=== PATIENT | female | born 1965 | race Caucasian/White ===

== ENCOUNTER → 2024-07-04 12:38 | Outpatient (REF) | payer OTHER, SELFPAY | LOC: RAD 12:38 | PROVIDERS: ATTENDING PHYSICIAN Nurse Practitioner Family; FAMILY PHYSICIAN Family Medicine | DX: R05.3 Chronic cough (principal) | CPT/HCPCS: 71046 ==

== ENCOUNTER 2024-08-07 19:02 | Inpatient (IN) | payer OTHER, SELFPAY ==
[2024-08-07] VITALS (8 sets, daily range): BP systolic 120–178; BP diastolic 64–95; BMI 24.3
[2024-08-07 16:08] LABS: % Basophils 0.1 % (0-2); % Immature Granulocytes 0.5 % (0-0.5); % Lymphocytes 8.8 % (20.5-51.1); % Monocytes 0.7 % (1.7-9.3); % Neutrophils 89.9 % (42.2-75.2); Absolute Lymphocytes 0.7 10^3/uL (1.2-3.4); Absolute Monocytes 0.1 10^3/uL (0.1-0.6); Absolute Neutrophils 7.5 10^3/uL (1.4-6.5); Hematocrit 44.3 % (37.0-47.0); Hemoglobin 15.1 g/dL (12.0-16.0); Mean Corp Hgb Conc. 34.1 g/dL (33.0-37.0); Mean Corpuscular Hgb 32.5 pg (27.0-31.0); Mean Corpuscular Volume 95.5 fL (81.0-99.0); Mean Platelet Volume 9.8 fL (7.4-10.4); Nucleated Red Blood Cells % 0 %; Platelet Count 302 10^3/uL (130-400); Red Blood Cell Count 4.64 10^6/uL (4.20-5.40); White Blood Cell Count 8.3 10^3/uL (4.8-10.8)
--- NOTE | 2024-08-07 16:10 | ED.GENMED ---
History of Present Illness
General
Chief Complaint: Weakness
Source: patient
Exam Limitations: none
Time Seen by Provider: 08/07/24 15:30
Nursing documentation reviewed up to this point in time: agreed with
History of Present Illness
History of Present Illness:
Patient to ED wt complaint of BLE weakness. States 1 week ago she noticed numbness in both of her hands. Has had cervical radiculopathy but states typically her symptoms involve entire arm. Thurs PM she noticed that her legs felt weak. No
numbness or tingling. SInce then she has had worsening weakness and now is unable to stair climb. States she is crawling up steps and then crawls over to furniture to get self to standing position. Describes her gait as 'unorganized'. Now
requires walker to ambulate. Denies fever/chills, headache, dizziness, vision changes. No history of trauma. Reports bronchitis at [facility], symptoms x 5 weeks. COvid and influenza neg at that time. No recent immunizations. She reports
known herniated discs at cervical and lumbar areas. No increase in pain. Has full ROM to head and neck. Her PCP is away. States she spoke with oncall provider and was prescribed Prednisone 40mg. He has had 2 doses. Brought to ED by family for
eval
Past History
Past History
ED Past Medical History: Cancer (thyroid 2018), Hypothyroidism, Psychiatric and Other (Asthma, allergy to strawberries)
ED Past Surgical History: , Gynecological (uterine ablation, tubal ligation) and Tonsilectomy
Social History
Tobacco: Non-smoker
Alcohol: Occasional
Drug: Marijuana (medical marijuana)
Personal:
Living: with family
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
Family History
Family History: Negative CAD
Review of Systems
Review of Systems
Allergies reviewed?: Yes
All Other Systems: ROS reviewed and negative except as documented in HPI and ROS
Constitutional: Reports no symptoms
EENT: Reports no symptoms
Respiratory: Reports no symptoms
Cardiac: Reports no symptoms
ABD/GI: Reports no symptoms
: Reports no symptoms
Musculoskeletal: Reports no symptoms
Skin: Reports no symptoms
Neurological: Reports weakness (BLE weakness) and numbness (Bilateral hand numbness)
Psychiatric: Reports no symptoms
Phy Exam
General Physical Exam
General Presentation: moderate distress
General age: appears stated age
General Skin: warm and dry
General Habitus: normal
General Mental: alert
Cardiovascular Exam
Cardiovascular Exam: regular rate/rhythm and no edema
Pulmonary Exam
Pulmonary Exam: lungs clear and no respiratory distress
Neurological Exam
Neurological Exam: alert, oriented x3 and CN II-XII intact
Mental
Mental Status: oriented to person, oriented to place, oriented to time and usual mental status
Cranial
Cranial Nerves: normal, intact gag reflex and no facial asymetry
EOM (CN3/4/6): intact
Motor
Seizure Activity: none
Tremors: none
Right upper extremity: 3
Right lower extremity: 3
Left upper extremity: 3
Left lower extremity: 1
Bilateral upper extremities: 1
Bilateral lower extremities: 1
Sensory
Sensory Exam: intact
Musculoskeletal Exam
Musculoskeletal Exam: neck pain (chronic,unchanged), back pain (low back, chronic, unchanged), no edema and other (Sensation intact. Unable to lift legs off bed.)
Skin Exam
Skin Exam: normal color, warm/dry and no rash
Psychiatric Exam
Psychiatric Exam: normal mood/affect
Course
Orders/Labs/Results
Orders:
Orders
08/07/24 Dinner
Regular
At Your Request: Limited Participation
08/07/24 15:57
Comprehensive Metabolic Panel Urgent
Creatine Phosphokinase Urgent
Comment: ADD ON
Lyme Progressive Urgent
08/07/24 15:58
CRP [C-Reactive Protein] Urgent
Complete Blood Count/With Diff Urgent
Free T4 Urgent
Sed Rate [Erythrocyte Sed Rate] Urgent
TSH Reflex To Free T4 Urgent
08/07/24 17:46
Urinalysis Reflex To Culture Urgent
Date Specimen was Collected: 08/07/24
Time Specimen was Collected: 17:45
08/07/24 17:56
NEUROLOGY CONSULT Urgent
Consulting Provider: Radha Busch
Was physician already notified: Yes
08/07/24 18:03
MR Cervical Spine Without Stat
Comment:
Reason For Exam: cervical myelopathy
OK for patient to be off Cardiac Monitoring for MRI: No
Recent pill cam endoscopy?: No
08/07/24 18:04
MR Thoracic Spine Without Stat
Comment:
Reason For Exam: myelop
OK for patient to be off Cardiac Monitoring for MRI: No
Recent pill cam endoscopy?: No
08/07/24 18:07
Add On- LAB Urgent
Comments:: please add on to CSF
Tests Added?: OCB, MBP, cytology
08/07/24 18:20
Admit/Transfer Patient As Directed
Co-Sign Provider:
Level of Care: Inpatient admission
Assign to:: Telemetry
Physician / Group: Simba
Diagnosis: Acute Myelopathy
Reason for Telemetry: Arrhythmia
Date to Stop Telemetry: 08/10/24
Time to Stop Telemetry: 11:00
Reason for Hospitalization: Neurology consult, spinal MRI
Expected length of stay greater than two midnights?: Yes
ELOS- Estimated Length of Stay in days: 6
I certify the patient meets the requirements for IP care: Yes
PRN Pain Medication Management As Directed
May give lesser potent ordered pain med per pt: Yes
preference::
Protocol:: Medication orders for pain may be administered in a
manner that supports deferring to patient preference
when the pt is:
- Requesting an ordered lesser potent pain medication.
Least to most potent pain medications are defined
as: acetaminophen < NSAID < tramadol < opioids
(morphine, oxycodone, hydromorphone).
- Requesting a lesser dose of the same medication IF
ORDERED.
- Requesting a less intrusive route of administration
if both routes are prescribed by the provider (PO <
IV).
08/07/24 18:21
Code Status As Directed
Resuscitation Status: Full Code
08/07/24 19:55
Acetaminophen [Tylenol] 650 mg PO Q6HPRN PRN
Albuterol [ProAIR HFA INHALER] 2 puff INH R Q4HPRN PRN
08/07/24 19:55
Activity As Directed
Activity Level: With Assistance
DX Deep Vein Thrombosis Video Routine
08/08/24 18:00
Enoxaparin Sodium [Lovenox] 40 mg SC QPM
Abnormal Lab Results
08/07/24 08/07/24
15:57 15:58
MCH 32.5 H pg
(27.0-31.0)
Absolute Neuts (auto) 7.5 H 10^3/uL
(1.4-6.5)
Absolute Lymphs (auto) 0.7 L 10^3/uL
(1.2-3.4)
Neutrophils % 89.9 H %
(42.2-75.2)
Lymphocytes % 8.8 L %
(20.5-51.1)
Monocytes % 0.7 L %
(1.7-9.3)
BUN 20 H mg/dl
(7-17)
Glucose 131 H mg/dl
(70-99)
Creatine Kinase 169 H U/L
(30-135)
Albumin 5.1 H g/dl
(3.5-5.0)
TSH (Reflex) 0.06 L uIU/ml
(0.47-4.68)
08/07/24 15:58
08/07/24 15:57
Vital Signs
Initial and Last Documented VS:
Initial Vital Signs
Temp Pulse Resp BP Pulse Ox
98.1 F 133 18 178/95 99
08/07/24 14:46 08/07/24 14:46 08/07/24 14:46 08/07/24 14:46 08/07/24 14:46
Last Documented Vital Signs
Temp Pulse Resp BP Pulse Ox
97.6 F 90 16 136/65 94
08/15/24 08:28 08/15/24 21:00 08/15/24 21:00 08/15/24 21:00 08/15/24 21:00
*Critical Care Note
Total Time (30-74mins, 75-104mins- exclusive of procedures): Not Applicable
Update Note
Update Note:
Labs reviewed, no concerning findings noted through lab assessment. VSS, remains afebrile. Case discussed with dr. Busch who evaluated this pateint bedside. Concern for cord compression. She will be admitted to hospitalist service, STAT MRI
ED Attending Note
-
Portions of this chart may have been created with voice recognition software.� Occasional wrong word or��sound alike� substitutions may have occurred due to the inherent limitations of voice recognition software.
Discharge Plan
Departure
Patient Disposition: Admit
Date of Disposition: 08/07/24
Time of Disposition: 17:52
Presentation/result/management discussed w/ accepting MD/DO: Hospitalist
Patient with high blood pressure during this ER visit?: No
Condition: Fair
Covid-19: Not Applicable
Discharge Problem:
Myelopathy
Interventions
Interventions:
*Risk Screen - Suicide Last Done: 08/07/24 14:46
*General Assessment Last Done: 08/07/24 14:46
*Neglect/Abuse Screening Last Done: 08/07/24 14:46
*ED COVID-19 Vaccine History Last Done: 08/07/24 14:46
*Nursing Disposition Last Done: 08/07/24 19:52
ED- Cardiac Assessment Last Done: 08/07/24 16:00
ED- Neurological Assessment Last Done: 08/07/24 16:00
ED- Pulmonary Assessment Last Done: 08/07/24 16:00
Discharge Date and Time
Discharge Date/Time: 08/07/24 19:52
[2024-08-07 16:22] LABS: ALT (SGPT) 28 U/L (0-35); AST (SGOT) 31 U/L (14-36); Albumin 5.1 g/dl (3.5-5.0); Alkaline Phosphatase 79 U/L (38-126); Blood Urea Nitrogen 20 mg/dl (7-17); Carbon Dioxide 26 mmol/L (22-30); Chloride 104 mmol/L (98-107); Glucose 131 mg/dl (70-99); Potassium 3.8 mmol/L (3.5-5.1); Sodium 144 mmol/L (135-145); Total Bilirubin 0.9 mg/dl (0.2-1.3); Total Protein 7.6 g/dl (6.3-8.2); eGFR > 60.00
[2024-08-07 16:25] LABS: C-Reactive Protein < 5.00 mg/L (0.0-10.00)
--- NOTE | 2024-08-07 16:25 | CON.NEURO ---
Consultation
Order
Date of Consultation: 08/07/24
Requesting Provider: Mckenna Tran
Reason for Consult: Ambulatory dysfunction
Neurology Consultation Note.
HPI: This is a 58-year-old woman who presented to [facility] on 08/07/2024 with progressive ambulatory dysfunction. According to the patient she developed
progressive left greater then right leg weakness that started on 08/05/2024. The patient reports the need to use the railing and crawl upstairs on 08/06/2024. She also reports tingling and a 'funny' sensation in her feet and admits to worsening of
pre-existing numbness of bilateral I-IV digits of the hand over the last 2 weeks. She did have transient neck pain which has been managed with ice, ibuprofen, and Tylenol.
No falls, fever, diarrhea, dyspnea, dysphagia, diplopia, dysarthria, recent vaccination or respiratory symptoms.
ER VS: 145/82-178/95, 133,
PDMP:Oxycodone-Acetaminophen 5-325 20 tablets filled in on 12/29/2023, 05/08/2024.
Labs: Glucose�131, normal WBCs, sodium, LFTs, TFTs
PMH: C6-C6 DJD, h/o papillary thyroid ca, hypothyroidism, vitamin D deficiency, GERD, TRENA positive history of head concussion, celiac disease, Hepatic steatosis chronic pain syndrome, AISHWARYA, ADD,
PSH: total thyroidectomy, cholecystectomy, , tubal ligation, tonsillectomy
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
All: Aspirin
ROS: Constitutional: Negative. Negative for chills, fever and unexpected weight change.
HENT: Negative for ear pain, hearing loss, tinnitus and trouble swallowing.
Eyes: Negative. Negative for photophobia, pain and visual disturbance.
Respiratory: Negative for cough, choking and shortness of breath.
Cardiovascular: Negative for chest pain, palpitations and leg swelling.
Gastrointestinal: Negative for abdominal pain and vomiting.
Endocrine: Negative. Negative for cold intolerance.
Genitourinary: Negative for dysuria, flank pain and urgency.
Musculoskeletal: Positive for intermittent neck pain
Skin: Negative for rash.
Allergic/Immunologic: Negative. Negative for immunocompromised state.
Neurological: Positive for leg weakness, paresthesias
Psychiatric/Behavioral: Positive for anxiety
General: Well developed. In no acute distress.
Cardio: Regular rate and rhythm without murmur. Extremities are without cyanosis or edema.
Neuro:
Mental Status: Alert, oriented to person, place, and date. Normal attention and recall. Good fund of knowledge. Follows complex requests across the midline. Comprehension, naming, and repetition intact. Immediate and delayed recall 3/3.
Cranial Nerves: . Pupils are equally round and reactive to light. EOMs full. Visual kent full to confrontation. No ptosis. No nystagmus. V1-V3 intact to light touch and pinprick bilaterally, symmetric. Face symmetric. Normal hearing AU.
The palate elevated well. SCMs and traps 5/5. Tongue midline. No dysarthria. Anxious.
Motor: Normal bulk and tone. No pronator or arm drift. Strength 5/5 throughout except for lateral dorsiflexion 3 -/5, hip flexion, knee extension 4- out of 5 bilateral detailed 4 out of 5, triceps�5- out of 5. No clonus.
Reflexes: 2+ throughout the upper extremities and R knee. AJs, L knee 0/2. Plantar responses flexor bilaterally.
Sensory: Normal vibration and JPS at the toes
Coordination: No dysmetria or tremor.
Gait: normal base, steppage gait, unable to stand on tip toes
Assessment and Plan:
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
II. Hypothyroidism
III. AISHWARYA
-Start IVIG 0.4mg/kg/day for 5 days. Side effects include aseptic meningitis, rash, acute renal failure (mostly related to sucrose containing products), and hyperviscosity leading to stroke
-CSF(cell count, protein, glucose, SHERRY)
-NCS/EMG of LUE/LE in 3 weeks
-MRI C/T spine wo aishwarya
-Vit B12, SHERRY, Lyme ab, vit B1, copper, ESR/CRP; TRENA, anti-GM1 IgG and anti-GD1a antibodies
-DVT prophylaxis.
.�
I personally reviewed all radiology and labs along with past medical records pertinent to current medical problems. Total time spent in patient care is 60 minutes.
Thank you for allowing us to participate in the care of this patient. We will continue to follow. Please do not hesitate to contact us with any questions or concerns.
Subjective/Objective
Subjective Data
Date of Service: August 07, 2024
Objective Data
Vital Signs
Temp Pulse Resp BP Pulse Ox
36.7 C 133 18 178/95 99
08/07/24 14:46 08/07/24 14:46 08/07/24 14:46 08/07/24 14:46 08/07/24 14:46
Lab Results
08/07/24 15:58
08/07/24 15:57
Sodium 144 mmol/L (135-145) 08/07/24 15:57
Potassium 3.8 mmol/L (3.5-5.1) 08/07/24 15:57
BUN 20 mg/dl (7-17) H 08/07/24 15:57
Glucose 131 mg/dl (70-99) H 08/07/24 15:57
Calcium 10.0 mg/dl (8.4-10.2) 08/07/24 15:57
Patient Allergies
strawberry Allergy (Verified 08/07/24 14:51)
Swelling
aspirin [Aspirin] Adverse Reaction (Verified 08/07/24 14:51)
GI upset
BANDAID Allergy (Uncoded 08/07/24 14:51)
Rash
Medications
-
Home Medications
�Medication �Instructions �Recorded
valacyclovir 500 mg tablet 500 mg PO PRN PRN fever blisters 05/24/09
(Valtrex)
Control 1 dose PO DAILY 12/14/14
diphenhydramine HCl 25 mg capsule 25 mg PO PRN PRN allergies 12/14/14
(Benadryl)
epinephrine 0.3 mg/0.3 mL 0.3 mg (0.3 mL) IM ONCE #2 mL 12/14/14
injection, auto-injector (EpiPen)
multivitamin (Daily Sami tablet) 1 ea PO DAILY 12/14/14
prednisone 20 mg tablet 40 mg (2 x 20 mg) PO DAILY #10 tabs 12/14/14
sucralfate 100 mg/mL oral 1 gm PO ACHS #560 mL 05/01/15
suspension (Carafate)
cyclobenzaprine 10 mg tablet 10 mg PO HSPRN PRN muscle spasms, 07/04/16
tightness #7 tabs
famotidine 20 mg tablet (Pepcid AC) 20 mg PO DAILY 07/04/16
hydrocodone 5 mg-acetaminophen 325 1 tab PO Q4HPRN PRN severe pain 07/04/16
mg tablet #10 tabs
ibuprofen 600 mg tablet 600 mg PO Q6HPRN PRN pain #12 tabs 07/04/16
Vital Signs and Labs
-
Vital Signs and Labs:
Vital Signs
Temp Pulse Resp BP Pulse Ox
36.7 C 77 18 113/71 98
08/08/24 07:18 08/08/24 07:18 08/08/24 07:18 08/08/24 07:18 08/08/24 07:18
Lab Results
08/07/24 15:58
08/07/24 15:57
Sodium 144 mmol/L (135-145) 08/07/24 15:57
Potassium 3.8 mmol/L (3.5-5.1) 08/07/24 15:57
BUN 20 mg/dl (7-17) H 08/07/24 15:57
Glucose 131 mg/dl (70-99) H 08/07/24 15:57
Calcium 10.0 mg/dl (8.4-10.2) 08/07/24 15:57
Medications
-
Medications:
Generic Name Dose Route Start Last Admin
Trade Name Freq PRN Reason Stop Dose Admin
Acetaminophen 650 mg 08/07/24 19:55 08/08/24 06:20
Acetaminophen 325 Mg Tablet PO 09/04/24 19:54 650 mg
Q6HPRN PRN Administration
mild pain/ fever>100.5F
Albuterol 2 puff 08/07/24 19:55
Albuterol Hfa [90 Mcg/Dose] Inhaler INH
R Q4HPRN PRN
SOB, wheezing
Protocol
Enoxaparin Sodium 40 mg 08/08/24 18:00
Enoxaparin Sodium 40 Mg/0.4 Ml Syringe SC 09/05/24 17:59
QPM CAMELIA
Immune Globulin 25 gram 08/08/24 07:25
Immune Globulin (Calculator Uses Ibw) - Pharmacy To Place Order 0.4 gram/kg (25 gram) 08/08/24 07:26
IV
DIRECTED ONE
Levothyroxine Sodium 62.5 mcg 08/08/24 06:00 08/08/24 05:22
Levothyroxine 125 Mcg Tablet PO 09/05/24 05:59 62.5 mcg
DAILY@0600 CAMELIA Administration
Liothyronine Sodium 5 microgram 08/08/24 08:00
Liothyronine 5 Microgram Tablet PO 09/05/24 07:59
BID CAMELIA
Sodium Chloride 0 flush 08/07/24 21:00
Sodium Chloride 0.9% (Flush) Syringe IV 09/04/24 20:59
PER PROTOCOL CAMELIA
Home Medications
-
Home Medications
valacyclovir 500 mg tablet (Valtrex) 500 mg PO DAILYPRN PRN fever blisters 05/24/09
acetaminophen 500 mg tablet 500 mg PO DAILYPRN PRN mild pain 08/07/24
ibuprofen 200 mg tablet 600 mg PO DAILYPRN PRN mild pain 08/07/24
levothyroxine 125 mcg tablet (Synthroid) 62.5 mcg PO DAILY 08/07/24
lidocaine 5 % topical patch 3 patch topical DAILYPRN PRN upper and lower back 08/07/24
liothyronine 5 mcg tablet 5 mcg PO BID 08/07/24
omeprazole 20 mg capsule,delayed release 20 mg PO DAILY 08/07/24
oxycodone-acetaminophen 5 mg-325 mg tablet 1 tab PO Q6HPRN PRN severe pain 08/07/24
prednisone 20 mg tablet 40 mg PO UD 08/07/24
semaglutide (weight loss) 1.7 mg/0.75 mL subcutaneous pen injector (Luc) 1.7 mg SC TU 08/07/24
[2024-08-07 16:32] LABS: Erythrocyte Sed Rate 8 mm/hour (0-20)
[2024-08-07 16:55] LABS: TSH Reflex To Free T4 0.06 uIU/ml (0.47-4.68)
[2024-08-07 17:25] LABS: Free T4 1.06 ng/dl (0.78-2.19)
[2024-08-07 18:02] LABS: Urine Albumin Trace (Neg - Trace); Urine Bilirubin Negative (Negative); Urine Character Clear (Clear); Urine Color Yellow; Urine Glucose Negative (Negative); Urine Ketone Negative (Negative); Urine Leukocyte Negative (Negative); Urine Nitrite Negative (Negative); Urine Occult Blood Negative (Negative); Urine Urobilinogen Negative (Neg - 1+)
--- NOTE | 2024-08-07 18:22 | HPS.HSE ---
Family Physician
-
Family Physician: Eb Mcgraw
Chief Complaint
-
Bilateral leg weakness
History of Present Illness
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
Developed bilateral hand numbness on and she tried calling her primary care doctor. Was given a prescription for prednisone 40 mg daily that she started on Thursday. Did not notice a difference and unfortunately developed new onset of lower
extremity weakness over the past 24 to 36 hours. Leg weakness was so bad that she was using her arms to get around and crawling around her house.
Denies any recent vaccinations in the prior year. Had bronchitis around the time of .
History of herniated disks. Denies any fevers or chills. Denies loss of bowel or bladder.
Medical History
Past Medical History
Past Medical History: Reports Other
Additional Past Medical History:
Papillary thyroid cancer -2018
Iatrogenic hypothyroidism
Mild intermittent asthma
Anxiety disorder
Hyperlipidemia
Past Surgical History: Reports Gynocological and Tonsilectomy
Social History
Tobacco: Non-smoker
Alcohol: None
Drug: None
Personal: Single
Living: Alone
Family History
Family History: Not pertinent
Allergies / Home Medications
Allergies reflects when Allergies were last updated in [facility].
Home Medications with original date entered in [facility]
Allergy/Medication List:
Allergies
Allergy/AdvReac Type Severity Reaction Status Date / Time
strawberry Allergy Swelling Verified 08/07/24 14:51
aspirin [Aspirin] AdvReac GI upset Verified 08/07/24 14:51
BANDAID Allergy Rash Uncoded 08/07/24 14:51
Home Medications
valacyclovir 500 mg tablet (Valtrex) 500 mg PO PRN PRN fever blisters 05/24/09
Control 1 dose PO DAILY 12/14/14
diphenhydramine HCl 25 mg capsule (Benadryl) 25 mg PO PRN PRN allergies 12/14/14
epinephrine 0.3 mg/0.3 mL injection, auto-injector (EpiPen) 0.3 mg (0.3 mL) IM ONCE #2 mL 12/14/14
multivitamin (Daily Sami tablet) 1 ea PO DAILY 12/14/14
prednisone 20 mg tablet 40 mg (2 x 20 mg) PO DAILY #10 tabs 12/14/14
sucralfate 100 mg/mL oral suspension (Carafate) 1 gm PO ACHS #560 mL 05/01/15
cyclobenzaprine 10 mg tablet 10 mg PO HSPRN PRN muscle spasms, tightness #7 tabs 07/04/16
famotidine 20 mg tablet (Pepcid AC) 20 mg PO DAILY 07/04/16
hydrocodone 5 mg-acetaminophen 325 mg tablet 1 tab PO Q4HPRN PRN severe pain #10 tabs 07/04/16
ibuprofen 600 mg tablet 600 mg PO Q6HPRN PRN pain #12 tabs 07/04/16
Review of Systems
-
History Source: Patient
A 12 point ROS was completed and negative except as noted: Yes
Physical Exam
Vital Signs
Vital Signs
Temp Pulse Resp BP Pulse Ox
98.1 F 105 17 149/82 93
08/07/24 14:46 08/07/24 16:45 08/07/24 16:45 08/07/24 16:00 08/07/24 16:45
Physical Exam
General: Well Developed, Well Nourished, No Apparent Distress and Comfortable
HEENT: NormoCephalic, Anicteric and Moist mucous membranes
Respiratory: Clear
Cardiac: S1/S2 and Regular Rhythm
Breast: Deferred by me
GI: Soft, Non Tender and Non Distended
Genito-urinary: Deferred by me
Musculoskeletal: No Clubbing, No Cyanosis and No Edema
Skin: Warm and Dry
Neuro: AO x 3
Hematologic/Lymphatic: No Lymphadenopathy
Psych: Anxious
Laboratory Results
-
08/07/24 15:58
08/07/24 15:57
Laboratory Results
Total Bilirubin 0.9 mg/dl (0.2-1.3) 08/07/24 15:57
AST 31 U/L (14-36) 08/07/24 15:57
ALT 28 U/L (0-35) 08/07/24 15:57
Alkaline Phosphatase 79 U/L (38-126) 08/07/24 15:57
Impression/Plan
-
Acute bilateral lower extremity weakness - differential diagnosis includes myelopathy versus Guillain-Morgan� syndrome versus other causes.
Admit to telemetry. Neurology consult. Stat spine MRI without contrast, discussed with neurology.
PT/OT.
Lovenox for DVT prophylaxis.
Mild intermittent asthma -stable.
History of thyroid cancer -please update home medication list. TSH noted to be 0.06, free T4 normal.
Full code
[2024-08-07 18:39] LABS: Creatine Phosphokinase 169 U/L (30-135)
--- NOTE | 2024-08-07 20:40 | PTCARENOTE ---
Pt arrived to room 436-02. Pt ambulated from stretcher to bed x1 assistance with r/w. Pt AAOx3, VSS. No complaints of numbness, tingling or pain in B/L legs. Pt oriented to room, call perkins placed within reach.
[2024-08-07] MEDS: TYLENOL 650 MG PO (21:02)
[2024-08-08] VITALS (33 sets, daily range): BP systolic 77–165; BP diastolic 51–129; PULSE 86; O2SAT 98; BMI 24.7
[2024-08-08] MEDS: SYNTHROID 62.5 MCG PO (05:22)
[2024-08-08] MEDS: TYLENOL 650 MG PO (06:20)
--- NOTE | 2024-08-08 07:46 | W.PN.NEURO.1 ---
Today's Communication / Plan
-
.
Subjective/Objective
Subjective Data
Date of Service: August 08, 2024
Neurology follow-up note
24-hour events: Normotensive, transiently tachycardic on admission, afebrile.
Ms. Nevarez complains neck pain and stiffness. No reports of radicular symptoms. She endorses worsening of anxiety related to current diagnosis and family responsibilities.
No reports of dyspnea, dysarthria, dysphagia or diplopia.
Labs: CRP, free T4�normal.
C, T-spine MRI without aishwarya�no extra or intramedullary abnormalities.
PMH: C6-C6 DJD, h/o papillary thyroid ca, hypothyroidism, vitamin D deficiency, GERD, TRENA positive history of head concussion, celiac disease, Hepatic steatosis chronic pain syndrome, AISHWARYA, ADD,
PSH: total thyroidectomy, cholecystectomy, , tubal ligation, tonsillectomy
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
All: Aspirin
ROS: Constitutional: Negative. Negative for chills, fever and unexpected weight change.
HENT: Negative for ear pain, hearing loss, tinnitus and trouble swallowing.
Eyes: Negative. Negative for photophobia, pain and visual disturbance.
Respiratory: Negative for cough, choking and shortness of breath.
Cardiovascular: Negative for chest pain, palpitations and leg swelling.
Gastrointestinal: Negative for abdominal pain and vomiting.
Endocrine: Negative. Negative for cold intolerance.
Genitourinary: Negative for dysuria, flank pain and urgency.
Musculoskeletal: Positive for intermittent neck pain
Skin: Negative for rash.
Allergic/Immunologic: Negative. Negative for immunocompromised state.
Neurological: Positive for leg weakness, paresthesias
Psychiatric/Behavioral: Positive for anxiety
General: Well developed. In no acute distress.
Cardio: Regular rate and rhythm without murmur. Extremities are without cyanosis or edema.
Neuro:
Mental Status: Alert, oriented to person, place, and date. Normal attention and recall. Good fund of knowledge. Follows complex requests across the midline. Comprehension, naming, and repetition intact. Immediate and delayed recall 3/3.
Cranial Nerves: . Pupils are equally round and reactive to light. EOMs full. Visual kent full to confrontation. No ptosis. No nystagmus. V1-V3 intact to light touch and pinprick bilaterally, symmetric. Face symmetric. Normal hearing AU.
The palate elevated well. SCMs and traps 5/5. Tongue midline. No dysarthria. Anxious.
Motor: Normal bulk and tone. No pronator or arm drift. Strength 5/5 throughout except for lateral dorsiflexion 3 -/5, hip flexion, knee extension 4- out of 5 bilateral detailed 4 out of 5, triceps�5- out of 5. No clonus.
Reflexes: 2+ throughout the upper extremities and R knee. AJs, L knee 0/2. Plantar responses flexor bilaterally.
Sensory: Normal JPS at the toes
Coordination: No dysmetria or tremor.
Gait: normal base, steppage gait, unable to stand on tip toes
Assessment and Plan:
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
II. Hypothyroidism
III. AISHWARYA
-IVIG 0.4mg/kg/day for 5 days.
-CSF(cell count, protein, glucose, SHERRY)
-NCS/EMG of LUE/LE in 3 weeks
-Start Neurontin 100 mg nightly with titration as tolerated
-Lorazepam 0.5 mg as needed
-Vit B12, SHERRY, Lyme ab, vit B1, copper, ESR/CRP; TRENA, anti-GM1 IgG and anti-GD1a antibodies
-DVT prophylaxis.
.�
I personally reviewed all radiology and labs along with past medical records pertinent to current medical problems. Total time spent in patient care is 60 minutes.
Thank you for allowing us to participate in the care of this patient. We will continue to follow. Please do not hesitate to contact us with any questions or concerns.
Objective Data
Vital Signs
Temp Pulse Resp BP Pulse Ox
36.7 C 77 18 113/71 98
08/08/24 07:18 08/08/24 07:18 08/08/24 07:18 08/08/24 07:18 08/08/24 07:18
Lab Results
08/07/24 15:58
08/07/24 15:57
Sodium 144 mmol/L (135-145) 08/07/24 15:57
Potassium 3.8 mmol/L (3.5-5.1) 08/07/24 15:57
BUN 20 mg/dl (7-17) H 08/07/24 15:57
Glucose 131 mg/dl (70-99) H 08/07/24 15:57
Calcium 10.0 mg/dl (8.4-10.2) 08/07/24 15:57
Patient Allergies
strawberry Allergy (Verified 08/07/24 14:51)
Swelling
aspirin [Aspirin] Adverse Reaction (Verified 08/07/24 14:51)
GI upset
BANDAID Allergy (Uncoded 08/07/24 14:51)
Rash
Vital Signs and Labs
-
Vital Signs and Labs:
Vital Signs
Temp Pulse Resp BP Pulse Ox
36.7 C 77 18 113/71 98
08/08/24 07:18 08/08/24 07:18 08/08/24 07:18 08/08/24 07:18 08/08/24 07:18
Lab Results
08/07/24 15:58
08/07/24 15:57
PT 13.9 Sec (11.4-14.6) 08/08/24 07:39
INR 0.96 08/08/24 07:39
Sodium 144 mmol/L (135-145) 08/07/24 15:57
Potassium 3.8 mmol/L (3.5-5.1) 08/07/24 15:57
BUN 20 mg/dl (7-17) H 08/07/24 15:57
Glucose 131 mg/dl (70-99) H 08/07/24 15:57
Calcium 10.0 mg/dl (8.4-10.2) 08/07/24 15:57
Whole Bld Vitamin B1 Cancelled 08/08/24 07:47
Vitamin B12 Cancelled 08/08/24 07:47
Medications
-
Medications:
Generic Name Dose Route Start Last Admin
Trade Name Freq PRN Reason Stop Dose Admin
Acetaminophen 650 mg 08/07/24 19:55 08/08/24 06:20
Acetaminophen 325 Mg Tablet PO 09/04/24 19:54 650 mg
Q6HPRN PRN Administration
mild pain/ fever>100.5F
Albuterol 2 puff 08/07/24 19:55
Albuterol Hfa [90 Mcg/Dose] Inhaler INH
R Q4HPRN PRN
SOB, wheezing
Protocol
Enoxaparin Sodium 40 mg 08/08/24 18:00
Enoxaparin Sodium 40 Mg/0.4 Ml Syringe SC 09/05/24 17:59
QPM CAMELIA
Immune Globulin 5 gram in 50 mls @ 0 mls/hr 08/08/24 10:00
Gammagard IV 08/12/24 10:01
DAILY@1000 CAMELIA
Protocol
Per Protocol
Immune Globulin 20 gram in 200 mls @ 0 mls/hr 08/08/24 11:00
Gammagard IV 08/12/24 11:01
DAILY@1100 CAMELIA
Protocol
Per Protocol
Levothyroxine Sodium 62.5 mcg 08/08/24 06:00 08/08/24 05:22
Levothyroxine 125 Mcg Tablet PO 09/05/24 05:59 62.5 mcg
DAILY@0600 CAMELIA Administration
Liothyronine Sodium 5 microgram 08/08/24 08:00
Liothyronine 5 Microgram Tablet PO 09/05/24 07:59
BID CAMELIA
Sodium Chloride 0 flush 08/07/24 21:00
Sodium Chloride 0.9% (Flush) Syringe IV 09/04/24 20:59
PER PROTOCOL CAMELIA
Home Medications
-
Home Medications
valacyclovir 500 mg tablet (Valtrex) 500 mg PO DAILYPRN PRN fever blisters 05/24/09
acetaminophen 500 mg tablet 500 mg PO DAILYPRN PRN mild pain 08/07/24
ibuprofen 200 mg tablet 600 mg PO DAILYPRN PRN mild pain 08/07/24
levothyroxine 125 mcg tablet (Synthroid) 62.5 mcg PO DAILY 08/07/24
lidocaine 5 % topical patch 3 patch topical DAILYPRN PRN upper and lower back 08/07/24
liothyronine 5 mcg tablet 5 mcg PO BID 08/07/24
omeprazole 20 mg capsule,delayed release 20 mg PO DAILY 08/07/24
oxycodone-acetaminophen 5 mg-325 mg tablet 1 tab PO Q6HPRN PRN severe pain 08/07/24
prednisone 20 mg tablet 40 mg PO UD 08/07/24
semaglutide (weight loss) 1.7 mg/0.75 mL subcutaneous pen injector (Luc) 1.7 mg SC TU 08/07/24
[2024-08-08 08:37] LABS: PT 13.9 Sec (11.4-14.6)
[2024-08-08 08:45] LABS: INR 0.96
[2024-08-08] MEDS: CYTOMEL 5 MICROGRAM PO ×2 (09:57→19:34)
[2024-08-08 11:25] LABS: Vitamin B12 563 pg/ml (239-931)
[2024-08-08] MEDS: PERCOCET 5/325 1 TABLET PO ×2 (13:08→19:35)
--- NOTE | 2024-08-08 13:13 | CM ---
Patient seen bedside..
IA completed.
Patient independent prior to admission without assistive devices.
patient lives alone.
Patient drives.
patient has not been to skilled rehab.
Patient does not have VN.
PT/OT recommending Acute rehab, will need PMR consultation.
CM will continue to follow for d/c plan, patient hoping elly be able to go home.
PCP: Dr Mcgraw
Pharmacy: [facility]
Plan: Possible acute rehab.
patient would prefer [facility] here. Referral sent to [facility].
--- NOTE | 2024-08-08 13:53 | W.PN.HOSP.TC ---
Today's Communication/Plan
-
LP then IMU and initiation of IVIG
follow Neuro recs
Assessment / Plan
Assessment / Plan
Assessment:
Acute bilateral lower extremity weakness
- previously started on steroids per outpatient PCP - will stop there (only took 1 day)
- MRI spine without significant myelopathic pathology
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
- for LP today
- follow extended Neurology workup
- start IVIG, day 07/31
- transfer to IMU
Mild intermittent asthma - stable.
History of thyroid cancer - continue Cytomel and Synthroid (patient prefers brand name - will bring in her own supply). noted low TSH, normal T4
DVT ppx: Lovenox
Code: Full
Anticipated Discharge: > 48 hours
Subjective/Interval History
-
Date of Service: August 08, 2024
reports stable bilateral leg weakness and bilateral hand numbness
for LP today
Objective Data
-
Labs:
Laboratory Results
08/08/24
07:39
PT 13.9
INR 0.96
Vital Signs:
Vital Signs
Temp Pulse Resp BP Pulse Ox
98.1 F 84 16 126/70 99
08/08/24 13:00 08/08/24 13:00 08/08/24 13:00 08/08/24 13:00 08/08/24 13:00
I&O
08/07/24 08/08/24 08/09/24
06:59 06:59 06:59
Intake Total 240 / 240
Balance 240 / 240
Physical Exam
-
General: No Apparent Distress
HEENT: Normocephalic and Atraumatic
Respiratory: Negative Wheezes
Cardiac: Regular Rhythm
GI: Soft and Nontender
Genito-urinary: No Costovertebral Tender
Musculoskeletal: No Edema
Neuro: AO x 3 and Other (Strength 5/5 throughout except for lateral dorsiflexion 3 -/5, hip flexion, knee extension 4- out of 5 bilateral detailed 4 out of 5, triceps-5- out of 5. No clonus.)
Hematologic / Lymphatic: No Lymphadenopathy
Psych: Calm
Data Reviewed
-
Total Time Spent with Patient (in minutes): 42
Labs: Labs Reviewed by me
--- NOTE | 2024-08-08 14:27 | PTCARENOTE ---
Pt here from IR post spinal tap, Jeff on site. Pt fingers numb having a hear time moving her limbs and her hips.
[2024-08-08] MEDS: ZOFRAN 4 MG IV (14:53)
[2024-08-08] MEDS: GAMMAGARD 50 IV (14:56)
[2024-08-08 15:15] LABS: Spinal Fluid Glucose 61 mg/dl (40-70); Spinal Fluid Protein 56 mg/dl (12-60)
[2024-08-08 15:25] LABS: CSF Clarity Clear; CSF Color Colorless; CSF Tube # 3
[2024-08-08 15:26] LABS: Red Cell Count/CSF 9 mm^3; White Cell Count/CSF 0 mm^3 (0-5)
[2024-08-08 15:51] LABS: Lyme Antibody Screen, EIA Negative (Negative)
[2024-08-08] MEDS: GAMMAGARD 200 IV (16:10)
[2024-08-08] MEDS: NEURONTIN 100 MG PO ×2 (16:11→21:32)
[2024-08-08] MEDS: LOVENOX 40 MG SC (17:29)
--- NOTE | 2024-08-08 17:56 | PTCARENOTE ---
Pt stood by bedside using walker and pivot to BSC to void
[2024-08-09] VITALS (40 sets, daily range): BP systolic 96–157; BP diastolic 50–100
[2024-08-09] MEDS: PERCOCET 5/325 1 TABLET PO ×2 (01:38→07:52)
[2024-08-09] MEDS: VALTREX 500 MG PO (01:43)
--- NOTE | 2024-08-09 02:28 | PTCARENOTE ---
Received pt from jv RN. Pt AAOx3. B/L lower ext weak, LLE weaker than RLE. Neuropathy to B/L hands, new. C/o 8/10 pain in neck, lower back, and L leg. Percocet given. NSR on monitor. Lungs CTA on RA. Continent b/b. Skin intact. Assistx1 stand
and pivot to BSC. MRI brain and MRI cervical spine with contrast scheduled for 08/09. IVIG dose 5 given on previous shift. Care ongoing.
[2024-08-09 05:04] LABS: Hematocrit 39.8 % (37.0-47.0); Hemoglobin 13.6 g/dL (12.0-16.0); Mean Corp Hgb Conc. 34.2 g/dL (33.0-37.0); Mean Corpuscular Hgb 32.5 pg (27.0-31.0); Mean Corpuscular Volume 95.2 fL (81.0-99.0); Mean Platelet Volume 9.8 fL (7.4-10.4); Platelet Count 252 10^3/uL (130-400); Red Blood Cell Count 4.18 10^6/uL (4.20-5.40); Red Cell Dist. Width 11.9 % (11.5-14.5); White Blood Cell Count 6.3 10^3/uL (4.8-10.8)
[2024-08-09 05:16] LABS: Blood Urea Nitrogen 21 mg/dl (7-17); Calcium 9.5 mg/dl (8.4-10.2); Carbon Dioxide 28 mmol/L (22-30); Chloride 104 mmol/L (98-107); Estimated Creatinine Clearance 102 ml/min; Glucose 106 mg/dl (70-99); Potassium 4.2 mmol/L (3.5-5.1); Sodium 141 mmol/L (135-145); eGFR > 60.00
[2024-08-09] MEDS: NON-FORMULARY ITEM 1 UNIT PO (05:53)
--- NOTE | 2024-08-09 07:35 | W.PN.NEURO.1 ---
Today's Communication / Plan
-
.
Subjective/Objective
Subjective Data
Date of Service: August 09, 2024
Neurology follow-up note
24-hour events: Mr. Nevarez reports intermittent horizontal diplopia with right lateral gaze after she returned from MRI. She admits to have moderate nonradicular neck and back pain as well as a mild holocephalic headache and worsening leg weakness
since yesterday. No reports of dyspnea, dysarthria or dysphagia.
Labs: CRP/ESR, free T4�normal.
Brain MRI with gadolinium(08/08/2024)nodular focus of enhancement within the superior left cerebellar hemisphere, with a larger region of surrounding increased T2 and FLAIR signal, new from 2007. No cranial nerve enhancement.
PMH: C6-C6 DJD, h/o papillary thyroid ca, hypothyroidism, vitamin D deficiency, GERD, TRENA positive, history of head concussion, celiac disease, Hepatic steatosis, chronic pain syndrome, AISHWARYA, ADD,
PSH: total thyroidectomy, cholecystectomy, , tubal ligation, tonsillectomy
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
All: Aspirin
ROS: Constitutional: Negative. Negative for chills, fever and unexpected weight change.
HENT: For the poor pain
Eyes: Negative. Negative for photophobia, pain and visual disturbance.
Respiratory: Negative for cough, choking and shortness of breath.
Cardiovascular: Negative for chest pain, palpitations and leg swelling.
Gastrointestinal: Negative for abdominal pain and vomiting.
Endocrine: Negative. Negative for cold intolerance.
Genitourinary: Negative for dysuria, flank pain and urgency.
Musculoskeletal: Positive for intermittent neck pain back pain
Skin: Negative for rash.
Allergic/Immunologic: Negative. Negative for immunocompromised state.
Neurological: Positive for leg weakness, paresthesias, headache
Psychiatric/Behavioral: Positive for anxiety
General: Well developed. In no acute distress.
Cardio: Regular rate and rhythm without murmur. Extremities are without cyanosis or edema.
Neuro:
Mental Status: Alert, oriented to person, place, and date. Normal attention and recall. Good fund of knowledge. Follows complex requests across the midline. Comprehension, naming, and repetition intact. Immediate and delayed recall 3/3.
Cranial Nerves: . Pupils are equally round and reactive to light. EOMs full. Diplopia on the right noted on lateral gaze visual kent full to confrontation. No ptosis. No nystagmus. V1-V3 intact to light touch and pinprick bilaterally,
symmetric. Face symmetric. Full eye closure, able to whistle. Normal hearing AU. The palate elevated well. SCMs and traps 5/5. Tongue midline. No dysarthria.
Motor: Normal bulk and tone. No pronator or arm drift. Strength 5/5 throughout except for lateral dorsiflexion 2/5, hip flexion, knee extension 4- out of 5 bilateral DF 3/5. bicep bilaterally�4 out of 5 no clonus. Neck flexors 4/5.
Reflexes: 1+ throughout the upper extremities and 0 knee. AJs, Plantar responses flexor bilaterally.
Sensory: Absent vibration at the toes and preserved at the ankles
Coordination: No tremor; and movements
Gait: unable
Assessment and Plan:
I. Guillain-[place] syndrome(MFS?). The albuminocytologic dissociation may be present in 50-66 % of patients in the first week after the onset of symptoms and >75 % of patients in the third week.
A normal CSF protein is found in 1/3 to 1/5 of patients when tested earlier than one week from symptom onset and therefore does not exclude the diagnosis of GBS
II. Left cerebellar lesion. Differential diagnosis includes demyelinating(concurrent GBS and ADEM are uncommon with few reported cases) versus low grade neoplastic vs vascular vs inflammatory vs less likely infectious etiologies.
III. Hypothyroidism
�Transferred to ICU
-Continue IVIG 0.4mg/kg/day (day 2 out of 5) with IV hydration and premedication
-Follow-up CSF studies (oligoclonal bands, myelin basic protein, cytology
-NCS/EMG of LUE/LE in 3 weeks
-Increase Neurontin to 300 mg TID as tolerated
-Apply eye patch
-T/LS spine MRI w/w aishwarya to look for intrathoracic or conus medullaris enhancement
-Plan to repeat brain MRI with aishwarya in 2 weeks
-Tylenol 560 mg every 8 hours as needed for neck pain
-follow up Vit B12, SHERRY, anti SSA/B, Lyme ab, vit B1, copper, HIV, heavy metal screen, MG panel TRENA, anti-GM1 IgG and anti-GD1a/b antibodies
-DVT prophylaxis.
I personally reviewed all radiology and labs along with past medical records pertinent to current medical problems. Total time spent in patient care is 65 minutes.
Thank you for allowing us to participate in the care of this patient. We will continue to follow. Please do not hesitate to contact us with any questions or concerns.
Objective Data
Vital Signs
Temp Pulse Resp BP Pulse Ox
36.8 C 69 16 117/66 94
08/09/24 03:58 08/09/24 06:00 08/09/24 06:00 08/09/24 06:00 08/09/24 06:00
Lab Results
08/09/24 04:36
08/09/24 04:36
PT 13.9 Sec (11.4-14.6) 08/08/24 07:39
INR 0.96 08/08/24 07:39
Sodium 141 mmol/L (135-145) 08/09/24 04:36
Potassium 4.2 mmol/L (3.5-5.1) 08/09/24 04:36
BUN 21 mg/dl (7-17) H 08/09/24 04:36
Glucose 106 mg/dl (70-99) H 08/09/24 04:36
Calcium 9.5 mg/dl (8.4-10.2) 08/09/24 04:36
Whole Bld Vitamin B1 Cancelled 08/08/24 07:47
Vitamin B12 563 pg/ml (239-931) 08/08/24 07:47
Vitamin B12 Cancelled 08/08/24 07:47
Patient Allergies
strawberry Allergy (Verified 08/07/24 14:51)
Swelling
aspirin [Aspirin] Adverse Reaction (Verified 08/07/24 14:51)
GI upset
BANDAID Allergy (Uncoded 08/07/24 14:51)
Rash
[2024-08-09] MEDS: PROTONIX 40 MG PO (07:51)
[2024-08-09] MEDS: CYTOMEL 5 MICROGRAM PO ×2 (07:51→19:58)
[2024-08-09] MEDS: NEURONTIN 100 MG PO (07:52)
[2024-08-09] MEDS: GAMMAGARD IV (10:38)
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
[2024-08-09] MEDS: GAMMAGARD 50 IV (11:43)
--- NOTE | 2024-08-09 11:59 | PTCARENOTE ---
Patient just informed this RN that she is having vision issues: she states it appears blurry when both eyes are open. Vision is fine with eyes open one at a times. She has returned from MRI brain with contrast. Sulligent text sent to both Dr Pope and
Dr Busch.
[2024-08-09] MEDS: ATIVAN 0.5 MG PO (12:04)
[2024-08-09] MEDS: GAMMAGARD 200 IV (12:56)
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
--- NOTE | 2024-08-09 14:38 | PTCARENOTE ---
Dr Busch in room to see patient and instructed this nurse to stop IVIG infusion. Patient to be transferred to ICU.
[2024-08-09] MEDS: NSS 1000 IV (14:53)
--- NOTE | 2024-08-09 15:20 | W.PN.HOSP.TC ---
Today's Communication/Plan
-
due to worsening exam, Neuro recommends ICU transfer
continue IVIG, IVF
f/u MRI studies tomorrow
follow up workup
Assessment / Plan
Assessment / Plan
Assessment:
Acute bilateral lower extremity weakness
- previously started on steroids per outpatient PCP - will stop now (only took 1 day)
- MRI imaging of spine so far did not reveal any enhancing lesions, myelopathic signal. Awaiting MRI T spine with contrast and MRI L spine (w/w out)
- MRI brain: delayed images reveal Nodular focus of enhancement within the superior left cerebellar hemisphere, with a larger region of surrounding increased T2 and FLAIR signal. See above discussion regarding timing of contrast enhancement.
Etiology for this finding is uncertain. It could possibly represent neoplasia. A focus of demyelination could be considered. Vasculitis could also be considered. This could possibly be a vascular/venous anomaly, although the surrounding increased T2
and FLAIR signal is atypical
- will look to obtain MRI brain with contrast repeat in 2 weeks
- also consider CT-A to evaluate for vascular anomaly
- continue IVIG day 2; with IVF also
- follow extended neuro workup from serum and CSF studies
- follow Neuro recs
- ICU transfer planned today as precaution due to worsening neuro exam as recommended by Neurology.
Chronic neck pain
- increase Gabapentin to 300mg TID; prn Tylenol
Mild intermittent asthma - stable.
History of thyroid cancer - continue Cytomel and Synthroid (patient prefers brand name - is using her own supply). noted low TSH, normal T4
DVT ppx: Lovenox
Code: Full
Anticipated Discharge: > 48 hours
Subjective/Interval History
-
Date of Service: August 09, 2024
reports diplopia w R lateral gaze, worsening bilateral leg weakness in addition to headache and chronic neck pain
no dyspnea, dysphagia, dysarthria
Objective Data
-
Labs:
Laboratory Results
08/09/24
04:36
WBC 6.3
Hgb 13.6
Hct 39.8
Plt Count 252
Sodium 141
Potassium 4.2
Chloride 104
Carbon Dioxide 28
BUN 21 H
Creatinine 0.6
Glucose 106 H
Calcium 9.5
Vital Signs:
Vital Signs
Temp Pulse Resp BP Pulse Ox
98.1 F 79 19 157/84 97
08/09/24 10:37 08/09/24 13:29 08/09/24 13:29 08/09/24 13:30 08/09/24 13:29
I&O
08/08/24 08/09/24 08/10/24
06:59 06:59 06:59
Intake Total 240 / 240 730 / 730
Output Total 250 / 250
Balance 240 / 240 480 / 480
Physical Exam
-
General: No Apparent Distress
HEENT: Normocephalic and Atraumatic
Respiratory: Negative Wheezes
Cardiac: Regular Rhythm and S1/S2
GI: Soft and Nontender
Genito-urinary: No Costovertebral Tender
Neuro: AO x 3 and Other ( Diplopia on the right noted on lateral gaze visual kent full to confrontation. Strength 5/5 throughout except for lateral dorsiflexion 2/5, hip flexion, knee extension 4- out of 5 bilateral DF 3/5. bicep bilaterally-4 out
of 5 no clonus. Neck flexors 4/5. )
Psych: Calm
Data Reviewed
-
Total Time Spent with Patient (in minutes): 42
Labs: Labs Reviewed by me
--- NOTE | 2024-08-09 15:53 | CON.INTV ---
Documented by User: Phyllis Solares MD, Resident 08/09/24 17:02
Consultation
Consultation Request
Date/Time Consultation Requested: 08/09/24
Date/Time Consultation Performed: 08/09/24
Requesting Provider: Niko Kelly MD
Performing Provider: Phyllis Solares MD
Reason for Consultation: Risk of acute respiratory failure
Medical History
-
Chief Complaint: Weakness on bilateral upper and lower extremities
History of Present Illness:
The patient is a 58 year old female with a PMH of Papillary thyroid cancer (2018), Iatrogenic hypothyroidism, Asthma, Anxiety disorder and Hyperlipidemia who presented to ER complaining from lower extremity weakness as well as hand numbness
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 Patient does not report any gastrointestinal problems like
diarrhea. She reported that she had an upper respiratory tract infection around which lasted into the first 2 weeks of June and was given steroids at that time. She denies any shortness of breath, dysphagia, urinary/fecal
incontinence, admits to mild diplopia. She also has increased weakness and difficulties walking and just in last 24 hours. She has some paresthesias in her upper extremities as well especially on her finger tips and palms.
Past Medical History
Past Medical History: Other (Papillary thyroid cancer -2018 Iatrogenic hypothyroidism Mild intermittent asthma Anxiety disorder Hyperlipidemia)
Past Surgical History: Other (,Tubal ligation, Tonsillectomy, Thyroidectomy, Cholecystectomy.)
Social History
Tobacco: Non-smoker
Alcohol: None
Drug: None
Personal: Single
Living: Alone
Family History
Family History: Reviewed & Not Pertinent
Allergies / Home Medications
Allergies
Allergy/AdvReac Type Severity Reaction Status Date / Time
strawberry Allergy Swelling Verified 08/07/24 14:51
aspirin [Aspirin] AdvReac GI upset Verified 08/07/24 14:51
BANDAID Allergy Rash Uncoded 08/07/24 14:51
Home Medications
�Medication �Instructions �Recorded �Confirmed �Last Taken �Type
valacyclovir 500 mg tablet 500 mg PO DAILYPRN PRN fever 05/24/09 08/07/24 06/27/24 History
(Valtrex) blisters
acetaminophen 500 mg tablet 500 mg PO DAILYPRN PRN mild pain 08/07/24 08/07/24 08/07/24 History
ibuprofen 200 mg tablet 600 mg PO DAILYPRN PRN mild pain 08/07/24 08/07/24 08/07/24 History
levothyroxine 125 mcg tablet 62.5 mcg PO DAILY Thyroid 08/07/24 08/07/24 08/07/24 History
(Synthroid)
lidocaine 5 % topical patch 3 patch topical DAILYPRN PRN upper 08/07/24 08/07/24 08/02/24 History
and lower back
liothyronine 5 mcg tablet 5 mcg PO BID Thyroid 08/07/24 08/07/24 08/07/24 History
omeprazole 20 mg capsule,delayed 20 mg PO DAILY Gastrointestinal 08/07/24 08/07/24 Unknown History
release Issue
oxycodone-acetaminophen 5 mg-325 1 tab PO Q6HPRN PRN severe pain 08/07/24 08/07/24 Unknown History
mg tablet
prednisone 20 mg tablet 40 mg PO UD Anti-Inflammatory 08/07/24 08/07/24 08/07/24 History
40 mg
semaglutide (weight loss) 1.7 1.7 mg SC TU Weight Gain 08/07/24 08/07/24 07/26/24 History
mg/0.75 mL subcutaneous pen
injector (Wegovy)
Review of Systems
-
Unable to Obtain full review of systems at this time due to: Other (Per HPI )
Vitals / Labs / Diagnostic Testing
Vital Signs
Temp Pulse Resp BP Pulse Ox
98.1 F 79 19 157/84 97
08/09/24 10:37 08/09/24 13:29 08/09/24 13:29 08/09/24 13:30 08/09/24 13:29
Lab Data
08/09/24 04:36
08/09/24 04:36
Microbiology
08/08/24 14:01 Csf CSF Culture - Preliminary
No Growth After 18-24 Hours
08/08/24 14:01 Csf Gram Stain - Preliminary
Diagnostic Testing:
Physical Exam
-
HEENT: Normocephalic and Anicteric
Cardiovascular: S1/S2 and Regular Rhythm
Respiratory: Clear
GI: Soft, Non Distended and Non Tender
Neurology: Awake, Alert, Oriented and Other (Bilateral lower extremity weakness )
Skin: Warm and Dry
General: Comfortable
Assessment
-
Assessment:
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
Guillain-Morgan� syndrome and transferred to ICU-coil cutter consulted for Guillain-Morgan� syndrome/critical care management 08/09/2024.
Guillain-Morgan� syndrome
Left cerebellar lesion
Conditions present prior to admission:
Asthma-mild intermittent.
Papillary thyroid cancer 2018.
Hypothyroid.
Hyperlipidemia.
Anxiety.
. Tubal ligation. Tonsillectomy. Thyroidectomy. Cholecystectomy.
Plan
Transfer patient to medical intensive care unit for close neurologic evaluation
Triggers include previous infections including Campylobacter jejunum and viral infections including influenza A, B, CMV, COVID 19, Zika, and EBV as well as vaccinations including influenza (1-2/1 million), RSV, zoster, COVID-19 especially adenovirus
factors though noted with messenger RNA vaccines as well
Typical presentation includes lower extremity weakness, decreased deep tendon reflexes, paresthesias and dysautonomia's
Supplemental oxygen as needed
Incentive spirometry
Aspiration precautions
Nebulizers if needed-history of asthma-currently not bronchospastic
Monitor muscle strength and forced vital capacity
Indications for intubation and mechanical ventilation include
Respiratory rate greater than 30
Oxygen saturations less than 92%
FVC less than 20 mL/kg or greater than 30% decline
NIF less than -30
MEP less than 40
pCO2 elevation of greater than 50
Neurology evaluation
Check lumbar puncture-usually elevated protein and normal WBCs
Check vitamin B12, SHERRY, Lyme antibodies, vitamin B1, copper, ESR/CRP, TRENA, anti-GM 1 IgG and anti-GD Ia antibodies
Monitor vital capacity every shift
Initial treatment-IVIG 0.4 mg/kg/day for 5 days
Consider plasma exchange
NCS/EMG's in 3 weeks
Neurontin as tolerated
Ativan as tolerated
DVT prophylaxis
Nutrition with aspiration precautions
Physical and Occupational Therapy
Critical care statement: A total of 65 minutes of critical care time was provided for this patient today. This includes management of unstable vital signs, evaluation of the patient at bedside, reviewing the patient's pertinent medical records
including radiographs, microbiology, laboratory evaluations, and discussion with primary team, consultants, pharmacy, nutrition, physical therapy, case management, charge nurse, critical care nursing, and respiratory therapy.
Diagnostic data:
Chest x-ray 07/04/2024-NAD
Brain MRI 08/09/2024-nodular focus of enhancement superior left cerebellar hemisphere etiology uncertain, neoplasia possible, demyelination could be considered, vasculitis could be considered, diffuse fatty atrophy of the right parotid gland

Documented by User: Jerry Kulkarni MD 08/10/24 07:42
Assessment
-
Assessment:
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
Guillain-Morgan� syndrome and transferred to ICU-coil cutter consulted for Guillain-Morgan� syndrome/critical care management 08/09/2024.
Guillain-Morgan� syndrome
Left cerebellar lesion
Conditions present prior to admission:
Asthma-mild intermittent.
Papillary thyroid cancer 2018.
Hypothyroid.
Hyperlipidemia.
Anxiety.
. Tubal ligation. Tonsillectomy. Thyroidectomy. Cholecystectomy.
Plan
Transfer patient to medical intensive care unit for close neurologic evaluation
Triggers include previous infections including Campylobacter jejunum and viral infections including influenza A, B, CMV, COVID 19, Zika, and EBV as well as vaccinations including influenza (1-2/1 million), RSV, zoster, COVID-19 especially adenovirus
factors though noted with messenger RNA vaccines as well
Typical presentation includes lower extremity weakness, decreased deep tendon reflexes, paresthesias and dysautonomia's
Supplemental oxygen as needed
Incentive spirometry
Aspiration precautions
Nebulizers if needed-history of asthma-currently not bronchospastic
Monitor muscle strength and forced vital capacity
Indications for intubation and mechanical ventilation include
Respiratory rate greater than 30
Oxygen saturations less than 92%
FVC less than 20 mL/kg or greater than 30% decline
NIF less than -30
MEP less than 40
pCO2 elevation of greater than 50
Neurology evaluation
Check lumbar puncture-usually elevated protein and normal WBCs
Check vitamin B12, SHERRY, Lyme antibodies, vitamin B1, copper, ESR/CRP, TRENA, anti-GM 1 IgG and anti-GD Ia antibodies
Monitor vital capacity every shift
Initial treatment-IVIG 0.4 mg/kg/day for 5 days
Consider plasma exchange
NCS/EMG's in 3 weeks
Neurontin as tolerated
Ativan as tolerated
DVT prophylaxis
Nutrition with aspiration precautions
Physical and Occupational Therapy
Critical care statement: A total of 65 minutes of critical care time was provided for this patient today. This includes management of unstable vital signs, evaluation of the patient at bedside, reviewing the patient's pertinent medical records
including radiographs, microbiology, laboratory evaluations, and discussion with primary team, consultants, pharmacy, nutrition, physical therapy, case management, charge nurse, critical care nursing, and respiratory therapy.
I reviewed this patients case independently and in conjunction with the resident. I personally examined the patient. Patient's complex medical history, laboratory evaluations, events over the last 24 hours, radiographs, microbiological data were
all personally reviewed.
Agree with documented assessment and plan-identical assessment and plan outlined by myself
Critical care statement: A total of 65 minutes of critical care time was provided for this patient today. This includes management of unstable vital signs, evaluation of the patient at bedside, reviewing the patient's pertinent medical records
including radiographs, microbiology, laboratory evaluations, and discussion with primary team, consultants, pharmacy, charge nurse, critical care nursing, and respiratory therapy.
Jerry Kulkarni MD, [facility], [facility]
Diagnostic data:
Chest x-ray 07/04/2024-NAD
Brain MRI 08/09/2024-nodular focus of enhancement superior left cerebellar hemisphere etiology uncertain, neoplasia possible, demyelination could be considered, vasculitis could be considered, diffuse fatty atrophy of the right parotid gland
--- NOTE | 2024-08-09 16:37 | PTCARENOTE ---
Patient transferred to ICU; report given to
[2024-08-09] MEDS: NEURONTIN 300 MG PO ×2 (17:33→21:23)
[2024-08-09] MEDS: LOVENOX 40 MG SC (17:33)
[2024-08-09 18:05] LABS: Angiotensin-1-converting Enzym <10 U/L (16-85)
--- NOTE | 2024-08-09 19:28 | PTCARENOTE ---
Received pt. from IMU s/p transfer to ICU rm [id number]. Able to move upper extremities w moderate equal strength against resistance; reports numbness/tingling in fingers. Able to move LE but unable to lift off bed, strength L>R on LE; reports
numbness/tingling in toes and moving up calves. Also reports double vision in peripherals. TT Neurology, Dr. Busch, regarding IVIG dosing d/t pt. not receiving full dose today. Received further input for Neurology, Dr. Busch, to finish IVIG
w/out premedication- see flow sheet. IVIG remains infusing, no adverse reactions. nursing coordinator updated. Call maddie mercedes in reach.
--- NOTE | 2024-08-09 19:35 | PTCARENOTE ---
Received pt. from IMU s/p transfer to ICU rm [id number] @ [id number]. Able to move upper extremities w moderate equal strength against resistance; reports numbness/tingling in fingers. Able to move LE but unable to lift off bed, strength L>R on LE; reports
numbness/tingling in toes and moving up calves. Also reports double vision in peripherals. TT Neurology, Dr. Busch, regarding IVIG dosing d/t pt. not receiving full dose today. Received further input for Neurology, Dr. Busch, to finish IVIG
w/out premedication- see flow sheet. IVIG remains infusing, no adverse reactions. shiftman updated. Call maddie mercedes in reach.
[2024-08-09] MEDS: TYLENOL 650 MG PO (20:08)
--- NOTE | 2024-08-09 20:48 | PTCARENOTE ---
IVIG completed. Pt c/o neck pain, ice pack and tylenol given. Safe environment maintained. call perkins within reach. Son at bedside.
[2024-08-10] VITALS (32 sets, daily range): BP systolic 116–150; BP diastolic 66–97; BMI 24.9
[2024-08-10] MEDS: TYLENOL 650 MG PO ×2 (02:36→17:36)
[2024-08-10] MEDS: ATIVAN 0.5 MG PO ×2 (02:37→23:01)
[2024-08-10 05:24] LABS: Hematocrit 36.3 % (37.0-47.0); Hemoglobin 12.9 g/dL (12.0-16.0); Mean Corp Hgb Conc. 35.5 g/dL (33.0-37.0); Mean Corpuscular Hgb 33.2 pg (27.0-31.0); Mean Corpuscular Volume 93.3 fL (81.0-99.0); Mean Platelet Volume 9.7 fL (7.4-10.4); Platelet Count 217 10^3/uL (130-400); Red Blood Cell Count 3.89 10^6/uL (4.20-5.40); Red Cell Dist. Width 11.8 % (11.5-14.5); White Blood Cell Count 3.9 10^3/uL (4.8-10.8)
[2024-08-10 05:51] LABS: ALT (SGPT) 392 U/L (0-35); AST (SGOT) 252 U/L (14-36); Albumin 3.7 g/dl (3.5-5.0); Alkaline Phosphatase 90 U/L (38-126); Blood Urea Nitrogen 13 mg/dl (7-17); Calcium 8.4 mg/dl (8.4-10.2); Carbon Dioxide 26 mmol/L (22-30); Chloride 106 mmol/L (98-107); Estimated Creatinine Clearance 102 ml/min; Glucose 98 mg/dl (70-99); Magnesium 2.1 mg/dl (1.6-2.3); Potassium 3.6 mmol/L (3.5-5.1); Sodium 139 mmol/L (135-145); Total Bilirubin 1.3 mg/dl (0.2-1.3); Total Protein 7.1 g/dl (6.3-8.2); eGFR > 60.00
[2024-08-10] MEDS: NON-FORMULARY ITEM 1 UNIT PO (06:09)
[2024-08-10] MEDS: NSS 1000 IV (06:33)
--- NOTE | 2024-08-10 07:35 | W.PN.INTV ---
Today's Communication / Plan
Recommendations
IVIG
Monitor respiratory status
Discontinue IV fluids
Assessment
-
Assessment:
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
Guillain-Morgan� syndrome and transferred to ICU-it corporate recruiter consulted for Guillain-Morgan� syndrome/critical care management 08/09/2024.
Guillain-Morgan� syndrome
Left cerebellar lesion
Conditions present prior to admission:
Asthma-mild intermittent.
Papillary thyroid cancer 2018.
Hypothyroid.
Hyperlipidemia.
Anxiety.
. Tubal ligation. Tonsillectomy. Thyroidectomy. Cholecystectomy.
Plan
Transfer patient to medical intensive care unit for close neurologic evaluation
Triggers include previous infections including Campylobacter jejunum and viral infections including influenza A, B, CMV, COVID 19, Zika, and EBV as well as vaccinations including influenza (1-2/1 million), RSV, zoster, COVID-19 especially adenovirus
factors though noted with messenger RNA vaccines as well
Typical presentation includes lower extremity weakness, decreased deep tendon reflexes, paresthesias and dysautonomia's
Supplemental oxygen as needed
Incentive spirometry
Aspiration precautions
Nebulizers if needed-history of asthma-currently not bronchospastic
Monitor muscle strength and forced vital capacity
08/09/2024-FVC-1.6 L-predicted 2.9 and MIP 35
08/10/2024-FVC 1.5 L-predicted 2.9 and MIP 30
Indications for intubation and mechanical ventilation include
Respiratory rate greater than 30
Oxygen saturations less than 92%
FVC less than 20 mL/kg or greater than 30% decline
NIF less than -30
MEP less than 40
pCO2 elevation of greater than 50
Neurology evaluation ongoing
Lumbar puncture-usually elevated protein and normal WBCs
Check vitamin B12, SHERRY, Lyme antibodies, vitamin B1, copper, TRENA, anti-GM 1 IgG and anti-GD Ia antibodies
ESR and CRP normal-unlikely vasculitis
Continue to monitor vital capacity every shift
Initial treatment-IVIG 0.4 mg/kg/day on day 35
Consider plasma exchange thereafter
NCS/EMG's in 3 weeks
Neurontin as tolerated
Ativan as tolerated
Brain MRI 08/09/2024-nodular focus of enhancement superior left cerebellar hemisphere etiology uncertain, neoplasia possible, demyelination could be considered, vasculitis could be considered, diffuse fatty atrophy of the right parotid gland
Cervical spine MRI 08/09/24-5 mm well-defined focus of enhancement in the lateral margin of the [id number], mild to moderate changes of DJD unchanged from 2024, slight anterior cord compression at C5-6
Thoracic spine MRI 08/10/2024-no abnormal enhancement to suggest acute myelopathy
Lumbar spine MRI 08/10/2024-mild degenerative changes and mild bilateral neural foraminal stenosis L4-5 and L5-6 1, no abnormal enhancement
DVT prophylaxis-on Lovenox
Nutrition with aspiration precautions
Physical and Occupational Therapy
Critical care statement: A total of 40 minutes of critical care time was provided for this patient today. This includes management of unstable vital signs, evaluation of the patient at bedside, reviewing the patient's pertinent medical records
including radiographs, microbiology, laboratory evaluations, and discussion with primary team, consultants, pharmacy, nutrition, physical therapy, case management, charge nurse, critical care nursing, and respiratory therapy.
Diagnostic data:
Chest x-ray 07/04/2024-NAD
Brain MRI 08/09/2024-nodular focus of enhancement superior left cerebellar hemisphere etiology uncertain, neoplasia possible, demyelination could be considered, vasculitis could be considered, diffuse fatty atrophy of the right parotid gland
Cervical spine MRI 08/09/24-5 mm well-defined focus of enhancement in the lateral margin of the [id number], mild to moderate changes of DJD unchanged from 2024, slight anterior cord compression at C5-6
Thoracic spine MRI 08/10/2024-no abnormal enhancement to suggest acute myelopathy
Lumbar spine MRI 08/10/2024-mild degenerative changes and mild bilateral neural foraminal stenosis L4-5 and L5-6 1, no abnormal enhancement
Subjective Dataa
Subjective Data
Date of Service:
Date of Service: August 10, 2024
Chief Complaint: Dark Room Attendant Follow Up and Pulmonary Follow Up
Subjective:
Complains of some progressive weakness in her lower extremities, no change in upper extremities and no complaints of shortness of breath, chest pain or abdominal pain
Review of Systems
General: Other (Per HPI)
Objective Data
Data Reviewed
Vital Signs / I&O / Oxygen:
Vital Signs
Temp Pulse Resp BP Pulse Ox
98.0 F 80 14 134/72 95
08/10/24 03:30 08/10/24 07:00 08/10/24 07:00 08/10/24 07:00 08/10/24 06:00
Intake and Output
08/09/24 08/10/24 08/11/24
06:59 06:59 06:59
Intake Total 730 / 730 960 / 960
Output Total 250 / 250 550 / 550
Balance 480 / 480 410 / 410
SaO2 95
Physical Exam
General: Respiratory Distress (n) and Comfortable
HEENT: Normocephalic, Anicteric and Moist Mucous Membranes
Cardiovascular: Regular Rhythm
Respiratory: Wheeze (n), Crackles (n), Non-Labored Respirations, Accessory Resp Muscle Use (n) and Stridor (n)
GI: Soft, Non Distended and Non Tender
Neurology: Awake, Alert and Other (Lower extremity weakness)
Skin: Warm, Good Color (n) and Cyanosis (n)
Labs/Micro/Reports
Lab Data
08/10/24 05:00
08/10/24 05:00
Microbiology
08/08/24 14:01 Csf CSF Culture - Preliminary
No Growth After 18-24 Hours
08/08/24 14:01 Csf Gram Stain - Preliminary
--- NOTE | 2024-08-10 07:45 | PTCARENOTE ---
Assumed care of patient. Pt rec'd A&Ox3. Pleasant. Mildly anxious. Diplopia noted in right eye. Left eye lid drooping...2x2 w/ paper tape applied. Will request prn refresh eye gtts. Bilateral foot drop noted...decreased sensation in lower
extremities and finger tips. Radiating nerve discomfort through lower extremities...occasionally able to wiggle toes and lift legs off pillows. Assist x 2 w/ repositioning. S1 S2 reg w/ ST on monitor. +PP. No edema. On R/A...sats 96%. Lungs
clear but diminished in bases. Occasional NPC. Abdomen round...+BS. Takes po meds whole w/ sips of water. Voids yellow on bedpan. Skin WNL. 22P LW w/ IVF's infusing. 20P RW capped. VS documented. Call perkins within reach.
[2024-08-10] MEDS: PROTONIX 40 MG PO (08:44)
[2024-08-10] MEDS: CYTOMEL 5 MICROGRAM PO ×2 (08:44→21:07)
[2024-08-10] MEDS: NEURONTIN 300 MG PO ×3 (08:44→21:07)
[2024-08-10] MEDS: PERCOCET 5/325 1 TABLET PO (08:44)
--- NOTE | 2024-08-10 09:56 | W.PN.NEURO.1 ---
Today's Communication / Plan
-
.
Subjective/Objective
Subjective Data
Date of Service: August 10, 2024
Neurology follow-up note
24-hour events: Mr. eNvarez continues to have diplopia. She states that her paresthesias reached 1/2 of the lower left leg. Kathryn tolerates gabapentin well however neck and back pain are still moderate.
No reports of dysphagia, dyspnea or dysarthria.
Brain MRI with gadolinium(08/08/2024)nodular focus of enhancement within the superior left cerebellar hemisphere, with a larger region of surrounding increased T2 and FLAIR signal, new from 2007. No cranial nerve enhancement.
Labs: AST 31-252, ALT-292.
PMH: C6-C6 DJD, h/o papillary thyroid ca, hypothyroidism, vitamin D deficiency, GERD, TRENA positive, history of head concussion, celiac disease, hepatic steatosis, chronic pain syndrome, AISHWARYA, ADD,
PSH: total thyroidectomy, cholecystectomy, , tubal ligation, tonsillectomy
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
All: Aspirin
ROS: Constitutional: Negative. Negative for chills, fever and unexpected weight change.
HENT: For the poor pain
Eyes: Negative. Negative for photophobia, pain and visual disturbance.
Respiratory: Negative for cough, choking and shortness of breath.
Cardiovascular: Negative for chest pain, palpitations and leg swelling.
Gastrointestinal: Negative for abdominal pain and vomiting.
Endocrine: Negative. Negative for cold intolerance.
Genitourinary: Negative for dysuria, flank pain and urgency.
Musculoskeletal: Positive for intermittent neck pain back pain
Skin: Negative for rash.
Allergic/Immunologic: Negative. Negative for immunocompromised state.
Neurological: Positive for leg weakness, paresthesias, headache
Psychiatric/Behavioral: Positive for anxiety
General: Well developed. In no acute distress.
Cardio: Regular rate and rhythm without murmur. Extremities are without cyanosis or edema.
Neuro:
Mental Status: Alert, oriented to person, place, and date. Normal attention and recall. Good fund of knowledge. Follows complex requests across the midline. Comprehension, naming, and repetition intact. Immediate and delayed recall 3/3.
Cranial Nerves: . Pupils are equally round and reactive to light. EOMs full. Diplopia on the right noted on lateral gaze visual kent full to confrontation. No ptosis. No nystagmus. V1-V3 intact to light touch and pinprick bilaterally,
symmetric. Face symmetric. Full eye closure, able to whistle. Normal hearing AU. The palate elevated well. SCMs and traps 5/5. Tongue midline. No dysarthria.
Motor: Normal bulk and tone. No pronator or arm drift. Strength 5/5 throughout except for hip flexion, knee extension 3-/5 out of 5 bilateral DF 1/5. bicep bilaterally�3/5. Neck flexors 4-/5.
Reflexes: 1+ throughout the upper extremities and 0 knee. AJs, Plantar responses flexor bilaterally.
Sensory: Stated that she is able to feel vibration at the toes bilaterally
Coordination: No tremor; mispointing in FTN bilaterally (has diplopia)
Gait: unable
Assessment and Plan:
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 The albuminocytologic dissociation may be present in 50-66 % of patients in the first week after the onset of symptoms and >75 % of patients in the third week.
A normal CSF protein is found in 1/3 to 1/5 of patients when tested earlier than one week from symptom onset and therefore does not exclude the diagnosis of GBS
II. Left cerebellar lesion. Differential diagnosis includes demyelinating(concurrent GBS and ADEM are uncommon with few reported cases) versus low grade neoplastic vs vascular vs inflammatory vs less likely infectious etiologies.
III. Hypothyroidism
� Continue ICU care
-Continue IVIG 0.4mg/kg/day (day 3 out of 5) with IV hydration and premedication
-Follow-up CSF studies (oligoclonal bands, myelin basic protein, cytology)
-NCS/EMG of LUE/LE in 3 weeks
-Continue Neurontin to 300 mg TID as tolerated
-T/LS spine MRI w/w aishwarya to look for intrathoracic or conus medullaris enhancement
-Brain MRI with aishwarya in 2 weeks
-Hematology consult-for PLEX given LFTs elevation
-DVT prophylaxis.
I personally reviewed all radiology and labs along with past medical records pertinent to current medical problems. Total time spent in patient care is 65 minutes.
Thank you for allowing us to participate in the care of this patient. We will continue to follow. Please do not hesitate to contact us with any questions or concerns
Objective Data
Vital Signs
Temp Pulse Resp BP Pulse Ox
36.6 C 80 14 134/72 95
08/10/24 08:05 08/10/24 07:00 08/10/24 07:00 08/10/24 07:00 08/10/24 06:00
Lab Results
08/10/24 05:00
08/10/24 05:00
PT 13.9 Sec (11.4-14.6) 08/08/24 07:39
INR 0.96 08/08/24 07:39
Sodium 139 mmol/L (135-145) 08/10/24 05:00
Potassium 3.6 mmol/L (3.5-5.1) 08/10/24 05:00
BUN 13 mg/dl (7-17) 08/10/24 05:00
Glucose 98 mg/dl (70-99) 08/10/24 05:00
Calcium 8.4 mg/dl (8.4-10.2) 08/10/24 05:00
Whole Bld Vitamin B1 Cancelled 08/08/24 07:47
Vitamin B12 563 pg/ml (239-931) 08/08/24 07:47
Vitamin B12 Cancelled 08/08/24 07:47
Patient Allergies
strawberry Allergy (Verified 08/07/24 14:51)
Swelling
aspirin [Aspirin] Adverse Reaction (Verified 08/07/24 14:51)
GI upset
BANDAID Allergy (Uncoded 08/07/24 14:51)
Rash
Vital Signs and Labs
-
Vital Signs and Labs:
Vital Signs
Temp Pulse Resp BP Pulse Ox
36.8 C 83 28 139/82 94
08/10/24 12:47 08/10/24 14:45 08/10/24 10:00 08/10/24 14:45 08/10/24 10:00
Lab Results
08/10/24 05:00
08/10/24 05:00
PT 13.9 Sec (11.4-14.6) 08/08/24 07:39
INR 0.96 08/08/24 07:39
Sodium 139 mmol/L (135-145) 08/10/24 05:00
Potassium 3.6 mmol/L (3.5-5.1) 08/10/24 05:00
BUN 13 mg/dl (7-17) 08/10/24 05:00
Glucose 98 mg/dl (70-99) 08/10/24 05:00
Calcium 8.4 mg/dl (8.4-10.2) 08/10/24 05:00
Whole Bld Vitamin B1 Cancelled 08/08/24 07:47
Vitamin B12 563 pg/ml (239-931) 08/08/24 07:47
Vitamin B12 Cancelled 08/08/24 07:47
Medications
-
Medications:
Generic Name Dose Route Start Last Admin
Trade Name Freq PRN Reason Stop Dose Admin
Acetaminophen 650 mg 08/07/24 19:55 08/10/24 02:36
Acetaminophen 325 Mg Tablet PO 09/04/24 19:54 650 mg
Q6HPRN PRN Administration
mild pain/ fever>100.5F
Albuterol 2 puff 08/07/24 19:55
Albuterol Hfa [90 Mcg/Dose] Inhaler INH
R Q4HPRN PRN
SOB, wheezing
Protocol
Artificial Tears 1 drops 08/10/24 10:28
Artificial Tears Pf (Refresh) 10 Drop Droperette OPHTH 09/07/24 10:27
QIDPRN PRN
dry eyes
Enoxaparin Sodium 40 mg 08/08/24 18:00 08/09/24 17:33
Enoxaparin Sodium 40 Mg/0.4 Ml Syringe SC 09/05/24 17:59 40 mg
QPM CAMELIA Administration
Gabapentin 300 mg 08/09/24 16:00 08/10/24 08:44
Gabapentin 300 Mg Capsule PO 09/06/24 15:59 300 mg
TID CAMELIA Administration
Immune Globulin 5 gram in 50 mls @ 0 mls/hr 08/10/24 12:00 08/10/24 12:15
Gammagard IV 08/12/24 12:01 50 mls
DAILY@1200 CAMELIA Administration
Protocol
Per Protocol
Immune Globulin 20 gram in 200 mls @ 0 mls/hr 08/10/24 13:00 08/10/24 13:17
Gammagard IV 08/12/24 13:01 200 mls
DAILY@1300 CAMELIA Administration
Protocol
Per Protocol
Ibuprofen 600 mg 08/10/24 14:30
Ibuprofen 600 Mg Tablet PO 09/07/24 14:29
Q6HPRN PRN
leg pain
Liothyronine Sodium 5 microgram 08/08/24 08:00 08/10/24 08:44
Liothyronine 5 Microgram Tablet PO 09/05/24 07:59 5 microgram
BID CAMELIA Administration
Lorazepam 0.5 mg 08/08/24 09:50 08/10/24 02:37
Lorazepam 0.5 Mg Tablet PO 09/05/24 09:49 0.5 mg
Q8HPRN PRN Administration
anxiety
Synthroid (Brand 0 unit 08/09/24 06:00 08/10/24 06:09
Name Levothyroxine) PO 09/06/24 05:59 1 unit
125mcg Tablet - Take DAILY@0600 CAMELIA Administration
1/2 Tablet (62.5mcg
) Po Daily
Ondansetron HCl 4 mg 08/08/24 12:07 08/08/24 14:53
Ondansetron 4 Mg/2 Ml Vial IV 09/05/24 12:06 4 mg
Q6HPRN PRN Administration
NAUSEA/VOMITING
Oxycodone/Acetaminophen 1 tablet 08/08/24 12:07 08/10/24 08:44
Oxycodone 5 Mg/Apap 325 Mg (Percocet) PO 08/22/24 12:06 1 tablet
Q6HPRN PRN Administration
severe pain
Pantoprazole Sodium 40 mg 08/09/24 08:00 08/10/24 08:44
Pantoprazole 40 Mg Delayed Release Tablet PO 09/06/24 07:59 40 mg
DAILY CAMELIA Administration
Sodium Chloride 0 flush 08/07/24 21:00
Sodium Chloride 0.9% (Flush) Syringe IV 09/04/24 20:59
PER PROTOCOL CAMELIA
Valacyclovir HCl 500 mg 08/08/24 12:07 08/09/24 01:43
Valacyclovir Hcl 500 Mg Tablet PO 08/18/24 12:06 500 mg
DAILYPRN PRN Administration
fever blisters
Home Medications
-
Home Medications
valacyclovir 500 mg tablet (Valtrex) 500 mg PO DAILYPRN PRN fever blisters 05/24/09
acetaminophen 500 mg tablet 500 mg PO DAILYPRN PRN mild pain 08/07/24
ibuprofen 200 mg tablet 600 mg PO DAILYPRN PRN mild pain 08/07/24
levothyroxine 125 mcg tablet (Synthroid) 62.5 mcg PO DAILY Thyroid 08/07/24
lidocaine 5 % topical patch 3 patch topical DAILYPRN PRN upper and lower back 08/07/24
liothyronine 5 mcg tablet 5 mcg PO BID Thyroid 08/07/24
omeprazole 20 mg capsule,delayed release 20 mg PO DAILY Gastrointestinal Issue 08/07/24
oxycodone-acetaminophen 5 mg-325 mg tablet 1 tab PO Q6HPRN PRN severe pain 08/07/24
prednisone 20 mg tablet 40 mg PO UD Anti-Inflammatory 08/07/24
semaglutide (weight loss) 1.7 mg/0.75 mL subcutaneous pen injector (Wegovy) 1.7 mg SC TU Weight Gain 08/07/24
--- NOTE | 2024-08-10 10:15 | PTCARENOTE ---
Pt sent to MRI (off monitor per MD) on stretcher.
--- NOTE | 2024-08-10 11:44 | W.PN.INTV ---
Documented by User: Phyllis Solares MD, Resident 08/10/24 12:47
Today's Communication / Plan
Recommendations
-Follow up pending result
-OT/PT evaluation
Assessment
-
Assessment:
Impression: The patient is a 58-year-old non-smoking female with a PMH of asthma, HL, hypothyroidism, papillary thyroid cancer 2018 presented with lower extremity weakness as well as hand numbness to ER on 08/09/24. The patient had felt her hand
numbness a few days ago and was started on steroid treatment due her chronic cervical radiculopathy. The patient was unresponsive to outpatient prednisone. She was obtained loramjxk-[id number]-brain MRI and had a lumbar puncture and further
studies for differential diagnosis. 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
Plan
# Likely Guillain-[place] syndrome vs Myopathy vs Vasculitis vs Neoplasia
-Brain MRI: nodular focus of enhancement superior left cerebellar hemisphere etiology uncertain, neoplasia possible, demyelination could be considered, vasculitis could be considered, diffuse fatty atrophy of the right parotid gland
-Physical exam relieves paresthesias, No clonus, no DTR on lower extremities which is compliant with Guillain-[place] syndrome. Less commonly the patients can present with sensory dysfunction or ophthalmoplegia , ataxia and bulbar dysfunction (
Peres-Bryan syndrome).�
-Cervical/thoracal/Lumbar MRI: No evidence for abnormal enhancement on spinal cord.
-No recent history of possible triggers like Viral infections, vaccinations or GI infections
-Vit B12: 563 , vit B1:Pending, copper: pending , ESR:8 /CRP<5 ; TRENA; pending , anti-GM1 IgG and anti-GD1a antibodies: pending;SS-A/B: Pending , Acetylchol Rcpt Bind Ab: Pending
-CSF:(protein 56 (N), glucose 61, WBC:0)--CSF albumin, oligoclonal bands, SHERRY, IgG, VDRL pending
-IVIG 0.4mg/kg/day for 5 days was started by Neuro on 08/09
-Start Neurontin 100 mg nightly with titration as tolerated
-Lorazepam 0.5 mg as needed
-Plasma exchange can be considered as a second option
-Recommended NCS/EMG of LUE/LE in 3 weeks
-Monitor neurologic status, Autonomic dysfunction (HR+BP) and muscle strength
#Transaminitis
-AST:252, ALT:392 with unclear baseline levels
-Follow up
-GI consultation can be considered
#Others
-Supplemental oxygen as needed
-Incentive spirometry
-Aspiration precautions
-Nebulizers if needed (history of mild intermittent asthma)
-Monitor forced vital capacity, RR , O2 sat, FVC change, PCO2 change to decide for a possible need for intubation
-DVT prophylaxis
-Physical and Occupational Therapy
Subjective Dataa
Subjective Data
Date of Service:
Date of Service: August 10, 2024
Subjective:
Patient reports dizziness and nausea among increased double vision. Denies any chest pain, shortness of breath. Reports feeling numbness on his legs and hands similar to yesterday.
Review of Systems
General: Other (See HPI )
HEENT: Other (Diplopia )
GI: Nausea
Neuro: Dizziness, Numbness and Weakness
Objective Data
Data Reviewed
Vital Signs / I&O / Oxygen:
Vital Signs
Temp Pulse Resp BP Pulse Ox
97.9 F 97 28 144/97 94
08/10/24 08:05 08/10/24 10:00 08/10/24 10:00 08/10/24 10:00 08/10/24 10:00
Intake and Output
08/09/24 08/10/24 08/11/24
06:59 06:59 06:59
Intake Total 730 / 730 960 / 1040 440 / 440
Output Total 250 / 250 550 / 550 700 / 700
Balance 480 / 480 410 / 490 -260 / -260
SaO2 94
Physical Exam
General: Comfortable
HEENT: Normocephalic and Anicteric
Cardiovascular: S1-S2 and Regular Rhythm
Respiratory: Clear
GI: Soft, Non Distended and Non Tender
Neurology: Awake, Alert, Oriented, AO x 3, Other and Other (Bilateral lower extremity weakness,numbness on hands )
Skin: Warm and Dry
Labs/Micro/Reports
Lab Data
08/10/24 05:00
08/10/24 05:00
Microbiology
08/08/24 14:01 Csf CSF Culture - Preliminary
No Growth After 48 Hours
08/08/24 14:01 Csf Gram Stain - Preliminary

Documented by User: Jerry Kulkarni MD 08/10/24 13:11
Assessment
-
Assessment:
Impression: The patient is a 58-year-old non-smoking female with a PMH of asthma, HL, hypothyroidism, papillary thyroid cancer 2018 presented with lower extremity weakness as well as hand numbness to ER on 08/09/24. The patient had felt her hand
numbness a few days ago and was started on steroid treatment due her chronic cervical radiculopathy. The patient was unresponsive to outpatient prednisone. She was obtained eshvuoqk-[id number]-yesuux-brain MRI and had a lumbar puncture and further
studies for differential diagnosis. 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
Plan
# Likely Guillain-[place] syndrome vs Myopathy vs Vasculitis vs Neoplasia
-Brain MRI: nodular focus of enhancement superior left cerebellar hemisphere etiology uncertain, neoplasia possible, demyelination could be considered, vasculitis could be considered, diffuse fatty atrophy of the right parotid gland
-Physical exam relieves paresthesias, No clonus, no DTR on lower extremities which is compliant with Guillain-[place] syndrome. Less commonly the patients can present with sensory dysfunction or ophthalmoplegia , ataxia and bulbar dysfunction (
Peres-Bryan syndrome).�
-Cervical/thoracal/Lumbar MRI: No evidence for abnormal enhancement on spinal cord.
-No recent history of possible triggers like Viral infections, vaccinations or GI infections
-Vit B12: 563 , vit B1:Pending, copper: pending , ESR:8 /CRP<5 ; TRENA; pending , anti-GM1 IgG and anti-GD1a antibodies: pending;SS-A/B: Pending , Acetylchol Rcpt Bind Ab: Pending
-CSF:(protein 56 (N), glucose 61, WBC:0)--CSF albumin, oligoclonal bands, SHERRY, IgG, VDRL pending
-IVIG 0.4mg/kg/day for 5 days was started by Neuro on 08/09
-Start Neurontin 100 mg nightly with titration as tolerated
-Lorazepam 0.5 mg as needed
-Plasma exchange can be considered as a second option
-Recommended NCS/EMG of LUE/LE in 3 weeks
-Monitor neurologic status, Autonomic dysfunction (HR+BP) and muscle strength
#Transaminitis
-AST:252, ALT:392 with unclear baseline levels
-Follow up
-GI consultation can be considered
#Others
-Supplemental oxygen as needed
-Incentive spirometry
-Aspiration precautions
-Nebulizers if needed (history of mild intermittent asthma)
-Monitor forced vital capacity, RR , O2 sat, FVC change, PCO2 change to decide for a possible need for intubation
-DVT prophylaxis
-Physical and Occupational Therapy
I reviewed this patients case independently and in conjunction with the resident. I personally examined the patient. Patient's complex medical history, laboratory evaluations, events over the last 24 hours, radiographs, microbiological data were
all personally reviewed.
Agree with documented assessment and plan
Jerry Kulkarni MD, FCCP, [facility]
[2024-08-10] MEDS: GAMMAGARD 50 IV (12:15)
--- NOTE | 2024-08-10 12:15 | PTCARENOTE ---
Pt returned from MRI. Gammagard initiated and protocol followed...see intervention. No major changes in physical assessment. Call perkins within reach. Will continue to monitor.
[2024-08-10] MEDS: GAMMAGARD 200 IV (13:17)
--- NOTE | 2024-08-10 13:46 | CM ---
CM following re: discharge planing.
Discussed in Rounds, reviewed pt's chart, met with pt. Per Rounds meeting MRI today, continue supportive care.
PT and OT evaluations noted - acute rehab level of care recommended. Pt is aware, [place] [facility] requested.
A referral to [facility] noted and per [place] liaison, pt will be accepted when medically stable.
Physiatry consult requested.
D/C plan: [place] [facility] when medically stable.
CM will follow to assist pt with discharge to [place] [facility].
--- NOTE | 2024-08-10 14:22 | W.PN.HOSP.TC ---
Today's Communication/Plan
-
continue IVIG
prn Motrin
PMR eval
Assessment / Plan
Assessment / Plan
Assessment:
Acute bilateral lower extremity weakness
- previously started on steroids per outpatient PCP - will stop now (only took 1 day)
- MRI imaging of spine (C/T/L with contrast) without evidence of any enhancing lesions, myelopathic signals.
- MRI brain: delayed images reveal Nodular focus of enhancement within the superior left cerebellar hemisphere, with a larger region of surrounding increased T2 and FLAIR signal. See above discussion regarding timing of contrast enhancement.
Etiology for this finding is uncertain. It could possibly represent neoplasia. A focus of demyelination could be considered. Vasculitis could also be considered. This could possibly be a vascular/venous anomaly, although the surrounding increased T2
and FLAIR signal is atypical.
- will look to obtain MRI brain with contrast repeat in 2 weeks per Neurology
- also consider CT-A to evaluate for vascular anomaly
- continue IVIG day 3
- monitor VC/NIFs, pulm exams serially
- follow extended neuro workup from serum and CSF studies
- follow Neuro recs
- follow ICU team recs.
Chronic neck pain
- continue Gabapentin to 300mg TID; prn Tylenol and prn Motrin
Mild intermittent asthma - stable.
History of thyroid cancer - continue Cytomel and Synthroid (patient prefers brand name - is using her own supply). noted low TSH, normal T4
DVT ppx: Lovenox
Code: Full
Total Critical Care Time 41 minutes. I was immediately available to the patient and staff. I personally examined, reviewed labs, diagnostic images/reports, interpretations, treatment plans, discussed patient care with other providers and family
or caregivers (if patient is unable to make decisions), entered orders as appropriate and documented the medical record.
Anticipated Discharge: > 48 hours
Subjective/Interval History
-
Date of Service: August 10, 2024
Complains of some progressive weakness in her lower extremities, no change in upper extremities and no complaints of shortness of breath, no speech changes
Objective Data
-
Labs:
Laboratory Results
08/10/24
05:00
WBC 3.9 L
Hgb 12.9
Hct 36.3 L
Plt Count 217
Sodium 139
Potassium 3.6
Chloride 106
Carbon Dioxide 26
BUN 13
Creatinine 0.4 L
Glucose 98
Calcium 8.4
Total Bilirubin 1.3
AST 252 H
ALT 392 H
Alkaline Phosphatase 90
Vital Signs:
Vital Signs
Temp Pulse Resp BP Pulse Ox
98.3 F 97 28 140/84 94
08/10/24 12:47 08/10/24 14:15 08/10/24 10:00 08/10/24 14:15 08/10/24 10:00
I&O
08/09/24 08/10/24 08/11/24
06:59 06:59 06:59
Intake Total 730 / 730 960 / 1040 690 / 690
Output Total 250 / 250 550 / 550 700 / 700
Balance 480 / 480 410 / 490 -10 / -10
Physical Exam
-
General: No Apparent Distress
HEENT: Normocephalic and Atraumatic
Respiratory: Negative Wheezes
Cardiac: Regular Rhythm and S1/S2
GI: Soft and Nontender
Genito-urinary: No Costovertebral Tender
Neuro: AO x 3 and Other (Lower extremity weakness, hand numbness)
Hematologic / Lymphatic: No Lymphadenopathy
Psych: Calm
Data Reviewed
-
Critical Care Time (in minutes): 41
--- NOTE | 2024-08-10 16:30 | PTCARENOTE ---
Pt taken to IR for temporary HD cath. Neurology at bedside prior to IR to answer questions and review plan of care w/ pt. No major changes in physical assessment. Pt tearful and anxious...emotional support provided.
[2024-08-10] MEDS: MOTRIN 600 MG PO (17:34)
[2024-08-10] MEDS: REFRESH EYE DROPS (PF) 1 DROPS OPHTH (17:36)
[2024-08-10] MEDS: LOVENOX 40 MG SC (17:37)
[2024-08-11] VITALS (42 sets, daily range): BP systolic 89–154; BP diastolic 52–102; PULSE 90–109; O2SAT 96; BMI 24.5
[2024-08-11] MEDS: VALIUM INJECTION 5 MG IV (00:05)
[2024-08-11 00:31] LABS: Vitamin B1, Whole Blood 117 nmol/L (70-180)
[2024-08-11 00:36] LABS: Albumin 4.28 g/dL (3.75-5.01); Alpha 1 Globulin 0.26 g/dL (0.19-0.46); Alpha 2 Globulin 0.65 g/dL (0.48-1.05); SPEP IFE Reflex Not Done; Total Protein-Electrophoresis 6.6 g/dL (6.3-8.2)
[2024-08-11] MEDS: DILAUDID 0.5 MG IV ×3 (01:16→15:21)
--- NOTE | 2024-08-11 01:24 | PTCARENOTE ---
Received at 19:00, initial assessment as documented. Pt c/o pain leg pain that is from feet to upper thighs, 'feels like a vice squeezing my legs'. x1 5mg valium IVP given and briefly effective, PRN order obtained for 0.5mg IVP dilaudid--given as
ordered.
[2024-08-11 02:03] LABS: Copper, Serum 113.4 ug/dL (80.0-155.0)
[2024-08-11 02:58] LABS: CSF VDRL (T. pallidum) Non Reactive (Non Reactive)
[2024-08-11 04:24] LABS: ANA, IgG Reflex to HEp-2 Detected (None Detected)
[2024-08-11] MEDS: NON-FORMULARY ITEM 1 UNIT PO (05:31)
[2024-08-11] MEDS: MOTRIN 600 MG PO ×3 (05:42→17:20)
[2024-08-11 05:53] LABS: Hematocrit 36.8 % (37.0-47.0); Hemoglobin 13.4 g/dL (12.0-16.0); Mean Corp Hgb Conc. 36.4 g/dL (33.0-37.0); Mean Corpuscular Volume 96.1 fL (81.0-99.0); Mean Platelet Volume 9.7 fL (7.4-10.4); Platelet Count 245 10^3/uL (130-400); Red Blood Cell Count 3.83 10^6/uL (4.20-5.40); Red Cell Dist. Width 11.9 % (11.5-14.5); White Blood Cell Count 5.8 10^3/uL (4.8-10.8)
[2024-08-11 05:54] LABS: Asialo-GM1 Antibody 24 IV (0-50); GD1a Antibody 6 IV (0-50); GD1b Antibodies 145 IV (0-50); GM1 Antibody 29 IV (0-50); GM2 Antibody 48 IV (0-50); GQ1b Antibodies 12 IV (0-50)
[2024-08-11 06:14] LABS: Blood Urea Nitrogen 16 mg/dl (7-17); Carbon Dioxide 26 mmol/L (22-30); Chloride 104 mmol/L (98-107); Estimated Creatinine Clearance 102 ml/min; Glucose 116 mg/dl (70-99); Magnesium 2.2 mg/dl (1.6-2.3); Sodium 141 mmol/L (135-145); eGFR > 60.00
--- NOTE | 2024-08-11 07:48 | W.PN.INTV ---
Today's Communication / Plan
Recommendations
Monitor respiratory status
Plasma exchange
Follow neurologic status closely
Assessment
-
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
Left cerebellar lesion
Conditions present prior to admission:
Asthma-mild intermittent.
Papillary thyroid cancer 2018.
Hypothyroid.
Hyperlipidemia.
Anxiety.
. Tubal ligation. Tonsillectomy. Thyroidectomy. Cholecystectomy.
Plan
Transfer patient to medical intensive care unit for close neurologic and respiratory evaluation
Triggers include previous infections including Campylobacter jejunum and viral infections including influenza A, B, CMV, COVID 19, Zika, and EBV as well as vaccinations including influenza (1-2/1 million), RSV, zoster, COVID-19 especially adenovirus
factors though noted with messenger RNA vaccines as well
Typical presentation includes lower extremity weakness, decreased deep tendon reflexes, paresthesias and dysautonomia's
Supplemental oxygen as needed-currently on room air
Incentive spirometry encouraged
Aspiration precautions
Nebulizers if needed-history of asthma-currently not bronchospastic
Monitor muscle strength and forced vital capacity
08/09/2024-FVC-1.6 L-predicted 2.9 and MIP 35
08/10/2024-FVC 1.5 L-predicted 2.9 and MIP 30
08/11/2024-FVC 1.6 L-predicted 2.9 and MIP 32
Indications for intubation and mechanical ventilation include
Respiratory rate greater than 30
Oxygen saturations less than 92%
FVC less than 20 mL/kg or greater than 30% decline
NIF less than -30
MEP less than 40
pCO2 elevation of greater than 50
Neurology evaluation ongoing-correspondence reviewed
Lumbar puncture-usually elevated protein and normal WBCs
Check vitamin B12, SHERRY, Lyme antibodies, vitamin B1, copper, TRENA, anti-GM 1 IgG and anti-GD Ia antibodies
ESR and CRP normal-unlikely vasculitis
TRENA detected
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
Continue to monitor vital capacity every shift
Initial treatment-IVIG 0.4 mg/kg/day-finished 3 out of 5
Plasma exchange now recommended-to begin 08/11/2024
Hematology consultation/Gruetli-Laager consulted for plasma exchange
NCS/EMG's in 3 weeks
Neurontin-currently 300 mg 3 times daily-May be increased to 600 3 times daily
Increase analgesia-ibuprofen bdyfaa-hun-bvqyt, intermittent Tylenol though LFTs elevated and IV hydromorphone
Ativan as needed
Brain MRI 08/09/2024-nodular focus of enhancement superior left cerebellar hemisphere etiology uncertain, neoplasia possible, demyelination could be considered, vasculitis could be considered, diffuse fatty atrophy of the right parotid gland
Cervical spine MRI 08/09/24-5 mm well-defined focus of enhancement in the lateral margin of the [id number], mild to moderate changes of DJD unchanged from 2024, slight anterior cord compression at C5-6
Thoracic spine MRI 08/10/2024-no abnormal enhancement to suggest acute myelopathy
Lumbar spine MRI 08/10/2024-mild degenerative changes and mild bilateral neural foraminal stenosis L4-5 and L5-6 1, no abnormal enhancement
DVT prophylaxis-on Lovenox and mechanical
Nutrition with aspiration precautions
Physical and Occupational Therapy
Dr. Kulkarni reviewed with sister in regards to current diagnosis, prognosis and treatment plan on 08/11/2024
Critical care statement: A total of 42 minutes of critical care time was provided for this patient today. This includes management of unstable vital signs, evaluation of the patient at bedside, reviewing the patient's pertinent medical records
including radiographs, microbiology, laboratory evaluations, and discussion with primary team, consultants, pharmacy, nutrition, physical therapy, case management, charge nurse, critical care nursing, and respiratory therapy.
Diagnostic data:
Chest x-ray 07/04/2024-NAD
Brain MRI 08/09/2024-nodular focus of enhancement superior left cerebellar hemisphere etiology uncertain, neoplasia possible, demyelination could be considered, vasculitis could be considered, diffuse fatty atrophy of the right parotid gland
Cervical spine MRI 08/09/24-5 mm well-defined focus of enhancement in the lateral margin of the [id number]-yi-jlmq, mild to moderate changes of DJD unchanged from 2024, slight anterior cord compression at C5-6
Thoracic spine MRI 08/10/2024-no abnormal enhancement to suggest acute myelopathy
Lumbar spine MRI 08/10/2024-mild degenerative changes and mild bilateral neural foraminal stenosis L4-5 and L5-6 1, no abnormal enhancement
Subjective Dataa
Subjective Data
Date of Service:
Date of Service: August 11, 2024
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
Subjective:
No complaints of worsening shortness of breath, complains of significant leg pain, no increase in paresthesias of the upper extremities, weakness about the same in the lower extremities as before, no new respiratory gastrointestinal complaints
Review of Systems
General: Other (Per HPI)
Objective Data
Data Reviewed
Vital Signs / I&O / Oxygen:
Vital Signs
Temp Pulse Resp BP Pulse Ox
97.4 F 86 16 150/80 94
08/11/24 05:21 08/11/24 01:00 08/11/24 01:00 08/11/24 01:00 08/11/24 01:20
Intake and Output
08/10/24 08/11/24 08/12/24
06:59 06:59 06:59
Intake Total 960 / 1040 690 / 690
Output Total 550 / 550 1500 / 1500
Balance 410 / 490 -810 / -810
SaO2 94
Physical Exam
General: Respiratory Distress (n) and Comfortable
HEENT: Normocephalic, Anicteric and Moist Mucous Membranes
Cardiovascular: Regular Rhythm
Respiratory: Wheeze (n), Crackles (n), Non-Labored Respirations, Accessory Resp Muscle Use (n) and Stridor (n)
GI: Soft, Non Distended and Non Tender
Neurology: Awake, Alert and Other (Lower extremity weakness)
Skin: Warm, Good Color (n) and Cyanosis (n)
Labs/Micro/Reports
Lab Data
08/11/24 05:37
08/11/24 05:37
Microbiology
08/08/24 14:01 Csf CSF Culture - Preliminary
No Growth After 48 Hours
08/08/24 14:01 Csf Gram Stain - Preliminary
--- NOTE | 2024-08-11 08:00 | PTCARENOTE ---
Received pt awake and alert.Speech is appropriate.+ diplopia.Left eye is patched as per pt request.+4-5/5 bl upper ext.c/o bl hand numbness.BL weak grasps noted.+1/5 bl lower ext movement.c/o 10/10 bl leg pain.Requested and receive Dilaudid for
pain.Pt using tap call perkins appropriately.Positioned for comfort.SR noted.Right IJ HD cath intact.Decreased breath sounds noted.IS utilized as ordered.750-1000 ml noted.No SOB noted.POX 94% on RA.Appetite good.No BM.Voiding yellow urine.Skin
integrity intact.Plan of care discussed with pt.Pt's sister at bedside.
--- NOTE | 2024-08-11 08:05 | W.PN.INTV ---
Documented by User: Phyllis Solares MD, Resident 08/11/24 11:40
Today's Communication / Plan
Recommendations
-Neuro recommendation to continue or hold on IVIG due possible drug induced transaminitis and persistent symptoms
-OT/PT evaluation
-Pain medicine management
-Hematology involved for consideration of plasma exchange under the management of Neurology
Assessment
-
Assessment:
Impression: The patient is a 58-year-old non-smoking female with a PMH of asthma, HL, hypothyroidism, diagnosis of papillary thyroid cancer in 2018 presented with lower extremity weakness as well as hand numbness to ER on 08/09/24. The patient had
felt her hand numbness a few days ago and was started on steroid treatment due her chronic cervical radiculopathy. The patient was unresponsive to outpatient prednisone. She was obtained lmetqusw-urcbepny-wldpno-brain MRI (w/wo contrast) and had a
lumbar puncture and further studies for differential diagnosis. 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
08/09/24.
Plan
# Likely Guillain-Fleming syndrome vs Vasculitis vs Neoplasia
-Brain MRI: nodular focus of enhancement superior left cerebellar hemisphere etiology uncertain, neoplasia possible, demyelination could be considered, vasculitis could be considered, diffuse fatty atrophy of the right parotid gland
-Cervical/thoracal/Lumbar without contrast MRI on 08/07/24 No evidence for abnormal enhancement on spinal cord and MRI
-Thoracal/Lumbar MRI with contrast No abnormal enhancement to suggest acute myelopathy.
-GD1b: 145 H compliant with GBS-- GD1a : 6 (Negative )
-Vit B12: 563, vit B1:117, ESR:8 /CRP<5 ,TRENA 1/160 titer , Lyme; Negative, CSF VDRL non-reactive , copper:113.4 ;SS-A/B: Pending , Acetylchol Rcpt Bind Ab: Pending
-CSF:(protein 56 (N), glucose 61, WBC:0)--CSF albumin, oligoclonal bands, SHERRY, IgG,
-Physical exam relieves paresthesias, No clonus, no DTR on lower extremities which is compliant with Guillain-Fleming syndrome. Less commonly the patients can present with sensory dysfunction or ophthalmoplegia , ataxia and bulbar dysfunction (
Peres-Bryan syndrome).
-IVIG 0.4mg/kg/day for 5 days was started by Neuro on 08/09 with a likely diagnosis of GBS syndrome and unfortunately diplopia and paraesthesia persists
-Neurology on board
-Plasma exchange was considered as a second option:non-tunneled right internal jugular pheresis catheter was placed on 08/10/23 for it
-Hematology assessed the patient for apheresis with albumin exchange under the management of Neurology
#Pain and Anxiety
-On gabapentin 300 mg TID
-Acetaminophen and Ibuprofen PRN
-Hydromorphone 0.5 ml PRN TID
-Lorazepam 0.5 mg as needed
#Transaminitis likely drug induced
-No known elevated transaminitis in the past
-Likely IVIG induced
-AST and ALT trending down (AST 110 from 252, ALT 277 from 392)
-Follow up with Neurology to continue or hold IVIG
#Others
-Monitor neurologic status, Autonomic dysfunction (HR+BP) and muscle strength:
-Supplemental oxygen as needed
-Incentive spirometry was ordered
-Aspiration precautions
-Nebulizers if needed (history of mild intermittent asthma)
-Monitor forced vital capacity, RR , O2 sat, FVC change, PCO2 change to decide for a possible need for intubation (No abnormal findings thus far with respiration)
-Recommended NCS/EMG of LUE/LE in 3 weeks
-DVT prophylaxis
-Physical and Occupational Therapy ( multi-podus boot panned to be ordered)
Subjective Dataa
Subjective Data
Date of Service:
Date of Service: August 11, 2024
Chief Complaint: Skimmer Follow Up and Pulmonary Follow Up
Review of Systems
General: Pain and Other (See HPI )
Objective Data
Data Reviewed
Vital Signs / I&O / Oxygen:
Vital Signs
Temp Pulse Resp BP Pulse Ox
97.4 F 86 16 150/80 94
08/11/24 05:21 08/11/24 01:00 08/11/24 01:00 08/11/24 01:00 08/11/24 01:20
Intake and Output
08/10/24 08/11/24 08/12/24
06:59 06:59 06:59
Intake Total 960 / 1040 690 / 690
Output Total 550 / 550 1500 / 1500
Balance 410 / 490 -810 / -810
SaO2 94
Physical Exam
General: Pain
HEENT: Normocephalic, Anicteric and Moist Mucous Membranes
Cardiovascular: S1-S2 and Regular Rhythm
Respiratory: Clear
GI: Soft, Non Distended and Non Tender
Neurology: Awake, Alert, Oriented, AO x 3 and Other (Lower extremity weakness and numbness on hands )
Skin: Warm and Good Color (n)
Labs/Micro/Reports
Lab Data
08/11/24 05:37
08/11/24 05:37
Microbiology
08/08/24 14:01 Csf CSF Culture - Preliminary
No Growth After 48 Hours
08/08/24 14:01 Csf Gram Stain - Preliminary

Documented by User: Jerry Kulkarni MD 08/11/24 13:13
Assessment
-
Assessment:
Impression: The patient is a 58-year-old non-smoking female with a PMH of asthma, HL, hypothyroidism, diagnosis of papillary thyroid cancer in 2018 presented with lower extremity weakness as well as hand numbness to ER on 08/09/24. The patient had
felt her hand numbness a few days ago and was started on steroid treatment due her chronic cervical radiculopathy. The patient was unresponsive to outpatient prednisone. She was obtained tyhparrz-navgrvhf-rvktid-brain MRI (w/wo contrast) and had a
lumbar puncture and further studies for differential diagnosis. 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
08/09/24.
Plan
# Likely Guillain-Fleming syndrome vs Vasculitis vs Neoplasia
-Brain MRI: nodular focus of enhancement superior left cerebellar hemisphere etiology uncertain, neoplasia possible, demyelination could be considered, vasculitis could be considered, diffuse fatty atrophy of the right parotid gland
-Cervical/thoracal/Lumbar without contrast MRI on 08/07/24 No evidence for abnormal enhancement on spinal cord and MRI
-Thoracal/Lumbar MRI with contrast No abnormal enhancement to suggest acute myelopathy.
-GD1b: 145 H compliant with GBS-- GD1a : 6 (Negative )
-Vit B12: 563, vit B1:117, ESR:8 /CRP<5 ,TRENA 1/160 titer , Lyme; Negative, CSF VDRL non-reactive , copper:113.4 ;SS-A/B: Pending , Acetylchol Rcpt Bind Ab: Pending
-CSF:(protein 56 (N), glucose 61, WBC:0)--CSF albumin, oligoclonal bands, SHERRY, IgG,
-Physical exam relieves paresthesias, No clonus, no DTR on lower extremities which is compliant with Guillain-Fleming syndrome. Less commonly the patients can present with sensory dysfunction or ophthalmoplegia , ataxia and bulbar dysfunction (
Peres-Bryan syndrome).
-IVIG 0.4mg/kg/day for 5 days was started by Neuro on 08/09 with a likely diagnosis of GBS syndrome and unfortunately diplopia and paraesthesia persists
-Neurology on board
-Plasma exchange was considered as a second option:non-tunneled right internal jugular pheresis catheter was placed on 01/15/24 for it
-Hematology assessed the patient for apheresis with albumin exchange under the management of Neurology
#Pain and Anxiety
-On gabapentin 300 mg TID
-Acetaminophen and Ibuprofen PRN
-Hydromorphone 0.5 ml PRN TID
-Lorazepam 0.5 mg as needed
#Transaminitis likely drug induced
-No known elevated transaminitis in the past
-Likely IVIG induced
-AST and ALT trending down (AST 110 from 252, ALT 277 from 392)
-Follow up with Neurology to continue or hold IVIG
#Others
-Monitor neurologic status, Autonomic dysfunction (HR+BP) and muscle strength:
-Supplemental oxygen as needed
-Incentive spirometry was ordered
-Aspiration precautions
-Nebulizers if needed (history of mild intermittent asthma)
-Monitor forced vital capacity, RR , O2 sat, FVC change, PCO2 change to decide for a possible need for intubation (No abnormal findings thus far with respiration)
-Recommended NCS/EMG of LUE/LE in 3 weeks
-DVT prophylaxis
-Physical and Occupational Therapy ( multi-podus boot panned to be ordered)
I reviewed this patients case independently and in conjunction with the resident. I personally examined the patient. Patient's complex medical history, laboratory evaluations, events over the last 24 hours, radiographs, microbiological data were
all personally reviewed.
Agree with documented assessment and plan
Jerry Kulkarni MD, FCCP, DABBUNNY
--- NOTE | 2024-08-11 08:31 | CON.ONC ---
Impression
Impression
suspected Guillain-[place] syndrome without adequate response to IVIG
Plan
Plan
suspected Guillain-[place] syndrome - management per neurology
Apheresis -album exchange every other day x 5 sessions arranged as recommended by neurology
daily CBC, BMP, magnesium, phosphorus, fibrinogen, LDH, coags.
Hep B and Hep C screening
non-tunneled right internal jugular pheresis catheter. Catheter ready for use.
Patient History
History of Present Illness
58-year-old woman who presented to [facility] on 08/07/2024 with progressive ambulatory dysfunction. She developed progressive left > right leg weakness on 08/05/2024. Her weakness required her to use the raling and crawl up the
stairs which prompted her to seek further evaluation 08/06/2024. She also reports paraesthesias in her feet and worsening of pre-existing numbness of her fingers over the past 2 weeks. She was admitted and started on IVIG 0.4mg/kg/day by neurology
but unfortunately her diplopia and paresthesias persists. Her MRI brain with gadolinium 08/08/2024 showed nodular focus of enhancement within the superior left cerebellar hemisphere, with a larger region of surrounding increased T2 and FLAIR signal,
new from 2007. No cranial nerve enhancement. Hematology has been consulted to arrange Apheresis with albumin exchange under the management of neurology for suspected Guillain-[place] syndrome. She had an apheresis catheter placed last night.
She denies falls, fever, diarrhea, dyspnea, dysphagia, diplopia, dysarthria, recent vaccination or respiratory symptoms.
Past-Medical/Surgical History
PMH papillary thyroid cancer 2018, Hypothyroid, HLD, DJD, vitamin D deficiency, GERD, TRENA positive history of head concussion, celiac disease, Hepatic steatosis chronic pain syndrome, AISHWARYA, ADD,
PSH total thyroidectomy, cholecystectomy, , tubal ligation, tonsillectomy
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
Patient Medication
�Medication �Instructions �Recorded �Confirmed �Last Taken �Type
valacyclovir 500 mg tablet 500 mg PO DAILYPRN PRN fever 05/24/09 08/07/24 06/27/24 History
(Valtrex) blisters
acetaminophen 500 mg tablet 500 mg PO DAILYPRN PRN mild pain 08/07/24 08/07/24 08/07/24 History
ibuprofen 200 mg tablet 600 mg PO DAILYPRN PRN mild pain 08/07/24 08/07/24 08/07/24 History
levothyroxine 125 mcg tablet 62.5 mcg PO DAILY Thyroid 08/07/24 08/07/24 08/07/24 History
(Synthroid)
lidocaine 5 % topical patch 3 patch topical DAILYPRN PRN upper 08/07/24 08/07/24 08/02/24 History
and lower back
liothyronine 5 mcg tablet 5 mcg PO BID Thyroid 08/07/24 08/07/24 08/07/24 History
omeprazole 20 mg capsule,delayed 20 mg PO DAILY Gastrointestinal 08/07/24 08/07/24 Unknown History
release Issue
oxycodone-acetaminophen 5 mg-325 1 tab PO Q6HPRN PRN severe pain 08/07/24 08/07/24 Unknown History
mg tablet
prednisone 20 mg tablet 40 mg PO UD Anti-Inflammatory 08/07/24 08/07/24 08/07/24 History
40 mg
semaglutide (weight loss) 1.7 1.7 mg SC TU Weight Gain 08/07/24 08/07/24 07/26/24 History
mg/0.75 mL subcutaneous pen
injector (Wegovy)
Active Medications
Generic Name Dose Route Start Last Admin
Trade Name Freq PRN Reason Stop Dose Admin
Acetaminophen 650 mg 08/07/24 19:55 08/10/24 17:36
Acetaminophen 325 Mg Tablet PO 09/04/24 19:54 650 mg
Q6HPRN PRN Administration
mild pain/ fever>100.5F
Albuterol 2 puff 08/07/24 19:55
Albuterol Hfa [90 Mcg/Dose] Inhaler INH
R Q4HPRN PRN
SOB, wheezing
Protocol
Artificial Tears 1 drops 08/10/24 10:28 08/10/24 17:36
Artificial Tears Pf (Refresh) 10 Drop Droperette OPHTH 09/07/24 10:27 1 drops
QIDPRN PRN Administration
dry eyes
Enoxaparin Sodium 40 mg 08/08/24 18:00 08/10/24 17:37
Enoxaparin Sodium 40 Mg/0.4 Ml Syringe SC 09/05/24 17:59 40 mg
QPM CAMELIA Administration
Gabapentin 300 mg 08/09/24 16:00 08/10/24 21:07
Gabapentin 300 Mg Capsule PO 09/06/24 15:59 300 mg
TID CAMELIA Administration
Hydromorphone HCl 0.5 mg 08/11/24 01:04 08/11/24 01:16
Hydromorphone 0.5 Mg/0.5 Ml Syringe IV 08/25/24 01:03 0.5 mg
Q3HPRN PRN Administration
severe pain
Immune Globulin 5 gram in 50 mls @ 0 mls/hr 08/10/24 12:00 08/10/24 12:15
Gammagard IV 08/12/24 12:01 50 mls
DAILY@1200 CAMELIA Administration
Protocol
Per Protocol
Immune Globulin 20 gram in 200 mls @ 0 mls/hr 08/10/24 13:00 08/10/24 13:17
Gammagard IV 08/12/24 13:01 200 mls
DAILY@1300 CAMELIA Administration
Protocol
Per Protocol
Ibuprofen 600 mg 08/10/24 14:30 08/11/24 05:42
Ibuprofen 600 Mg Tablet PO 09/07/24 14:29 600 mg
Q6HPRN PRN Administration
leg pain
Liothyronine Sodium 5 microgram 08/08/24 08:00 08/10/24 21:07
Liothyronine 5 Microgram Tablet PO 09/05/24 07:59 5 microgram
BID CAMELIA Administration
Lorazepam 0.5 mg 08/08/24 09:50 08/10/24 23:01
Lorazepam 0.5 Mg Tablet PO 09/05/24 09:49 0.5 mg
Q8HPRN PRN Administration
anxiety
Synthroid (Brand 0 unit 08/09/24 06:00 08/11/24 05:31
Name Levothyroxine) PO 09/06/24 05:59 1 unit
125mcg Tablet - Take DAILY@0600 CAMELIA Administration
1/2 Tablet (62.5mcg
) Po Daily
Ondansetron HCl 4 mg 08/08/24 12:07 08/08/24 14:53
Ondansetron 4 Mg/2 Ml Vial IV 09/05/24 12:06 4 mg
Q6HPRN PRN Administration
NAUSEA/VOMITING
Oxycodone/Acetaminophen 1 tablet 08/08/24 12:07 08/10/24 08:44
Oxycodone 5 Mg/Apap 325 Mg (Percocet) PO 08/22/24 12:06 1 tablet
Q6HPRN PRN Administration
severe pain
Pantoprazole Sodium 40 mg 08/09/24 08:00 08/10/24 08:44
Pantoprazole 40 Mg Delayed Release Tablet PO 09/06/24 07:59 40 mg
DAILY CAMELIA Administration
Sodium Chloride 0 flush 08/07/24 21:00
Sodium Chloride 0.9% (Flush) Syringe IV 09/04/24 20:59
PER PROTOCOL CAMELIA
Valacyclovir HCl 500 mg 08/08/24 12:07 08/09/24 01:43
Valacyclovir Hcl 500 Mg Tablet PO 08/18/24 12:06 500 mg
DAILYPRN PRN Administration
fever blisters
Review of Systems
-
ROS notable for HPI, otherwise negative
Physical Exam
-
General: Well Developed and No Apparent Distress
HEENT: Moist Mucous Membranes; Negative Jaundice
Cardiology: Normal Sinus Rhythm
Pulmonary: Clear
GI: Soft
Extremities: Pulses Present; Negative Edema
Neurology: Other (diplopia)
Skin: Warm
Psych: Calm
Labs
Lab Results
WBC 5.8 10^3/uL (4.8-10.8) 08/11/24 05:37
RBC 3.83 10^6/uL (4.20-5.40) L 08/11/24 05:37
Hgb 13.4 g/dL (12.0-16.0) 08/11/24 05:37
Hct 36.8 % (37.0-47.0) L 08/11/24 05:37
MCV 96.1 fL (81.0-99.0) 08/11/24 05:37
MCH 35.0 pg (27.0-31.0) H 08/11/24 05:37
MCHC 36.4 g/dL (33.0-37.0) 08/11/24 05:37
RDW 11.9 % (11.5-14.5) 08/11/24 05:37
Plt Count 245 10^3/uL (130-400) 08/11/24 05:37
MPV 9.7 fL (7.4-10.4) 08/11/24 05:37
Abs Immat Gran (auto) 0.0 10^3/uL (0-0.05) 08/07/24 15:58
Absolute Neuts (auto) 7.5 10^3/uL (1.4-6.5) H 08/07/24 15:58
Absolute Lymphs (auto) 0.7 10^3/uL (1.2-3.4) L 08/07/24 15:58
Absolute Monos (auto) 0.1 10^3/uL (0.1-0.6) 08/07/24 15:58
Absolute Eos (auto) 0.0 10^3/uL (0-0.7) 08/07/24 15:58
Absolute Basos (auto) 0.0 10^3/uL (0-0.2) 08/07/24 15:58
Immature Gran % 0.5 % (0-0.5) 08/07/24 15:58
Neutrophils % 89.9 % (42.2-75.2) H 08/07/24 15:58
Lymphocytes % 8.8 % (20.5-51.1) L 08/07/24 15:58
Monocytes % 0.7 % (1.7-9.3) L 08/07/24 15:58
Eosinophils % 0.0 % (0-6) 08/07/24 15:58
Basophils % 0.1 % (0-2) 08/07/24 15:58
Creatinine 0.5 mg/dL (0.6-1.0) L 08/11/24 05:37
Vital Signs
Vital Signs
Temp Pulse Resp BP Pulse Ox
97.4 F 86 16 150/80 94
08/11/24 05:21 08/11/24 01:00 08/11/24 01:00 08/11/24 01:00 08/11/24 01:20
[2024-08-11 08:39] LABS: ALT (SGPT) 277 U/L (0-35); AST (SGOT) 110 U/L (14-36); Albumin 4.3 g/dl (3.5-5.0); Alkaline Phosphatase 97 U/L (38-126); Total Bilirubin 1.9 mg/dl (0.2-1.3); Total Protein 8.4 g/dl (6.3-8.2)
[2024-08-11] MEDS: CYTOMEL 5 MICROGRAM PO ×2 (09:08→20:10)
[2024-08-11] MEDS: NEURONTIN 300 MG PO (09:08)
[2024-08-11] MEDS: PROTONIX 40 MG PO (09:09)
[2024-08-11] MEDS: REFRESH EYE DROPS (PF) 1 DROPS OPHTH (11:23)
[2024-08-11] MEDS: MIRALAX PO (11:23)
--- NOTE | 2024-08-11 11:41 | W.PN.HOSP.TC ---
Today's Communication/Plan
-
start PLEX today via R IJ cath with assistance of hematology/ARC
follow neuro exam, VC and continue ICU care for now
Assessment / Plan
Assessment / Plan
Assessment:
Acute bilateral lower extremity weakness
- previously started on steroids per outpatient PCP - will stop now (only took 1 day)
- MRI imaging of spine (C/T/L with contrast) without evidence of any enhancing lesions, myelopathic signals.
- MRI brain: delayed images reveal Nodular focus of enhancement within the superior left cerebellar hemisphere, with a larger region of surrounding increased T2 and FLAIR signal. See above discussion regarding timing of contrast enhancement.
Etiology for this finding is uncertain. It could possibly represent neoplasia. A focus of demyelination could be considered. Vasculitis could also be considered. This could possibly be a vascular/venous anomaly, although the surrounding increased T2
and FLAIR signal is atypical.
- will look to obtain MRI brain with contrast repeat in 2 weeks per Neurology
- also consider CT-A to evaluate for vascular anomaly
- s/p IVIG course without improvement, rising LFTs
- s/p IR guided tunnel cath 08/10; to start Plasmapharesis today and every 48 hours. Appreciate Hematology assistance for coordinating Plasmapharesis
- monitor VC/NIFs, pulm exams serially
- follow extended neuro workup from serum and CSF studies
- follow Neuro recs
- follow ICU team recs.
Transaminitis
- suspected related to IVIG
Chronic neck pain
- continue Gabapentin to 300mg TID; prn Tylenol and prn Motrin.
Mild intermittent asthma - stable.
History of thyroid cancer - continue Cytomel and Synthroid (patient prefers brand name - is using her own supply). noted low TSH, normal T4
DVT ppx: Lovenox
Code: Full
Total Critical Care Time 41 minutes. I was immediately available to the patient and staff. I personally examined, reviewed labs, diagnostic images/reports, interpretations, treatment plans, discussed patient care with other providers and family or
caregivers (if patient is unable to make decisions), entered orders as appropriate and documented the medical record.
Anticipated Discharge: > 48 hours
Subjective/Interval History
-
Date of Service: August 11, 2024
s/p IR temp catheter for planned plasmapheresis today
reports legs 'locked up' last night requiring Ativan and pain control. no dyspnea
feels like its taking slightly longer to chew food
Unable to stand unassisted
Objective Data
-
Labs:
Laboratory Results
08/11/24 08/11/24
05:37 11:21
WBC 5.8
Hgb 13.4
Hct 36.8 L
Plt Count 245
PT Pending
INR Pending
APTT Pending
Sodium 141
Potassium 4.0
Chloride 104
Carbon Dioxide 26
BUN 16
Creatinine 0.5 L
Glucose 116 H
Calcium 9.0
Total Bilirubin 1.9 H
AST 110 H
ALT 277 H
Alkaline Phosphatase 97
Vital Signs:
Vital Signs
Temp Pulse Resp BP Pulse Ox
97.7 F 86 16 150/80 94
08/11/24 08:00 08/11/24 01:00 08/11/24 01:00 08/11/24 01:00 08/11/24 01:20
I&O
08/10/24 08/11/24 08/12/24
06:59 06:59 06:59
Intake Total 960 / 1040 690 / 690
Output Total 550 / 550 1500 / 1500
Balance 410 / 490 -810 / -810
Physical Exam
-
General: No Apparent Distress
HEENT: Moist Mucous Membranes
Respiratory: Negative Wheezes or Rales
Cardiac: Regular Rhythm and S1/S2
GI: Soft and Nontender
Genito-urinary: No Costovertebral Tender
Musculoskeletal: No Edema
Neuro: AO x 3 and Other (knee extensors-3 out of 5, dorsiflexion 0/5, plantarflexion-4 out of 5. Bilateral triceps-5 out of 5, biceps 4- out of 5, neck flexors-4-/5. Neck extensors 5/5)
Hematologic / Lymphatic: No Lymphadenopathy
Psych: Calm
Data Reviewed
-
Critical Care Time (in minutes): 41
Labs: Labs Reviewed by me
--- NOTE | 2024-08-11 11:50 | W.PN.NEURO.1 ---
Today's Communication / Plan
-
.
Subjective/Objective
Subjective Data
Date of Service: August 11, 2024
Neurology follow-up note
24-hour events: Mr. Nevarez endorses severe pain in her legs requiring opioids for management. She takes longer to chew and swallow and reports no weakness in her arms. No dysarthria or dyspnea. Unable to stand unassisted.
underwent nontunneled right IJ catheter placement yesterday. First treatment with Plex is scheduled for today
LS-spine MRI�no clonus or spinal root enhancement.
Brain MRI with gadolinium(08/08/2024)nodular focus of enhancement within the superior left cerebellar hemisphere, with a larger region of surrounding increased T2 and FLAIR signal, new from 2007. No cranial nerve enhancement.
Labs: Normal sodium, glucose�116, total bili�1.9, AST 52�110, ALT�392�277, normal WBCs, platelets.
PMH: C6-C6 DJD, h/o papillary thyroid ca, hypothyroidism, vitamin D deficiency, GERD, TRENA positive, history of head concussion, celiac disease, hepatic steatosis, chronic pain syndrome, AISHWARYA, ADD,
PSH: total thyroidectomy, cholecystectomy, , tubal ligation, tonsillectomy
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
All: Aspirin
ROS: Constitutional: Negative. Negative for chills, fever and unexpected weight change.
HENT: For the poor pain
Eyes: Negative. Negative for photophobia, pain and visual disturbance.
Respiratory: Negative for cough, choking and shortness of breath.
Cardiovascular: Negative for chest pain, palpitations and leg swelling.
Gastrointestinal: Negative for abdominal pain and vomiting.
Endocrine: Negative. Negative for cold intolerance.
Genitourinary: Negative for dysuria, flank pain and urgency.
Musculoskeletal: Positive for intermittent neck pain back pain
Skin: Negative for rash.
Allergic/Immunologic: Negative. Negative for immunocompromised state.
Neurological: Positive for leg weakness, paresthesias, headache
Psychiatric/Behavioral: Positive for anxiety
General: Well developed. In no acute distress.
Cardio: Regular rate and rhythm without murmur. Extremities are without cyanosis or edema.
Neuro:
Mental Status: Alert, oriented to person, place, and date. Normal attention and recall. Good fund of knowledge. Follows complex requests across the midline. Comprehension, naming, and repetition intact. Immediate and delayed recall 3/3.
Cranial Nerves: . Pupils are equally round and reactive to light. EOMs full. Diplopia on the right noted on lateral gaze visual kent full to confrontation. No ptosis. No nystagmus. Eye closure weakness on the right. Normal hearing AU. The
palate elevated well. SCMs and traps 5/5. Tongue midline. No dysarthria.
Motor: Normal bulk and tone. No pronator or arm drift. Strength 0 out of 5 in hip flexors, knee extensors�3 out of 5, dorsiflexion 0/5, plantarflexion�4 out of 5. Bilateral triceps�5 out of 5, biceps 4- out of 5, neck flexors-4-/5. Neck
extensors 5/5
Reflexes: 0+ throughout the upper extremities and 0 knee. AJs, Plantar responses flexor bilaterally.
Coordination: No tremor; R dysmetria
Gait: unable
Assessment and Plan:
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
II. Left cerebellar lesion. Differential diagnosis includes demyelinating(concurrent GBS and ADEM are uncommon with few reported cases) versus low grade neoplastic vs vascular vs inflammatory vs less likely infectious etiologies.
III. Hypothyroidism
-Continue ICU care
-Start PLEX
-Follow-up CSF studies (oligoclonal bands, myelin basic protein, cytology)
-NCS/EMG of LUE/LE in 3 weeks
-Increase Neurontin to 600 mg TID as tolerated
-Brain MRI with aishwarya on 08/23/24
-DVT prophylaxis.
I personally reviewed all radiology and labs along with past medical records pertinent to current medical problems. Total time spent in patient care is 40 minutes.
Thank you for allowing us to participate in the care of this patient. We will continue to follow. Please do not hesitate to contact us with any questions or concerns
Objective Data
Vital Signs
Temp Pulse Resp BP Pulse Ox
36.5 C 86 16 150/80 94
08/11/24 08:00 08/11/24 01:00 08/11/24 01:00 08/11/24 01:00 08/11/24 01:20
Lab Results
08/11/24 05:37
08/11/24 05:37
PT 13.9 Sec (11.4-14.6) 08/08/24 07:39
INR 0.96 08/08/24 07:39
Sodium 141 mmol/L (135-145) 08/11/24 05:37
Potassium 4.0 mmol/L (3.5-5.1) 08/11/24 05:37
BUN 16 mg/dl (7-17) 08/11/24 05:37
Glucose 116 mg/dl (70-99) H 08/11/24 05:37
Calcium 9.0 mg/dl (8.4-10.2) 08/11/24 05:37
Whole Bld Vitamin B1 117 nmol/L (70-180) 08/08/24 07:47
Whole Bld Vitamin B1 Cancelled 08/08/24 07:47
Vitamin B12 563 pg/ml (239-931) 08/08/24 07:47
Vitamin B12 Cancelled 08/08/24 07:47
Patient Allergies
strawberry Allergy (Verified 08/07/24 14:51)
Swelling
aspirin [Aspirin] Adverse Reaction (Verified 08/07/24 14:51)
GI upset
BANDAID Allergy (Uncoded 08/07/24 14:51)
Rash
Vital Signs and Labs
-
Vital Signs and Labs:
Vital Signs
Temp Pulse Resp BP Pulse Ox
36.5 C 86 16 150/80 94
08/11/24 08:00 08/11/24 01:00 08/11/24 01:00 08/11/24 01:00 08/11/24 01:20
Lab Results
08/11/24 05:37
08/11/24 05:37
PT 13.9 Sec (11.4-14.6) 08/08/24 07:39
INR 0.96 08/08/24 07:39
Sodium 141 mmol/L (135-145) 08/11/24 05:37
Potassium 4.0 mmol/L (3.5-5.1) 08/11/24 05:37
BUN 16 mg/dl (7-17) 08/11/24 05:37
Glucose 116 mg/dl (70-99) H 08/11/24 05:37
Calcium 9.0 mg/dl (8.4-10.2) 08/11/24 05:37
Whole Bld Vitamin B1 117 nmol/L (70-180) 08/08/24 07:47
Whole Bld Vitamin B1 Cancelled 08/08/24 07:47
Vitamin B12 563 pg/ml (239-931) 08/08/24 07:47
Vitamin B12 Cancelled 08/08/24 07:47
Medications
-
Medications:
Generic Name Dose Route Start Last Admin
Trade Name Freq PRN Reason Stop Dose Admin
Acetaminophen 650 mg 08/07/24 19:55 08/10/24 17:36
Acetaminophen 325 Mg Tablet PO 09/04/24 19:54 650 mg
Q6HPRN PRN Administration
mild pain/ fever>100.5F
Albuterol 2 puff 08/07/24 19:55
Albuterol Hfa [90 Mcg/Dose] Inhaler INH
R Q4HPRN PRN
SOB, wheezing
Protocol
Artificial Tears 1 drops 08/10/24 10:28 08/11/24 11:23
Artificial Tears Pf (Refresh) 10 Drop Droperette OPHTH 09/07/24 10:27 1 drops
QIDPRN PRN Administration
dry eyes
Enoxaparin Sodium 40 mg 08/08/24 18:00 08/10/24 17:37
Enoxaparin Sodium 40 Mg/0.4 Ml Syringe SC 09/05/24 17:59 40 mg
QPM CAMELIA Administration
Gabapentin 300 mg 08/09/24 16:00 08/11/24 09:08
Gabapentin 300 Mg Capsule PO 09/06/24 15:59 300 mg
TID CAMELIA Administration
Heparin Sodium 0 units 08/11/24 12:00
Heparin (1000 Units/Ml) 10,000 Units/10 Ml Vial INTRACATH 08/11/24 12:01
ONCE ONE
Heparin Sodium 0 units 08/13/24 12:00
Heparin (1000 Units/Ml) 10,000 Units/10 Ml Vial INTRACATH 08/19/24 12:01
Q48H CAMELIA
Hydromorphone HCl 1 mg 08/11/24 11:19
Hydromorphone 1 Mg/Ml Carpuject IV 08/25/24 11:18
Q3HPRN PRN
SEVERE PAIN
Hydromorphone HCl 0.5 mg 08/11/24 11:20
Hydromorphone 0.5 Mg/0.5 Ml Syringe IV 08/25/24 11:19
Q3HPRN PRN
MODERATE PAIN
Albumin Human 12.5 grams in 250 mls @ 1,500 mls/hr 08/11/24 12:00
Albumin 5% INTRACATH 08/11/24 13:49
.Q10M CAMELIA
Calcium Gluconate 2,800 mg/ 278 mls @ 0 mls/hr 08/11/24 12:00
Sodium Chloride IV 08/19/24 12:01
Q48H CAMELIA
As Directed
Albumin Human 12.5 grams in 250 mls @ 1,500 mls/hr 08/13/24 12:00
Albumin 5% INTRACATH 08/13/24 13:49
.Q10M CAMELIA
Albumin Human 12.5 grams in 250 mls @ 1,500 mls/hr 08/15/24 12:00
Albumin 5% INTRACATH 08/15/24 13:49
.Q10M CAMELIA
Albumin Human 12.5 grams in 250 mls @ 1,500 mls/hr 08/17/24 12:00
Albumin 5% INTRACATH 08/17/24 13:49
.Q10M CAMELIA
Albumin Human 12.5 grams in 250 mls @ 1,500 mls/hr 08/19/24 12:00
Albumin 5% INTRACATH 08/19/24 13:49
.Q10M CAMELIA
Ibuprofen 600 mg 08/10/24 14:30 08/11/24 05:42
Ibuprofen 600 Mg Tablet PO 09/07/24 14:29 600 mg
Q6HPRN PRN Administration
leg pain
Ibuprofen 600 mg 08/11/24 12:00 08/11/24 11:29
Ibuprofen 600 Mg Tablet PO 09/08/24 11:59 600 mg
Q6 CAMELIA Administration
Liothyronine Sodium 5 microgram 08/08/24 08:00 08/11/24 09:08
Liothyronine 5 Microgram Tablet PO 09/05/24 07:59 5 microgram
BID CAMELIA Administration
Lorazepam 0.5 mg 08/08/24 09:50 08/10/24 23:01
Lorazepam 0.5 Mg Tablet PO 09/05/24 09:49 0.5 mg
Q8HPRN PRN Administration
anxiety
Synthroid (Brand 0 unit 08/09/24 06:00 08/11/24 05:31
Name Levothyroxine) PO 09/06/24 05:59 1 unit
125mcg Tablet - Take DAILY@0600 CAMELIA Administration
1/2 Tablet (62.5mcg
) Po Daily
Ondansetron HCl 4 mg 08/08/24 12:07 08/08/24 14:53
Ondansetron 4 Mg/2 Ml Vial IV 09/05/24 12:06 4 mg
Q6HPRN PRN Administration
NAUSEA/VOMITING
Pantoprazole Sodium 40 mg 08/09/24 08:00 08/11/24 09:09
Pantoprazole 40 Mg Delayed Release Tablet PO 09/06/24 07:59 40 mg
DAILY CAMELIA Administration
Polyethylene Glycol 17 grams 08/11/24 12:00 08/11/24 11:23
Polyethylene Glycol Powder 17 Grams Packet PO 09/08/24 11:59 Not Given
DAILY CAMELIA
Sodium Chloride 0 flush 08/07/24 21:00
Sodium Chloride 0.9% (Flush) Syringe IV 09/04/24 20:59
PER PROTOCOL CAMELIA
Valacyclovir HCl 500 mg 08/08/24 12:07 08/09/24 01:43
Valacyclovir Hcl 500 Mg Tablet PO 08/18/24 12:06 500 mg
DAILYPRN PRN Administration
fever blisters
Home Medications
-
Home Medications
valacyclovir 500 mg tablet (Valtrex) 500 mg PO DAILYPRN PRN fever blisters 05/24/09
acetaminophen 500 mg tablet 500 mg PO DAILYPRN PRN mild pain 08/07/24
ibuprofen 200 mg tablet 600 mg PO DAILYPRN PRN mild pain 08/07/24
levothyroxine 125 mcg tablet (Synthroid) 62.5 mcg PO DAILY Thyroid 08/07/24
lidocaine 5 % topical patch 3 patch topical DAILYPRN PRN upper and lower back 08/07/24
liothyronine 5 mcg tablet 5 mcg PO BID Thyroid 08/07/24
omeprazole 20 mg capsule,delayed release 20 mg PO DAILY Gastrointestinal Issue 08/07/24
oxycodone-acetaminophen 5 mg-325 mg tablet 1 tab PO Q6HPRN PRN severe pain 08/07/24
prednisone 20 mg tablet 40 mg PO UD Anti-Inflammatory 08/07/24
semaglutide (weight loss) 1.7 mg/0.75 mL subcutaneous pen injector (Luc) 1.7 mg SC TU Weight Gain 08/07/24
[2024-08-11 11:58] LABS: INR 0.96; PT 13.3 Sec (11.4-14.6)
[2024-08-11 11:59] LABS: APTT 25.1 Sec (23.4-35.0); Fibrinogen 391 MG/DL (199-459)
--- NOTE | 2024-08-11 12:00 | PTCARENOTE ---
Pt assessed.No change in assessment noted.
--- NOTE | 2024-08-11 13:52 | CM ---
CM following re: discharge planing.
Discussed in Rounds, reviewed pt's chart, met with pt. Per Rounds meeting, Continue IVIG, continue supportive care.
PT and OT evaluations noted - acute rehab level of care recommended. [facility] community liaison officer following.
Physiatry consult pending.
D/C plan: [facility] when medically stable.
CM will follow to assist pt with discharge to [facility].
[2024-08-11] MEDS: NEURONTIN 600 MG PO ×2 (15:21→22:06)
--- NOTE | 2024-08-11 16:00 | PTCARENOTE ---
Pt assessed.No change in assessment noted.
[2024-08-11] MEDS: CALCIUM GLUCONATE 10% INJECTION 278 MG IV (17:22)
[2024-08-11] MEDS: ALBUMIN 5% 250 IV ×11 (17:26→19:00)
--- NOTE | 2024-08-11 17:53 | PTCARENOTE ---
Plasmapheresis is ongoing.Albumin, Calcium gluconate, and Heparin lock administered by [place] RN.
[2024-08-11] MEDS: HEPARIN 10000 UNITS INTRACATH (18:52)
[2024-08-11 19:05] LABS: Hepatitis B Surface Antigen Negative (Negative)
[2024-08-11 19:24] LABS: Hepatitis B Core Ab, Total Negative (Negative); Hepatitis B Surface Antibody Positive; Hepatitis C Antibody Negative (Negative)
--- NOTE | 2024-08-11 20:00 | PTCARENOTE ---
Received pt resting in bed, AAOx3. C/O 7-03/05 LE pain and numbness- PRN dilaudid given. Otherwise, in good spirits. Fine motor skills diminished but able to hold a cup and assist with feeding herself. L eye patch on. Pt. reports vision is unchanged.
SR on tele, HR 90s. BP 100s/60s-70s. + pulses. No edema. SCDs maintained. On RA, spo2 94%. Lungs CTA. Using I.S. + bowel sounds. Pt. reports LBM ~4 days ago but this is normal for her. Regular diet- good appetite. Using bedpan to void. Legs
elevated, multipodus boots in place. R IJ HD cath intact. Call perkins in reach. Pt. visiting with sister. Monitoring.
[2024-08-11] MEDS: LOVENOX 40 MG SC (20:10)
[2024-08-11] MEDS: DILAUDID 1 MG IV (20:10)
[2024-08-11 20:38] LABS: Hepatitis B Core Ab, IgM Negative (Negative)
[2024-08-11] MEDS: ATIVAN 0.5 MG PO (22:06)
[2024-08-12] VITALS (27 sets, daily range): BP systolic 90–132; BP diastolic 50–93; PULSE 102–117; O2SAT 95; BMI 24.6
[2024-08-12 00:17] LABS: ANA, HEp-2, IgG Detected (<1:80)
[2024-08-12] MEDS: MOTRIN PO (00:41)
--- NOTE | 2024-08-12 00:44 | PTCARENOTE ---
Pt reassessed. Resting calmly. Assisted pt. with getting washed up prior to bedtime. Requested ativan for anxiety- administered. No changes.
[2024-08-12 01:45] LABS: Angiotensin-1- Converting, CSF 1.8 U/L (0.0-2.5)
[2024-08-12 03:38] LABS: Lyme Disease DNA by PCR Not Detected; Lyme Source CSF
[2024-08-12] MEDS: DILAUDID 0.5 MG IV ×2 (04:04→07:55)
[2024-08-12 04:12] LABS: % Basophils 0.7 % (0-2); % Eosinophils 1.7 % (0-6); % Immature Granulocytes 0.3 % (0-0.5); % Lymphocytes 29.5 % (20.5-51.1); % Neutrophils 60.8 % (42.2-75.2); Absolute Basophils 0.1 10^3/uL (0-0.2); Absolute Eosinophils 0.2 10^3/uL (0-0.7); Absolute Lymphocytes 2.7 10^3/uL (1.2-3.4); Absolute Monocytes 0.6 10^3/uL (0.1-0.6); Absolute Neutrophils 5.5 10^3/uL (1.4-6.5); Hematocrit 42.4 % (37.0-47.0); Hemoglobin 15.2 g/dL (12.0-16.0); Mean Corp Hgb Conc. 35.8 g/dL (33.0-37.0); Mean Corpuscular Hgb 32.5 pg (27.0-31.0); Mean Corpuscular Volume 90.6 fL (81.0-99.0); Mean Platelet Volume 9.5 fL (7.4-10.4); Nucleated Red Blood Cells % 0 %; Platelet Count 249 10^3/uL (130-400); Red Blood Cell Count 4.68 10^6/uL (4.20-5.40); Red Cell Dist. Width 11.9 % (11.5-14.5)
[2024-08-12 04:17] LABS: INR 1.07; PT 14.4 Sec (11.4-14.6)
[2024-08-12 04:18] LABS: APTT 30.7 Sec (23.4-35.0)
[2024-08-12 04:23] LABS: Fibrinogen 156 MG/DL (199-459)
[2024-08-12 04:37] LABS: ALT (SGPT) 102 U/L (0-35); AST (SGOT) 54 U/L (14-36); Albumin 4.8 g/dl (3.5-5.0); Alkaline Phosphatase 40 U/L (38-126); Blood Urea Nitrogen 18 mg/dl (7-17); Calcium 9.5 mg/dl (8.4-10.2); Carbon Dioxide 29 mmol/L (22-30); Chloride 100 mmol/L (98-107); Estimated Creatinine Clearance 102 ml/min; Glucose 117 mg/dl (70-99); LDH 148 U/L (120-246); Magnesium 2.3 mg/dl (1.6-2.3); Phosphorus 4.7 mg/dl (2.5-4.5); Potassium 4.3 mmol/L (3.5-5.1); Sodium 139 mmol/L (135-145); Total Bilirubin 2.8 mg/dl (0.2-1.3); Total Protein 6.7 g/dl (6.3-8.2); eGFR > 60.00
--- NOTE | 2024-08-12 04:49 | PTCARENOTE ---
Pt. reassessed. Has been sleeping when undisturbed. Increased pain after repositioning- PRN dilaudid given. AM labs drawn.
[2024-08-12] MEDS: MOTRIN 600 MG PO ×5 (06:03→23:10)
[2024-08-12] MEDS: NON-FORMULARY ITEM 1 UNIT PO (06:03)
[2024-08-12 06:42] LABS: ANA Pattern Homogeneous
--- NOTE | 2024-08-12 07:43 | W.PN.INTV ---
Today's Communication / Plan
Recommendations
Plasma exchange tomorrow
Monitor vital capacity
Analgesia
Assessment
-
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
Left cerebellar lesion
Conditions present prior to admission:
Asthma-mild intermittent.
Papillary thyroid cancer 2018.
Hypothyroid.
Hyperlipidemia.
Anxiety.
. Tubal ligation. Tonsillectomy. Thyroidectomy. Cholecystectomy.
Plan
Transfer patient to medical intensive care unit for close neurologic and respiratory evaluation
Triggers include previous infections including Campylobacter jejunum and viral infections including influenza A, B, CMV, COVID 19, Zika, and EBV as well as vaccinations including influenza (1-2/1 million), RSV, zoster, COVID-19 especially adenovirus
factors though noted with messenger RNA vaccines as well
Typical presentation includes lower extremity weakness, decreased deep tendon reflexes, paresthesias and dysautonomia's
Supplemental oxygen as needed-currently on room air
Incentive spirometry encouraged
Aspiration precautions
Nebulizers if needed-history of asthma-currently not bronchospastic
Monitor muscle strength and forced vital capacity
08/09/2024-FVC-1.6 L-predicted 2.9 and MIP 35
08/10/2024-FVC 1.5 L-predicted 2.9 and MIP 30
08/11/2024-FVC 1.6 L-predicted 2.9 and MIP 32
08/12/2024-FVC 1.7 L
Indications for intubation and mechanical ventilation include
Respiratory rate greater than 30
Oxygen saturations less than 92%
FVC less than 20 mL/kg or greater than 30% decline
NIF less than -30
MEP less than 40
pCO2 elevation of greater than 50
Neurology evaluation ongoing-correspondence reviewed
Lumbar puncture-usually elevated protein and normal WBCs
Check vitamin B12, SHERRY, Lyme antibodies, vitamin B1, copper, TRENA, anti-GM 1 IgG and anti-GD Ia antibodies
ESR and CRP normal-unlikely vasculitis
TRENA detected
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
Continue to monitor vital capacity every shift
Initial treatment-IVIG 0.4 mg/kg/day-finished 3 out of 5-changed to plasma exchange with elevated LFTs
Plasma exchange now recommended-to begin 08/11/2024-every other day for total 5 doses-next session 08/13/2024
Hematology consultation/[facility] consulted for plasma exchange
NCS/EMG's in 3 weeks
Neurontin-currently 600 mg 3 times daily-May be increased to 800 3 times daily
Increase analgesia-ibuprofen [id number], intermittent Tylenol though LFTs elevated and IV hydromorphone
Ativan as needed
Monitor LFTs-improving
Brain MRI 08/09/2024-nodular focus of enhancement superior left cerebellar hemisphere etiology uncertain, neoplasia possible, demyelination could be considered, vasculitis could be considered, diffuse fatty atrophy of the right parotid gland
Cervical spine MRI 08/09/24-5 mm well-defined focus of enhancement in the lateral margin of the [id number], mild to moderate changes of DJD unchanged from 2024, slight anterior cord compression at C5-6
Thoracic spine MRI 08/10/2024-no abnormal enhancement to suggest acute myelopathy
Lumbar spine MRI 08/10/2024-mild degenerative changes and mild bilateral neural foraminal stenosis L4-5 and L5-6 1, no abnormal enhancement
DVT prophylaxis-on Lovenox and mechanical
Nutrition with aspiration precautions
Physical and Occupational Therapy
Dr. Kulkarni reviewed with sister in regards to current diagnosis, prognosis and treatment plan on 08/11/2024
Critical care statement: A total of 40 minutes of critical care time was provided for this patient today. This includes management of unstable vital signs, evaluation of the patient at bedside, reviewing the patient's pertinent medical records
including radiographs, management of potential respiratory failure progression, microbiology, laboratory evaluations, and discussion with primary team, consultants, pharmacy, nutrition, physical therapy, case management, charge nurse, critical care
nursing, and respiratory therapy.
Diagnostic data:
Chest x-ray 07/04/2024-NAD
Brain MRI 08/09/2024-nodular focus of enhancement superior left cerebellar hemisphere etiology uncertain, neoplasia possible, demyelination could be considered, vasculitis could be considered, diffuse fatty atrophy of the right parotid gland
Cervical spine MRI 08/09/24-5 mm well-defined focus of enhancement in the lateral margin of the [id number], mild to moderate changes of DJD unchanged from 2024, slight anterior cord compression at C5-6
Thoracic spine MRI 08/10/2024-no abnormal enhancement to suggest acute myelopathy
Lumbar spine MRI 08/10/2024-mild degenerative changes and mild bilateral neural foraminal stenosis L4-5 and L5-6 1, no abnormal enhancement
Subjective Dataa
Subjective Data
Date of Service:
Date of Service: August 12, 2024
Chief Complaint: Inside Steward/Stewardess Follow Up and Pulmonary Follow Up
Subjective:
No complaints of worsening shortness of breath, difficulties breathing, dysphagia, leg weakness about the same, upper extremity paresthesias without change, pain in legs still significant
Review of Systems
General: Other (Per HPI)
Objective Data
Data Reviewed
Vital Signs / I&O / Oxygen:
Vital Signs
Temp Pulse Resp BP Pulse Ox
98 F 85 12 99/59 93
08/12/24 07:38 08/12/24 06:00 08/12/24 06:00 08/12/24 06:00 08/12/24 06:00
Intake and Output
08/11/24 08/12/24 08/13/24
06:59 06:59 06:59
Intake Total 690 / 690 2220 / 2220
Output Total 1500 / 1500 1250 / 1250
Balance -810 / -810 970 / 970
SaO2 93
Physical Exam
General: Respiratory Distress (n) and Comfortable
HEENT: Normocephalic, Anicteric and Moist Mucous Membranes
Cardiovascular: Regular Rhythm
Respiratory: Clear, Wheeze (n), Crackles (n), Rhonchi (n), Non-Labored Respirations, Accessory Resp Muscle Use (n) and Stridor (n)
GI: Soft, Non Distended and Non Tender
Neurology: Awake, Alert, No Motor Deficits and Other (Lower extremity weakness and numbness on hands )
Skin: Warm, Good Color (n), Cyanosis (n) and Jaundice (n)
Labs/Micro/Reports
Lab Data
08/12/24 03:49
08/12/24 03:49
Laboratory Results
08/11/24 08/12/24
11:21 03:49
PT 13.3 14.4
INR 0.96 1.07
APTT 25.1 30.7
Microbiology
08/08/24 14:01 Csf CSF Culture - Preliminary
No Growth After 72 Hours
08/08/24 14:01 Csf Gram Stain - Preliminary
[2024-08-12] MEDS: NEURONTIN 600 MG PO (07:55)
[2024-08-12] MEDS: CYTOMEL 5 MICROGRAM PO ×2 (07:55→19:50)
[2024-08-12] MEDS: PROTONIX 40 MG PO (07:55)
[2024-08-12] MEDS: MIRALAX PO (07:57)
--- NOTE | 2024-08-12 08:03 | W.PN.ONC2 ---
Today's Communication / Plan
-
pheresis 08/13 as recommended by neurology
Impression
Impression
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
transaminitis, Hep C negative. HBsAb positive. CT ab/pelvis September 2021 showd mild hepatomegaly with diffuse hepatic steatosis.
DJD
Plan
Plan
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
Apheresis -album exchange every other day x 5 sessions arranged as recommended by neurology. Next scheduled apheresis 08/13
daily CBC, BMP, magnesium, phosphorus, fibrinogen, LDH, coags.
non-tunneled right internal jugular pheresis catheter. Catheter ready for use.
Subjective/Objective
Subjective
no new complaints
Vital Signs:
Vital Signs
Temp Pulse Resp BP Pulse Ox
98 F 85 12 99/59 93
08/12/24 07:38 08/12/24 06:00 08/12/24 06:00 08/12/24 06:00 08/12/24 06:00
Lab Results:
Laboratory Data
WBC 9.0 10^3/uL (4.8-10.8) 08/12/24 03:49
Hgb 15.2 g/dL (12.0-16.0) 08/12/24 03:49
Plt Count 249 10^3/uL (130-400) 08/12/24 03:49
PT 14.4 Sec (11.4-14.6) 08/12/24 03:49
INR 1.07 08/12/24 03:49
APTT 30.7 Sec (23.4-35.0) 08/12/24 03:49
eGFR > 60.00 08/12/24 03:49
Physical Exam
General: Well Developed and No Apparent Distress
HEENT: Moist Mucous Membranes; Negative Jaundice
Cardiology: Normal Sinus Rhythm
Pulmonary: Clear
GI: Soft
Extremities: Pulses Present; Negative Edema
Neurology: weariing eye patch due to diplopia
Skin: Warm
Psych: Calm
Orders
Orders
Orders From Last 24 Hours
08/11/24 11:21
Fibrinogen Routine
Hepatitis B Core Ab, IgM Routine
Hepatitis B Core Ab, Total Routine
Hepatitis B Surface Antibody Routine
Hepatitis B Surface Antigen Routine
Hepatitis C Antibody Routine
PT/INR [Prothrombin Time] Routine
PTT Routine
08/11/24 12:00
Albumin Human 5% 250 ml [Albumin 5%] 12.5 grams in 250 ml INTRACATH 1,500 mls/hr
Calcium Gluconate [Calcium Gluconate 10% Injection] 2,800 mg 0.9% Sodium Chloride 250 ml [Nss] 250 ml IV Q48H
Heparin See Dose Instructions INTRACATH ONCE ONE
08/12/24 03:49
CBC/With Diff [Complete Blood Count/With Diff] IN AM
Fibrinogen IN AM
LDH IN AM
Magnesium IN AM
PT/INR [Prothrombin Time] IN AM
PTT IN AM
Phos [Phosphorus] IN AM
08/13/24 06:00
BMP [Basic Metabolic Panel] IN AM
CBC/With Diff [Complete Blood Count/With Diff] IN AM
Fibrinogen IN AM
LDH IN AM
Magnesium IN AM
PT/INR [Prothrombin Time] IN AM
PTT IN AM
Phos [Phosphorus] IN AM
08/13/24 12:00
Albumin Human 5% 250 ml [Albumin 5%] 12.5 grams in 250 ml INTRACATH 1,500 mls/hr
Heparin See Dose Instructions INTRACATH Q48H
08/14/24 06:00
BMP [Basic Metabolic Panel] IN AM
CBC/With Diff [Complete Blood Count/With Diff] IN AM
Fibrinogen IN AM
LDH IN AM
Magnesium IN AM
PT/INR [Prothrombin Time] IN AM
PTT IN AM
Phos [Phosphorus] IN AM
08/15/24 06:00
BMP [Basic Metabolic Panel] IN AM
CBC/With Diff [Complete Blood Count/With Diff] IN AM
Fibrinogen IN AM
LDH IN AM
Magnesium IN AM
PT/INR [Prothrombin Time] IN AM
PTT IN AM
Phos [Phosphorus] IN AM
08/15/24 12:00
Albumin Human 5% 250 ml [Albumin 5%] 12.5 grams in 250 ml INTRACATH 1,500 mls/hr
08/16/24 06:00
BMP [Basic Metabolic Panel] IN AM
CBC/With Diff [Complete Blood Count/With Diff] IN AM
Fibrinogen IN AM
LDH IN AM
Magnesium IN AM
PT/INR [Prothrombin Time] IN AM
PTT IN AM
Phos [Phosphorus] IN AM
08/17/24 06:00
BMP [Basic Metabolic Panel] IN AM
CBC/With Diff [Complete Blood Count/With Diff] IN AM
Fibrinogen IN AM
LDH IN AM
Magnesium IN AM
PT/INR [Prothrombin Time] IN AM
PTT IN AM
Phos [Phosphorus] IN AM
08/17/24 12:00
Albumin Human 5% 250 ml [Albumin 5%] 12.5 grams in 250 ml INTRACATH 1,500 mls/hr
08/18/24 06:00
BMP [Basic Metabolic Panel] IN AM
CBC/With Diff [Complete Blood Count/With Diff] IN AM
Fibrinogen IN AM
LDH IN AM
Magnesium IN AM
PT/INR [Prothrombin Time] IN AM
PTT IN AM
Phos [Phosphorus] IN AM
08/19/24 06:00
BMP [Basic Metabolic Panel] IN AM
CBC/With Diff [Complete Blood Count/With Diff] IN AM
Fibrinogen IN AM
LDH IN AM
Magnesium IN AM
PT/INR [Prothrombin Time] IN AM
PTT IN AM
Phos [Phosphorus] IN AM
08/19/24 12:00
Albumin Human 5% 250 ml [Albumin 5%] 12.5 grams in 250 ml INTRACATH 1,500 mls/hr
08/20/24 06:00
BMP [Basic Metabolic Panel] IN AM
CBC/With Diff [Complete Blood Count/With Diff] IN AM
Fibrinogen IN AM
LDH IN AM
Magnesium IN AM
PT/INR [Prothrombin Time] IN AM
PTT IN AM
Phos [Phosphorus] IN AM
08/21/24 06:00
BMP [Basic Metabolic Panel] IN AM
CBC/With Diff [Complete Blood Count/With Diff] IN AM
Fibrinogen IN AM
LDH IN AM
Magnesium IN AM
PT/INR [Prothrombin Time] IN AM
PTT IN AM
Phos [Phosphorus] IN AM
--- NOTE | 2024-08-12 08:40 | PTCARENOTE ---
Addendum entered by Roselyn Sheets RN 08/12/24 19:01:
+ left ptosis.
Original Note:
Received pt awake and alert.Speech is appropriate.4-5/5 bl upper extremity.1/5 bl lower extremity.+ paraesthesia bl hands and legs.Bl legs intermittent pain requiring Motrin and Hydromorphone as requested.Pt repositioned for comfort.OOB to chair via
Michele lift.SR noted.Right HD cath intact.Decreased breath sounds bibasilar.No SOB noted.IS 1000 ml.Appetite good.No BM.Voiding palmer urine in bedpan.Skin integrity intact.Plan of care discussed.
[2024-08-12 09:42] LABS: SSA 52 (Ro)(ENA) Ab, IgG 37 AU/mL (0-40); SSA 60 (Ro)(ENA) Ab, IgG 27 AU/mL (0-40); SSB (La)(ENA) Ab, IgG 4 AU/mL (0-40)
--- NOTE | 2024-08-12 10:23 | W.PN.NEURO.1 ---
Addendum entered and electronically signed by Radha Busch MD 08/13/24 13:38:
45 min
Original Note:
Today's Communication / Plan
-
.
Subjective/Objective
Subjective Data
Date of Service: August 12, 2024
Neurology follow-up note
24-hour events: Mr. Nevarez endorses intermittent severe pain in her legs, worse in the evening. She tolerated fist PLEX well. Continues to have leg weakness and paresthesias in the hands and legs (up to the groin area). No change in speech,
swallowing. Continues to be diplopic. No headaches.
LS-spine MRI w/wo aishwarya(08/10/2024)�no clonus or spinal root enhancement.
Brain MRI with gadolinium(08/08/2024)nodular focus of enhancement within the superior left cerebellar hemisphere, with a larger region of surrounding increased T2 and FLAIR signal, new from 2007. No cranial nerve enhancement.
Labs: GD1b�ab 145(0-50)
PMH: C6-C6 DJD, h/o papillary thyroid ca, hypothyroidism, vitamin D deficiency, GERD, TRENA positive, history of head concussion, celiac disease, hepatic steatosis, chronic pain syndrome, AISHWARYA, ADD,
PSH: total thyroidectomy, cholecystectomy, , tubal ligation, tonsillectomy
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
All: Aspirin
ROS: Constitutional: Negative. Negative for chills, fever and unexpected weight change.
HENT: For the poor pain
Eyes: Negative. Negative for photophobia, pain and visual disturbance.
Respiratory: Negative for cough, choking and shortness of breath.
Cardiovascular: Negative for chest pain, palpitations and leg swelling.
Gastrointestinal: Negative for abdominal pain and vomiting.
Endocrine: Negative. Negative for cold intolerance.
Genitourinary: Negative for dysuria, flank pain and urgency.
Musculoskeletal: Positive for intermittent neck pain back pain
Skin: Negative for rash.
Allergic/Immunologic: Negative. Negative for immunocompromised state.
Neurological: Positive for leg weakness, paresthesias, headache
Psychiatric/Behavioral: Positive for anxiety
General: Well developed. In no acute distress.
Cardio: Regular rate and rhythm without murmur. Extremities are without cyanosis or edema.
Neuro:
Mental Status: Alert, oriented to person, place, and date. Normal attention and recall. Good fund of knowledge. Follows complex requests across the midline. Comprehension, naming, and repetition intact. Immediate and delayed recall 3/3.
Cranial Nerves: . Pupils are equally round and reactive to light. EOMs full. Diplopia on the right noted on lateral gaze visual kent full to confrontation. No ptosis. No nystagmus. Eye closure weakness on the right. Normal hearing AU. The
palate elevated well. SCMs and traps 5/5. Tongue midline. No dysarthria.
Motor: Normal bulk and tone. No pronator or arm drift. Strength 0 out of 5 in hip flexors, knee extensors�2/5, dorsiflexion 0/5, plantarflexion�4+/5. Bilateral triceps�5 out of 5, biceps 4- out of 5, neck flexors-4-/5, neck extensors 5/5
Reflexes: 0+ throughout the upper extremities and 0 knee. AJs, Plantar responses flexor bilaterally.
Coordination: No tremor; R dysmetria
Gait: unable
Assessment and Plan:
I. Guillain-[place] syndrome. Status post 3 doses of IVIG and 1 PLEX. Positive GD1b ab (found in patients with Guillain-Morgan� syndrome and multifocal motor neuropathy)
II. Left cerebellar lesion. Differential diagnosis includes demyelinating(concurrent GBS and ADEM are uncommon with few reported cases) versus low grade neoplastic vs vascular vs inflammatory vs less likely infectious etiologies.
III. Hypothyroidism
-Continue ICU care
-Continue PLEX
-Follow-up CSF studies (oligoclonal bands, myelin basic protein, cytology)
-NCS/EMG of LUE/LE next week
-Increase Neurontin to 800 mg TID as tolerated
-Lower extremity Doppler venous US
-Brain MRI with aishwarya on 08/23/24
-DVT prophylaxis.
I personally reviewed all radiology and labs along with past medical records pertinent to current medical problems. Total time spent in patient care is 405minutes.
Thank you for allowing us to participate in the care of this patient. We will continue to follow. Please do not hesitate to contact us with any questions or concerns
Objective Data
Vital Signs
Temp Pulse Resp BP Pulse Ox
36.6 C 103 15 99/80 94
08/12/24 07:38 08/12/24 10:00 08/12/24 10:00 08/12/24 10:00 08/12/24 10:00
Lab Results
08/12/24 03:49
08/12/24 03:49
PT 14.4 Sec (11.4-14.6) 08/12/24 03:49
INR 1.07 08/12/24 03:49
APTT 30.7 Sec (23.4-35.0) 08/12/24 03:49
Sodium 139 mmol/L (135-145) 08/12/24 03:49
Potassium 4.3 mmol/L (3.5-5.1) 08/12/24 03:49
BUN 18 mg/dl (7-17) H 08/12/24 03:49
Glucose 117 mg/dl (70-99) H 08/12/24 03:49
Calcium 9.5 mg/dl (8.4-10.2) 08/12/24 03:49
Phosphorus 4.7 mg/dl (2.5-4.5) H 08/12/24 03:49
Whole Bld Vitamin B1 117 nmol/L (70-180) 08/08/24 07:47
Whole Bld Vitamin B1 Cancelled 08/08/24 07:47
Vitamin B12 563 pg/ml (239-931) 08/08/24 07:47
Vitamin B12 Cancelled 08/08/24 07:47
Patient Allergies
strawberry Allergy (Verified 08/07/24 14:51)
Swelling
aspirin [Aspirin] Adverse Reaction (Verified 08/07/24 14:51)
GI upset
BANDAID Allergy (Uncoded 08/07/24 14:51)
Rash
Vital Signs and Labs
-
Vital Signs and Labs:
Vital Signs
Temp Pulse Resp BP Pulse Ox
36.6 C 103 15 99/80 94
08/12/24 07:38 08/12/24 10:00 08/12/24 10:00 08/12/24 10:00 08/12/24 10:00
Lab Results
08/12/24 03:49
08/12/24 03:49
PT 14.4 Sec (11.4-14.6) 08/12/24 03:49
INR 1.07 08/12/24 03:49
APTT 30.7 Sec (23.4-35.0) 08/12/24 03:49
Sodium 139 mmol/L (135-145) 08/12/24 03:49
Potassium 4.3 mmol/L (3.5-5.1) 08/12/24 03:49
BUN 18 mg/dl (7-17) H 08/12/24 03:49
Glucose 117 mg/dl (70-99) H 08/12/24 03:49
Calcium 9.5 mg/dl (8.4-10.2) 08/12/24 03:49
Phosphorus 4.7 mg/dl (2.5-4.5) H 08/12/24 03:49
Whole Bld Vitamin B1 117 nmol/L (70-180) 08/08/24 07:47
Whole Bld Vitamin B1 Cancelled 08/08/24 07:47
Vitamin B12 563 pg/ml (239-931) 08/08/24 07:47
Vitamin B12 Cancelled 08/08/24 07:47
Medications
-
Medications:
Generic Name Dose Route Start Last Admin
Trade Name Freq PRN Reason Stop Dose Admin
Acetaminophen 650 mg 08/07/24 19:55 08/10/24 17:36
Acetaminophen 325 Mg Tablet PO 09/04/24 19:54 650 mg
Q6HPRN PRN Administration
mild pain/ fever>100.5F
Artificial Tears 1 drops 08/10/24 10:28 08/11/24 11:23
Artificial Tears Pf (Refresh) 10 Drop Droperette OPHTH 09/07/24 10:27 1 drops
QIDPRN PRN Administration
dry eyes
Enoxaparin Sodium 40 mg 08/08/24 18:00 08/11/24 20:10
Enoxaparin Sodium 40 Mg/0.4 Ml Syringe SC 09/05/24 17:59 40 mg
QPM CAMELIA Administration
Gabapentin 600 mg 08/11/24 11:59 08/12/24 07:55
Gabapentin 300 Mg Capsule PO 09/06/24 15:59 600 mg
TID CAMELIA Administration
Heparin Sodium 0 units 08/13/24 12:00
Heparin (1000 Units/Ml) 10,000 Units/10 Ml Vial INTRACATH 08/19/24 12:01
Q48H CAMELIA
Hydromorphone HCl 1 mg 08/11/24 11:19 08/11/24 20:10
Hydromorphone 1 Mg/Ml Carpuject IV 08/25/24 11:18 1 mg
Q3HPRN PRN Administration
SEVERE PAIN
Hydromorphone HCl 0.5 mg 08/11/24 11:20 08/12/24 07:55
Hydromorphone 0.5 Mg/0.5 Ml Syringe IV 08/25/24 11:19 0.5 mg
Q3HPRN PRN Administration
MODERATE PAIN
Calcium Gluconate 2,800 mg/ 278 mls @ 0 mls/hr 08/11/24 12:00 08/11/24 17:22
Sodium Chloride IV 08/19/24 12:01 278 mls
Q48H CAMELIA Administration
As Directed
Albumin Human 12.5 grams in 250 mls @ 1,500 mls/hr 08/13/24 12:00
Albumin 5% INTRACATH 08/13/24 13:49
.Q10M CAMELIA
Albumin Human 12.5 grams in 250 mls @ 1,500 mls/hr 08/15/24 12:00
Albumin 5% INTRACATH 08/15/24 13:49
.Q10M CAMELIA
Albumin Human 12.5 grams in 250 mls @ 1,500 mls/hr 08/17/24 12:00
Albumin 5% INTRACATH 08/17/24 13:49
.Q10M CAMELIA
Albumin Human 12.5 grams in 250 mls @ 1,500 mls/hr 08/19/24 12:00
Albumin 5% INTRACATH 08/19/24 13:49
.Q10M CAMELIA
Ibuprofen 600 mg 08/10/24 14:30 08/12/24 09:42
Ibuprofen 600 Mg Tablet PO 09/07/24 14:29 600 mg
Q6HPRN PRN Administration
leg pain
Ibuprofen 600 mg 08/11/24 12:00 08/12/24 06:03
Ibuprofen 600 Mg Tablet PO 09/08/24 11:59 600 mg
Q6 CAMELIA Administration
Liothyronine Sodium 5 microgram 08/08/24 08:00 08/12/24 07:55
Liothyronine 5 Microgram Tablet PO 09/05/24 07:59 5 microgram
BID CAMELIA Administration
Lorazepam 0.5 mg 08/08/24 09:50 08/11/24 22:06
Lorazepam 0.5 Mg Tablet PO 09/05/24 09:49 0.5 mg
Q8HPRN PRN Administration
anxiety
Synthroid (Brand 0 unit 08/09/24 06:00 08/12/24 06:03
Name Levothyroxine) PO 09/06/24 05:59 1 unit
125mcg Tablet - Take DAILY@0600 CAMELIA Administration
1/2 Tablet (62.5mcg
) Po Daily
Ondansetron HCl 4 mg 08/08/24 12:07 08/08/24 14:53
Ondansetron 4 Mg/2 Ml Vial IV 09/05/24 12:06 4 mg
Q6HPRN PRN Administration
NAUSEA/VOMITING
Pantoprazole Sodium 40 mg 08/09/24 08:00 08/12/24 07:55
Pantoprazole 40 Mg Delayed Release Tablet PO 09/06/24 07:59 40 mg
DAILY CAMELIA Administration
Polyethylene Glycol 17 grams 08/11/24 12:00 08/12/24 07:57
Polyethylene Glycol Powder 17 Grams Packet PO 09/08/24 11:59 Not Given
DAILY CAMELIA
Sodium Chloride 0 flush 08/07/24 21:00
Sodium Chloride 0.9% (Flush) Syringe IV 09/04/24 20:59
PER PROTOCOL CAMELIA
Valacyclovir HCl 500 mg 08/08/24 12:07 08/09/24 01:43
Valacyclovir Hcl 500 Mg Tablet PO 08/18/24 12:06 500 mg
DAILYPRN PRN Administration
fever blisters
Home Medications
-
Home Medications
valacyclovir 500 mg tablet (Valtrex) 500 mg PO DAILYPRN PRN fever blisters 05/24/09
acetaminophen 500 mg tablet 500 mg PO DAILYPRN PRN mild pain 08/07/24
ibuprofen 200 mg tablet 600 mg PO DAILYPRN PRN mild pain 08/07/24
levothyroxine 125 mcg tablet (Synthroid) 62.5 mcg PO DAILY Thyroid 08/07/24
lidocaine 5 % topical patch 3 patch topical DAILYPRN PRN upper and lower back 08/07/24
liothyronine 5 mcg tablet 5 mcg PO BID Thyroid 08/07/24
omeprazole 20 mg capsule,delayed release 20 mg PO DAILY Gastrointestinal Issue 08/07/24
oxycodone-acetaminophen 5 mg-325 mg tablet 1 tab PO Q6HPRN PRN severe pain 08/07/24
prednisone 20 mg tablet 40 mg PO UD Anti-Inflammatory 08/07/24
semaglutide (weight loss) 1.7 mg/0.75 mL subcutaneous pen injector (Wegovy) 1.7 mg SC TU Weight Gain 08/07/24
--- NOTE | 2024-08-12 11:33 | W.PN.INTV ---
Documented by User: Phyllis Solares MD, Resident 08/12/24 12:03
Today's Communication / Plan
Recommendations
-Follow up daily CMP, Mg, P, fibrinogen, LDH, coags
-PT/OT assessment
-Pain management with opioids/nonopioids
-Repeat Vital Capacity test
Assessment
-
Assessment:
Impression: The patient is a 58-year-old non-smoking female with a PMH of asthma, HL, hypothyroidism, diagnosis of papillary thyroid cancer in 2018 presented with lower extremity weakness as well as hand numbness to ER on 08/09/24. The patient had
felt her hand numbness a few days ago and was started on steroid treatment due her chronic cervical radiculopathy. The patient was unresponsive to outpatient prednisone. She was obtained gitwcsbj-fisiwptn-pgafzj-brain MRI (w/wo contrast) and had a
lumbar puncture and further studies for differential diagnosis. 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
08/09/24.
Conditions present prior to admission:
Asthma-mild intermittent.
Papillary thyroid cancer 2018.
Hypothyroidism
Hyperlipidemia
Anxiety
Past Surgical History: . Tubal ligation. Tonsillectomy. Thyroidectomy. Cholecystectomy.
Plan
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
-Brain MRI: nodular focus of enhancement superior left cerebellar hemisphere etiology uncertain, neoplasia possible, demyelination could be considered, vasculitis could be considered, diffuse fatty atrophy of the right parotid gland-Control MRI with
contrast was planned by Neuro
-Cervical/thoracal/Lumbar without contrast MRI on 08/07/24 no significant findings
-Thoracal/Lumbar MRI with contrast: No finding to suggest myelopathy.
-GD1b was found elevated for 145 which compliant with GBS-- GD1a : 6 (Negative )
-Vit B12: 563, vit B1:117, ESR:8 /CRP<5 ,TRENA 1/160 titer , Lyme; Negative, CSF VDRL non-reactive , copper:113.4, CSF SHERRY 1.8 ;SS-A/B: Pending , Acetylchol Rcpt Bind Ab: Pending
-CSF:(protein 56 (N), glucose 61, WBC:0)--CSF albumin;pending oligoclonal bands, , IgG: Pending
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
-IVIG 0.4mg/kg/day for 5 days was started by Neuro-unfortunately diplopia and paraesthesia persisted despite 3 sessions and developed transaminitis- discontinued
-Plasma exchange was started on 08/11 through non-tunneled right internal jugular pheresis catheter: BMP:N, Mg:N, P:N, Fibrinogen level was found low at 156- will follow up daily per hematology recc
-Hematology and Neurology on board
#Pain and Anxiety
-Gabapentin increased to 800 mg TID
-Acetaminophen and Ibuprofen PRN
-Hydromorphone 1 mg and 0.5 ml PRN
-Lorazepam 0.5 mg as needed
#Transaminitis likely drug induced
-No known elevated transaminitis in the past
-Likely IVIG induced/ IVIG was given for 3 sessions and was discontinued
-AST and ALT trending down (AST 54 from 252, ALT 102 from 392)
#Others
-Monitor neurologic status, Autonomic dysfunction (HR+BP) and muscle strength
-Supplemental oxygen as needed
-Incentive spirometry was ordered
-Aspiration precautions
-Nebulizers if needed (history of mild intermittent asthma)
-Recommended NCS/EMG of LUE/LE in 3 weeks
-DVT prophylaxis
-Physical and Occupational Therapy ( multi-podus boot planned to be ordered)
-Monitor muscle strength and forced vital capacity
-Monitor forced vital capacity
08/09/2024-FVC-1.6 L-predicted 2.9 and MIP 35
08/10/2024-FVC 1.5 L-predicted 2.9 and MIP 30
08/11/2024-FVC 1.6 L-predicted 2.9 and MIP 32
08/12/2024-FVC 1.4 L-predicted 2.9 and MIP 25
Indications for intubation and mechanical ventilation include
Respiratory rate greater than 30
Oxygen saturations less than 92%
FVC less than 20 mL/kg or greater than 30% decline
NIF less than -30
MEP less than 40
pCO2 elevation of greater than 50
Subjective Dataa
Subjective Data
Date of Service:
Date of Service: August 12, 2024
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
Subjective:
Patient reports pain on her legs and feeling anxious. Reports still having diplopia which makes her feeling nauseous. Denies chest pain, respiratory problem and reported she was not complaint with her morning vital test which will be repeated.
Review of Systems
General: Pain
HEENT: Other (Diplopia )
Cardiopulmonary: Lower Extremity Pain
GI: Nausea
Neuro: Dizziness
Objective Data
Data Reviewed
Vital Signs / I&O / Oxygen:
Vital Signs
Temp Pulse Resp BP Pulse Ox
97.7 F 103 15 99/80 94
08/12/24 11:31 08/12/24 10:00 08/12/24 10:00 08/12/24 10:00 08/12/24 10:00
Intake and Output
08/11/24 08/12/24 08/13/24
06:59 06:59 06:59
Intake Total 690 / 690 2220 / 2220 120 / 120
Output Total 1500 / 1500 1250 / 1250 200 / 200
Balance -810 / -810 970 / 970 -80 / -80
SaO2 94
Physical Exam
General: Pain
HEENT: Normocephalic, Anicteric and Moist Mucous Membranes
Cardiovascular: S1-S2 and Regular Rhythm
Respiratory: Clear
GI: Soft, Non Distended and Non Tender
Neurology: Awake, Alert, Oriented, AO x 3 and Other (Lower extremity weakness and numbness on hands )
Skin: Warm and Good Color (n)
Labs/Micro/Reports
Lab Data
08/12/24 03:49
08/12/24 03:49
Laboratory Results
08/11/24 08/12/24
11:21 03:49
PT 13.3 14.4
INR 0.96 1.07
APTT 25.1 30.7
Microbiology
08/08/24 14:01 Csf CSF Culture - Preliminary
No Growth After 4 Days
08/08/24 14:01 Csf Gram Stain - Preliminary

Documented by User: Jerry Kulkarni MD 08/12/24 13:28
Assessment
-
Assessment:
Impression: The patient is a 58-year-old non-smoking female with a PMH of asthma, HL, hypothyroidism, diagnosis of papillary thyroid cancer in 2018 presented with lower extremity weakness as well as hand numbness to ER on 08/09/24. The patient had
felt her hand numbness a few days ago and was started on steroid treatment due her chronic cervical radiculopathy. The patient was unresponsive to outpatient prednisone. She was obtained tiugxjan-ebrwtkjh-enjwpo-brain MRI (w/wo contrast) and had a
lumbar puncture and further studies for differential diagnosis. 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
08/09/24.
Conditions present prior to admission:
Asthma-mild intermittent.
Papillary thyroid cancer 2018.
Hypothyroidism
Hyperlipidemia
Anxiety
Past Surgical History: . Tubal ligation. Tonsillectomy. Thyroidectomy. Cholecystectomy.
Plan
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
-Brain MRI: nodular focus of enhancement superior left cerebellar hemisphere etiology uncertain, neoplasia possible, demyelination could be considered, vasculitis could be considered, diffuse fatty atrophy of the right parotid gland-Control MRI with
contrast was planned by Neuro
-Cervical/thoracal/Lumbar without contrast MRI on 08/07/24 no significant findings
-Thoracal/Lumbar MRI with contrast: No finding to suggest myelopathy.
-GD1b was found elevated for 145 which compliant with GBS-- GD1a : 6 (Negative )
-Vit B12: 563, vit B1:117, ESR:8 /CRP<5 ,TRENA 1/160 titer , Lyme; Negative, CSF VDRL non-reactive , copper:113.4, CSF SHERRY 1.8 ;SS-A/B: Pending , Acetylchol Rcpt Bind Ab: Pending
-CSF:(protein 56 (N), glucose 61, WBC:0)--CSF albumin;pending oligoclonal bands, , IgG: Pending
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
-IVIG 0.4mg/kg/day for 5 days was started by Neuro-unfortunately diplopia and paraesthesia persisted despite 3 sessions and developed transaminitis- discontinued
-Plasma exchange was started on 08/11 through non-tunneled right internal jugular pheresis catheter: BMP:N, Mg:N, P:N, Fibrinogen level was found low at 156- will follow up daily per hematology recc
-Hematology and Neurology on board
#Pain and Anxiety
-Gabapentin increased to 800 mg TID
-Acetaminophen and Ibuprofen PRN
-Hydromorphone 1 mg and 0.5 ml PRN
-Lorazepam 0.5 mg as needed
#Transaminitis likely drug induced
-No known elevated transaminitis in the past
-Likely IVIG induced/ IVIG was given for 3 sessions and was discontinued
-AST and ALT trending down (AST 54 from 252, ALT 102 from 392)
#Others
-Monitor neurologic status, Autonomic dysfunction (HR+BP) and muscle strength
-Supplemental oxygen as needed
-Incentive spirometry was ordered
-Aspiration precautions
-Nebulizers if needed (history of mild intermittent asthma)
-Recommended NCS/EMG of LUE/LE in 3 weeks
-DVT prophylaxis
-Physical and Occupational Therapy ( multi-podus boot planned to be ordered)
-Monitor muscle strength and forced vital capacity
-Monitor forced vital capacity
08/09/2024-FVC-1.6 L-predicted 2.9 and MIP 35
08/10/2024-FVC 1.5 L-predicted 2.9 and MIP 30
08/11/2024-FVC 1.6 L-predicted 2.9 and MIP 32
08/12/2024-FVC 1.4 L-predicted 2.9 and MIP 25
Indications for intubation and mechanical ventilation include
Respiratory rate greater than 30
Oxygen saturations less than 92%
FVC less than 20 mL/kg or greater than 30% decline
NIF less than -30
MEP less than 40
pCO2 elevation of greater than 50
I reviewed this patients case independently and in conjunction with the resident. I personally examined the patient. Patient's complex medical history, laboratory evaluations, events over the last 24 hours, radiographs, microbiological data were
all personally reviewed.
Agree with documented assessment and plan
Jerry Kulkarni MD, FCCP, DAB
--- NOTE | 2024-08-12 12:00 | PTCARENOTE ---
Pt assessed.No change in assessment noted.
--- NOTE | 2024-08-12 12:02 | RESPNOTE ---
Respiratory: patient asked to retry her vital capacity. Performed with Maldonado's Respirometer 1.7 L, with good patient effort.
--- NOTE | 2024-08-12 12:22 | PTCARENOTE ---
Addendum entered by Roselyn Sheets RN 08/12/24 12:22:
Left eye patch removed as per OT to prevent weakening of left eye.
Original Note:
Pt assessed.No change in assessment noted.
--- NOTE | 2024-08-12 12:37 | W.PN.HOSP.TC ---
Today's Communication/Plan
-
continue PLEX tomorrow
Gabapentin
PT/OT
ICU level of care per Neurology
Assessment / Plan
Assessment / Plan
Assessment:
Acute bilateral lower extremity weakness
- previously started on steroids per outpatient PCP - will stop now (only took 1 day)
- MRI imaging of spine (C/T/L with contrast) without evidence of any enhancing lesions, myelopathic signals.
- MRI brain: delayed images reveal Nodular focus of enhancement within the superior left cerebellar hemisphere, with a larger region of surrounding increased T2 and FLAIR signal. See above discussion regarding timing of contrast enhancement.
Etiology for this finding is uncertain. It could possibly represent neoplasia. A focus of demyelination could be considered. Vasculitis could also be considered. This could possibly be a vascular/venous anomaly, although the surrounding increased T2
and FLAIR signal is atypical.
- will look to obtain MRI brain with contrast repeat in 2 weeks per Neurology
- also consider CT-A to evaluate for vascular anomaly
- s/p IVIG course without improvement, rising LFTs
- s/p IR guided tunnel cath 08/10; to continue Plasmapharesis (next 08/13) and every 48 hours. Appreciate Hematology assistance for coordinating Plasmapharesis
- monitor VC/NIFs, pulm exams serially
- follow extended neuro workup from serum and CSF studies
- follow Neuro recs
- follow ICU team recs.
Transaminitis
- suspected related to IVIG
Chronic neck pain
- continue Gabapentin to 800mg TID. Monitor for sedation
- prn Tylenol and prn Motrin.
Mild intermittent asthma - stable.
History of thyroid cancer - continue Cytomel and Synthroid (patient prefers brand name - is using her own supply). noted low TSH, normal T4
DVT ppx: Lovenox
Code: Full
Total Critical Care Time 41 minutes. I was immediately available to the patient and staff. I personally examined, reviewed labs, diagnostic images/reports, interpretations, treatment plans, discussed patient care with other providers and family or
caregivers (if patient is unable to make decisions), entered orders as appropriate and documented the medical record.
Anticipated Discharge: > 48 hours
Subjective/Interval History
-
Date of Service: August 12, 2024
feels like arm weakness less today but arm neuropathy stable
no improvement in leg weakness
Objective Data
-
Labs:
Laboratory Results
08/12/24
03:49
WBC 9.0
Hgb 15.2
Hct 42.4
Plt Count 249
PT 14.4
INR 1.07
APTT 30.7
Sodium 139
Potassium 4.3
Chloride 100
Carbon Dioxide 29
BUN 18 H
Creatinine 0.5 L
Glucose 117 H
Calcium 9.5
Total Bilirubin 2.8 H
AST 54 H
ALT 102 H
Alkaline Phosphatase 40
Vital Signs:
Vital Signs
Temp Pulse Resp BP Pulse Ox
97.7 F 108 14 115/73 94
08/12/24 11:31 08/12/24 12:00 08/12/24 12:00 08/12/24 12:00 08/12/24 12:00
I&O
08/11/24 08/12/24 08/13/24
06:59 06:59 06:59
Intake Total 690 / 690 2220 / 2220 120 / 120
Output Total 1500 / 1500 1250 / 1250 200 / 200
Balance -810 / -810 970 / 970 -80 / -80
Physical Exam
-
General: No Apparent Distress
HEENT: Normocephalic and Atraumatic
Respiratory: Negative Wheezes
Cardiac: Regular Rhythm and S1/S2
GI: Soft and Nontender
Neuro: AO x 3 and Other (Strength 0 out of 5 in hip flexors, knee extensors-2/5, dorsiflexion 0/5, plantarflexion-4+/5. Bilateral triceps-5 out of 5, biceps 4- out of 5, neck flexors-4-/5, neck extensors 5/5)
Hematologic / Lymphatic: No Lymphadenopathy
Psych: Calm
Data Reviewed
-
Critical Care Time (in minutes): 41
Labs: Labs Reviewed by me
[2024-08-12] MEDS: DILAUDID 1 MG IV ×3 (13:28→20:46)
[2024-08-12] MEDS: REFRESH EYE DROPS (PF) 1 DROPS OPHTH (13:29)
--- NOTE | 2024-08-12 13:30 | PTCARENOTE ---
Pt assisted back to bed with lift as requested.OOB x 4 hours.
--- NOTE | 2024-08-12 13:42 | CM ---
CM following re: discharge planning.
Discussed in Rounds, reviewed pt's chart, met with pt.
Updated PT and OT evaluations noted - acute rehab level of care recommended. [facility] rehabilitation therapist following.
Physiatry consult pending.
D/C plan: [facility] acute rehab when medically stable.
CM will follow to assist pt with discharge to [facility]
--- NOTE | 2024-08-12 16:15 | PTCARENOTE ---
Pt assessed.No change in assessment noted.
[2024-08-12] MEDS: NEURONTIN 800 MG PO ×2 (16:39→22:01)
[2024-08-12 17:42] LABS: Acetylcholine Receptor Bind Ab 0.3 nmol/L (0.0-0.4)
[2024-08-12] MEDS: LOVENOX 40 MG SC (17:50)
[2024-08-12 19:50] LABS: Albumin, CSF 33 mg/dL (0-35); Albumin, Serum 4688 mg/dL (3500-5200); CSF IgG Synthesis Rate 2.1 mg/d (<=8.0); CSF Oligoclonal Bands Negative (Negative); CSF Oligoclonal Bands Number Matching Bands (0-1); IgG 768 mg/dL (768-1632); IgG, CSF 3.4 mg/dL (0.0-6.0)
--- NOTE | 2024-08-12 20:00 | PTCARENOTE ---
Received patient at 1900. Pt. awake, alert, and oriented. C/o pain, PRN and scheduled medications administered, see MAR. Afebrile. Heart rhythm sinus. Blood pressure normotensive. Currently on room air. Lungs sound diminished. Regular diet, good
appetite. Voiding without issue. Skin as documented. Discussed plan of care with patient. Vital signs stable at this time.
[2024-08-12 21:21] LABS: Myelin Basic Protein, CSF 1.53 ng/mL (0.00-5.50)
[2024-08-12] MEDS: ATIVAN 0.5 MG PO (22:01)
[2024-08-13] VITALS (30 sets, daily range): BP systolic 103–164; BP diastolic 53–137; BMI 25.0
--- NOTE | 2024-08-13 | PTCARENOTE ---
Pt. assessment unchanged. Pt. continues with c/o pain. Continuing PRN and scheduled medications, see MAR. Vital signs stable at this time.
[2024-08-13] MEDS: DILAUDID 1 MG IV ×6 (00:15→23:10)
--- NOTE | 2024-08-13 04:30 | PTCARENOTE ---
Pt. assessment remains unchanged. AM labs drawn. Vital signs stable at this time.
[2024-08-13 04:47] LABS: % Basophils 0.8 % (0-2); % Eosinophils 2.8 % (0-6); % Immature Granulocytes 0.2 % (0-0.5); % Lymphocytes 26.5 % (20.5-51.1); % Monocytes 7.9 % (1.7-9.3); % Neutrophils 61.8 % (42.2-75.2); Absolute Basophils 0.1 10^3/uL (0-0.2); Absolute Eosinophils 0.3 10^3/uL (0-0.7); Absolute Lymphocytes 2.4 10^3/uL (1.2-3.4); Absolute Monocytes 0.7 10^3/uL (0.1-0.6); Absolute Neutrophils 5.7 10^3/uL (1.4-6.5); Hematocrit 38.1 % (37.0-47.0); Hemoglobin 13.9 g/dL (12.0-16.0); Mean Corp Hgb Conc. 36.5 g/dL (33.0-37.0); Mean Corpuscular Hgb 33.1 pg (27.0-31.0); Mean Corpuscular Volume 90.7 fL (81.0-99.0); Mean Platelet Volume 9.9 fL (7.4-10.4); Nucleated Red Blood Cells % 0 %; Platelet Count 257 10^3/uL (130-400); Red Cell Dist. Width 11.8 % (11.5-14.5); White Blood Cell Count 9.1 10^3/uL (4.8-10.8)
[2024-08-13 05:00] LABS: PT 13.6 Sec (11.4-14.6)
[2024-08-13 05:01] LABS: APTT 26.4 Sec (23.4-35.0); Fibrinogen 223 MG/DL (199-459)
[2024-08-13 05:28] LABS: ALT (SGPT) 121 U/L (0-35); AST (SGOT) 78 U/L (14-36); Albumin 4.7 g/dl (3.5-5.0); Alkaline Phosphatase 50 U/L (38-126); Blood Urea Nitrogen 18 mg/dl (7-17); Calcium 9.2 mg/dl (8.4-10.2); Carbon Dioxide 26 mmol/L (22-30); Chloride 98 mmol/L (98-107); Estimated Creatinine Clearance 102 ml/min; Glucose 121 mg/dl (70-99); LDH 257 U/L (120-246); Magnesium 2.1 mg/dl (1.6-2.3); Phosphorus 3.6 mg/dl (2.5-4.5); Potassium 4.2 mmol/L (3.5-5.1); Sodium 134 mmol/L (135-145); Total Bilirubin 1.8 mg/dl (0.2-1.3); Total Protein 6.8 g/dl (6.3-8.2); eGFR > 60.00
[2024-08-13] MEDS: MOTRIN 600 MG PO ×3 (06:19→23:10)
[2024-08-13] MEDS: NON-FORMULARY ITEM 1 UNIT PO (06:19)
--- NOTE | 2024-08-13 08:27 | W.PN.INTV ---
Today's Communication / Plan
Recommendations
Plasma exchange Thursday
Monitor vital capacity
Analgesia
Assessment
-
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
Left cerebellar lesion
Conditions present prior to admission:
Asthma-mild intermittent.
Papillary thyroid cancer 2017.
Hypothyroid.
Hyperlipidemia.
Anxiety.
. Tubal ligation. Tonsillectomy. Thyroidectomy. Cholecystectomy.
Plan
Transferred patient to medical intensive care unit for close neurologic and respiratory evaluation
Triggers include previous infections including Campylobacter jejunum and viral infections including influenza A, B, CMV, COVID 19, Zika, and EBV as well as vaccinations including influenza (1-2/1 million), RSV, zoster, COVID-19 especially adenovirus
factors though noted with messenger RNA vaccines as well
Typical presentation includes lower extremity weakness, decreased deep tendon reflexes, paresthesias and dysautonomia's
Supplemental oxygen as needed-currently on room air
Incentive spirometry encouraged
Aspiration precautions
Nebulizers if needed-history of asthma-currently not bronchospastic
Monitor muscle strength and forced vital capacity
08/09/2024-FVC-1.6 L-predicted 2.9 and MIP 35
08/10/2024-FVC 1.5 L-predicted 2.9 and MIP 30
08/11/2024-FVC 1.6 L-predicted 2.9 and MIP 32
08/12/2024-FVC 1.7 L
Indications for intubation and mechanical ventilation include:
Respiratory rate greater than 30
Oxygen saturations less than 92%
FVC less than 20 mL/kg or greater than 30% decline
NIF less than -30
MEP less than 40
pCO2 elevation of greater than 50
Neurology evaluation ongoing-correspondence reviewed
Lumbar puncture-show total protein 56 and 0 WBC
Vitamin B12: 563, B1: 117, SHERRY level: <10, CSF Lyme PCR: Not detected, CSF SHERRY level: 1.8; SPEP: No M-spike seen; CRP: <5, copper level: 113.4
ESR and CRP normal-unlikely vasculitis
TRENA detected, homogenous pattern with 1: 80 titer
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
Continue to monitor vital capacity every shift
Initial treatment-IVIG 0.4 mg/kg/day-finished 3 out of 5-changed to plasma exchange with elevated LFTs
Plasma exchange now recommended-to begin 08/11/2024-every other day for total 5 doses-next session 08/15/2024
Hematology consultation/[place] consulted for plasma exchange
NCS/EMG's in 3 weeks
Neurontin-currently 600 mg 3 times daily-May be increased to 800 3 times daily
Increase analgesia-ibuprofen zaqxps-trf-nlvrh, intermittent Tylenol though LFTs elevated and IV hydromorphone
Ativan as needed
Monitor LFTs
Brain MRI 08/09/2024-nodular focus of enhancement superior left cerebellar hemisphere etiology uncertain, neoplasia possible, demyelination could be considered, vasculitis could be considered, diffuse fatty atrophy of the right parotid gland
Cervical spine MRI 08/09/24-5 mm well-defined focus of enhancement in the lateral margin of the aiaes-wx-aosf, mild to moderate changes of DJD unchanged from 2024, slight anterior cord compression at C5-6
Thoracic spine MRI 08/10/2024-no abnormal enhancement to suggest acute myelopathy
Lumbar spine MRI 08/10/2024-mild degenerative changes and mild bilateral neural foraminal stenosis L4-5 and L5-6 1, no abnormal enhancement
DVT prophylaxis-on Lovenox and mechanical
Nutrition with aspiration precautions
Physical and Occupational Therapy
Dr. Kulkarni reviewed with sister in regards to current diagnosis, prognosis and treatment plan on 08/11/2024
Critical care statement: A total of 37 minutes of critical care time was provided for this patient today. This includes management of unstable vital signs, evaluation of the patient at bedside, reviewing the patient's pertinent medical records
including radiographs, management of potential respiratory failure progression, microbiology, laboratory evaluations, and discussion with primary team, consultants, pharmacy, nutrition, physical therapy, case management, charge nurse, critical care
nursing, and respiratory therapy.
Diagnostic data:
Chest x-ray 07/04/2024-NAD
Brain MRI 08/09/2024-nodular focus of enhancement superior left cerebellar hemisphere etiology uncertain, neoplasia possible, demyelination could be considered, vasculitis could be considered, diffuse fatty atrophy of the right parotid gland
Cervical spine MRI 08/09/24-5 mm well-defined focus of enhancement in the lateral margin of the abhbq-jw-ztou, mild to moderate changes of DJD unchanged from 2024, slight anterior cord compression at C5-6
Thoracic spine MRI 08/10/2024-no abnormal enhancement to suggest acute myelopathy
Lumbar spine MRI 08/10/2024-mild degenerative changes and mild bilateral neural foraminal stenosis L4-5 and L5-6 1, no abnormal enhancement
Subjective Dataa
Subjective Data
Date of Service:
Date of Service: August 13, 2024
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
Subjective:
Patient seen and evaluated today at bedside. She feels weaker today with a weaker voice. Heart rate 93, BP 139/64 and saturating 95% on room air. She has some lower extremity pain, especially in her toes. Underwent plasma exchange this morning.
Still wearing left eye patch. Janet, her woyyit-ue-wmj, is at bedside and all questions were answered. Patient denies chest pain, abdominal pain, nausea, fevers or chills.
Review of Systems
General: Other (Negative unless mentioned above)
Objective Data
Data Reviewed
Vital Signs / I&O / Oxygen:
Vital Signs
Temp Pulse Resp BP Pulse Ox
98.2 F 78 13 140/83 94
08/13/24 07:35 08/13/24 06:00 08/13/24 06:00 08/13/24 06:00 08/13/24 06:00
Intake and Output
08/12/24 08/13/24 08/14/24
06:59 06:59 06:59
Intake Total 2220 / 2220 1770 / 1770
Output Total 1250 / 1250 1100 / 1100
Balance 970 / 970 670 / 670
SaO2 94
Physical Exam
General: Respiratory Distress (n), Comfortable, Chills (n) and Sweats (n)
HEENT: Normocephalic, Anicteric and Moist Mucous Membranes
Cardiovascular: S1-S2 and Peripheral Edema (n)
Respiratory: Clear, Wheeze (n), Crackles (n), Rhonchi (n), Non-Labored Respirations, Accessory Resp Muscle Use (n) and Stridor (n)
GI: Soft, Non Distended, Non Tender and Normal Bowel Sounds
Neurology: AO x 3, Tremors (n) and Other (Lower extremity weakness and numbness on hands )
Skin: Warm, Dry, Good Color (n), Cyanosis (n) and Jaundice (n)
Labs/Micro/Reports
Lab Data
08/13/24 04:23
08/13/24 04:23
Laboratory Results
08/12/24 08/13/24
15:26 04:23
PT 13.6
INR 1.00
APTT 26.4
pH Cancelled
pCO2 Cancelled
pO2 Cancelled
HCO3 Cancelled
O2 Delivery Level Cancelled
Microbiology
08/08/24 14:01 Csf CSF Culture - Preliminary
No Growth After 4 Days
08/08/24 14:01 Csf Gram Stain - Preliminary
--- NOTE | 2024-08-13 08:45 | PTCARENOTE ---
US leg veins being done
[2024-08-13] MEDS: PROTONIX 40 MG PO (08:57)
[2024-08-13] MEDS: CYTOMEL 5 MICROGRAM PO ×2 (08:58→16:25)
[2024-08-13] MEDS: NEURONTIN 800 MG PO ×3 (08:58→23:10)
--- NOTE | 2024-08-13 09:05 | PTCARENOTE ---
Rec'd pt at 0800 awake alert and oriented resting in bed. States she had a tough night as far as getting comfortable and sleeping. States her back, neck and legs hurt and her toes are very numb and painful. Denies headache or dizziness. Denies
feeling short of breath. Able to move her arms and use her hand- is weak and admits there is numbness in her fingers but has still some fine motor movement to be able to hold objects. Legs able to move feet slightly and extend feet but unable to
lift her legs off of the bed. States she does have sensation in her legs. Skin is pale pink wm and dry. Respirs are shallow but non-labored on RA with sats of 97%. Monitor SR. VS as documented. + pulses. Tr LE edema. KH SCD's in place along with
multipodis boots q2hrs on/off. Abd is soft with + BS. St cathed on previous shift. Denies need to void. Capped ints intact R arm. Site wnl. Plasmapheresis due to start soon. Will get pt washed and turned prior to starting. Admits pain is 9/10 in her
neck/back and legs. - Due for Dilaudid shortly. Call perkins in reach.
[2024-08-13] MEDS: FLUSH (NSS) 1 FLUSH IV ×2 (09:39→18:53)
[2024-08-13] MEDS: CALCIUM GLUCONATE 10% INJECTION 278 MG IV (09:40)
--- NOTE | 2024-08-13 09:45 | PTCARENOTE ---
Complete CHG bath given. Turned and repositioned. Difficult to get pt in a comfortable position as she states that her tips of her toes are so numb and her back and legs are hurting so much. Medicated with Dilaudid 1 mg IV. Plasmapheresis just
started via R IJ HD cath. [place] here to do the exchange.
--- NOTE | 2024-08-13 09:51 | W.PN.HOSP.TC ---
Today's Communication/Plan
-
trial oxycodone for pain
Bowel regimen
PLEX day 2
Assessment / Plan
Assessment / Plan
Assessment:
Acute bilateral lower extremity weakness
- previously started on steroids per outpatient PCP - will stop now (only took 1 day)
- MRI imaging of spine (C/T/L with contrast) without evidence of any enhancing lesions, myelopathic signals.
- MRI brain: delayed images reveal Nodular focus of enhancement within the superior left cerebellar hemisphere, with a larger region of surrounding increased T2 and FLAIR signal. See above discussion regarding timing of contrast enhancement.
Etiology for this finding is uncertain. It could possibly represent neoplasia. A focus of demyelination could be considered. Vasculitis could also be considered. This could possibly be a vascular/venous anomaly, although the surrounding increased T2
and FLAIR signal is atypical.
- will look to obtain MRI brain with contrast repeat in 2 weeks per Neurology
- also consider CT-A to evaluate for vascular anomaly
- s/p IVIG course without improvement, elevated LFTs
- s/p IR guided tunnel cath 08/10; to continue Plasmapharesis (today is session 2) and every 48 hours. Appreciate Hematology assistance for coordinating Plasmapharesis
- monitor VC/NIFs, pulm exams serially
- follow extended neuro workup from serum and CSF studies
- follow Neuro recs
- follow ICU team recs.
Transaminitis
- suspected related to IVIG; trend
- has no abdominal discomfort
Chronic neck pain
- continue Gabapentin to 800mg TID. Monitor for sedation
- prn Tylenol and prn Motrin.
Mild intermittent asthma - stable.
History of thyroid cancer - continue Cytomel and Synthroid (patient prefers brand name - is using her own supply). noted low TSH, normal T4
DVT ppx: Lovenox
Code: Full
Total Critical Care Time 41 minutes. I was immediately available to the patient and staff. I personally examined, reviewed labs, diagnostic images/reports, interpretations, treatment plans, discussed patient care with other providers and family or
caregivers (if patient is unable to make decisions), entered orders as appropriate and documented the medical record.
Anticipated Discharge: > 48 hours
Subjective/Interval History
-
Date of Service: August 13, 2024
reports leg pain, back pain, from bed position and reports no position is comfortable
receiving PLEX #2 today
Objective Data
-
Labs:
Laboratory Results
08/13/24
04:23
WBC 9.1
Hgb 13.9
Hct 38.1
Plt Count 257
PT 13.6
INR 1.00
APTT 26.4
Sodium 134 L
Potassium 4.2
Chloride 98
Carbon Dioxide 26
BUN 18 H
Creatinine 0.4 L
Glucose 121 H
Calcium 9.2
Total Bilirubin 1.8 H D
AST 78 H
ALT 121 H
Alkaline Phosphatase 50
Vital Signs:
Vital Signs
Temp Pulse Resp BP Pulse Ox
98.2 F 78 13 140/83 94
08/13/24 07:35 08/13/24 06:00 08/13/24 06:00 08/13/24 06:00 08/13/24 06:00
I&O
08/12/24 08/13/24 08/14/24
06:59 06:59 06:59
Intake Total 2220 / 2220 1770 / 1770
Output Total 1250 / 1250 1100 / 1100
Balance 970 / 970 670 / 670
Physical Exam
-
General: No Apparent Distress
HEENT: Normocephalic and Atraumatic
Respiratory: Negative Wheezes
Cardiac: Regular Rhythm and S1/S2
GI: Soft
Genito-urinary: No Costovertebral Tender
Neuro: AO x 3 and Other (Strength 0 out of 5 in hip flexors, knee extensors-2/5, dorsiflexion 0/5, plantarflexion-4+/5. Bilateral triceps-5 out of 5, biceps 4- out of 5, neck flexors-4-/5, neck extensors 5/5)
Hematologic / Lymphatic: No Lymphadenopathy
Data Reviewed
-
Critical Care Time (in minutes): 41
Labs: Labs Reviewed by me
[2024-08-13] MEDS: HEPARIN 1100 UNITS INTRACATH (10:45)
[2024-08-13] MEDS: HEPARIN 1300 UNITS INTRACATH (10:45)
--- NOTE | 2024-08-13 11:04 | PTCARENOTE ---
Pt dozing post Dilaudid. Plasmapheresis completed.
[2024-08-13 12:04] LABS: Arsenic, Blood <10.0 ug/L (<=12.0); Lead - Venous <2.0 ug/dL (<=4.9); Mercury, Blood <2.5 ug/L (<=10.0)
--- NOTE | 2024-08-13 12:12 | W.PN.ONC ---
Today's Communication / Plan
-
next PLEX on 08/15
Impression
Impression
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
Plan
Plan
Continue plasma exchange every other day x 5 sessions arranged as recommended by neurology. Next scheduled apheresis 08/15 (#3)
daily CBC, BMP, magnesium, phosphorus, fibrinogen, LDH, coags.
Further mgmt as per neurology
Subjective/Objective
Subjective/Objective
Complaining of ongoing weakness, was exhausted spending a few hours in the chair yesterday and trying to work with physical therapy. She denies any difficulty swallowing or trouble breathing. Had her second PLEX this am.
Vital Signs:
Vital Signs
Temp Pulse Resp BP Pulse Ox
98.2 F 71 21 110/62 95
08/13/24 07:35 08/13/24 11:00 08/13/24 11:00 08/13/24 11:00 08/13/24 11:00
Lab Results:
Laboratory Data
WBC 9.1 10^3/uL (4.8-10.8) 08/13/24 04:23
Hgb 13.9 g/dL (12.0-16.0) 08/13/24 04:23
Plt Count 257 10^3/uL (130-400) 08/13/24 04:23
PT 13.6 Sec (11.4-14.6) 08/13/24 04:23
INR 1.00 08/13/24 04:23
APTT 26.4 Sec (23.4-35.0) 08/13/24 04:23
eGFR > 60.00 08/13/24 04:23
--- NOTE | 2024-08-13 12:30 | PTCARENOTE ---
Dozed after plasmapharesiss. Currently awake. Pts speech overall today is weaker and has taken more effort to talk can still easily understand. Pt states she can feel that she is weaker. Able to swallow but takes more effort. No cough noted. Arms
are weak but able to use them. Pt lifted with lift device oob to the recliner chair and once in the chair was able move her legs a little L >R. Today R side in general seems weaker than the L. Pain is present but wanted to wait a little to try the
Roxicodone. Pt expressed concern over when she would start feeling better. Support given. Dr. Cooper in to see pt. Assessment otherwise is unchanged. Denies need to void. Bladder scanned for 297 mls. Currently sitting out in the recliner chair.
Call perkins in reach. BLAYNE hernandez wnl.
--- NOTE | 2024-08-13 13:38 | W.PN.NEURO.1 ---
Today's Communication / Plan
-
.
Subjective/Objective
Subjective Data
Date of Service: August 13, 2024
Neurology follow-up note
24-hour events: Mr. Nevarez endorses generalized fatigue. Continues to require hydromorphone for leg pain management.
Next scheduled apheresis 08/15/24 (#3/5)
Lower extremity Doppler venous US(08/13/2024)- no evidence of DVT
LS-spine MRI w/wo kishore(08/10/2024)�no clonus or spinal root enhancement.
Brain MRI with gadolinium(08/08/2024)nodular focus of enhancement within the superior left cerebellar hemisphere, with a larger region of surrounding increased T2 and FLAIR signal, new from 2007. No cranial nerve enhancement.
Labs: GD1b�ab 145(0-50)
PMH: C6-C6 DJD, h/o papillary thyroid ca, hypothyroidism, vitamin D deficiency, GERD, TRENA positive, history of head concussion, celiac disease, hepatic steatosis, chronic pain syndrome, KISHORE, ADD,
PSH: total thyroidectomy, cholecystectomy, , tubal ligation, tonsillectomy
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
All: Aspirin
ROS: Constitutional: Negative. Negative for chills, fever and unexpected weight change.
HENT: For the poor pain
Eyes: Negative. Negative for photophobia, pain and visual disturbance.
Respiratory: Negative for cough, choking and shortness of breath.
Cardiovascular: Negative for chest pain, palpitations and leg swelling.
Gastrointestinal: Negative for abdominal pain and vomiting.
Endocrine: Negative. Negative for cold intolerance.
Genitourinary: Negative for dysuria, flank pain and urgency.
Musculoskeletal: Positive for intermittent neck pain back pain
Skin: Negative for rash.
Allergic/Immunologic: Negative. Negative for immunocompromised state.
Neurological: Positive for leg weakness, paresthesias, headache
Psychiatric/Behavioral: Positive for anxiety
General: Well developed. In no acute distress.
Cardio: Regular rate and rhythm without murmur. Extremities are without cyanosis or edema.
Neuro:
Mental Status: Somnolent, oriented to person, place, and date. Impaired attention. Increased processing time. Good fund of knowledge. Follows complex requests. Comprehension, naming, and repetition intact.
Cranial Nerves: . Pupils are equally round and reactive to light. EOMs full. Diplopia on the right noted on lateral gaze visual kent full to confrontation. No ptosis. No nystagmus. Eye closure weakness on the right. Normal hearing AU. The
palate elevated well. SCMs and traps 5/5. Tongue midline. No dysarthria. Slow speech
Motor: Normal bulk and tone. No pronator or arm drift. Strength 0 out of 5 in hip flexors, knee extensors�2/5, dorsiflexion 0/5, plantarflexion�4+/5. Bilateral triceps�5 out of 5, biceps 4- out of 5, neck flexors-4-/5, neck extensors 5/5
Reflexes: 0+ throughout the upper extremities and 0 knee. AJs, Plantar responses flexor bilaterally.
Sensory: No vibration at the left toe, ankle and knee, right foot. Preserved vibration at the right ankle.
Coordination: R dysmetria
Gait: unable
Assessment and Plan:
I. Guillain-Alfred syndrome. Status post 3 doses of IVIG and 2 PLEX treatements. Positive GD1b ab (found in patients with Guillain-Morgan� syndrome and multifocal motor neuropathy)
II. Left cerebellar lesion. Differential diagnosis includes demyelinating(concurrent GBS and ADEM are uncommon with few reported cases) versus low grade neoplastic vs vascular vs inflammatory vs less likely infectious etiologies.
III. Mild toxic encephalopathy
-Continue ICU care
-Continue PLEX
-Follow-up CSF studies (oligoclonal bands, myelin basic protein, cytology)
-NCS/EMG of LUE/LE next week
-Avoid opioids
-Continue Neurontin to 800 mg TID
-Brain MRI with kishore on 08/23/24
-DVT prophylaxis.
I personally reviewed all radiology and labs along with past medical records pertinent to current medical problems. Total time spent in patient care is 35 minutes.
Thank you for allowing us to participate in the care of this patient. We will continue to follow. Please do not hesitate to contact us with any questions or concerns
Objective Data
Vital Signs
Temp Pulse Resp BP Pulse Ox
36.3 C 71 21 110/62 95
08/13/24 12:29 08/13/24 11:00 08/13/24 11:00 08/13/24 11:00 08/13/24 11:00
Lab Results
08/13/24 04:23
08/13/24 04:23
PT 13.6 Sec (11.4-14.6) 08/13/24 04:23
INR 1.00 08/13/24 04:23
APTT 26.4 Sec (23.4-35.0) 08/13/24 04:23
Sodium 134 mmol/L (135-145) L 08/13/24 04:23
Potassium 4.2 mmol/L (3.5-5.1) 08/13/24 04:23
BUN 18 mg/dl (7-17) H 08/13/24 04:23
Glucose 121 mg/dl (70-99) H 08/13/24 04:23
Calcium 9.2 mg/dl (8.4-10.2) 08/13/24 04:23
Phosphorus 3.6 mg/dl (2.5-4.5) 08/13/24 04:23
Whole Bld Vitamin B1 117 nmol/L (70-180) 08/08/24 07:47
Whole Bld Vitamin B1 Cancelled 08/08/24 07:47
Vitamin B12 563 pg/ml (239-931) 08/08/24 07:47
Vitamin B12 Cancelled 08/08/24 07:47
Patient Allergies
strawberry Allergy (Verified 08/07/24 14:51)
Swelling
aspirin [Aspirin] Adverse Reaction (Verified 08/07/24 14:51)
GI upset
BANDAID Allergy (Uncoded 08/07/24 14:51)
Rash
Vital Signs and Labs
-
Vital Signs and Labs:
Vital Signs
Temp Pulse Resp BP Pulse Ox
36.3 C 71 21 110/62 95
08/13/24 12:29 08/13/24 11:00 08/13/24 11:00 08/13/24 11:00 08/13/24 11:00
Lab Results
08/13/24 04:23
08/13/24 04:23
PT 13.6 Sec (11.4-14.6) 08/13/24 04:23
INR 1.00 08/13/24 04:23
APTT 26.4 Sec (23.4-35.0) 08/13/24 04:23
Sodium 134 mmol/L (135-145) L 08/13/24 04:23
Potassium 4.2 mmol/L (3.5-5.1) 08/13/24 04:23
BUN 18 mg/dl (7-17) H 08/13/24 04:23
Glucose 121 mg/dl (70-99) H 08/13/24 04:23
Calcium 9.2 mg/dl (8.4-10.2) 08/13/24 04:23
Phosphorus 3.6 mg/dl (2.5-4.5) 08/13/24 04:23
Whole Bld Vitamin B1 117 nmol/L (70-180) 08/08/24 07:47
Whole Bld Vitamin B1 Cancelled 08/08/24 07:47
Vitamin B12 563 pg/ml (239-931) 08/08/24 07:47
Vitamin B12 Cancelled 08/08/24 07:47
Medications
-
Medications:
Generic Name Dose Route Start Last Admin
Trade Name Freq PRN Reason Stop Dose Admin
Acetaminophen 650 mg 08/07/24 19:55 08/10/24 17:36
Acetaminophen 325 Mg Tablet PO 09/04/24 19:54 650 mg
Q6HPRN PRN Administration
mild pain/ fever>100.5F
Artificial Tears 1 drops 08/10/24 10:28 08/12/24 13:29
Artificial Tears Pf (Refresh) 10 Drop Droperette OPHTH 09/07/24 10:27 1 drops
QIDPRN PRN Administration
dry eyes
Docusate Sodium 100 mg 08/12/24 12:54
Docusate Sodium 100 Mg Capsule PO 09/09/24 12:53
BIDPRN PRN
STOOL SOFTENER
Enoxaparin Sodium 40 mg 08/08/24 18:00 08/12/24 17:50
Enoxaparin Sodium 40 Mg/0.4 Ml Syringe SC 09/05/24 17:59 40 mg
QPM CAMELIA Administration
Gabapentin 800 mg 08/12/24 16:00 08/13/24 08:58
Gabapentin 400 Mg Capsule PO 09/09/24 15:59 800 mg
TID CAMELIA Administration
Heparin Sodium 0 units 08/13/24 12:00 08/13/24 10:45
Heparin (1000 Units/Ml) 10,000 Units/10 Ml Vial INTRACATH 08/19/24 12:01 1,300 units
Q48H CAMELIA Administration
Hydromorphone HCl 1 mg 08/13/24 10:05
Hydromorphone 1 Mg/Ml Carpuject IV 08/25/24 11:18
Q3HPRN PRN
SEV PAIN, intractable to PO
Hydromorphone HCl 0.5 mg 08/13/24 10:05
Hydromorphone 0.5 Mg/0.5 Ml Syringe IV 08/25/24 11:19
Q3HPRN PRN
MOD PAIN, intractable to PO
Calcium Gluconate 2,800 mg/ 278 mls @ 0 mls/hr 08/11/24 12:00 08/13/24 09:40
Sodium Chloride IV 08/19/24 12:01 278 mls
Q48H CAMELIA Administration
As Directed
Albumin Human 12.5 grams in 250 mls @ 1,500 mls/hr 08/13/24 12:00
Albumin 5% INTRACATH 08/13/24 13:49
.Q10M CAMELIA
Albumin Human 12.5 grams in 250 mls @ 1,500 mls/hr 08/15/24 12:00
Albumin 5% INTRACATH 08/15/24 13:49
.Q10M CAMELIA
Albumin Human 12.5 grams in 250 mls @ 1,500 mls/hr 08/17/24 12:00
Albumin 5% INTRACATH 08/17/24 13:49
.Q10M CAMELIA
Albumin Human 12.5 grams in 250 mls @ 1,500 mls/hr 08/19/24 12:00
Albumin 5% INTRACATH 08/19/24 13:49
.Q10M CAMELIA
Ibuprofen 600 mg 08/10/24 14:30 08/12/24 09:42
Ibuprofen 600 Mg Tablet PO 09/07/24 14:29 600 mg
Q6HPRN PRN Administration
leg pain
Ibuprofen 600 mg 08/11/24 12:00 08/13/24 12:26
Ibuprofen 600 Mg Tablet PO 09/08/24 11:59 600 mg
Q6 CAMELIA Administration
Liothyronine Sodium 5 microgram 08/08/24 08:00 08/13/24 08:58
Liothyronine 5 Microgram Tablet PO 09/05/24 07:59 5 microgram
BID CAMELIA Administration
Lorazepam 0.5 mg 08/08/24 09:50 08/12/24 22:01
Lorazepam 0.5 Mg Tablet PO 09/05/24 09:49 0.5 mg
Q8HPRN PRN Administration
anxiety
Synthroid (Brand 0 unit 08/09/24 06:00 08/13/24 06:19
Name Levothyroxine) PO 09/06/24 05:59 1 unit
125mcg Tablet - Take DAILY@0600 CAMELIA Administration
1/2 Tablet (62.5mcg
) Po Daily
Ondansetron HCl 4 mg 08/08/24 12:07 08/08/24 14:53
Ondansetron 4 Mg/2 Ml Vial IV 09/05/24 12:06 4 mg
Q6HPRN PRN Administration
NAUSEA/VOMITING
Oxycodone HCl 5 mg 08/13/24 10:04
Oxycodone 5 Mg Regular Release Tablet PO 08/27/24 10:03
Q4HPRN PRN
moderate to severe pain
Pantoprazole Sodium 40 mg 08/09/24 08:00 08/13/24 08:57
Pantoprazole 40 Mg Delayed Release Tablet PO 09/06/24 07:59 40 mg
DAILY CAMELIA Administration
Polyethylene Glycol 17 grams 08/11/24 12:00 08/12/24 07:57
Polyethylene Glycol Powder 17 Grams Packet PO 09/08/24 11:59 Not Given
DAILY CAMELIA
Sennosides 8.6 mg 08/12/24 12:57
Sennosides (Senokot) 8.6 Mg Tablet PO 09/09/24 12:56
BIDPRN PRN
CONSTIPATION
Sodium Chloride 0 flush 08/07/24 21:00 08/13/24 09:39
Sodium Chloride 0.9% (Flush) Syringe IV 09/04/24 20:59 1 flush
PER PROTOCOL CAMELIA Administration
Valacyclovir HCl 500 mg 08/08/24 12:07 08/09/24 01:43
Valacyclovir Hcl 500 Mg Tablet PO 08/18/24 12:06 500 mg
DAILYPRN PRN Administration
fever blisters
Home Medications
-
Home Medications
valacyclovir 500 mg tablet (Valtrex) 500 mg PO DAILYPRN PRN fever blisters 05/24/09
acetaminophen 500 mg tablet 500 mg PO DAILYPRN PRN mild pain 08/07/24
ibuprofen 200 mg tablet 600 mg PO DAILYPRN PRN mild pain 08/07/24
levothyroxine 125 mcg tablet (Synthroid) 62.5 mcg PO DAILY Thyroid 08/07/24
lidocaine 5 % topical patch 3 patch topical DAILYPRN PRN upper and lower back 08/07/24
liothyronine 5 mcg tablet 5 mcg PO BID Thyroid 08/07/24
omeprazole 20 mg capsule,delayed release 20 mg PO DAILY Gastrointestinal Issue 08/07/24
oxycodone-acetaminophen 5 mg-325 mg tablet 1 tab PO Q6HPRN PRN severe pain 08/07/24
prednisone 20 mg tablet 40 mg PO UD Anti-Inflammatory 08/07/24
semaglutide (weight loss) 1.7 mg/0.75 mL subcutaneous pen injector (Wegovy) 1.7 mg SC TU Weight Gain 08/07/24
[2024-08-13] MEDS: MIRALAX 17 GRAMS PO (15:07)
--- NOTE | 2024-08-13 15:30 | PTCARENOTE ---
Lifted back to bed with the lift device at around 1500. Overall tolerated being oob well. Admits to being tired but once back in bed stated she felt that while her toes and legs still hurt overall her position felt comfortable. Is weak with her arms
but is able to use them to some extent. L arm seems a little stronger than the R. VS as documented. Skin care given. Call perkins in reach. Family at the bedside. Taking sips of liquids. Does at times feel as if there is mucous stuck in the back of her
throat but unable to expectorate it. Using a yankeur to get small amts of whitish mucous/saliva. Will update Dr. Pope and get a speech therapy eval (pt requested as well)
--- NOTE | 2024-08-13 17:10 | PTCARENOTE ---
Pt voided 200 mls of urine on the bedpan. Bladder scanned after for 633 mls still in bladder. St cathed for 700 mls. Pt repositioned after. Feels as if some mucous is in the back of her throat- using the yankeur. Does have a weak cough and gag. Able
to get a small amt of whitish mucous using a cath and glove kit. Speech remains weak. Taking some liquids in- no coughing noted. Took her pills in applesauce. L eye continues with diplopia- had a bandage over it for several hours but is off now.
Multipodis boots and scd's on. Call perkins in reach. Family at the bedside.
[2024-08-13] MEDS: MOTRIN PO (18:35)
[2024-08-13] MEDS: LOVENOX 40 MG SC (18:52)
--- NOTE | 2024-08-13 18:55 | PTCARENOTE ---
Remedicated with Dilaudid 1 mg IV for 8/10 leg/foot pain. On bedpan for 300 mls of urine. No other changes.
--- NOTE | 2024-08-13 20:00 | PTCARENOTE ---
Received patient at 1900. Pt. currently in bed. Awake, alert, and oriented. C/o of pain/discomfort. Repositioned and PRN medication given, see MAR. Afebrile. Heart rhythm sinus. Blood pressure normotensive. Currently on room air. Lungs sound
diminished. Regular diet, okay appetite. Straight cath PRN. Skin as documented. Discussed plan of care with patient. Vital signs stable at this time.
--- NOTE | 2024-08-13 20:19 | RESPNOTE ---
PT opted to wait to do next NIF and VC as she had just had the tests done fairly recently
[2024-08-13] MEDS: ATIVAN 0.5 MG PO (23:47)
[2024-08-14] VITALS (22 sets, daily range): BP systolic 109–169; BP diastolic 55–120; PULSE 92; O2SAT 94; BMI 24.3
--- NOTE | 2024-08-14 | PTCARENOTE ---
Pt. assessment unchanged. PRN medications given for pain. Vital signs stable at this time.
[2024-08-14] MEDS: DILAUDID 1 MG IV ×6 (02:26→19:39)
--- NOTE | 2024-08-14 04:00 | PTCARENOTE ---
Pt. assessment remains unchanged. Continuing to manage pain/discomfort with schedule and PRN medication, see MAR. Vital signs stable at this time.
[2024-08-14] MEDS: MOTRIN PO ×2 (05:32→18:14)
[2024-08-14] MEDS: NON-FORMULARY ITEM 1 UNIT PO (05:32)
[2024-08-14 06:02] LABS: % Basophils 1.1 % (0-2); % Eosinophils 2.5 % (0-6); % Immature Granulocytes 0.3 % (0-0.5); % Lymphocytes 27.3 % (20.5-51.1); % Monocytes 7.3 % (1.7-9.3); % Neutrophils 61.5 % (42.2-75.2); Absolute Basophils 0.1 10^3/uL (0-0.2); Absolute Eosinophils 0.3 10^3/uL (0-0.7); Absolute Lymphocytes 2.8 10^3/uL (1.2-3.4); Absolute Monocytes 0.8 10^3/uL (0.1-0.6); Absolute Neutrophils 6.4 10^3/uL (1.4-6.5); Hematocrit 38.4 % (37.0-47.0); Hemoglobin 13.9 g/dL (12.0-16.0); Mean Corp Hgb Conc. 36.2 g/dL (33.0-37.0); Mean Corpuscular Hgb 32.8 pg (27.0-31.0); Mean Corpuscular Volume 90.6 fL (81.0-99.0); Mean Platelet Volume 9.8 fL (7.4-10.4); Nucleated Red Blood Cells % 0 %; Platelet Count 271 10^3/uL (130-400); Red Blood Cell Count 4.24 10^6/uL (4.20-5.40); Red Cell Dist. Width 11.9 % (11.5-14.5); White Blood Cell Count 10.4 10^3/uL (4.8-10.8)
[2024-08-14 06:20] LABS: APTT 26.8 Sec (23.4-35.0); PT 14.5 Sec (11.4-14.6)
[2024-08-14 06:26] LABS: Fibrinogen 144 MG/DL (199-459)
[2024-08-14 08:05] LABS: ALT (SGPT) 66 U/L (0-35); AST (SGOT) 49 U/L (14-36); Albumin 4.6 g/dl (3.5-5.0); Alkaline Phosphatase 30 U/L (38-126); Blood Urea Nitrogen 19 mg/dl (7-17); Calcium 9.3 mg/dl (8.4-10.2); Carbon Dioxide 30 mmol/L (22-30); Chloride 96 mmol/L (98-107); Estimated Creatinine Clearance 102 ml/min; Glucose 130 mg/dl (70-99); LDH 141 U/L (120-246); Magnesium 2.3 mg/dl (1.6-2.3); Phosphorus 4.2 mg/dl (2.5-4.5); Potassium 4.4 mmol/L (3.5-5.1); Sodium 135 mmol/L (135-145); Total Bilirubin 1.3 mg/dl (0.2-1.3); Total Protein 5.9 g/dl (6.3-8.2); eGFR > 60.00
--- NOTE | 2024-08-14 08:28 | W.PN.INTV ---
Today's Communication / Plan
Recommendations
Plasma exchange tomorrow
Gabapentin and ATC ibuprofen (take with food to avoid any GIB)
Monitor vital capacity + MIP
Analgesia
Continue ICU level care for this critically ill patient
Assessment
-
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
Left cerebellar lesion
Conditions present prior to admission:
Asthma-mild intermittent.
Papillary thyroid cancer 2018.
Hypothyroid.
Hyperlipidemia.
Anxiety.
. Tubal ligation. Tonsillectomy. Thyroidectomy. Cholecystectomy.
Plan
Transferred patient to medical intensive care unit for close neurologic and respiratory evaluation
Triggers include previous infections including Campylobacter jejunum and viral infections including influenza A, B, CMV, COVID 19, Zika, and EBV as well as vaccinations including influenza (1-2/1 million), RSV, zoster, COVID-19 especially adenovirus
factors though noted with messenger RNA vaccines as well
Typical presentation includes lower extremity weakness, decreased deep tendon reflexes, paresthesias and dysautonomia's
Supplemental oxygen as needed-currently on room air
Incentive spirometry encouraged
Aspiration precautions
Nebulizers if needed-history of asthma-currently not bronchospastic
Monitor muscle strength and forced vital capacity
08/09/2024-FVC-1.6 L-predicted 2.9 and MIP 35
08/10/2024-FVC 1.5 L-predicted 2.9 and MIP 30
08/11/2024-FVC 1.6 L-predicted 2.9 and MIP 32
08/12/2024-FVC 1.7 L
Indications for intubation and mechanical ventilation include:
Respiratory rate greater than 30
Oxygen saturations less than 92%
FVC less than 20 mL/kg or greater than 30% decline
NIF less than -20
MEP less than 40
pCO2 elevation of greater than 50
Neurology evaluation ongoing-correspondence reviewed
Lumbar puncture-show total protein 56 and 0 WBC
Vitamin B12: 563, B1: 117, SHERRY level: <10, CSF Lyme PCR: Not detected, CSF SHERRY level: 1.8; SPEP: No M-spike seen; CRP: <5, copper level: 113.4
ESR and CRP normal-unlikely vasculitis
TRENA detected, homogenous pattern with 1: 80 titer
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
Continue to monitor vital capacity + MIP every shift
Initial treatment-IVIG 0.4 mg/kg/day-finished 3 out of 5-changed to plasma exchange with elevated LFTs
Plasma exchange now recommended-to begin 08/11/2024-every other day for total 5 doses-next session tomorrow on 08/15/2024
Hematology consultation/[place] consulted for plasma exchange
NCS/EMG's in 3 weeks
Neurontin-currently 800 mg TID
Increase analgesia-ibuprofen 600mg [id number] (take with food to avoid dyspepsia), intermittent Tylenol though LFTs elevated and IV hydromorphone
Ativan as needed
Trend LFTs
Brain MRI 08/09/2024-nodular focus of enhancement superior left cerebellar hemisphere etiology uncertain, neoplasia possible, demyelination could be considered, vasculitis could be considered, diffuse fatty atrophy of the right parotid gland
Cervical spine MRI 08/09/24-5 mm well-defined focus of enhancement in the lateral margin of the [id number]-[id number], mild to moderate changes of DJD unchanged from 2024, slight anterior cord compression at C5-6
Thoracic spine MRI 08/10/2024-no abnormal enhancement to suggest acute myelopathy
Lumbar spine MRI 08/10/2024-mild degenerative changes and mild bilateral neural foraminal stenosis L4-5 and L5-6 1, no abnormal enhancement
DVT prophylaxis-on Lovenox and mechanical
Nutrition with aspiration precautions
Physical and Occupational Therapy
Dr. Kulkarni reviewed with sister in regards to current diagnosis, prognosis and treatment plan on 08/11/2024
Critical care statement: A total of 36 minutes of critical care time was provided for this patient today. This includes management of unstable vital signs, evaluation of the patient at bedside, reviewing the patient's pertinent medical records
including radiographs, management of potential respiratory failure progression, microbiology, laboratory evaluations, and discussion with primary team, consultants, pharmacy, nutrition, physical therapy, case management, charge nurse, critical care
nursing, and respiratory therapy.
Diagnostic data:
Chest x-ray 07/04/2024-NAD
Brain MRI 08/09/2024-nodular focus of enhancement superior left cerebellar hemisphere etiology uncertain, neoplasia possible, demyelination could be considered, vasculitis could be considered, diffuse fatty atrophy of the right parotid gland
Cervical spine MRI 08/09/24-5 mm well-defined focus of enhancement in the lateral margin of the [id number], mild to moderate changes of DJD unchanged from 2024, slight anterior cord compression at C5-6
Thoracic spine MRI 08/10/2024-no abnormal enhancement to suggest acute myelopathy
Lumbar spine MRI 08/10/2024-mild degenerative changes and mild bilateral neural foraminal stenosis L4-5 and L5-6 1, no abnormal enhancement
Subjective Dataa
Subjective Data
Date of Service:
Date of Service: August 14, 2024
Chief Complaint: Steeping Press Tender Follow Up and Pulmonary Follow Up
Subjective:
Patient seen this morning. Says she has a sensation in the back of her throat like something is stuck there and she feels it moving sometimes when she tries to cough. Nothing coming up though. Currently on room air breathing comfortably with
saturations 95%, heart rate 94 and BP 122/63. VC this morning is 6.7 L and MIP is 20 cmH2O. She otherwise is having urinary retention and had to be straight cathed this morning. She denies SOB, chest pain, nausea, fevers or chills.
Review of Systems
General: Other (Negative unless mentioned above)
Objective Data
Data Reviewed
Vital Signs / I&O / Oxygen:
Vital Signs
Temp Pulse Resp BP Pulse Ox
97.5 F 80 15 139/57 94
08/14/24 08:18 08/14/24 06:00 08/14/24 06:00 08/14/24 06:00 08/14/24 06:00
Intake and Output
08/13/24 08/14/24 08/15/24
06:59 06:59 06:59
Intake Total 1770 / 1770 700 / 700
Output Total 1100 / 1100 1200 / 1200
Balance 670 / 670 -500 / -500
SaO2 94
Physical Exam
General: Respiratory Distress (n), Comfortable, Chills (n) and Sweats (n)
HEENT: Normocephalic, Anicteric and Moist Mucous Membranes
Cardiovascular: S1-S2 and Peripheral Edema (n)
Respiratory: Clear, Wheeze (n), Crackles (n), Rhonchi (n), Non-Labored Respirations, Accessory Resp Muscle Use (n) and Stridor (n)
GI: Soft, Non Distended, Non Tender and Normal Bowel Sounds
Neurology: AO x 3, Tremors (n) and Other (Lower extremity weakness and numbness on hands )
Skin: Warm, Dry, Good Color (n), Cyanosis (n) and Jaundice (n)
Labs/Micro/Reports
Lab Data
08/14/24 05:50
08/14/24 07:20
Laboratory Results
08/14/24
05:50
PT 14.5
INR 1.10
APTT 26.8
Microbiology
08/08/24 14:01 Csf CSF Culture - Final
No Growth After 5 Days - Final Report
08/08/24 14:01 Csf Gram Stain - Final
[2024-08-14] MEDS: CYTOMEL 5 MICROGRAM PO ×2 (08:43→16:57)
[2024-08-14] MEDS: NEURONTIN 800 MG PO ×3 (08:48→22:57)
[2024-08-14] MEDS: MIRALAX 17 GRAMS PO (08:48)
--- NOTE | 2024-08-14 08:48 | PTOTSP ---
Speech Therapy
Presentation: Patient was oriented and willing to participate. Patient's speech appeared to be weak and hoarse which she states is new within the past 2 days. Patient's intelligibility was WNL. Patient was able to communicate wants and needs WNL.
Complaints: Patient shared that she has been experiencing difficulty swallowing for ~2 days such as 'food getting stuck' and 'trouble swallowing' harder solids.
Swallowing Function: TRACK REPAIR LABORER observed patient with several ice chips, thins via tsp, thins via cup (small, single), mildly thick liquids via tsp, and bites of puree in which patient appeared to tolerate all presentations as she did not exhibit any overt
clinical s/sx of aspiration. Patient did, of note, demonstrate prolonged oral holding of puree solids which patient used a thin liquid wash (small, single sips) to assist with propelling bolus. Patient stated she feels like something is 'in her
throat'. TRACK REPAIR LABORER used oral suctioning and strategies to assist with complaints.
Given patient's increasing fatigue throughout the day, dx of Guillian [place] Syndrome, recommend trial of puree solids and thin liquids (Small, single sips) when alert. Recommend a VSE to quantify swallowing function.
Recommendations:
1) DOWNGRADE: IDDSI 4; puree and thin liquids (SMALL, SINGLE CUP SIPS)
2) PO only when alert
3) Assistance with PO
4) Medications in puree (yogurt preference)
5) VSE
6) Consider speech and language evaluation.
Plan: TRACK REPAIR LABORER will continue to follow; pending hospitalization.
[2024-08-14] MEDS: PROTONIX 40 MG PO (08:49)
--- NOTE | 2024-08-14 10:30 | PTCARENOTE ---
Complete assessment done and documented in worklist. Pt is oriented x3. Overall weakness noted. L upper ext=3, L lower ext=2, R upper ext=2, and R lower ext= 1. Dilaudid 1 mg iv given at pt's request for leg and neck discomfort. L eye ptosis noted.
SCDs on bilat. Pt repositioned frequently for comfort. HR SR-ST, BP 132/69. Trace edema noted on lower ext. Pt on R/A, lobes diminished at bases bilat, o2 sat=94%. Pt tolerating some gluten free yogurt. +BSs, Pt voids on bedpan, denies need at this
time. Pt repositioned frequently for optimal comfort. Mouth care done. Dr Busch in to see pt, and feels pt will soon see improvement after her plasmapheresis treatments. Pt's dad in room and updated.
--- NOTE | 2024-08-14 11:00 | PTCARENOTE ---
Pt tried to void on bedpan but could not. Pt was then bladder scanned for 489, and then straight cath'd with sterile technique for 475 ml yellow urine.
--- NOTE | 2024-08-14 11:13 | W.PN.HOSP.TC ---
Today's Communication/Plan
-
PT/OT/ST
IVF
VSE Thursday
PLEX Thursday
Assessment / Plan
Assessment / Plan
Assessment:
Acute bilateral lower extremity weakness
- previously started on steroids per outpatient PCP
- MRI imaging of spine (C/T/L with contrast) without evidence of any enhancing lesions, myelopathic signals.
- MRI brain: delayed images reveal Nodular focus of enhancement within the superior left cerebellar hemisphere, with a larger region of surrounding increased T2 and FLAIR signal. See above discussion regarding timing of contrast enhancement.
Etiology for this finding is uncertain. It could possibly represent neoplasia. A focus of demyelination could be considered. Vasculitis could also be considered. This could possibly be a vascular/venous anomaly, although the surrounding increased T2
and FLAIR signal is atypical.
- plan per Neurology is MRI brain with contrast repeat in 2 weeks
- also consider CT-A to evaluate for vascular anomaly
- s/p IVIG course without improvement, elevated LFTs
- s/p IR guided tunnel cath 08/10; to continue Plasmapheresis (s/p 2 sessions, next is 08/15) and every 48 hours. Appreciate Hematology assistance for coordinating Plasmapheresis
- monitor VC/NIFs, pulm exams serially
- follow extended neuro workup from serum and CSF studies
- follow Neuro recs
- follow ICU team recs.
- PT/OT
- ST: dysphagia diet, VSE Thursday
Transaminitis
- suspected related to IVIG; trend
- has no abdominal discomfort
Chronic neck pain
- continue Gabapentin to 800mg TID. Monitor for sedation
- prn Tylenol and prn Motrin.
Mild intermittent asthma - stable.
History of thyroid cancer - continue Cytomel and Synthroid (patient prefers brand name - is using her own supply). noted low TSH, normal T4
DVT ppx: Lovenox
Code: Full
Total Critical Care Time 41 minutes. I was immediately available to the patient and staff. I personally examined, reviewed labs, diagnostic images/reports, interpretations, treatment plans, discussed patient care with other providers and family or
caregivers (if patient is unable to make decisions), entered orders as appropriate and documented the medical record.
Anticipated Discharge: > 48 hours
Subjective/Interval History
-
Date of Service: August 14, 2024
reports today is 'my worst day'
more L eye ptosis, no improvement in weakness
states she could not easily eat yogurt
Objective Data
-
Labs:
Laboratory Results
08/14/24 08/14/24
05:50 07:20
WBC 10.4
Hgb 13.9
Hct 38.4
Plt Count 271
PT 14.5
INR 1.10
APTT 26.8
Sodium Cancelled 135
Potassium Cancelled 4.4
Chloride Cancelled 96 L
Carbon Dioxide Cancelled 30
BUN Cancelled 19 H
Creatinine Cancelled 0.5 L
Glucose Cancelled 130 H
Calcium Cancelled 9.3
Total Bilirubin Cancelled 1.3
AST Cancelled 49 H
ALT Cancelled 66 H
Alkaline Phosphatase Cancelled 30 L
Vital Signs:
Vital Signs
Temp Pulse Resp BP Pulse Ox
97.5 F 94 15 132/69 94
08/14/24 08:18 08/14/24 10:41 08/14/24 10:41 08/14/24 10:41 08/14/24 10:41
I&O
08/13/24 08/14/24 08/15/24
06:59 06:59 06:59
Intake Total 1770 / 1770 700 / 700 50 / 50
Output Total 1100 / 1100 1200 / 1200
Balance 670 / 670 -500 / -500 50 / 50
Physical Exam
-
General: No Apparent Distress
HEENT: Normocephalic and Atraumatic
Respiratory: Negative Wheezes
Cardiac: Regular Rhythm and S1/S2
GI: Soft
Genito-urinary: No Costovertebral Tender
Neuro: AO x 3 and Other (Strength 0 out of 5 in hip flexors, knee extensors-2/5, dorsiflexion 0/5, plantarflexion-4+/5. Bilateral triceps-5 out of 5, biceps 4- out of 5, neck flexors-4-/5, neck extensors 5/5. L eye ptosis)
Data Reviewed
-
Critical Care Time (in minutes): 41
Labs: Labs Reviewed by me
[2024-08-14] MEDS: MOTRIN 600 MG PO (12:07)
[2024-08-14] MEDS: NSS 1000 IV (12:21)
--- NOTE | 2024-08-14 12:35 | PTCARENOTE ---
Pt was sat up on side of bed with help of this RN and PT, but she could not tolerate b/c of weakness and pain. PT back to bed, 1 mg iv dilaudid given, and then pt OOB to chair with RNs and edy lift assistance. Pt seen by hospitalist and he was
updated, NS @ 60 mlhr started for better hydration. Call perkins at pt's side, and made comfortable. I/S done with pt reaching 700 TV.
--- NOTE | 2024-08-14 12:54 | W.PN.NEURO.1 ---
Today's Communication / Plan
-
.
Subjective/Objective
Subjective Data
Date of Service: August 14, 2024
Neurology follow-up note
24-hour events: Mr. Nevarez endorses difficulties clearing secretion as well as slowing as well as worsening of proximal arm weakness. She continues to have diplopia and leg pain. No headaches.
MAR: Hydromorphone 1 mg administered on 08/14/24 at 08:49.
Next scheduled apheresis 08/15/24 (#3/5)
Lower extremity Doppler venous US(08/13/2024)- no evidence of DVT
LS-spine MRI w/wo kishore(08/10/2024)�no clonus or spinal root enhancement.
Brain MRI with gadolinium(08/08/2024)nodular focus of enhancement within the superior left cerebellar hemisphere, with a larger region of surrounding increased T2 and FLAIR signal, new from 2007. No cranial nerve enhancement.
Labs: GD1b�ab 145(0-50)
PMH: C6-C6 DJD, h/o papillary thyroid ca, hypothyroidism, vitamin D deficiency, GERD, TRENA positive, history of head concussion, celiac disease, hepatic steatosis, chronic pain syndrome, KISHORE, ADD,
PSH: total thyroidectomy, cholecystectomy, , tubal ligation, tonsillectomy
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
All: Aspirin
Eyes: Positive for diplopia
Respiratory: Negative for shortness of breath.
Cardiovascular: Negative for chest pain, palpitations and leg swelling.
Gastrointestinal: Positive for dysarthria and dysphagia.
Genitourinary: Negative for dysuria, flank pain and urgency.
Musculoskeletal: Positive for leg pain
Allergic/Immunologic: Negative. Negative for immunocompromised state.
Neurological: Positive for leg/arm weakness, paresthesias
General: Well developed. In no acute distress.
Cardio: Regular rate and rhythm without murmur. Extremities are without cyanosis or edema.
Neuro:
Mental Status: Awake, oriented to person, place, person. Mildly impaired attention and comprehension. No aphasia or hemineglect
Cranial Nerves: Pupils are equally round and reactive to light. EOMs full. Left abduction paresis. No nystagmus. Eye closure weakness on the right. Normal hearing AU. The palate elevated well. SCMs and traps 5/5. Tongue midline. Mild to
moderate dysarthria.
Motor: Able to lift elbows of the bed plane for several seconds only. 0 out of 5 in hip flexors, knee extensors, dorsiflexion 0/5, plantarflexion�3-/5. Neck flexors-4-/5, neck extensors 5/5
Reflexes: 0+ throughout the upper extremities and 0 knee. AJs, Plantar responses flexor bilaterally.
Sensory: Absent vibration at the left toe, ankle and knee, right foot. Preserved vibration at the right ankle.
Coordination: Unable.
Gait: unable
Assessment and Plan:
I. Guillain-[place] syndrome, clinically worse. Status post 3 doses of IVIG and 2 PLEX treatments. Positive GD1b ab (found in patients with Guillain-Morgan� syndrome and multifocal motor neuropathy)
II. Left cerebellar lesion. Differential diagnosis includes demyelinating(concurrent GBS and ADEM are uncommon with few reported cases) versus low grade neoplastic vs vascular vs inflammatory vs less likely infectious etiologies.
III. Mild toxic encephalopathy
-Continue ICU care
-Avoid FUR MIXER OPERATOR suppressants (opioids)
-NIF Q1-2 H, elective intubation is Vs falls below 15 to 20 mL/kg body weight, the MIP is less negative than -30 cmH2O, or clinical signs of respiratory distress
-Continue PLEX
-Follow-up CSF studies (oligoclonal bands, myelin basic protein, cytology)
-NCS/EMG of LUE/LE next week
-Continue Neurontin to 800 mg TID
-Brain MRI with kishore on 08/23/24
-DVT prophylaxis.
I personally reviewed all radiology and labs along with past medical records pertinent to current medical problems. Total time spent in patient care is 35 minutes.
Thank you for allowing us to participate in the care of this patient. We will continue to follow. Please do not hesitate to contact us with any questions or concerns
Objective Data
Vital Signs
Temp Pulse Resp BP Pulse Ox
36.8 C 100 19 114/89 93
08/14/24 12:15 08/14/24 12:22 08/14/24 12:22 08/14/24 12:22 08/14/24 12:22
Lab Results
08/14/24 05:50
08/14/24 07:20
PT 14.5 Sec (11.4-14.6) 08/14/24 05:50
INR 1.10 08/14/24 05:50
APTT 26.8 Sec (23.4-35.0) 08/14/24 05:50
Sodium 135 mmol/L (135-145) 08/14/24 07:20
Potassium 4.4 mmol/L (3.5-5.1) 08/14/24 07:20
BUN 19 mg/dl (7-17) H 08/14/24 07:20
Glucose 130 mg/dl (70-99) H 08/14/24 07:20
Calcium 9.3 mg/dl (8.4-10.2) 08/14/24 07:20
Phosphorus 4.2 mg/dl (2.5-4.5) 08/14/24 07:20
Whole Bld Vitamin B1 117 nmol/L (70-180) 08/08/24 07:47
Whole Bld Vitamin B1 Cancelled 08/08/24 07:47
Vitamin B12 563 pg/ml (239-931) 08/08/24 07:47
Vitamin B12 Cancelled 08/08/24 07:47
Patient Allergies
strawberry Allergy (Verified 08/07/24 14:51)
Swelling
aspirin [Aspirin] Adverse Reaction (Verified 08/07/24 14:51)
GI upset
BANDAID Allergy (Uncoded 08/07/24 14:51)
Rash
Vital Signs and Labs
-
Vital Signs and Labs:
Vital Signs
Temp Pulse Resp BP Pulse Ox
36.8 C 100 19 114/89 93
08/14/24 12:15 08/14/24 12:22 08/14/24 12:22 08/14/24 12:22 08/14/24 12:22
Lab Results
08/14/24 05:50
08/14/24 07:20
PT 14.5 Sec (11.4-14.6) 08/14/24 05:50
INR 1.10 08/14/24 05:50
APTT 26.8 Sec (23.4-35.0) 08/14/24 05:50
Sodium 135 mmol/L (135-145) 08/14/24 07:20
Potassium 4.4 mmol/L (3.5-5.1) 08/14/24 07:20
BUN 19 mg/dl (7-17) H 08/14/24 07:20
Glucose 130 mg/dl (70-99) H 08/14/24 07:20
Calcium 9.3 mg/dl (8.4-10.2) 08/14/24 07:20
Phosphorus 4.2 mg/dl (2.5-4.5) 08/14/24 07:20
Whole Bld Vitamin B1 117 nmol/L (70-180) 08/08/24 07:47
Whole Bld Vitamin B1 Cancelled 08/08/24 07:47
Vitamin B12 563 pg/ml (239-931) 08/08/24 07:47
Vitamin B12 Cancelled 08/08/24 07:47
Medications
-
Medications:
Generic Name Dose Route Start Last Admin
Trade Name Freq PRN Reason Stop Dose Admin
Acetaminophen 650 mg 08/07/24 19:55 08/10/24 17:36
Acetaminophen 325 Mg Tablet PO 09/04/24 19:54 650 mg
Q6HPRN PRN Administration
mild pain/ fever>100.5F
Artificial Tears 1 drops 08/10/24 10:28 08/12/24 13:29
Artificial Tears Pf (Refresh) 10 Drop Droperette OPHTH 09/07/24 10:27 1 drops
QIDPRN PRN Administration
dry eyes
Docusate Sodium 100 mg 08/12/24 12:54
Docusate Sodium 100 Mg Capsule PO 09/09/24 12:53
BIDPRN PRN
STOOL SOFTENER
Enoxaparin Sodium 40 mg 08/08/24 18:00 08/13/24 18:52
Enoxaparin Sodium 40 Mg/0.4 Ml Syringe SC 09/05/24 17:59 40 mg
QPM CAMELIA Administration
Gabapentin 800 mg 08/12/24 16:00 08/14/24 08:48
Gabapentin 400 Mg Capsule PO 09/09/24 15:59 800 mg
TID CAMELIA Administration
Heparin Sodium 0 units 08/13/24 12:00 08/13/24 10:45
Heparin (1000 Units/Ml) 10,000 Units/10 Ml Vial INTRACATH 08/19/24 12:01 1,300 units
Q48H CAMELIA Administration
Hydromorphone HCl 1 mg 08/13/24 10:05 08/14/24 12:10
Hydromorphone 1 Mg/Ml Carpuject IV 08/25/24 11:18 1 mg
Q3HPRN PRN Administration
SEV PAIN, intractable to PO
Hydromorphone HCl 0.5 mg 08/13/24 10:05
Hydromorphone 0.5 Mg/0.5 Ml Syringe IV 08/25/24 11:19
Q3HPRN PRN
MOD PAIN, intractable to PO
Calcium Gluconate 2,800 mg/ 278 mls @ 0 mls/hr 08/11/24 12:00 08/13/24 09:40
Sodium Chloride IV 08/19/24 12:01 278 mls
Q48H CAMELIA Administration
As Directed
Albumin Human 12.5 grams in 250 mls @ 1,500 mls/hr 08/15/24 12:00
Albumin 5% INTRACATH 08/15/24 13:49
.Q10M CAMELIA
Albumin Human 12.5 grams in 250 mls @ 1,500 mls/hr 08/17/24 12:00
Albumin 5% INTRACATH 08/17/24 13:49
.Q10M CAMELIA
Albumin Human 12.5 grams in 250 mls @ 1,500 mls/hr 08/19/24 12:00
Albumin 5% INTRACATH 08/19/24 13:49
.Q10M CAMELIA
Sodium Chloride 1,000 mls @ 60 mls/hr 08/14/24 11:30 08/14/24 12:21
Nss IV 08/15/24 20:49 1,000 mls
.[id number] CAMELIA Administration
Ibuprofen 600 mg 08/10/24 14:30 08/12/24 09:42
Ibuprofen 600 Mg Tablet PO 09/07/24 14:29 600 mg
Q6HPRN PRN Administration
leg pain
Ibuprofen 600 mg 08/11/24 12:00 08/14/24 12:07
Ibuprofen 600 Mg Tablet PO 09/08/24 11:59 600 mg
Q6 CAMELIA Administration
Liothyronine Sodium 5 microgram 08/13/24 16:00 08/14/24 08:43
Liothyronine 5 Microgram Tablet PO 09/10/24 15:59 5 microgram
BID@0800,1600 CAMELIA Administration
Lorazepam 0.5 mg 08/08/24 09:50 08/13/24 23:47
Lorazepam 0.5 Mg Tablet PO 09/05/24 09:49 0.5 mg
Q8HPRN PRN Administration
anxiety
Synthroid (Brand 0 unit 08/09/24 06:00 08/14/24 05:32
Name Levothyroxine) PO 09/06/24 05:59 1 unit
125mcg Tablet - Take DAILY@0600 CAMELIA Administration
1/2 Tablet (62.5mcg
) Po Daily
Ondansetron HCl 4 mg 08/08/24 12:07 08/08/24 14:53
Ondansetron 4 Mg/2 Ml Vial IV 09/05/24 12:06 4 mg
Q6HPRN PRN Administration
NAUSEA/VOMITING
Oxycodone HCl 5 mg 08/13/24 10:04
Oxycodone 5 Mg Regular Release Tablet PO 08/27/24 10:03
Q4HPRN PRN
moderate to severe pain
Pantoprazole Sodium 40 mg 08/09/24 08:00 08/14/24 08:49
Pantoprazole 40 Mg Delayed Release Tablet PO 09/06/24 07:59 40 mg
DAILY CAMELIA Administration
Polyethylene Glycol 17 grams 08/11/24 12:00 08/14/24 08:48
Polyethylene Glycol Powder 17 Grams Packet PO 09/08/24 11:59 17 grams
DAILY CAMELIA Administration
Sennosides 8.6 mg 08/12/24 12:57
Sennosides (Senokot) 8.6 Mg Tablet PO 09/09/24 12:56
BIDPRN PRN
CONSTIPATION
Sodium Chloride 0 flush 08/07/24 21:00 08/13/24 18:53
Sodium Chloride 0.9% (Flush) Syringe IV 09/04/24 20:59 1 flush
PER PROTOCOL CAMELIA Administration
Valacyclovir HCl 500 mg 08/08/24 12:07 08/09/24 01:43
Valacyclovir Hcl 500 Mg Tablet PO 08/18/24 12:06 500 mg
DAILYPRN PRN Administration
fever blisters
Home Medications
-
Home Medications
valacyclovir 500 mg tablet (Valtrex) 500 mg PO DAILYPRN PRN fever blisters 05/24/09
acetaminophen 500 mg tablet 500 mg PO DAILYPRN PRN mild pain 08/07/24
ibuprofen 200 mg tablet 600 mg PO DAILYPRN PRN mild pain 08/07/24
levothyroxine 125 mcg tablet (Synthroid) 62.5 mcg PO DAILY Thyroid 08/07/24
lidocaine 5 % topical patch 3 patch topical DAILYPRN PRN upper and lower back 08/07/24
liothyronine 5 mcg tablet 5 mcg PO BID Thyroid 08/07/24
omeprazole 20 mg capsule,delayed release 20 mg PO DAILY Gastrointestinal Issue 08/07/24
oxycodone-acetaminophen 5 mg-325 mg tablet 1 tab PO Q6HPRN PRN severe pain 08/07/24
prednisone 20 mg tablet 40 mg PO UD Anti-Inflammatory 08/07/24
semaglutide (weight loss) 1.7 mg/0.75 mL subcutaneous pen injector (Wegovy) 1.7 mg SC TU Weight Gain 08/07/24
--- NOTE | 2024-08-14 16:00 | PTCARENOTE ---
Pt back to bed now with 2 RNs and edy lift. Pt tolerated OOB in chair well for 3.5 hrs, but c/o of leg pain now. pt offered oxycodone po dose, but she would rather have dilaudid 1 mg iv, which was given. CHG bath given. Pt made comfortable. Pt's
sister in room visiting and updated.
[2024-08-14] MEDS: LOVENOX 40 MG SC (18:18)
--- NOTE | 2024-08-14 19:57 | RESPNOTE ---
pt unable to do NIF and VC due to extreme pain in legs and back
[2024-08-14] MEDS: ROXICODONE 5 MG PO (22:57)
--- NOTE | 2024-08-14 23:21 | PTCARENOTE ---
Pt a&ox4. speech slow. Ptosis noted. PERRLA 3. Pt weak throughout but able to wiggle toes and moves hands. Pt endorses numbness from hips to toes. c/o 'pain' throughout body, chronic and acute. pt medicated w/o relief. Discussed lidoderm patches
(which pt uses at ) as well as valium with CARDIOVASCULAR SURGICAL TECH. no new orders for pain control provided. pt NSR to ST on monitor. trace edema noted to BLE. (+) pulses x4. pt on RA. sats in the mid to upper 90's. abd soft nontender. (+) BS noted. bladder scanned
for 479cc. pt straight cathed for 500cc. discussed traylor with CARDIOVASCULAR SURGICAL TECH as pt has been straight cathed a variety of times. no new orders given. no open areas on skin. no s/s of distress assessed. pt's sister at the bedside. will continue to monitor.
[2024-08-15] VITALS (24 sets, daily range): BP systolic 94–170; BP diastolic 57–97; BMI 25.3
[2024-08-15] MEDS: MOTRIN PO ×2 (00:28→06:29)
[2024-08-15] MEDS: NSS 1000 IV (00:31)
[2024-08-15] MEDS: ATIVAN 0.5 MG IV (00:58)
--- NOTE | 2024-08-15 01:35 | PTCARENOTE ---
pt continues to c/o pain -05/05. available pain meds used. pt given ativan as ordered. pt repositioned q 20-30 mins by staff and sister. no s/s of distress assessed. will continue to monitor.
[2024-08-15] MEDS: ROXICODONE 5 MG PO (03:37)
[2024-08-15 04:53] LABS: % Basophils 0.7 % (0-2); % Eosinophils 1.8 % (0-6); % Immature Granulocytes 0.5 % (0-0.5); % Lymphocytes 17.1 % (20.5-51.1); % Monocytes 7.1 % (1.7-9.3); % Neutrophils 72.8 % (42.2-75.2); Absolute Basophils 0.1 10^3/uL (0-0.2); Absolute Eosinophils 0.2 10^3/uL (0-0.7); Absolute Immature Granulocytes 0.1 10^3/uL (0-0.05); Absolute Lymphocytes 1.9 10^3/uL (1.2-3.4); Absolute Monocytes 0.8 10^3/uL (0.1-0.6); Hemoglobin 12.9 g/dL (12.0-16.0); Mean Corp Hgb Conc. 35.8 g/dL (33.0-37.0); Mean Corpuscular Hgb 32.4 pg (27.0-31.0); Mean Corpuscular Volume 90.5 fL (81.0-99.0); Mean Platelet Volume 9.8 fL (7.4-10.4); Nucleated Red Blood Cells % 0 %; Platelet Count 270 10^3/uL (130-400); Red Blood Cell Count 3.98 10^6/uL (4.20-5.40); Red Cell Dist. Width 11.7 % (11.5-14.5)
[2024-08-15 05:11] LABS: INR 1.07; PT 14.2 Sec (11.4-14.6)
[2024-08-15 05:12] LABS: APTT 26.5 Sec (23.4-35.0); Fibrinogen 176 MG/DL (199-459)
[2024-08-15 05:22] LABS: ALT (SGPT) 75 U/L (0-35); AST (SGOT) 51 U/L (14-36); Albumin 4.5 g/dl (3.5-5.0); Alkaline Phosphatase 37 U/L (38-126); Blood Urea Nitrogen 16 mg/dl (7-17); Calcium 9.1 mg/dl (8.4-10.2); Carbon Dioxide 25 mmol/L (22-30); Chloride 99 mmol/L (98-107); Estimated Creatinine Clearance 102 ml/min; Glucose 132 mg/dl (70-99); LDH 177 U/L (120-246); Magnesium 2.2 mg/dl (1.6-2.3); Phosphorus 3.3 mg/dl (2.5-4.5); Potassium 3.7 mmol/L (3.5-5.1); Sodium 134 mmol/L (135-145); Total Bilirubin 1.1 mg/dl (0.2-1.3); Total Protein 6.1 g/dl (6.3-8.2); eGFR > 60.00
[2024-08-15] MEDS: NON-FORMULARY ITEM 0.5 UNIT PO (06:24)
[2024-08-15] MEDS: DILAUDID 1 MG IV ×2 (06:35→09:37)
--- NOTE | 2024-08-15 08:01 | W.PN.HOSP.TC ---
Today's Communication/Plan
-
Block catheter
Dobbhoff tube
Toradol IV [id number]
Stop ibuprofen
Lidocaine patch
Plasmapheresis per neurology
Assessment / Plan
Assessment / Plan
Gen-AAOx3, NAD
HEENT-NC, AT, anicteric, clear oral mm
Neck-supple
CV-reg, no M, +S1/S2
Lungs-clear B/L
Abd-soft, NT, ND
Ext-no edema
Musculoskeletal-no cyanosis, clubbing
Skin-warm and dry
Neuro-symmetrical bilateral lower extremity weakness, bilateral upper extremity weakness
Psych-calm, cooperative
Guillain-Morgan� syndrome -
- MRI imaging of spine (C/T/L with contrast) without evidence of any enhancing lesions, myelopathic signals.
- MRI brain: delayed images reveal Nodular focus of enhancement within the superior left cerebellar hemisphere, with a larger region of surrounding increased T2 and FLAIR signal. See above discussion regarding timing of contrast enhancement.
Etiology for this finding is uncertain. It could possibly represent neoplasia. A focus of demyelination could be considered. Vasculitis could also be considered. This could possibly be a vascular/venous anomaly, although the surrounding increased T2
and FLAIR signal is atypical.
- plan per Neurology is MRI brain with contrast repeat in 2 weeks
- also consider CT-A to evaluate for vascular anomaly
- s/p IVIG course without improvement, elevated LFTs
- s/p IR guided tunnel cath 08/10; to continue Plasmapheresis (s/p 2 sessions, next is 08/15) and every 48 hours. Appreciate Hematology assistance for coordinating Plasmapheresis
- monitor VC/NIFs, pulm exams serially
- follow extended neuro workup from serum and CSF studies
Intractable pain syndrome -due to Guillain-Morgan�. Change ibuprofen to Toradol IV [id number]. Minimize opiates if able, discussed with patient. Currently on IV Dilaudid as needed.
Acute dysphagia -due to Guillain-Morgan� syndrome. Patient feels too weak to participate in video swallowing study today. She is agreeable to Dobbhoff tube placement. Plan for video swallow hopefully in the next 24 to 48 hours.
Acute urinary retention -due to Guillain-Morgan� syndrome. Place Block catheter. Discussed with patient and nurse.
Hyponatremia -134.
Elevated LFTs -trending down. Primarily transaminases.
- suspected related to IVIG; trend
- has no abdominal discomfort
Chronic neck pain
- continue Gabapentin to 800mg TID. Monitor for sedation
Mild intermittent asthma - stable.
History of thyroid cancer - continue Cytomel and Synthroid (patient prefers brand name - is using her own supply). noted low TSH, normal T4
DVT ppx: Lovenox
Code: Full
Dispo -acute rehab when medically stable. I reviewed expectations and expected clinical course with patient. Explained that she will likely not see significant acute improvement after plasmapheresis. May take several weeks if not months to see
improvement in strength and function.
Total Critical Care Time 41 minutes. I was immediately available to the patient and staff. I personally examined, reviewed labs, diagnostic images/reports, interpretations, treatment plans, discussed patient care with other providers and family or
caregivers (if patient is unable to make decisions), entered orders as appropriate and documented the medical record.
Anticipated Discharge: > 48 hours
Subjective/Interval History
-
Date of Service: August 15, 2024
Patient seen and examined. Complaining of neck, back pain. Complaining of diffuse weakness.
Objective Data
-
Labs:
Laboratory Results
08/15/24
04:37
WBC 11.0 H
Hgb 12.9
Hct 36.0 L
Plt Count 270
PT 14.2
INR 1.07
APTT 26.5
Sodium 134 L
Potassium 3.7
Chloride 99
Carbon Dioxide 25
BUN 16
Creatinine 0.4 L
Glucose 132 H
Calcium 9.1
Total Bilirubin 1.1
AST 51 H
ALT 75 H
Alkaline Phosphatase 37 L
Vital Signs:
Vital Signs
Temp Pulse Resp BP Pulse Ox
98.1 F 82 12 114/66 93
08/15/24 04:00 08/15/24 07:00 08/15/24 07:00 08/15/24 07:00 08/15/24 07:00
I&O
08/14/24 08/15/24 08/16/24
06:59 06:59 06:59
Intake Total 700 / 700 1470 / 1470
Output Total 1200 / 1200 1450 / 1450
Balance -500 / -500
Review of Systems
-
History Source: Patient
All other systems: Reviewed and negative
--- NOTE | 2024-08-15 08:02 | W.PN.NEURO.1 ---
Today's Communication / Plan
-
Continue plasma exchange, undergoing third treatment of 5 on August 15, 2024
NCS/EMG of 3 extremities to better define
Replace gabapentin with pregabalin 100 mg 3 times a day for pain control
Follow-up brain MRI with kishore on 08/23/24
Due to prognosis being guarded for the patient being able to provide airway protection, consider intubation
Would initiate thiamine due to the patient's left 6th nerve palsy although most likely secondary to Peres Bryan variant of Guillain-Morgan�
Neuro Assessment/Plan
Assessment
I. 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 Status post 3 doses of IVIG then switched to plasma exchange treatment due to elevated LFTs. Positive GD1b ab (found in patients with Guillain-Morgan� syndrome and multifocal motor
neuropathy)
II. Left cerebellar lesion. Differential diagnosis includes demyelinating lesion or metabolic abnormality or low grade neoplastic vs vascular vs inflammatory vs less likely infectious etiologies
Cytology has been unremarkable
III. Mild toxic encephalopathy
Plan
Continue plasma exchange, undergoing third treatment of 5 on August 15, 2024
NCS/EMG of 3 extremities to better define
Replace gabapentin with pregabalin 100 mg 3 times a day for pain control
Follow-up brain MRI with kishore on 08/23/24
Due to prognosis being guarded for the patient being able to provide airway protection, consider intubation
Would initiate thiamine due to the patient's left 6th nerve palsy although most likely secondary to Peres Bryan variant of Guillain-Morgan�
Will follow
Subjective/Objective
Subjective Data
Date of Service: August 15, 2024
Patient reports continued symptoms which are unchanged from yesterday
Objective Data
Vital Signs
Temp Pulse Resp BP Pulse Ox
36.7 C 82 12 114/66 93
08/15/24 04:00 08/15/24 07:00 08/15/24 07:00 08/15/24 07:00 08/15/24 07:00
Lab Results
08/15/24 04:37
08/15/24 04:37
PT 14.2 Sec (11.4-14.6) 08/15/24 04:37
INR 1.07 08/15/24 04:37
APTT 26.5 Sec (23.4-35.0) 08/15/24 04:37
Sodium 134 mmol/L (135-145) L 08/15/24 04:37
Potassium 3.7 mmol/L (3.5-5.1) 08/15/24 04:37
BUN 16 mg/dl (7-17) 08/15/24 04:37
Glucose 132 mg/dl (70-99) H 08/15/24 04:37
Calcium 9.1 mg/dl (8.4-10.2) 08/15/24 04:37
Phosphorus 3.3 mg/dl (2.5-4.5) 08/15/24 04:37
Whole Bld Vitamin B1 117 nmol/L (70-180) 08/08/24 07:47
Whole Bld Vitamin B1 Cancelled 08/08/24 07:47
Vitamin B12 563 pg/ml (239-931) 08/08/24 07:47
Vitamin B12 Cancelled 08/08/24 07:47
Patient Allergies
strawberry Allergy (Verified 08/07/24 14:51)
Swelling
aspirin [Aspirin] Adverse Reaction (Verified 08/07/24 14:51)
GI upset
BANDAID Allergy (Uncoded 08/07/24 14:51)
Rash
Review of Systems
-
History Source: Patient
All other systems: Reviewed and negative
EENT: Swallowing Difficulty
Musculoskeletal: Other (Pain from legs to groin)
Neuro: Negative Dizzy or Headache
Physical Exam
-
General: No Apparent Distress, Appears Stated Age and Other (Dobbhoff tube in nares)
Eyes: Able to visualize OU, Round OU and [place] Conjunctivae
HEENT: Anicteric and Moist Mucous Membranes
Neck: Full Range of Motion
Respiratory: No Dyspnea
Cardiac: No JVD
GI: Non-distended
Skin: Unremarkable
Extremities: No Clubbing, No Cyanosis and No Edema
Psych: Intact Judgement/Insight
Extended Neurological Exam
Mood & Affect: Anxious
Attention Span & Concentration: Awake, Interactive, Closes Eyes after Stimulation (After approximately 2 to 3 seconds) and Other (No difficulty with single step requests or recall); Negative Alert
Memory: Unremarkable
Tremor: Hand Tremor Absent and Head Tremor Absent
Involuntary Movement: None
Speech: Dysarthric and Hoarse
Cranial Nerve II: Left Eye: Pupillary Reactivity Unremarkable, Pupillary Size Unremarkable and Visual [place] Grossly Intact
Cranial Nerve II: Right Eye: Pupillary Reactivity Unremarkable, Pupillary Size Unremarkable and Visual [place] Grossly Intact
Cranial Nerves III, IV, : Extraocular Movement: Otherwise Unremarkable and Other (Left lateral rectus paralysis)
Cranial Nerve VII: Facial Symmetry: Reduced (Reduce facial movement bilaterally)
Cranial Nerve VIII: Hearing: Unremarkable Hearing to Normal Conversational Volume
Cranial Nerve XI: Shoulder Shrug: Unremarkable
Muscle Strength, Overall: Reduced (Bilateral upper extremities with the patient unable to lift arms off of bed although able to lift forearms off of bed for greater than 2 seconds equally)
Muscle Bulk & Tone: Bulk Unremarkable and Tone Unremarkable
Pronator Drift: Unable to Assess
Deep Tendon Reflexes: Absent Throughout
Coordination: Reaches for Objects without Difficulty
Babinski Sign: Absent Bilaterally
Gait & Station: Unable to Assess
Data Reviewed
-
MRI Head: Report Reviewed and Image Reviewed
MRI Cervical Spine: Report Reviewed
MRI Thoracic Spine: Report Reviewed
MRI Lumbar Spine: Report Reviewed
Labs: Report Reviewed
Reviewed with: Physician and Patient
Old Records: Summarized
Past History
Past History
ED Past Medical History: Asthma, Cancer (Papillary thyroid 2018), GERD, Hypercholesterolemia, Hypothyroidism, Psychiatric and Other (Celiac disease, vitamin D D deficiency, iron deficiency, hepatic steatosis, hemorrhoids)
ED Past Surgical History: , Gynecological (uterine ablation, tubal ligation), Tonsilectomy and Other (Epidural steroid injections C7-T1 2017, 2018 L5-S1 epidural steroid injections)
Social History
Tobacco: Non-smoker
Alcohol: Occasional
Drug: Marijuana (medical marijuana)
Personal:
Living: with family
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
Family History
Family History: Negative CAD
Medications
-
Medications:
Generic Name Dose Route Start Last Admin
Trade Name Freq PRN Reason Stop Dose Admin
Acetaminophen 650 mg 08/07/24 19:55 08/10/24 17:36
Acetaminophen 325 Mg Tablet PO 09/04/24 19:54 650 mg
Q6HPRN PRN Administration
mild pain/ fever>100.5F
Artificial Tears 1 drops 08/10/24 10:28 08/12/24 13:29
Artificial Tears Pf (Refresh) 10 Drop Droperette OPHTH 09/07/24 10:27 1 drops
QIDPRN PRN Administration
dry eyes
Docusate Sodium 100 mg 08/12/24 12:54
Docusate Sodium 100 Mg Capsule PO 09/09/24 12:53
BIDPRN PRN
STOOL SOFTENER
Enoxaparin Sodium 40 mg 08/08/24 18:00 08/14/24 18:18
Enoxaparin Sodium 40 Mg/0.4 Ml Syringe SC 09/05/24 17:59 40 mg
QPM CAMELIA Administration
Gabapentin 800 mg 08/12/24 16:00 08/14/24 22:57
Gabapentin 400 Mg Capsule PO 09/09/24 15:59 800 mg
TID CAMELIA Administration
Heparin Sodium 0 units 08/13/24 12:00 08/13/24 10:45
Heparin (1000 Units/Ml) 10,000 Units/10 Ml Vial INTRACATH 08/19/24 12:01 1,300 units
Q48H CAMELIA Administration
Hydromorphone HCl 1 mg 08/13/24 10:05 08/15/24 06:35
Hydromorphone 1 Mg/Ml Carpuject IV 08/25/24 11:18 1 mg
Q3HPRN PRN Administration
SEV PAIN, intractable to PO
Hydromorphone HCl 0.5 mg 08/13/24 10:05
Hydromorphone 0.5 Mg/0.5 Ml Syringe IV 08/25/24 11:19
Q3HPRN PRN
MOD PAIN, intractable to PO
Calcium Gluconate 2,800 mg/ 278 mls @ 0 mls/hr 08/11/24 12:00 08/13/24 09:40
Sodium Chloride IV 08/19/24 12:01 278 mls
Q48H CAMELIA Administration
As Directed
Albumin Human 12.5 grams in 250 mls @ 1,500 mls/hr 08/15/24 12:00
Albumin 5% INTRACATH 08/15/24 13:49
.Q10M CAMELIA
Albumin Human 12.5 grams in 250 mls @ 1,500 mls/hr 08/17/24 12:00
Albumin 5% INTRACATH 08/17/24 13:49
.Q10M CAMELIA
Albumin Human 12.5 grams in 250 mls @ 1,500 mls/hr 08/19/24 12:00
Albumin 5% INTRACATH 08/19/24 13:49
.Q10M CAMELIA
Sodium Chloride 1,000 mls @ 60 mls/hr 08/14/24 11:30 08/15/24 00:31
Nss IV 08/15/24 20:49 1,000 mls
.[id number] CAMELIA Administration
Ketorolac Tromethamine 30 mg 08/15/24 08:00
Ketorolac 30 Mg/Ml Injection IV 08/20/24 07:59
Q6H CAMELIA
Lidocaine 1 patch 08/15/24 08:00
Lidocaine 4% Topical Patch TOPICAL 02/17/25 07:59
DAILY CAMELIA
Protocol
Lidocaine 1 patch 08/15/24 08:00
Lidocaine 4% Topical Patch TOPICAL 09/12/24 07:59
DAILY CAMELIA
Protocol
Liothyronine Sodium 5 microgram 08/13/24 16:00 08/14/24 16:57
Liothyronine 5 Microgram Tablet PO 09/10/24 15:59 5 microgram
BID@0800,1600 CAMELIA Administration
Lorazepam 0.5 mg 08/14/24 21:06 08/15/24 00:58
Lorazepam 2 Mg/Ml Vial IV 09/11/24 21:05 0.5 mg
Q4HPRN PRN Administration
anxiety
Synthroid (Brand 0 unit 08/09/24 06:00 08/15/24 06:24
Name Levothyroxine) PO 09/06/24 05:59 0.5 unit
125mcg Tablet - Take DAILY@0600 CAMELIA Administration
1/2 Tablet (62.5mcg
) Po Daily
Ondansetron HCl 4 mg 08/08/24 12:07 08/08/24 14:53
Ondansetron 4 Mg/2 Ml Vial IV 09/05/24 12:06 4 mg
Q6HPRN PRN Administration
NAUSEA/VOMITING
Oxycodone HCl 5 mg 08/13/24 10:04 08/15/24 03:37
Oxycodone 5 Mg Regular Release Tablet PO 08/27/24 10:03 5 mg
Q4HPRN PRN Administration
moderate to severe pain
Pantoprazole Sodium 40 mg 08/09/24 08:00 08/14/24 08:49
Pantoprazole 40 Mg Delayed Release Tablet PO 09/06/24 07:59 40 mg
DAILY CAMELIA Administration
Polyethylene Glycol 17 grams 08/11/24 12:00 08/14/24 08:48
Polyethylene Glycol Powder 17 Grams Packet PO 09/08/24 11:59 17 grams
DAILY CAMELIA Administration
Sennosides 8.6 mg 08/12/24 12:57
Sennosides (Senokot) 8.6 Mg Tablet PO 09/09/24 12:56
BIDPRN PRN
CONSTIPATION
Sodium Chloride 0 flush 08/07/24 21:00 08/13/24 18:53
Sodium Chloride 0.9% (Flush) Syringe IV 09/04/24 20:59 1 flush
PER PROTOCOL CAMELIA Administration
Sodium Chloride 0.25 ml 08/14/24 21:15
Nss (Pf) 10 Ml Vial For Ativan 0.5 Mg Dose IV 09/11/24 21:14
Q4HPRN PRN
IV LORAZEPAM DILUTION
Valacyclovir HCl 500 mg 08/08/24 12:07 08/09/24 01:43
Valacyclovir Hcl 500 Mg Tablet PO 08/18/24 12:06 500 mg
DAILYPRN PRN Administration
fever blisters
--- NOTE | 2024-08-15 08:19 | W.PN.INTV ---
Today's Communication / Plan
Recommendations
Plasma exchange today (session 4 of 5)
Start bowel regimen as no BM since admission
Change gabapentin to lyrica
Continue Toradol but lower to 15m IV q6hr
Continue ATC tylenol (trend LFTs)
Monitor vital capacity + MIP
Analgesia
Continue ICU level care for this critically ill patient
Assessment
-
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
Guillain-Morgan� syndrome and transferred to ICU-director of research and development consulted for Guillain-Mogran� syndrome/critical care management 08/09/2024.
Impression:
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
Left cerebellar lesion
Acute urinary retention now s/p Block (inserted 08/14/2024)
Conditions present prior to admission:
Asthma-mild intermittent.
Papillary thyroid cancer 2018.
Hypothyroid.
Hyperlipidemia.
Anxiety.
. Tubal ligation. Tonsillectomy. Thyroidectomy. Cholecystectomy.
Plan
Transferred patient to medical intensive care unit for close neurologic and respiratory evaluation
Triggers include previous infections including Campylobacter jejunum and viral infections including influenza A, B, CMV, COVID 19, Zika, and EBV as well as vaccinations including influenza (1-2/1 million), RSV, zoster, COVID-19 especially adenovirus
factors though noted with messenger RNA vaccines as well
Typical presentation includes lower extremity weakness, decreased deep tendon reflexes, paresthesias and dysautonomia's
Supplemental oxygen as needed-currently on room air and breathing comfortably
Incentive spirometry encouraged
Aspiration precautions
Nebulizers if needed-history of asthma-currently not bronchospastic
Monitor muscle strength and forced vital capacity
08/09/2024-FVC-1.6 L-predicted 2.9 and MIP 35
08/10/2024-FVC 1.5 L-predicted 2.9 and MIP 30
08/11/2024-FVC 1.6 L-predicted 2.9 and MIP 32
08/12/2024-FVC 1.7 L
Indications for intubation and mechanical ventilation include:
Respiratory rate greater than 30
Oxygen saturations less than 92%
FVC less than 20 mL/kg or greater than 30% decline
NIF less than -20
MEP less than 40
pCO2 elevation of greater than 50
Neurology evaluation ongoing-correspondence reviewed
Lumbar puncture on 08/08/2024 showed: total protein 56 and 0 WBC
Vitamin B12: 563, B1: 117, SHERRY level: <10, CSF Lyme PCR: Not detected, CSF SHERRY level: 1.8; SPEP: No M-spike seen; CRP: <5, copper level: 113.4
ESR and CRP normal-unlikely vasculitis
TRENA detected, homogenous pattern with 1:80 titer
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
Continue to monitor vital capacity + MIP every shift
Initial treatment-IVIG 0.4 mg/kg/day-finished 3 out of 5-changed to plasma exchange with elevated LFTs
Plasma exchange began 08/11/2024-every other day for total 5 doses-next session today (08/15/2024)
Hematology consultation/[place] consulted for plasma exchange
NCS/EMG's in 3 weeks
Neurontin-currently 800 mg TID --> will change to lyrica 100mg BID and DC gabapentin
Increase analgesia-ibuprofen 600mg towmib-ujl-ggjoi (take with food to avoid dyspepsia) --> changed to IV toradol 15mg q6hr, Tylenol q6hr (monitor LFTs) and IV hydromorphone/PO oxycodone
Ativan as needed
Trend LFTs
Brain MRI 08/09/2024-nodular focus of enhancement superior left cerebellar hemisphere etiology uncertain, neoplasia possible, demyelination could be considered, vasculitis could be considered, diffuse fatty atrophy of the right parotid gland
Cervical spine MRI 08/09/24-5 mm well-defined focus of enhancement in the lateral margin of the [id number]-[id number], mild to moderate changes of DJD unchanged from 2024, slight anterior cord compression at C5-6
Thoracic spine MRI 08/10/2024-no abnormal enhancement to suggest acute myelopathy
Lumbar spine MRI 08/10/2024-mild degenerative changes and mild bilateral neural foraminal stenosis L4-5 and L5-6 1, no abnormal enhancement
DVT prophylaxis-on Lovenox and mechanical
Nutrition with aspiration precautions --> TILTING SAW OPERATOR performed modified barium swallow study today (08/15/2024) showing no fluoroscopic evidence for airway aspiration
Physical and Occupational Therapy
Start more aggressive bowel regimen as now BM since admission reported
Dr. Kulkarni reviewed with sister in regards to current diagnosis, prognosis and treatment plan on 08/11/2024
Critical care statement: A total of 41 minutes of critical care time was provided for this patient today. This includes management of unstable vital signs, evaluation of the patient at bedside, reviewing the patient's pertinent medical records
including radiographs, management of potential respiratory failure progression, microbiology, laboratory evaluations, and discussion with primary team, consultants, pharmacy, nutrition, physical therapy, case management, charge nurse, critical care
nursing, and respiratory therapy.
Diagnostic data:
Chest x-ray 07/04/2024-NAD
Modified barium swallow study 08/15/2024: No fluoroscopic evidence for airway aspiration.
Brain MRI 08/09/2024-nodular focus of enhancement superior left cerebellar hemisphere etiology uncertain, neoplasia possible, demyelination could be considered, vasculitis could be considered, diffuse fatty atrophy of the right parotid gland
Cervical spine MRI 08/09/24-5 mm well-defined focus of enhancement in the lateral margin of the [id number]-[id number], mild to moderate changes of DJD unchanged from 2024, slight anterior cord compression at C5-6
Thoracic spine MRI 08/10/2024-no abnormal enhancement to suggest acute myelopathy
Lumbar spine MRI 08/10/2024-mild degenerative changes and mild bilateral neural foraminal stenosis L4-5 and L5-6 1, no abnormal enhancement
Subjective Dataa
Subjective Data
Date of Service:
Date of Service: August 15, 2024
Chief Complaint: Civil Designer Follow Up and Pulmonary Follow Up
Subjective:
Patient seen and evaluated this morning. Afebrile overnight. Unable to do NIF or VC yesterday evening or this AM due to extreme pain in her legs and back. Remains weak. Getting PLeX this AM. HR 76 and SpO2 97% on room air. No BM since
admission. Current BP 123/57 and she denies shortness of breath.
Review of Systems
General: Other (Negative unless mentioned above)
Objective Data
Data Reviewed
Vital Signs / I&O / Oxygen:
Vital Signs
Temp Pulse Resp BP Pulse Ox
97.6 F 82 12 114/66 93
08/15/24 08:28 08/15/24 07:00 08/15/24 07:00 08/15/24 07:00 08/15/24 07:00
Intake and Output
08/14/24 08/15/24 08/16/24
06:59 06:59 06:59
Intake Total 700 / 700 1470 / 1470
Output Total 1200 / 1200 1450 / 1450
Balance -500 / -500
SaO2 93
Physical Exam
General: Respiratory Distress (n), Comfortable, Chills (n) and Sweats (n)
HEENT: Normocephalic, Anicteric and Moist Mucous Membranes
Cardiovascular: S1-S2 and Peripheral Edema (n)
Respiratory: Clear, Wheeze (n), Crackles (n), Rhonchi (n), Non-Labored Respirations, Accessory Resp Muscle Use (n) and Stridor (n)
GI: Soft, Non Distended, Non Tender and Normal Bowel Sounds
Neurology: AO x 3, Tremors (n) and Other (Lower extremity weakness >upper extremity weakness; numbness on hands )
Skin: Warm, Dry, Good Color (n), Cyanosis (n) and Jaundice (n)
Labs/Micro/Reports
Lab Data
08/15/24 04:37
08/15/24 04:37
Laboratory Results
08/15/24
04:37
PT 14.2
INR 1.07
APTT 26.5
Microbiology
08/08/24 14:01 Csf CSF Culture - Final
No Growth After 5 Days - Final Report
08/08/24 14:01 Csf Gram Stain - Final
--- NOTE | 2024-08-15 08:19 | PTCARENOTE ---
Received pt awake and alert.Speech is appropriate.Voice is soft.Pt voices concern about ability to swallow.Able to take po medications with thickened apple juice.No coughing noted.Aspiration precautions maintained. 3/5 bl movement upper
extremity.1/5 bl lower extremity movement.+ left ptosis.c/o severe whole body pain.Repositioned frequently for comfort.SR noted.Right HD catheter intact.IVF infusing as ordered.Decreased breath sounds bibasilar.POX 99%No SOB or increased work of
breathing noted.Dobbhoff inserted as ordered.No BM.Increased bowel sounds noted.Block inserted for retention as ordered.Skin integrity intact.Plan of care discussed with pt.Pt's sister at bedside.
[2024-08-15] MEDS: CYTOMEL 5 MICROGRAM PO ×2 (08:44→17:00)
[2024-08-15] MEDS: NEURONTIN 800 MG PO (08:45)
[2024-08-15] MEDS: MIRALAX 17 GRAMS PO (08:45)
[2024-08-15] MEDS: PROTONIX 40 MG PO (08:45)
[2024-08-15] MEDS: CALCIUM GLUCONATE 10% INJECTION 278 MG IV (09:16)
[2024-08-15] MEDS: HEPARIN 10000 UNITS INTRACATH (09:21)
[2024-08-15] MEDS: ALBUMIN 5% 250 IV ×13 (09:28→09:58)
--- NOTE | 2024-08-15 09:30 | PTCARENOTE ---
Plasmapheresis ongoing.Calcium gluconate,Heparin and Albumin administered by [place] RN.
[2024-08-15] MEDS: TORADOL 30 MG IV (09:43)
[2024-08-15] MEDS: LIDOCAINE 4% PATCH 1 PATCH TOPICAL ×2 (11:12)
--- NOTE | 2024-08-15 11:17 | W.PN.INTV ---
Today's Communication / Plan
Recommendations
Plasma exchange this morning(follow up fibrinogen, P, Ca, MG and electrolytes)
Gabapentin was decided to replaced to pregabalin
Initiate thiamine
Toradol IV/Lidocaine patch
Dry Press Operator Helper was consulted for tube feeding
Follow up for constipation
Pain management with opioids/nonopioids (Toradol, lidocaine patch)
Difficulty with vital capacity test due general pain to monitor vital capacity + MIP (Follow up closely oxygen saturation, RR)
Continue ICU level care for this critically ill patient
Assessment
-
Assessment:
Impression: The patient is a 58-year-old non-smoking female with a PMH of asthma, HL, hypothyroidism, diagnosis of papillary thyroid cancer in 2018 presented with lower extremity weakness as well as hand numbness to ER on 08/09/24. The patient had
felt her hand numbness a few days ago and was started on steroid treatment due her chronic cervical radiculopathy. The patient was unresponsive to outpatient prednisone. She was obtained glkpkorv-ioewxslj-xugzjm-brain MRI (w/wo contrast) and had a
lumbar puncture and further studies for differential diagnosis. 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
08/09/24.
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
Left cerebellar lesion
Conditions present prior to admission:
Asthma-mild intermittent.
Papillary thyroid cancer 2017.
Hypothyroidism
Hyperlipidemia
Anxiety
Past Surgical History: . Tubal ligation. Tonsillectomy. Thyroidectomy. Cholecystectomy.
Problem List
-Likely Guillain-[place] syndrome
-
Plan
# Likely Guillain-[place] syndrome vs Vasculitis vs Neoplasia
-Brain MRI: nodular focus of enhancement superior left cerebellar hemisphere etiology uncertain, neoplasia possible, demyelination could be considered, vasculitis could be considered, diffuse fatty atrophy of the right parotid gland-Control MRI with
kishore on 08/23/24 was planned by Neuro / recommended NCS/EMG of 3 extremities to better define
-Cervical/thoracal/Lumbar W/Wo contrast MRI: no significant findings
-GD1b was found elevated for 145 which compliant with GBS-- GD1a : 6 (Negative )
-Vit B12: 563, vit B1:117, ESR:8 /CRP<5 ,TRENA 1/160 titer , Lyme; Negative, CSF VDRL non-reactive , copper:113.4, CSF SHERRY 1.8 ;SS-A 37/SS-B4 , Acetylchol Rcpt Bind Ab: Negative, TRENA homogenous pattern with 1: 80 titer
-CSF no elevated protein/ normal CSF cytology/ SPEP: No M-spike seen/ , CSF Lyme PCR: Not detected
-ESR and CRP normal-unlikely vasculitis
-Physical exam relieves paresthesias, No clonus, no DTR on lower extremities, diplopia which is compliant with GBS possible a variant (Peres-Bryan syndrome)(6. cranial nerve involvement on the left side-esotropia)
-IVIG 0.4mg/kg/day for 5 days was started by Neuro-unfortunately diplopia and paraesthesia persisted despite 3 sessions and developed transaminitis- discontinued
-Plasma exchange was started on 08/11 through non-tunneled right internal jugular pheresis catheter: BMP:N, Mg:N, P:N, Fibrinogen level was found low at 176- will follow up daily per hematology recc-3rd session of 5 on 08/15
-Hematology and Neurology on board
#Pain and Anxiety
-Gabapentin planned to discontinue and replaced with pregabalin 400 mg TID
-Toradol IV and Lidocaine patch
-Acetaminophen and Ibuprofen PRN
-Hydromorphone 1 mg and 0.5 ml PRN
-Lorazepam 0.5 mg as needed
#Transaminitis likely drug induced
-No known elevated transaminitis in the past
-Likely IVIG induced/ IVIG was given for 3 sessions and was discontinued
-AST and ALT trending down (AST 51 from 252, ALT 75 from 392)
#Others
-Monitor neurologic status, Autonomic dysfunction (HR+BP) and muscle strength
-Block catheter was placed
-Constipation: Colace and Dulcolax was ordered
-Dobbhoff was placed and primer waterproofing machine adjuster was consulted
-Supplemental oxygen as needed
-Incentive spirometry was ordered
-Aspiration precautions
-Nebulizers if needed (history of mild intermittent asthma)
-DVT prophylaxis on Lovenox
-Continue PT/OT assessment
-Monitor muscle strength and forced vital capacity
-Monitor forced vital capacity
08/09/2024-FVC-1.6 L-predicted 2.9 and MIP 35
08/10/2024-FVC 1.5 L-predicted 2.9 and MIP 30
08/11/2024-FVC 1.6 L-predicted 2.9 and MIP 32
08/12/2024-FVC 1.4 L-predicted 2.9 and MIP 25
08/13/2024-FVC 1.41-F-camfakvep 2.9 and MIP 28
The patient is not willing to do test due her severe pain.
Indications for intubation and mechanical ventilation include
Respiratory rate greater than 30
Oxygen saturations less than 92%
FVC less than 20 mL/kg or greater than 30% decline
NIF less than -30
MEP less than 40
pCO2 elevation of greater than 50
Subjective Dataa
Subjective Data
Date of Service:
Date of Service: August 15, 2024
Chief Complaint: Hydro Electric Station Operator Follow Up and Pulmonary Follow Up
Subjective:
The patient reports more pain recently and reports her pain 9-05/05 despite given pain medications. It was decided to change her gabapentin to pregabalin.
Review of Systems
General: Other (See HPI )
HEENT: Other (Has a dobhoff tube )
Cardiopulmonary: Other (No chest pain, denies difficulty with breathing)
GI: Constipation and Other
Neuro: Dizziness, Numbness and Weakness
Genitourinary: Block
Objective Data
Data Reviewed
Vital Signs / I&O / Oxygen:
Vital Signs
Temp Pulse Resp BP Pulse Ox
97.6 F 83 14 142/97 97
08/15/24 08:28 08/15/24 10:00 08/15/24 10:00 08/15/24 10:00 08/15/24 10:00
Intake and Output
08/14/24 08/15/24 08/16/24
06:59 06:59 06:59
Intake Total 700 / 700 1470 / 1530 240 / 240
Output Total 1200 / 1200 1450 / 1450 105 / 105
Balance -500 / -500 20 / 80 135 / 135
SaO2 97
Physical Exam
General: Comfortable
HEENT: Normocephalic, Anicteric, Moist Mucous Membranes and Other (Has a dobhoff tube )
Cardiovascular: S1-S2 and Regular Rhythm
Respiratory: Clear
GI: Soft, Non Distended, Non Tender and Other (dysphagia )
Neurology: Awake, Alert, Oriented, AO x 3 and Other (Lower/ Upper extremity weakness, paresthesia on all extremities , Left lateral rectus paralysis)
Skin: Warm and Dry
Labs/Micro/Reports
Lab Data
08/15/24 04:37
08/15/24 04:37
Laboratory Results
08/15/24
04:37
PT 14.2
INR 1.07
APTT 26.5
Microbiology
08/08/24 14:01 Csf CSF Culture - Final
No Growth After 5 Days - Final Report
08/08/24 14:01 Csf Gram Stain - Final
--- NOTE | 2024-08-15 12:19 | PTCARENOTE ---
Pt assessed.No change in assessment noted.VSE completed as ordered.
--- NOTE | 2024-08-15 12:21 | W.PN.UPDATE ---
Update Note
Progress Note Update
pt due for PLEX again today. Tolerating procedure to date.
Labs show normal PT, PTT, fibrinogen 176. No need for replacement.
ongoing GBS management per Neurology.
PLEX ordered through 08/19.
[2024-08-15] MEDS: VITAMIN B1 100 MG PO (12:25)
[2024-08-15] MEDS: DULCOLAX 10 MG RECTAL (12:25)
[2024-08-15] MEDS: TYLENOL ORAL SOLUTION 650 MG PO ×2 (12:25→17:00)
[2024-08-15] MEDS: LYRICA 100 MG PO ×2 (12:25→20:11)
[2024-08-15] MEDS: SENOKOT-S 2 TABLET PO (12:25)
--- NOTE | 2024-08-15 12:48 | PTCARENOTE ---
EMG in progress.Dr Acosta at bedside.Pt repositioned for comfort.
--- NOTE | 2024-08-15 13:16 | PTCARENOTE ---
po medications given via Dobbhoff tube,
--- NOTE | 2024-08-15 13:58 | CM ---
CM following re: discharge planning.
Discussed in Rounds, reviewed pt's chart, met with pt.
PT, OT and ST continue recommending acute rehab level of care. [facility] coordinator following.
Physiatry consult pending.
D/C plan: [facility] when medically stable. Per previous CM note, no auth is required
CM will follow to assist pt with discharge to [facility]
--- NOTE | 2024-08-15 14:09 | PTOTSP ---
Addendum entered and electronically signed by ST Camille 08/15/24 14:11:
7. Medications via DHT if able
Original Note:
Videofluoroscopic swallow study
Summary: Moderate-severe oral and at least moderate pharyngeal dysphagia. No aspiration but risk is elevated. See patient care note for details of swallowing physiology/penetration.
Recommendation:
1. Continue with non-oral means in place (DHT) as primary means of nutrition/hydration
2. Teaspoon sips of mildly thick liquids
3. Strategies: upright to 90 degrees, full supervision/assist, single sips, slow rate
4. Discontinue PO if any worsened swallowing function/signs of aspiration and/or worsened respiratory status
5. Oral care 3-5x daily with suctioning
6. Dysphagia therapy at the acute care level.
--- NOTE | 2024-08-15 15:47 | NS.EMG ---
Electromyogram (EMG) Study
EMG/NCS Summary
EMG/nerve conduction study of both lower limbs and the left upper limb was completed at the patient's bedside.
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
The present study showed F-wave latencies were prolonged or unobtainable in the upper and lower limbs.
The needle EMG showed reduced motor unit recruitment throughout the left upper limb with the exception of the deltoid which was normal. In the lower limbs no motor unit potentials were recruited from the legs through the hips with the exception of
the right medial gastrocnemius where a single unit potential was identified.
The nerve conduction velocities were normal in the lower limbs and left upper limb. 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
The electrodiagnostic abnormalities can be seen in early acute idiopathic demyelinating polyradiculoneuropathy (Guillain-[place] syndrome)
--- NOTE | 2024-08-15 16:00 | PTCARENOTE ---
Pt assessed.No change in assessment noted.
[2024-08-15] MEDS: LOVENOX 40 MG SC (17:00)
[2024-08-15] MEDS: TORADOL 15 MG IV ×2 (17:00→22:48)
--- NOTE | 2024-08-15 20:00 | PTCARENOTE ---
Patient received in bed, AAOX3, garbled speech noted. Bilateral upper extremities 2/5, left arm stronger than right, trace movement of lower extremities. NSR on monitor, trace lower extremity edema. Lungs diminished bibasilar, pulse ox 94% on
room air. DHT in right nare with jevity infusing at 20 ml/hr with 25 ml/hr water flush. Abdomen soft non tender with positive bowel sounds. Block catheter draining yellow urine. Skin intact. PIV x2 in right flushed and patent. Call perkins within
reach
--- NOTE | 2024-08-15 23:41 | PTCARENOTE ---
Patient reassessed, turned and repositioned. Appears more comfortable, assisted with mouth care.
[2024-08-16] VITALS (24 sets, daily range): BP systolic 112–156; BP diastolic 55–95; PULSE 101; O2SAT 94; BMI 24.4
[2024-08-16] MEDS: TYLENOL ORAL SOLUTION 650 MG PO ×4 (00:16→18:04)
[2024-08-16] MEDS: TORADOL 15 MG IV ×4 (03:17→21:07)
[2024-08-16 05:14] LABS: Venous Blood Gas HCO3 27.9 mmol/L (22-27); Venous Blood Gas O2 Sat % 99.6 %; Venous Blood Gas pCO2 43 mmHg (35-48); Venous Blood Gas pH 7.42 (7.32-7.43); Venous Blood Gas pO2 134 mmHg (30-50)
[2024-08-16 05:20] LABS: % Basophils 0.4 % (0-2); % Eosinophils 1.6 % (0-6); % Immature Granulocytes 0.4 % (0-0.5); % Lymphocytes 14.8 % (20.5-51.1); % Monocytes 7.7 % (1.7-9.3); % Neutrophils 75.1 % (42.2-75.2); Absolute Basophils 0.1 10^3/uL (0-0.2); Absolute Eosinophils 0.2 10^3/uL (0-0.7); Absolute Immature Granulocytes 0.1 10^3/uL (0-0.05); Absolute Lymphocytes 1.9 10^3/uL (1.2-3.4); Absolute Neutrophils 9.5 10^3/uL (1.4-6.5); Hematocrit 35.3 % (37.0-47.0); Hemoglobin 12.8 g/dL (12.0-16.0); Mean Corp Hgb Conc. 36.3 g/dL (33.0-37.0); Mean Corpuscular Hgb 32.9 pg (27.0-31.0); Mean Corpuscular Volume 90.7 fL (81.0-99.0); Mean Platelet Volume 9.8 fL (7.4-10.4); Nucleated Red Blood Cells % 0 %; Platelet Count 259 10^3/uL (130-400); Red Blood Cell Count 3.89 10^6/uL (4.20-5.40); Red Cell Dist. Width 12.1 % (11.5-14.5); White Blood Cell Count 12.7 10^3/uL (4.8-10.8)
[2024-08-16 05:30] LABS: PT 14.5 Sec (11.4-14.6)
[2024-08-16 05:31] LABS: APTT 27.6 Sec (23.4-35.0); Fibrinogen 154 MG/DL (199-459)
[2024-08-16 05:41] LABS: ALT (SGPT) 30 U/L (0-35); AST (SGOT) 25 U/L (14-36); Albumin 4.4 g/dl (3.5-5.0); Alkaline Phosphatase 28 U/L (38-126); Blood Urea Nitrogen 17 mg/dl (7-17); Carbon Dioxide 25 mmol/L (22-30); Chloride 98 mmol/L (98-107); Direct Bilirubin 0.2 mg/dl (0.0-0.4); Estimated Creatinine Clearance 102 ml/min; Glucose 148 mg/dl (70-99); LDH 152 U/L (120-246); Magnesium 2.3 mg/dl (1.6-2.3); Phosphorus 3.1 mg/dl (2.5-4.5); Potassium 3.6 mmol/L (3.5-5.1); Sodium 134 mmol/L (135-145); Total Bilirubin 0.7 mg/dl (0.2-1.3); Total Protein 5.6 g/dl (6.3-8.2); eGFR > 60.00
--- NOTE | 2024-08-16 06:02 | PTCARENOTE ---
Patient repositioned frequently throughout the night, soft care overlay placed on bed for patients comfort. dozing intermittently
[2024-08-16] MEDS: NON-FORMULARY ITEM 1 UNIT PO (06:28)
--- NOTE | 2024-08-16 07:39 | W.PN.NEURO.1 ---
Today's Communication / Plan
-
Replaced gabapentin with pregabalin 100 mg 2 times a day for pain control; increase to 200 mg 3x/day
Neuro Assessment/Plan
Assessment
I. Guillain-[place] syndrome, most likely Peres Bryan variant. Patient received 3 doses of IVIG then switched to plasma exchange treatment due to elevated LFTs. Positive GD1b antibodies (found in patients with Guillain-Morgan� syndrome and multifocal
motor neuropathy); NCS/EMG concurs with GBS
II. Left cerebellar lesion. Differential diagnosis includes demyelinating lesion or metabolic abnormality or low grade neoplastic vs vascular vs inflammatory vs less likely infectious etiologies
Cytology has been unremarkable, oligoclonal bands negative, no white blood cells in CSF
III. Mild toxic encephalopathy
Plan
Continue plasma exchange, undergoing third treatment of 5 on August 15, 2024
Replaced gabapentin with pregabalin 100 mg 2 times a day for pain control; increase to 200 mg 3x/day
Follow-up brain MRI with kishore on 08/23/24
Due to prognosis being guarded for the patient being able to provide airway protection, consider intubation
Initiated thiamine due to the patient's left 6th nerve palsy although most likely secondary to Peres Bryan variant of Guillain-Morgan�
Will follow
Subjective/Objective
Subjective Data
Date of Service: August 16, 2024
Worsening pain, 10/10 feet to groin
Objective Data
Vital Signs
Temp Pulse Resp BP Pulse Ox
36.4 C 82 19 135/72 96
08/16/24 04:00 08/16/24 05:00 08/16/24 05:00 08/16/24 05:00 08/16/24 05:00
Lab Results
08/16/24 04:58
08/16/24 04:58
PT 14.5 Sec (11.4-14.6) 08/16/24 04:58
INR 1.10 08/16/24 04:58
APTT 27.6 Sec (23.4-35.0) 08/16/24 04:58
Sodium 134 mmol/L (135-145) L 08/16/24 04:58
Potassium 3.6 mmol/L (3.5-5.1) 08/16/24 04:58
BUN 17 mg/dl (7-17) 08/16/24 04:58
Glucose 148 mg/dl (70-99) H 08/16/24 04:58
Calcium 9.0 mg/dl (8.4-10.2) 08/16/24 04:58
Phosphorus 3.1 mg/dl (2.5-4.5) 08/16/24 04:58
Whole Bld Vitamin B1 117 nmol/L (70-180) 08/08/24 07:47
Whole Bld Vitamin B1 Cancelled 08/08/24 07:47
Vitamin B12 563 pg/ml (239-931) 08/08/24 07:47
Vitamin B12 Cancelled 08/08/24 07:47
Patient Allergies
strawberry Allergy (Verified 08/07/24 14:51)
Swelling
aspirin [Aspirin] Adverse Reaction (Verified 08/07/24 14:51)
GI upset
BANDAID Allergy (Uncoded 08/07/24 14:51)
Rash
Review of Systems
-
History Source: Patient
All other systems: Reviewed and negative
EENT: Swallowing Difficulty
Respiratory: Negative Trouble Breathing
Cardiac: Negative Chest Pain
Abdomen/GI: Incontinence of Stool
Genitourinary: Other (retention)
Musculoskeletal: Back Pain, Neck Pain and Other (Pain from legs to groin)
Neuro: Negative Dizzy or Headache
Physical Exam
-
General: No Apparent Distress, Appears Stated Age and Other (Dobbhoff tube in nares)
Eyes: Round OU and [place] Conjunctivae
HEENT: Anicteric and Moist Mucous Membranes
Neck: Full Range of Motion
Respiratory: No Dyspnea
Cardiac: No JVD
GI: Non-distended
Skin: Unremarkable
Extremities: No Clubbing, No Cyanosis and No Edema
Psych: Intact Judgement/Insight
Extended Neurological Exam
Mood & Affect: Anxious
Attention Span & Concentration: Awake, Alert, Interactive, Closes Eyes after Stimulation (After approximately 2 to 3 seconds) and Other (No difficulty with single step requests or recall)
Memory: Unremarkable
Tremor: Hand Tremor Absent and Head Tremor Absent
Involuntary Movement: None
Speech: Dysarthric and Hoarse
Cranial Nerve II: Left Eye: Pupillary Reactivity Unremarkable, Pupillary Size Unremarkable and Visual [place] Grossly Intact
Cranial Nerve II: Right Eye: Pupillary Reactivity Unremarkable, Pupillary Size Unremarkable and Visual [place] Grossly Intact
Cranial Nerves III, IV, : Extraocular Movement: Otherwise Unremarkable and Other (Left lateral rectus paralysis)
Cranial Nerve VII: Facial Symmetry: Reduced (Reduce facial movement bilaterally)
Cranial Nerve VIII: Hearing: Unremarkable Hearing to Normal Conversational Volume
Cranial Nerve XI: Shoulder Shrug: Reduced on Right and Reduced on Left
Muscle Strength, Overall: Reduced (Bilateral upper extremities with the patient unable to lift arms off of bed although able to lift forearms off of bed for greater than 2 seconds equally)
Muscle Bulk & Tone: Bulk Unremarkable and Tone Unremarkable
Pronator Drift: Unable to Assess
Deep Tendon Reflexes: Absent Throughout
Coordination: Reaches for Objects without Difficulty
Babinski Sign: Absent Bilaterally
Gait & Station: Unable to Assess
Data Reviewed
-
Labs: Report Reviewed
EMG: Report Reviewed
Reviewed with: Physician, Nurse, Patient and Family
Old Records: Summarized
Past History
Past History
ED Past Medical History: Asthma, Cancer (Papillary thyroid 2018), GERD, Hypercholesterolemia, Hypothyroidism, Psychiatric and Other (Celiac disease, vitamin D D deficiency, iron deficiency, hepatic steatosis, hemorrhoids, Guillain-Morgan� syndrome)
ED Past Surgical History: , Gynecological (uterine ablation, tubal ligation), Tonsilectomy and Other (Epidural steroid injections C7-T1 2018, 2019 L5-S1 epidural steroid injections)
Social History
Tobacco: Non-smoker
Alcohol: Occasional
Drug: Marijuana (medical marijuana)
Personal:
Living: with family
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
Family History
Family History: Negative CAD
Medications
-
Medications:
Generic Name Dose Route Start Last Admin
Trade Name Freq PRN Reason Stop Dose Admin
Acetaminophen 650 mg 08/07/24 19:55 08/10/24 17:36
Acetaminophen 325 Mg Tablet PO 09/04/24 19:54 650 mg
Q6HPRN PRN Administration
mild pain/ fever>100.5F
Acetaminophen 650 mg 08/15/24 12:00 08/16/24 05:41
Acetaminophen (Oral Solution) 650 Mg/20.3 Ml Cup PO 08/16/24 18:01 650 mg
Q6 CAMELIA Administration
Artificial Tears 1 drops 08/10/24 10:28 08/12/24 13:29
Artificial Tears Pf (Refresh) 10 Drop Droperette OPHTH 09/07/24 10:27 1 drops
QIDPRN PRN Administration
dry eyes
Docusate Sodium 100 mg 08/12/24 12:54
Docusate Sodium 100 Mg Capsule PO 09/09/24 12:53
BIDPRN PRN
STOOL SOFTENER
Enoxaparin Sodium 40 mg 08/08/24 18:00 08/15/24 17:00
Enoxaparin Sodium 40 Mg/0.4 Ml Syringe SC 09/05/24 17:59 40 mg
QPM CAMELIA Administration
Heparin Sodium 0 units 08/13/24 12:00 08/15/24 09:21
Heparin (1000 Units/Ml) 10,000 Units/10 Ml Vial INTRACATH 08/19/24 12:01 10,000 units
Q48H CAMELIA Administration
Hydromorphone HCl 1 mg 08/13/24 10:05 08/15/24 09:37
Hydromorphone 1 Mg/Ml Carpuject IV 08/25/24 11:18 1 mg
Q3HPRN PRN Administration
SEV PAIN, intractable to PO
Hydromorphone HCl 0.5 mg 08/13/24 10:05
Hydromorphone 0.5 Mg/0.5 Ml Syringe IV 08/25/24 11:19
Q3HPRN PRN
MOD PAIN, intractable to PO
Calcium Gluconate 2,800 mg/ 278 mls @ 0 mls/hr 08/11/24 12:00 08/15/24 09:16
Sodium Chloride IV 08/19/24 12:01 278 mls
Q48H CAMELIA Administration
As Directed
Albumin Human 12.5 grams in 250 mls @ 1,500 mls/hr 08/17/24 12:00
Albumin 5% INTRACATH 08/17/24 13:49
.Q10M CAMELIA
Albumin Human 12.5 grams in 250 mls @ 1,500 mls/hr 08/19/24 12:00
Albumin 5% INTRACATH 08/19/24 13:49
.Q10M CAMELIA
Ketorolac Tromethamine 15 mg 08/15/24 16:00 08/16/24 03:17
Ketorolac 30 Mg/Ml Injection IV 08/20/24 15:59 15 mg
Q6H CAMELIA Administration
Lidocaine 1 patch 08/15/24 08:00 08/15/24 11:12
Lidocaine 4% Topical Patch TOPICAL 09/12/24 07:59 1 patch
DAILY CAMELIA Administration
Protocol
Lidocaine 1 patch 08/15/24 08:00 08/15/24 11:12
Lidocaine 4% Topical Patch TOPICAL 09/12/24 07:59 1 patch
DAILY CAMELIA Administration
Protocol
Liothyronine Sodium 5 microgram 08/13/24 16:00 08/15/24 17:00
Liothyronine 5 Microgram Tablet PO 09/10/24 15:59 5 microgram
BID@0800,1600 CAMELIA Administration
Lorazepam 0.5 mg 08/14/24 21:06 08/15/24 00:58
Lorazepam 2 Mg/Ml Vial IV 09/11/24 21:05 0.5 mg
Q4HPRN PRN Administration
anxiety
Synthroid (Brand 0 unit 08/09/24 06:00 08/16/24 06:28
Name Levothyroxine) PO 09/06/24 05:59 1 unit
125mcg Tablet - Take DAILY@0600 CAMELIA Administration
1/2 Tablet (62.5mcg
) Po Daily
Ondansetron HCl 4 mg 08/08/24 12:07 08/08/24 14:53
Ondansetron 4 Mg/2 Ml Vial IV 09/05/24 12:06 4 mg
Q6HPRN PRN Administration
NAUSEA/VOMITING
Oxycodone HCl 5 mg 08/13/24 10:04 08/15/24 03:37
Oxycodone 5 Mg Regular Release Tablet PO 08/27/24 10:03 5 mg
Q4HPRN PRN Administration
moderate to severe pain
Pantoprazole Sodium 40 mg 08/09/24 08:00 08/15/24 08:45
Pantoprazole 40 Mg Delayed Release Tablet PO 09/06/24 07:59 40 mg
DAILY CAMELIA Administration
Patch Removal 0 patch 08/15/24 20:00 08/15/24 20:11
Remove Lidocaine Patch REMOVE 09/12/24 19:59 2 patch
DAILY@1999 CAMELIA Administration
Polyethylene Glycol 17 grams 08/11/24 12:00 08/15/24 08:45
Polyethylene Glycol Powder 17 Grams Packet PO 09/08/24 11:59 17 grams
DAILY CAMELIA Administration
Pregabalin 100 mg 08/15/24 20:00 08/15/24 20:11
Pregabalin 100 Mg Capsule PO 09/12/24 19:59 100 mg
BID CAMELIA Administration
Sennosides 8.6 mg 08/12/24 12:57
Sennosides (Senokot) 8.6 Mg Tablet PO 09/09/24 12:56
BIDPRN PRN
CONSTIPATION
Sodium Chloride 0 flush 08/07/24 21:00 08/13/24 18:53
Sodium Chloride 0.9% (Flush) Syringe IV 09/04/24 20:59 1 flush
PER PROTOCOL CAMELIA Administration
Sodium Chloride 0.25 ml 08/14/24 21:15
Nss (Pf) 10 Ml Vial For Ativan 0.5 Mg Dose IV 09/11/24 21:14
Q4HPRN PRN
IV LORAZEPAM DILUTION
Thiamine HCl 100 mg 08/15/24 12:00 08/15/24 12:25
Thiamine 100 Mg Tablet PO 09/12/24 11:59 100 mg
DAILY CAMELIA Administration
Valacyclovir HCl 500 mg 08/08/24 12:07 08/09/24 01:43
Valacyclovir Hcl 500 Mg Tablet PO 08/18/24 12:06 500 mg
DAILYPRN PRN Administration
fever blisters
--- NOTE | 2024-08-16 08:15 | W.PN.ONC2 ---
Today's Communication / Plan
-
next plex 08/17
Impression
Impression
suspected Guillain-[place] syndrome, neurology changed IVIG to Albumin exchange due to eleated LFTs
Plan
Plan
Continue plasma exchange every other day x 5 sessions arranged as recommended by neurology. Next scheduled apheresis 08/17 (#4)
daily CBC, BMP, magnesium, phosphorus, fibrinogen, LDH, coags.
Further mgmt as per neurology
Subjective/Objective
Subjective
feels that her neurological deficits are getting worse
Vital Signs:
Vital Signs
Temp Pulse Resp BP Pulse Ox
97.5 F 82 19 135/72 96
08/16/24 04:00 08/16/24 05:00 08/16/24 05:00 08/16/24 05:00 08/16/24 05:00
Lab Results:
Laboratory Data
WBC 12.7 10^3/uL (4.8-10.8) H 08/16/24 04:58
Hgb 12.8 g/dL (12.0-16.0) 08/16/24 04:58
Plt Count 259 10^3/uL (130-400) 08/16/24 04:58
PT 14.5 Sec (11.4-14.6) 08/16/24 04:58
INR 1.10 08/16/24 04:58
APTT 27.6 Sec (23.4-35.0) 08/16/24 04:58
eGFR > 60.00 08/16/24 04:58
Physical Exam
General: Well Developed and No Apparent Distress
HEENT: Moist Mucous Membranes; Negative Jaundice, Dobhoff, 6th nerve palsy
Cardiology: Normal Sinus Rhythm
Pulmonary: Clear
GI: Soft
Extremities: Pulses Present; Negative Edema
Skin: Warm
Psych: Calm
Orders
Orders
Orders From Last 24 Hours
08/15/24 12:00
Albumin Human 5% 250 ml [Albumin 5%] 12.5 grams in 250 ml INTRACATH 1,500 mls/hr
08/16/24 04:58
CBC/With Diff [Complete Blood Count/With Diff] IN AM
Comprehensive Metabolic Panel Routine
Direct Bilirubin Routine
Fibrinogen IN AM
LDH IN AM
Magnesium IN AM
PT/INR [Prothrombin Time] IN AM
PTT IN AM
Phos [Phosphorus] IN AM
08/17/24 06:00
BMP [Basic Metabolic Panel] IN AM
CBC/With Diff [Complete Blood Count/With Diff] IN AM
Fibrinogen IN AM
LDH IN AM
Magnesium IN AM
PT/INR [Prothrombin Time] IN AM
PTT IN AM
Phos [Phosphorus] IN AM
08/17/24 12:00
Albumin Human 5% 250 ml [Albumin 5%] 12.5 grams in 250 ml INTRACATH 1,500 mls/hr
08/18/24 06:00
BMP [Basic Metabolic Panel] IN AM
CBC/With Diff [Complete Blood Count/With Diff] IN AM
Fibrinogen IN AM
LDH IN AM
Magnesium IN AM
PT/INR [Prothrombin Time] IN AM
PTT IN AM
Phos [Phosphorus] IN AM
08/19/24 06:00
BMP [Basic Metabolic Panel] IN AM
CBC/With Diff [Complete Blood Count/With Diff] IN AM
Fibrinogen IN AM
LDH IN AM
Magnesium IN AM
PT/INR [Prothrombin Time] IN AM
PTT IN AM
Phos [Phosphorus] IN AM
08/19/24 12:00
Albumin Human 5% 250 ml [Albumin 5%] 12.5 grams in 250 ml INTRACATH 1,500 mls/hr
08/20/24 06:00
BMP [Basic Metabolic Panel] IN AM
CBC/With Diff [Complete Blood Count/With Diff] IN AM
Fibrinogen IN AM
LDH IN AM
Magnesium IN AM
PT/INR [Prothrombin Time] IN AM
PTT IN AM
Phos [Phosphorus] IN AM
08/21/24 06:00
BMP [Basic Metabolic Panel] IN AM
CBC/With Diff [Complete Blood Count/With Diff] IN AM
Fibrinogen IN AM
LDH IN AM
Magnesium IN AM
PT/INR [Prothrombin Time] IN AM
PTT IN AM
Phos [Phosphorus] IN AM
--- NOTE | 2024-08-16 08:17 | W.PN.INTV ---
Today's Communication / Plan
Recommendations
Plasma exchange tomorrow (follow up fibrinogen, P, Ca, MG and electrolytes)( 4 of 5)
Pregabalin dose was planned to go up 200 mg TID
Pain management with opioids/nonopioids (Toradol, lidocaine patch)
Business Department Chair assessed the patient on 08/15 and tube feeding did not start ye
Decreased vital capacity MIP at 14 MIP (Follow up closely oxygen saturation, RR)
Continue ICU level care for this critically ill patient
Assessment
-
Assessment
The patient is a 58-year-old non-smoking female with a PMH of asthma, HL, hypothyroidism, diagnosis of papillary thyroid cancer in 2018 presented with lower extremity weakness as well as hand numbness to ER on 08/09/24. The patient had felt her
hand numbness a few days ago and was started on steroid treatment due her chronic cervical radiculopathy. The patient was unresponsive to outpatient prednisone. She was obtained ejfefuls-bzdbvcaq-oyrypo-brain MRI (w/wo contrast) and had a lumbar
puncture and further studies for differential diagnosis. 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
Impression:
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
Left cerebellar lesion
Acute urinary retention now s/p Block
Conditions present prior to admission:
Asthma-mild intermittent.
Papillary thyroid cancer 2018.
Hypothyroidism
Hyperlipidemia
Anxiety
Past Surgical History: . Tubal ligation. Tonsillectomy. Thyroidectomy. Cholecystectomy.
Plan
david
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
-Brain MRI: nodular focus of enhancement superior left cerebellar hemisphere etiology uncertain, neoplasia possible, demyelination could be considered, vasculitis could be considered, diffuse fatty atrophy of the right parotid gland-Control MRI with
kishore on 08/23/24 was planned by Neuro
-NCS/EMG on 08/15 2024:acute idiopathic demyelinating polyradiculoneuropathy which is complaint with GBS
-Cervical/thoracal/Lumbar W/Wo contrast MRI: no significant findings
-GD1b was found elevated for 145 which compliant with GBS-- GD1a : 6 (Negative )
-Vit B12: 563, vit B1:117, ESR:8 /CRP<5 ,TRENA 1/160 titer , Lyme; Negative, CSF VDRL non-reactive , copper:113.4, CSF SHERRY 1.8 ;SS-A 37/SS-B4 , Acetylchol Rcpt Bind Ab: Negative, TRENA homogenous pattern with 1: 80 titer
-CSF no elevated protein/ normal CSF cytology/ SPEP: No M-spike seen/ , CSF Lyme PCR: Not detected
-ESR and CRP normal-unlikely vasculitis
-Physical exam relieves paresthesias, No clonus, no DTR on lower extremities, diplopia which is compliant with GBS possible a variant (Peres-Bryan syndrome)(6. cranial nerve involvement on the left side-esotropia)
-IVIG 0.4mg/kg/day for 5 days was started by Neuro-unfortunately diplopia and paraesthesia persisted despite 3 sessions and developed transaminitis- discontinued
-Plasma exchange was started on 08/11 through non-tunneled right internal jugular pheresis catheter: BMP:N, Mg:N, P:N, Fibrinogen level was found low at 154 ON 08/16- will follow up daily per hematology recc-4rd session of 5 on 08/17
-Hematology and Neurology on board
#Pain and Anxiety
-Pregabalin was planning to go up 200 mg TID
-Toradol IV and Lidocaine patch
-Acetaminophen and Ibuprofen PRN
-Hydromorphone 1 mg and 0.5 ml PRN
-Lorazepam 0.5 mg as needed
#Transaminitis likely drug induced
-Resolved
-Likely IVIG induced
#Others
-Monitor neurologic status, Autonomic dysfunction (HR+BP) and muscle strength
-Block catheter was placed
-Constipation: L;st BM on 08/16/24. Continue Colace and Senakot-S
-Dobbhoff was placed and seen by emergency department aide
-Supplemental oxygen as needed
-Incentive spirometry
-Aspiration precautions
-Nebulizers if needed (history of mild intermittent asthma)
-DVT prophylaxis on Lovenox
-Continue PT/OT assessment
-Monitor muscle strength and forced vital capacity
-Monitor forced vital capacity
08/09/2024-FVC-1.6 L-predicted 2.9 and MIP 35
08/10/2024-FVC 1.5 L-predicted 2.9 and MIP 30
08/11/2024-FVC 1.6 L-predicted 2.9 and MIP 32
08/12/2024-FVC 1.4 L-predicted 2.9 and MIP 25
08/13/2024-FVC 1.38-W-agxswrkdh 2.9 and MIP 28
08/16/2024-FVC 1.7-L-iihuccpxa 2.9 and MIP 14
On 08/16/2024 RR: 22, O2: 94%
Indications for intubation and mechanical ventilation include
Respiratory rate greater than 30
Oxygen saturations less than 92%
FVC less than 20 mL/kg or greater than 30% decline
NIF less than -30
MEP less than 40
pCO2 elevation of greater than 50
Diagnostic data:
Chest x-ray 07/04/2024-NAD
Modified barium swallow study 08/15/2024: No fluoroscopic evidence for airway aspiration.
Brain MRI 08/09/2024-nodular focus of enhancement superior left cerebellar hemisphere etiology uncertain, neoplasia possible, demyelination could be considered, vasculitis could be considered, diffuse fatty atrophy of the right parotid gland
Cervical spine MRI 08/09/24-5 mm well-defined focus of enhancement in the lateral margin of the fgdjv-zc-fnkw, mild to moderate changes of DJD unchanged from 2024, slight anterior cord compression at C5-6
Thoracic spine MRI 08/10/2024-no abnormal enhancement to suggest acute myelopathy
Lumbar spine MRI 08/10/2024-mild degenerative changes and mild bilateral neural foraminal stenosis L4-5 and L5-6 1, no abnormal enhancement
ELECTRODIAGNOSTIC FINDINGS: 08/15/2024: Electrodiagnostic abnormalities are present consistent with early demyelinating polyradiculoneuropathy based on prolonged and absent F-wave responses.
The nerve conduction study showed paradoxical sparing of the sural sensory nerve response, which is normal.
The motor nerve conduction velocities, at this time, are normal and not in a range which confirms demyelinating neuropathy.
The needle EMG shows no recruitment of motor unit potentials throughout the lower limbs with the exception of the right medial gastrocnemius where there is reduced recruitment with a single unit potential of normal morphology. There is generalized
reduced recruitment pattern throughout the left upper limb.
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
RF Video Fluoro Swallow Exam on 08/15/2024: Impression: No fluoroscopic evidence for airway aspiration. Detailed findings as described above.
Subjective Dataa
Subjective Data
Date of Service:
Date of Service: August 16, 2024
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
Subjective:
The patient reports all body pain and rates it ~9-10/10 despite pain management combination of opioids/nonopioids.
Review of Systems
General: Other (See HPI )
Cardiopulmonary: Other
GI: Other (difficulty with swallowing )
Neuro: Dizziness and Weakness
Genitourinary: Block
Objective Data
Data Reviewed
Vital Signs / I&O / Oxygen:
Vital Signs
Temp Pulse Resp BP Pulse Ox
97.5 F 82 19 135/72 96
08/16/24 04:00 08/16/24 05:00 08/16/24 05:00 08/16/24 05:00 08/16/24 05:00
Intake and Output
08/15/24 08/16/24 08/17/24
06:59 06:59 06:59
Intake Total 1470 / 1530 1330 / 1330
Output Total 1450 / 1450 1110 / 1110
Balance 20 / 80 220 / 220
SaO2 96
Physical Exam
General: Pain
HEENT: Normocephalic, Anicteric, Moist Mucous Membranes and Other (Has a dobhoff tube )
Cardiovascular: S1-S2 and Regular Rhythm
Respiratory: Clear
GI: Soft, Non Distended, Non Tender, Feeding Tube and Other (dysphagia )
Neurology: Awake, Alert, Oriented, AO x 3, Tremors (No) and Other (Lower extremity weakness >upper extremity weakness; numbness on hands )
Skin: Warm and Dry
Labs/Micro/Reports
Lab Data
08/16/24 04:58
08/16/24 04:58
Laboratory Results
08/16/24
04:58
PT 14.5
INR 1.10
APTT 27.6
Microbiology
08/08/24 14:01 Csf CSF Culture - Final
No Growth After 5 Days - Final Report
08/08/24 14:01 Csf Gram Stain - Final
--- NOTE | 2024-08-16 08:18 | W.PN.INTV ---
Today's Communication / Plan
Recommendations
4th PLEX session tomorrow
Continue bowel regimen
Increase Lyrica to 200mg TID
Continue Toradol at 15mg IV q6hr
Continue ATC tylenol (trend LFTs)
Monitor vital capacity + MIP
Analgesia
Continue ICU level care for this critically ill patient
Assessment
-
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
Guillain-Morgan� syndrome and transferred to ICU-family development specialist consulted for Guillain-Morgan� syndrome/critical care management 08/09/2024.
Impression:
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
Left cerebellar lesion
Acute urinary retention s/p Block (inserted 08/14/2024)
Conditions present prior to admission:
Asthma-mild intermittent.
Papillary thyroid cancer 2018.
Hypothyroid.
Hyperlipidemia.
Anxiety.
. Tubal ligation. Tonsillectomy. Thyroidectomy. Cholecystectomy.
Plan
Transferred patient to medical intensive care unit for close neurologic and respiratory evaluation
Triggers include previous infections including Campylobacter jejunum and viral infections including influenza A, B, CMV, COVID 19, Zika, and EBV as well as vaccinations including influenza (1-2/1 million), RSV, zoster, COVID-19 especially adenovirus
factors though noted with messenger RNA vaccines as well
Typical presentation includes lower extremity weakness, decreased deep tendon reflexes, paresthesias and dysautonomia's
Supplemental oxygen as needed-currently on room air and breathing comfortably
Incentive spirometry encouraged
Aspiration precautions
Nebulizers if needed-history of asthma-currently not bronchospastic
Monitor muscle strength and forced vital capacity
08/09/2024-FVC-1.6 L-predicted 2.9 and MIP 35
08/10/2024-FVC 1.5 L-predicted 2.9 and MIP 30
08/11/2024-FVC 1.6 L-predicted 2.9 and MIP 32
08/12/2024-FVC 1.7 L
Indications for intubation and mechanical ventilation include:
Respiratory rate greater than 30
Oxygen saturations less than 92%
FVC less than 20 mL/kg or greater than 30% decline
NIF less than -20
MEP less than 40
pCO2 elevation of greater than 50
Neurology evaluation ongoing-correspondence reviewed
Lumbar puncture on 08/08/2024 showed: total protein 56 and 0 WBC
Vitamin B12: 563, B1: 117, SHERRY level: <10, CSF Lyme PCR: Not detected, CSF SHERRY level: 1.8; SPEP: No M-spike seen; CRP: <5, copper level: 113.4
ESR and CRP normal-unlikely vasculitis
TRENA detected, homogenous pattern with 1:80 titer
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
Continue to monitor vital capacity + MIP every shift
Initial treatment-IVIG 0.4 mg/kg/day-finished 3 out of 5-changed to plasma exchange due to elevated LFTs
Plasma exchange began 08/11/2024-every other day for total 5 doses-next session tomorrow (08/17/2024)
Hematology consultation/[place] consulted for plasma exchange
NCS/EMG's in 3 weeks
Neurontin-currently 800 mg TID --> on 08/15/2024 I changed to lyrica 100mg BID and DC gabapentin --> raise lyrica to 200mg TID
Continue toradol 15mg q6hr, Tylenol q6hr (monitor LFTs) and prn IV hydromorphone/PO oxycodone
Ativan as needed
Trend LFTs
Brain MRI 08/09/2024-nodular focus of enhancement superior left cerebellar hemisphere etiology uncertain, neoplasia possible, demyelination could be considered, vasculitis could be considered, diffuse fatty atrophy of the right parotid gland
Cervical spine MRI 08/09/24-5 mm well-defined focus of enhancement in the lateral margin of the fmxyl-lo-vvid, mild to moderate changes of DJD unchanged from 2024, slight anterior cord compression at C5-6
Thoracic spine MRI 08/10/2024-no abnormal enhancement to suggest acute myelopathy
Lumbar spine MRI 08/10/2024-mild degenerative changes and mild bilateral neural foraminal stenosis L4-5 and L5-6 1, no abnormal enhancement
DVT prophylaxis-on Lovenox and mechanical
Nutrition with aspiration precautions --> CASING TESTER performed modified barium swallow study on 08/15/2024 showing no fluoroscopic evidence for airway aspiration
Physical and Occupational Therapy
Continue bowel regimen
Dr. Cooper reviewed with sister in regards to current diagnosis, prognosis and treatment plan on 08/16/2024
Critical care statement: A total of 37 minutes of critical care time was provided for this patient today. This includes management of unstable vital signs, evaluation of the patient at bedside, reviewing the patient's pertinent medical records
including radiographs, management of potential respiratory failure progression, microbiology, laboratory evaluations, and discussion with primary team, consultants, pharmacy, nutrition, physical therapy, case management, charge nurse, critical care
nursing, and respiratory therapy.
Diagnostic data:
Chest x-ray 07/04/2024-NAD
Modified barium swallow study 08/15/2024: No fluoroscopic evidence for airway aspiration.
Brain MRI 08/09/2024-nodular focus of enhancement superior left cerebellar hemisphere etiology uncertain, neoplasia possible, demyelination could be considered, vasculitis could be considered, diffuse fatty atrophy of the right parotid gland
Cervical spine MRI 08/09/24-5 mm well-defined focus of enhancement in the lateral margin of the zhcjb-ph-fxlz, mild to moderate changes of DJD unchanged from 2024, slight anterior cord compression at C5-6
Thoracic spine MRI 08/10/2024-no abnormal enhancement to suggest acute myelopathy
Lumbar spine MRI 08/10/2024-mild degenerative changes and mild bilateral neural foraminal stenosis L4-5 and L5-6 1, no abnormal enhancement
Subjective Dataa
Subjective Data
Date of Service:
Date of Service: August 16, 2024
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
Subjective:
Patient seen and evaluated today at bedside. Had a bowel movement this morning but was a small amount. MIP done last night which was 14 cm water. She currently denies shortness of breath. On tube feeds at 60 cc an hour with BP 134/68, heart rate
102 and saturating 95% on room air. Still having whole body pain which feels like a stinging/stabbing sensation. Her sister is at bedside and all questions were answered. Patient denies SURESH, nausea, vomiting, fevers or chills.
Review of Systems
General: Other (Negative unless mentioned above)
Objective Data
Data Reviewed
Vital Signs / I&O / Oxygen:
Vital Signs
Temp Pulse Resp BP Pulse Ox
97.7 F 87 23 139/75 95
08/16/24 07:35 08/16/24 09:00 08/16/24 09:00 08/16/24 09:00 08/16/24 09:00
Intake and Output
08/15/24 08/16/24 08/17/24
06:59 06:59 06:59
Intake Total 1470 / 1530 1395 / 1395 200 / 200
Output Total 1450 / 1450 1110 / 1110 15 / 15
Balance 20 / 80 285 / 285 185 / 185
SaO2 95
Physical Exam
General: Respiratory Distress (negative), Pain (Generalized discomfort throughout her entire body), Chills (negative) and Sweats (negative)
HEENT: Normocephalic, Anicteric and Other (Dry oral mucous membrane)
Cardiovascular: S1-S2 and Peripheral Edema (negative)
Respiratory: Clear, Wheeze (negative), Crackles (negative), Rhonchi (negative), Accessory Resp Muscle Use (negative), Stridor (negative) and Other (Reduced inspiratory effort)
GI: Soft, Non Distended, Non Tender, NG Tube (DHT) and Other (dysphagia )
Neurology: AO x 3, Tremors (n) and Other (Lower extremity weakness >upper extremity weakness; numbness on hands )
Skin: Warm, Dry, Cyanosis (negative) and Jaundice (negative)
Labs/Micro/Reports
Lab Data
08/16/24 04:58
08/16/24 04:58
Laboratory Results
08/16/24
04:58
PT 14.5
INR 1.10
APTT 27.6
Microbiology
08/08/24 14:01 Csf CSF Culture - Final
No Growth After 5 Days - Final Report
08/08/24 14:01 Csf Gram Stain - Final
[2024-08-16] MEDS: LIDOCAINE 4% PATCH 1 PATCH TOPICAL ×2 (08:35)
[2024-08-16] MEDS: MIRALAX 17 GRAMS PO (08:35)
[2024-08-16] MEDS: CYTOMEL 5 MICROGRAM PO ×2 (08:36→16:04)
[2024-08-16] MEDS: LYRICA 100 MG PO (08:37)
[2024-08-16] MEDS: PROTONIX 40 MG PO (08:37)
[2024-08-16] MEDS: VITAMIN B1 100 MG PO (08:41)
[2024-08-16] MEDS: DILAUDID 1 MG IV ×3 (08:56→21:26)
--- NOTE | 2024-08-16 10:00 | W.PN.HOSP.TC ---
Today's Communication/Plan
-
Continue current care
Assessment / Plan
Assessment / Plan
Gen-AAOx3, NAD
HEENT-NC, AT, anicteric, clear oral mm, left 6th nerve palsy
Neck-supple
CV-reg, no M, +S1/S2
Lungs-clear B/L
Abd-soft, NT, ND
Ext-no edema
Musculoskeletal-no cyanosis, clubbing
Skin-warm and dry
Neuro-symmetrical paraplegia of lower extremities, moving upper extremities
Psych-calm, cooperative
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 Left 6th nerve palsy noted. Having double vision with both eyes open.
- MRI imaging of spine (C/T/L with contrast) without evidence of any enhancing lesions, myelopathic signals.
- MRI brain: delayed images reveal Nodular focus of enhancement within the superior left cerebellar hemisphere, with a larger region of surrounding increased T2 and FLAIR signal. See above discussion regarding timing of contrast enhancement.
Etiology for this finding is uncertain. It could possibly represent neoplasia. A focus of demyelination could be considered. Vasculitis could also be considered. This could possibly be a vascular/venous anomaly, although the surrounding increased T2
and FLAIR signal is atypical.
- plan per Neurology is MRI brain with contrast repeat in 2 weeks
- s/p IVIG course without improvement, elevated LFTs
- s/p IR guided tunnel cath 08/10; to continue plasma exchange (s/p 3 sessions, next is 08/17) and every 48 hours. Plan for 5 treatments.
- monitor VC/NIFs, pulm exams serially
- follow extended neuro workup from serum and CSF studies
Intractable pain syndrome -due to Guillain-Morgan�. Continue IV Toradol. Minimize opiates if able, discussed with patient. Currently on IV Dilaudid as needed.
Acute dysphagia -due to Guillain-Morgan� syndrome. Dobbhoff tube placed and tube feeds are running. Speech therapy recommends nonoral means of feeding. Teaspoon sips of mildly thick liquids. Upright to 90 degrees with full supervision. High risk
for aspiration. Video swallowing study completed 08/15.
Acute urinary retention -due to Guillain-Morgan� syndrome. Block catheter placed.
Hyponatremia -134.
Elevated LFTs -trending down. Primarily transaminases.
- suspected related to IVIG; trend
- has no abdominal discomfort
Chronic neck pain
- continue Gabapentin to 800mg TID. Monitor for sedation
Mild intermittent asthma - stable.
History of thyroid cancer - continue Cytomel and Synthroid (patient prefers brand name - is using her own supply). noted low TSH, normal T4
DVT ppx: Lovenox
Code: Full
Dispo -acute rehab when medically stable. I reviewed expectations and expected clinical course with patient. Explained that she will likely not see significant acute improvement after plasmapheresis. May take several weeks if not months to see
improvement in strength and function.
Anticipated Discharge: > 48 hours
Subjective/Interval History
-
Date of Service: August 16, 2024
Patient seen and examined. Denies shortness of breath. Complaining of pain.
Objective Data
-
Labs:
Laboratory Results
08/16/24
04:58
WBC 12.7 H
Hgb 12.8
Hct 35.3 L
Plt Count 259
PT 14.5
INR 1.10
APTT 27.6
Sodium 134 L
Potassium 3.6
Chloride 98
Carbon Dioxide 25
BUN 17
Creatinine 0.3 L
Glucose 148 H
Calcium 9.0
Total Bilirubin 0.7
AST 25
ALT 30
Alkaline Phosphatase 28 L
Vital Signs:
Vital Signs
Temp Pulse Resp BP Pulse Ox
97.7 F 87 23 139/75 95
08/16/24 07:35 08/16/24 09:00 08/16/24 09:00 08/16/24 09:00 08/16/24 09:00
I&O
08/15/24 08/16/24 08/17/24
06:59 06:59 06:59
Intake Total 1470 / 1530 1395 / 1395 200 / 200
Output Total 1450 / 1450 1110 / 1110 15 / 15
Balance 20 / 80 285 / 285 185 / 185
Review of Systems
-
History Source: Patient
All other systems: Reviewed and negative
--- NOTE | 2024-08-16 10:42 | PTCARENOTE ---
Patient received in bed, AAOX3, slurred speech noted. Bilateral upper extremities 2/5, left arm stronger than right, trace movement of lower extremities. NSR on monitor, trace lower extremity edema. Lungs diminished bibasilar, pulse ox 95% on
room air. DHT in right nare with jevity infusing, increased to goal 55 ml/hr with 25 ml/hr water flush. Abdomen soft non tender with positive bowel sounds. Block catheter draining yellow urine. Skin intact. PIV x2 in right flushed and patent.Pt
c/o pain 10/10-worse than yesterday. Dilaudid given along with scheduled Lyrica. Bed bath performed. Call perkins within reach
[2024-08-16] MEDS: DILAUDID 0.5 MG IV (11:29)
--- NOTE | 2024-08-16 12:07 | PTCARENOTE ---
Pt medicated for body pain. Assessment unchanged. Family at bedside.
--- NOTE | 2024-08-16 12:34 | CM ---
CM following re: discharge planning.
Discussed in Rounds, reviewed pt's chart, met with pt.
PT, OT and ST continue recommending acute rehab level of care. [facility] worker following.
Physiatry consult pending.
D/C plan: [facility] when medically stable. Per previous CM note, no auth is required.
CM will follow to assist pt with discharge to [facility]
[2024-08-16] MEDS: LYRICA 200 MG TUBE ×2 (16:04→21:07)
[2024-08-16] MEDS: LOVENOX 40 MG SC (18:04)
--- NOTE | 2024-08-16 20:00 | PTCARENOTE ---
rec`d pt at 1900 AAOx3. slurred speech, double vision in left eye but can see out of both eyes. pupils equal and reactive, continuous pain throughout body. cannot move lower extrem. can move lower half of arms. SCDS now on pt. trace lower ankle
edema. +pulses. RA POX 95%. diminished throughout. rt nare dobhoff running with [employer] TF at 55/hr w/ 25 flush. traylor draining palmer urine. incontinent of brown loose stool. sacral foam in place for protection. BM at change of shift, brown loose. rt
FA and Rt W flushed and patent. Also spoke to Glenys from [facility]; therapy is to start at 9 am on 08/17. call perkins in reach, safe environment maintained. pt`s sister at bedside.
[2024-08-16] MEDS: SENOKOT-S PO (20:47)
[2024-08-17] VITALS (26 sets, daily range): BP systolic 97–163; BP diastolic 52–88; BMI 24.2
[2024-08-17] MEDS: DILAUDID 1 MG IV ×4 (00:15→09:17)
[2024-08-17] MEDS: TORADOL 15 MG IV ×4 (04:10→21:22)
[2024-08-17 04:47] LABS: % Basophils 0.6 % (0-2); % Eosinophils 1.8 % (0-6); % Immature Granulocytes 0.3 % (0-0.5); % Lymphocytes 19.4 % (20.5-51.1); % Monocytes 8.5 % (1.7-9.3); % Neutrophils 69.4 % (42.2-75.2); Absolute Basophils 0.1 10^3/uL (0-0.2); Absolute Eosinophils 0.2 10^3/uL (0-0.7); Absolute Lymphocytes 2.1 10^3/uL (1.2-3.4); Absolute Monocytes 0.9 10^3/uL (0.1-0.6); Absolute Neutrophils 7.4 10^3/uL (1.4-6.5); Hematocrit 34.7 % (37.0-47.0); Hemoglobin 12.5 g/dL (12.0-16.0); Mean Corpuscular Hgb 32.7 pg (27.0-31.0); Mean Corpuscular Volume 90.8 fL (81.0-99.0); Mean Platelet Volume 9.8 fL (7.4-10.4); Nucleated Red Blood Cells % 0 %; Platelet Count 251 10^3/uL (130-400); Red Blood Cell Count 3.82 10^6/uL (4.20-5.40); Red Cell Dist. Width 12.7 % (11.5-14.5); White Blood Cell Count 10.7 10^3/uL (4.8-10.8)
[2024-08-17 04:57] LABS: APTT 27.7 Sec (23.4-35.0); Fibrinogen 245 MG/DL (199-459); INR 0.97; PT 13.2 Sec (11.4-14.6)
[2024-08-17 05:17] LABS: Blood Urea Nitrogen 17 mg/dl (7-17); Calcium 8.9 mg/dl (8.4-10.2); Carbon Dioxide 29 mmol/L (22-30); Chloride 97 mmol/L (98-107); Estimated Creatinine Clearance 102 ml/min; Glucose 133 mg/dl (70-99); LDH 152 U/L (120-246); Magnesium 2.4 mg/dl (1.6-2.3); Phosphorus 3.3 mg/dl (2.5-4.5); Potassium 3.7 mmol/L (3.5-5.1); Sodium 135 mmol/L (135-145); eGFR > 60.00
[2024-08-17] MEDS: NON-FORMULARY ITEM 1 UNIT PO (05:39)
[2024-08-17] MEDS: LIDOCAINE 4% PATCH 1 PATCH TOPICAL ×2 (08:23→08:24)
[2024-08-17] MEDS: PROTONIX 40 MG PO (08:24)
[2024-08-17] MEDS: SENOKOT-S 1 TABLET PO ×2 (08:24→21:24)
[2024-08-17] MEDS: MIRALAX PO (08:25)
[2024-08-17] MEDS: LYRICA 200 MG TUBE ×3 (08:25→21:23)
[2024-08-17] MEDS: CYTOMEL 5 MICROGRAM PO ×2 (08:26→15:34)
[2024-08-17] MEDS: VITAMIN B1 100 MG PO (08:26)
--- NOTE | 2024-08-17 08:28 | W.PN.INTV ---
Today's Communication / Plan
Recommendations
4th PLEX session this AM
Continue bowel regimen
Lyrica to 200mg TID
Add PO dilaudid 4mg q6hr, holding for sedation
Continue Toradol at 15mg IV q6hr
Continue ATC tylenol (trend LFTs)
Monitor vital capacity + MIP
Analgesia
Continue ICU level care for this critically ill patient
Assessment
-
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
Impression:
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
Left cerebellar lesion
Acute urinary retention s/p Block (inserted 08/14/2024)
Conditions present prior to admission:
Asthma-mild intermittent.
Papillary thyroid cancer 2018.
Hypothyroid.
Hyperlipidemia.
Anxiety.
. Tubal ligation. Tonsillectomy. Thyroidectomy. Cholecystectomy.
Plan
Transferred patient to medical intensive care unit for close neurologic and respiratory evaluation
Triggers include previous infections including Campylobacter jejunum and viral infections including influenza A, B, CMV, COVID 19, Zika, and EBV as well as vaccinations including influenza (1-2/1 million), RSV, zoster, COVID-19 especially adenovirus
factors though noted with messenger RNA vaccines as well
Typical presentation includes lower extremity weakness, decreased deep tendon reflexes, paresthesias and dysautonomia's
Supplemental oxygen as needed-currently on room air and breathing comfortably
Incentive spirometry encouraged
Aspiration precautions
Nebulizers if needed-history of asthma-currently not bronchospastic
Monitor muscle strength and forced vital capacity
08/09/2024-FVC-1.6 L-predicted 2.9 and MIP 35
08/10/2024-FVC 1.5 L-predicted 2.9 and MIP 30
08/11/2024-FVC 1.6 L-predicted 2.9 and MIP 32
08/12/2024-FVC 1.7 L
Indications for intubation and mechanical ventilation include:
Respiratory rate greater than 30
Oxygen saturations less than 92%
FVC less than 20 mL/kg or greater than 30% decline
NIF less than -20
MEP less than 40
pCO2 elevation of greater than 50
Neurology evaluation ongoing-correspondence reviewed
Lumbar puncture on 08/08/2024 showed: total protein 56 and 0 WBC
Vitamin B12: 563, B1: 117, SHERRY level: <10, CSF Lyme PCR: Not detected, CSF SHERRY level: 1.8; SPEP: No M-spike seen; CRP: <5, copper level: 113.4
ESR and CRP normal-unlikely vasculitis
TRENA detected, homogenous pattern with 1:80 titer
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
Continue to monitor vital capacity + MIP every shift
Initial treatment-IVIG 0.4 mg/kg/day-finished 4 out of 5-changed to plasma exchange due to elevated LFTs
Plasma exchange began 08/11/2024-every other day for total 5 doses-underwent 4th session this AM; 1 more remaining
Hematology consultation/[place] consulted for plasma exchange
NCS/EMG's in 3 weeks
On 08/15/2024 her Neurontin was changed to lyrica 100mg BID--> on 08/16/2024 Neuro raised lyrica to 200mg TID
Continue toradol 15mg q6hr, Tylenol q6hr (monitor LFTs) and prn IV hydromorphone/PO oxycodone
Start scheduled PO dilaudid 4mg q6hr, holding for sedation
Bowel regimen while on opiates
Ativan as needed
Trend LFTs
Brain MRI 08/09/2024-nodular focus of enhancement superior left cerebellar hemisphere etiology uncertain, neoplasia possible, demyelination could be considered, vasculitis could be considered, diffuse fatty atrophy of the right parotid gland
Cervical spine MRI 08/09/24-5 mm well-defined focus of enhancement in the lateral margin of the [id number], mild to moderate changes of DJD unchanged from 2024, slight anterior cord compression at C5-6
Thoracic spine MRI 08/10/2024-no abnormal enhancement to suggest acute myelopathy
Lumbar spine MRI 08/10/2024-mild degenerative changes and mild bilateral neural foraminal stenosis L4-5 and L5-6 1, no abnormal enhancement
Next brain MRI on 08/23/2024 per neuro
DVT prophylaxis-on Lovenox and mechanical
Nutrition with aspiration precautions --> RIFFLER TENDER performed modified barium swallow study on 08/15/2024 showing no fluoroscopic evidence for airway aspiration
Physical and Occupational Therapy
Continue bowel regimen
Dr. Cooper reviewed with patient's father in regards to current diagnosis, prognosis and treatment plan on 08/17/2024
Critical care statement: A total of 41 minutes of critical care time was provided for this patient today. This includes management of unstable vital signs, evaluation of the patient at bedside, reviewing the patient's pertinent medical records
including radiographs, management of potential respiratory failure progression, microbiology, laboratory evaluations, and discussion with primary team, consultants, pharmacy, nutrition, physical therapy, case management, charge nurse, critical care
nursing, and respiratory therapy.
Diagnostic data:
Chest x-ray 07/04/2024-NAD
Modified barium swallow study 08/15/2024: No fluoroscopic evidence for airway aspiration.
Brain MRI 08/09/2024-nodular focus of enhancement superior left cerebellar hemisphere etiology uncertain, neoplasia possible, demyelination could be considered, vasculitis could be considered, diffuse fatty atrophy of the right parotid gland
Cervical spine MRI 08/09/24-5 mm well-defined focus of enhancement in the lateral margin of the [id number], mild to moderate changes of DJD unchanged from 2024, slight anterior cord compression at C5-6
Thoracic spine MRI 08/10/2024-no abnormal enhancement to suggest acute myelopathy
Lumbar spine MRI 08/10/2024-mild degenerative changes and mild bilateral neural foraminal stenosis L4-5 and L5-6 1, no abnormal enhancement
Subjective Dataa
Subjective Data
Date of Service:
Date of Service: August 17, 2024
Chief Complaint: Employment Law Specialist Follow Up and Pulmonary Follow Up
Subjective:
Seen and evaluated today at bedside. MIP last night was [id number]. currently saturating 94% on room air with BP 115/70 and heart rate 84. Currently on tube feeds at 55 cc an hour. Has excruciating pain in her groin and hips that feels like a
squeezing sensation. She underwent plasma exchange this morning. Her father, Remigio Mendez, is at bedside and all questions were answered. She currently denies shortness of breath, SURESH, nausea, fevers or chills.
Review of Systems
General: Other (Negative unless mentioned above)
Objective Data
Data Reviewed
Vital Signs / I&O / Oxygen:
Vital Signs
Temp Pulse Resp BP Pulse Ox
97.9 F 95 23 135/77 94
08/16/24 15:57 08/17/24 00:00 08/17/24 00:00 08/17/24 00:00 08/17/24 00:00
Intake and Output
08/16/24 08/17/24 08/18/24
06:59 06:59 06:59
Intake Total 1395 / 1395 1880 / 1880
Output Total 1110 / 1110 820 / 820
Balance 285 / 285 1060 / 1060
SaO2 94
Physical Exam
General: Respiratory Distress (negative), Pain (Generalized discomfort throughout her entire body, mainly in her hips and groin), Chills (negative) and Sweats (negative)
HEENT: Normocephalic and Anicteric
Cardiovascular: S1-S2 and Peripheral Edema (negative)
Respiratory: Clear, Wheeze (negative), Crackles (negative), Rhonchi (negative), Accessory Resp Muscle Use (negative), Stridor (negative) and Other (Reduced inspiratory effort)
GI: Soft, Non Distended, Non Tender and NG Tube (DHT)
Neurology: Awake, Alert, Oriented, AO x 3, Tremors (No) and Other (Lower extremity weakness >upper extremity weakness; numbness on hands )
Skin: Warm, Dry, Cyanosis (negative) and Jaundice (negative)
Labs/Micro/Reports
Lab Data
08/17/24 04:22
08/17/24 04:22
Laboratory Results
08/17/24
04:22
PT 13.2
INR 0.97
APTT 27.7
--- NOTE | 2024-08-17 09:10 | PTCARENOTE ---
Patient received in bed, AAOX3, slurred speech noted. Bilateral upper extremities 2/5, left arm stronger than right, trace movement of lower extremities. NSR on monitor, trace lower extremity edema. LUE appears slightly stronger than yesterday,
able to raise elbow off bed. Lungs diminished bibasilar, pulse ox 94% on room air. DHT in right nare with jevity infusing, goal 55 ml/hr with 25 ml/hr water flush. Abdomen soft non tender with positive bowel sounds. Block catheter draining yellow
urine. Skin intact. PIV x2 in right flushed and patent.Pt c/o pain 03/05. Dilaudid given along with scheduled Lyrica. Face washed and teeth brushed with assistance. Call perkins within reach.
--- NOTE | 2024-08-17 09:14 | W.PN.NEURO.1 ---
Today's Communication / Plan
-
Continue plasma exchange, undergoing fourth treatment of 5 on August 17, 2024
Continue pregabalin 200 mg 3x/day
Follow-up brain MRI with kishore on 08/23/24
Neuro Assessment/Plan
Assessment
I. Guillain-[place] syndrome, most likely Peres Bryan variant. Patient received 3 doses of IVIG then switched to plasma exchange treatment due to elevated LFTs. Positive GD1b antibodies (found in patients with Guillain-Morgan� syndrome and multifocal
motor neuropathy); NCS/EMG concurs with GBS
II. Left cerebellar lesion. Differential diagnosis includes demyelinating lesion or metabolic abnormality or low grade neoplastic vs vascular vs inflammatory vs less likely infectious etiologies
Cytology has been unremarkable, oligoclonal bands negative, no white blood cells in CSF
III. Mild toxic encephalopathy
Plan
Continue plasma exchange, undergoing fourth treatment of 5 on August 17, 2024
Continue pregabalin 200 mg 3x/day
Follow-up brain MRI with kishore on 08/23/24
Due to prognosis being guarded for the patient being able to provide airway protection, consider intubation
Initiated thiamine due to the patient's left 6th nerve palsy although most likely secondary to Peres Bryan variant of Guillain-Morgan�
Will follow
Subjective/Objective
Subjective Data
Date of Service: August 17, 2024
Mildly improved in strength, mild improvement in pain control
Objective Data
Vital Signs
Temp Pulse Resp BP Pulse Ox
36.6 C 95 23 135/77 94
08/16/24 15:57 08/17/24 00:00 08/17/24 00:00 08/17/24 00:00 08/17/24 00:00
Lab Results
08/17/24 04:22
08/17/24 04:22
PT 13.2 Sec (11.4-14.6) 08/17/24 04:22
INR 0.97 08/17/24 04:22
APTT 27.7 Sec (23.4-35.0) 08/17/24 04:22
Sodium 135 mmol/L (135-145) 08/17/24 04:22
Potassium 3.7 mmol/L (3.5-5.1) 08/17/24 04:22
BUN 17 mg/dl (7-17) 08/17/24 04:22
Glucose 133 mg/dl (70-99) H 08/17/24 04:22
Calcium 8.9 mg/dl (8.4-10.2) 08/17/24 04:22
Phosphorus 3.3 mg/dl (2.5-4.5) 08/17/24 04:22
Whole Bld Vitamin B1 117 nmol/L (70-180) 08/08/24 07:47
Whole Bld Vitamin B1 Cancelled 08/08/24 07:47
Vitamin B12 563 pg/ml (239-931) 08/08/24 07:47
Vitamin B12 Cancelled 08/08/24 07:47
Patient Allergies
strawberry Allergy (Verified 08/07/24 14:51)
Swelling
aspirin [Aspirin] Adverse Reaction (Verified 08/07/24 14:51)
GI upset
BANDAID Allergy (Uncoded 08/07/24 14:51)
Rash
Review of Systems
-
History Source: Patient
All other systems: Reviewed and negative
EENT: Swallowing Difficulty and Other (diplopia); Negative Decreased Vision
Respiratory: Negative Trouble Breathing
Cardiac: Negative Chest Pain
Abdomen/GI: Negative Incontinence of Stool
Genitourinary: Negative Incontinence
Musculoskeletal: Back Pain and Neck Pain
Neuro: Negative Dizzy or Headache
Physical Exam
-
General: No Apparent Distress, Appears Stated Age and Other (Dobbhoff tube in nares)
Eyes: Round OU and [place] Conjunctivae
HEENT: Anicteric and Moist Mucous Membranes
Neck: Full Range of Motion
Respiratory: No Dyspnea
Cardiac: No JVD
GI: Non-distended
Skin: Unremarkable
Extremities: No Clubbing, No Cyanosis and No Edema
Psych: Intact Judgement/Insight
Extended Neurological Exam
Mood & Affect: Anxious
Attention Span & Concentration: Awake, Alert, Interactive, Closes Eyes after Stimulation (After approximately 5 seconds) and Other (No difficulty with single step requests or recall)
Memory: Unremarkable
Tremor: Hand Tremor Absent and Head Tremor Absent
Involuntary Movement: None
Speech: Dysarthric (Mildly); Negative Hoarse
Cranial Nerve II: Left Eye: Pupillary Size Unremarkable and Visual [place] Grossly Intact
Cranial Nerve II: Right Eye: Pupillary Size Unremarkable and Visual [place] Grossly Intact
Cranial Nerves III, IV, : Extraocular Movement: Otherwise Unremarkable and Other (Left lateral rectus paralysis)
Cranial Nerve VII: Facial Symmetry: Reduced (Reduced facial movement bilaterally)
Cranial Nerve VIII: Hearing: Unremarkable Hearing to Normal Conversational Volume
Cranial Nerve XI: Shoulder Shrug: Reduced on Right and Reduced on Left
Muscle Strength, Overall: Reduced (Bilateral upper extremities with the patient unable to lift right arm off of bed, able to lift left arm off of bed for approximately 1 second; 1 out of 5 movement distally in bilateral lower extremities)
Muscle Bulk & Tone: Bulk Unremarkable and Tone Unremarkable
Pronator Drift: Unable to Assess
Coordination: Reaches for Objects without Difficulty
Gait & Station: Unable to Assess
Data Reviewed
-
Labs: Report Reviewed
Reviewed with: Nurse and Patient
Old Records: Summarized
[2024-08-17] MEDS: ROXICODONE 5 MG PO (11:19)
[2024-08-17] MEDS: CALCIUM GLUCONATE 10% INJECTION 278 MG IV (11:19)
[2024-08-17] MEDS: HEPARIN 10000 UNITS INTRACATH (11:20)
--- NOTE | 2024-08-17 11:35 | W.PN.HOSP.TC ---
Today's Communication/Plan
-
Plasma exchange
PT/OT
Continue analgesics
Assessment / Plan
Assessment / Plan
Gen-AAOx3, NAD
HEENT-NC, AT, anicteric, clear oral mm, left 6th nerve palsy
Neck-supple
CV-reg, no M, +S1/S2
Lungs-clear B/L
Abd-soft, NT, ND
Ext-no edema
Musculoskeletal-no cyanosis, clubbing
Skin-warm and dry
Neuro-symmetrical paraplegia of lower extremities, moving upper extremities
Psych-calm, cooperative
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 Left 6th nerve palsy noted. Having double vision with both eyes open.
- MRI imaging of spine (C/T/L with contrast) without evidence of any enhancing lesions, myelopathic signals.
- MRI brain: delayed images reveal Nodular focus of enhancement within the superior left cerebellar hemisphere, with a larger region of surrounding increased T2 and FLAIR signal. See above discussion regarding timing of contrast enhancement.
Etiology for this finding is uncertain. It could possibly represent neoplasia. A focus of demyelination could be considered. Vasculitis could also be considered. This could possibly be a vascular/venous anomaly, although the surrounding increased T2
and FLAIR signal is atypical.
- plan per Neurology is MRI brain with contrast repeat in 2 weeks
- s/p IVIG course without improvement, elevated LFTs
- s/p IR guided tunnel cath 08/10; to continue plasma exchange, fourth session today 08/17. Plan for 5 treatments.
- monitor VC/NIFs, pulm exams serially
- follow extended neuro workup from serum and CSF studies
Intractable pain syndrome -due to Guillain-Morgan�. Continue IV Toradol. Oral Dilaudid [id number] started by core winder. Continue IV Dilaudid as needed.
Acute dysphagia -due to Guillain-Morgan� syndrome. Dobbhoff tube placed and tube feeds are running. Speech therapy recommends nonoral means of feeding. Teaspoon sips of mildly thick liquids. Upright to 90 degrees with full supervision. High risk
for aspiration. Video swallowing study completed 08/15.
Acute urinary retention -due to Guillain-Morgan� syndrome. Block catheter placed 08/15.
Hyponatremia -135.
Elevated LFTs -improved.
- suspected related to IVIG; trend
- has no abdominal discomfort
Chronic neck pain
Gabapentin changed to pregabalin by neurology. Monitor for sedation
Mild intermittent asthma - stable.
History of thyroid cancer - continue Cytomel and Synthroid (patient prefers brand name - is using her own supply). noted low TSH, normal T4
DVT ppx: Lovenox
Code: Full
Dispo -acute rehab when medically stable. I reviewed expectations and expected clinical course with patient. Explained that she will likely not see significant acute improvement after plasmapheresis. May take several weeks if not months to see
improvement in strength and function.
Anticipated Discharge: > 48 hours
Subjective/Interval History
-
Date of Service: August 17, 2024
Patient seen and examined. Feels stronger in her arms. Unable to move her legs. Still with double vision. Still with severe bilateral lower extremity pain, back pain.
Objective Data
-
Labs:
Laboratory Results
08/17/24
04:22
WBC 10.7
Hgb 12.5
Hct 34.7 L
Plt Count 251
PT 13.2
INR 0.97
APTT 27.7
Sodium 135
Potassium 3.7
Chloride 97 L
Carbon Dioxide 29
BUN 17
Creatinine 0.4 L
Glucose 133 H
Calcium 8.9
Vital Signs:
Vital Signs
Temp Pulse Resp BP Pulse Ox
97.7 F 77 24 158/65 98
08/17/24 07:00 08/17/24 11:30 08/17/24 11:30 08/17/24 11:30 08/17/24 11:30
I&O
08/16/24 08/17/24 08/18/24
06:59 06:59 06:59
Intake Total 1395 / 1395 1880 / 1960 500 / 500
Output Total 1110 / 1110 820 / 860 200 / 200
Balance 285 / 285 1060 / 1100 300 / 300
Review of Systems
-
History Source: Patient
All other systems: Reviewed and negative
[2024-08-17] MEDS: TYLENOL ORAL SOLUTION 650 MG TUBE ×3 (11:59→23:13)
[2024-08-17] MEDS: DILAUDID 4 MG TUBE ×3 (11:59→23:13)
--- NOTE | 2024-08-17 12:30 | PTCARENOTE ---
Plasmapheresis completed without issue. Pt given new scheduled pain meds. Family at bedside.
[2024-08-17] MEDS: DILAUDID 0.5 MG IV (17:11)
[2024-08-17] MEDS: LOVENOX 40 MG SC (17:32)
--- NOTE | 2024-08-17 20:00 | PTCARENOTE ---
rec`d pt at 1900 AAOx3. slurred speech, pupils equal and reactive, continuous pain throughout body. cannot move lower extrem. can move lower half of arms. boots on pt. afebrile, trace lower ankle edema. +pulses. RA POX 95%. diminished throughout. rt
petere dobhoff @65 cm marl, running with [employer] TF at 55/hr w/ 25 flush. traylor draining palmer urine. t FA and Rt W flushed and patent. call perkins in reach, safe environment maintained. pt`s son at bedside.
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
[2024-08-18] VITALS (18 sets, daily range): BP systolic 100–128; BP diastolic 53–116; BMI 23.8
--- NOTE | 2024-08-18 00:13 | PTCARENOTE ---
TF set changed. dobhoff flushed and patent.
[2024-08-18] MEDS: DILAUDID 0.5 MG IV (01:27)
[2024-08-18 05:10] LABS: % Basophils 0.6 % (0-2); % Eosinophils 2.9 % (0-6); % Immature Granulocytes 0.4 % (0-0.5); % Lymphocytes 19.2 % (20.5-51.1); % Monocytes 6.6 % (1.7-9.3); % Neutrophils 70.3 % (42.2-75.2); Absolute Basophils 0.1 10^3/uL (0-0.2); Absolute Eosinophils 0.3 10^3/uL (0-0.7); Absolute Lymphocytes 2.1 10^3/uL (1.2-3.4); Absolute Monocytes 0.7 10^3/uL (0.1-0.6); Absolute Neutrophils 7.7 10^3/uL (1.4-6.5); Hematocrit 36.1 % (37.0-47.0); Hemoglobin 12.6 g/dL (12.0-16.0); Mean Corp Hgb Conc. 34.9 g/dL (33.0-37.0); Mean Corpuscular Hgb 32.4 pg (27.0-31.0); Mean Corpuscular Volume 92.8 fL (81.0-99.0); Nucleated Red Blood Cells % 0 %; Platelet Count 259 10^3/uL (130-400); Red Blood Cell Count 3.89 10^6/uL (4.20-5.40); Red Cell Dist. Width 13.1 % (11.5-14.5); White Blood Cell Count 10.9 10^3/uL (4.8-10.8)
[2024-08-18 05:18] LABS: INR 1.06; PT 14.1 Sec (11.4-14.6)
[2024-08-18 05:19] LABS: APTT 28.5 Sec (23.4-35.0)
[2024-08-18 05:34] LABS: Blood Urea Nitrogen 18 mg/dl (7-17); Carbon Dioxide 31 mmol/L (22-30); Chloride 95 mmol/L (98-107); Estimated Creatinine Clearance 102 ml/min; Glucose 134 mg/dl (70-99); LDH 181 U/L (120-246); Magnesium 2.5 mg/dl (1.6-2.3); Phosphorus 3.7 mg/dl (2.5-4.5); Potassium 3.9 mmol/L (3.5-5.1); Sodium 135 mmol/L (135-145); eGFR > 60.00
[2024-08-18] MEDS: TYLENOL ORAL SOLUTION 650 MG TUBE ×3 (05:53→18:14)
[2024-08-18] MEDS: TORADOL 15 MG IV ×4 (05:53→21:17)
[2024-08-18] MEDS: DILAUDID 4 MG TUBE ×3 (05:54→18:13)
[2024-08-18] MEDS: NON-FORMULARY ITEM 1 UNIT PO (05:58)
[2024-08-18 06:00] LABS: Fibrinogen 180 MG/DL (199-459)
[2024-08-18 06:25] LABS: Venous Blood Gas B.E. 5.9 mmol/L (-4 to +4); Venous Blood Gas HCO3 31.2 mmol/L (22-27); Venous Blood Gas O2 Sat % 99.4 %; Venous Blood Gas pCO2 47 mmHg (35-48); Venous Blood Gas pH 7.43 (7.32-7.43); Venous Blood Gas pO2 144 mmHg (30-50)
--- NOTE | 2024-08-18 06:37 | PTCARENOTE ---
full bed bath complete. change of sheets and pillow cases. pt comfortable in bed.
--- NOTE | 2024-08-18 08:24 | W.PN.INTV ---
Today's Communication / Plan
Recommendations
4th PLEX session yesterday AM; last session tomorrow (08/19)
Continue bowel regimen
Lyrica 200mg TID
Continue PO dilaudid 4mg q6hr, holding for sedation
Continue Toradol at 15mg IV q6hr
Continue ATC tylenol (trend LFTs)
Monitor vital capacity + MIP
Analgesia
If acute respiratory failure develops then would check ABG and start BiPAP, with consideration for ENT consult to go directly to tracheostomy
Patient stable for downgrade out of ICU to IMU. Pulmonary will continue to briefly follow along.
Assessment
-
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
Guillain-Morgan� syndrome and transferred to ICU-router tender consulted for Guillain-Morgan� syndrome/critical care management 08/09/2024.
Impression:
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
Left cerebellar lesion
Acute urinary retention s/p Block (inserted 08/14/2024)
Conditions present prior to admission:
Asthma-mild intermittent.
Papillary thyroid cancer 2017.
Hypothyroid.
Hyperlipidemia.
Anxiety.
. Tubal ligation. Tonsillectomy. Thyroidectomy. Cholecystectomy.
Plan
Transferred patient to medical intensive care unit for close neurologic and respiratory evaluation
Triggers include previous infections including Campylobacter jejunum and viral infections including influenza A, B, CMV, COVID 19, Zika, and EBV as well as vaccinations including influenza (1-2/1 million), RSV, zoster, COVID-19 especially adenovirus
factors though noted with messenger RNA vaccines as well
Typical presentation includes lower extremity weakness, decreased deep tendon reflexes, paresthesias and dysautonomia's
Supplemental oxygen as needed-currently on room air and breathing comfortably
Incentive spirometry encouraged
Aspiration precautions
Nebulizers if needed-history of asthma-currently not bronchospastic
Monitor muscle strength and forced vital capacity
08/09/2024-FVC-1.6 L-predicted 2.9 and MIP 35
08/10/2024-FVC 1.5 L-predicted 2.9 and MIP 30
08/11/2024-FVC 1.6 L-predicted 2.9 and MIP 32
08/12/2024-FVC 1.7 L
Continue to monitor pulse oximetry, work of breathing, and MIP + vital capacity closely
As long as her MIP + VC remain stable, she is saturating >90% and she has no increased work of breathing, no need for mechanical ventilation
If she does start to develop respiratory failure then would check ABG and transition her to BiPAP to assist her ventilation, and consider ENT consult for evaluation for tracheostomy
Neurology evaluation ongoing-correspondence reviewed
Lumbar puncture on 08/08/2024 showed: total protein 56 and 0 WBC
Vitamin B12: 563, B1: 117, SHERRY level: <10, CSF Lyme PCR: Not detected, CSF SHERRY level: 1.8; SPEP: No M-spike seen; CRP: <5, copper level: 113.4
ESR and CRP normal-unlikely vasculitis
TRENA detected, homogenous pattern with 1:80 titer
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
Continue to monitor vital capacity + MIP every shift
Initial treatment-IVIG 0.4 mg/kg/day-finished 4 out of 5-changed to plasma exchange due to elevated LFTs
Plasma exchange began 08/11/2024-every other day for total 5 doses-underwent 4th session AM of 08/17/2024; 1 more remaining on 08/19/2024
Hematology consultation/[place] consulted for plasma exchange
NCS/EMGs in 3 weeks
On 08/15/2024 her Neurontin was changed to lyrica 100mg BID--> on 08/16/2024 Neuro raised lyrica to 200mg TID
Continue toradol 15mg q6hr, Tylenol q6hr (monitor LFTs) and prn IV hydromorphone/PO oxycodone
On 17/09/2024 we started scheduled PO dilaudid 4mg q6hr, holding for sedation
Cymbalta started today by neurology
Bowel regimen while on opiates
Ativan as needed
Trend LFTs
Brain MRI 08/09/2024-nodular focus of enhancement superior left cerebellar hemisphere etiology uncertain, neoplasia possible, demyelination could be considered, vasculitis could be considered, diffuse fatty atrophy of the right parotid gland
Cervical spine MRI 08/09/24-5 mm well-defined focus of enhancement in the lateral margin of the [id number]-zurw, mild to moderate changes of DJD unchanged from 2024, slight anterior cord compression at C5-6
Thoracic spine MRI 08/10/2024-no abnormal enhancement to suggest acute myelopathy
Lumbar spine MRI 08/10/2024-mild degenerative changes and mild bilateral neural foraminal stenosis L4-5 and L5-6 1, no abnormal enhancement
Next brain MRI on 08/23/2024 per neuro
DVT prophylaxis-on Lovenox and mechanical
Nutrition with aspiration precautions --> CHEESEMAKER HELPER performed modified barium swallow study on 08/15/2024 showing no fluoroscopic evidence for airway aspiration; CHEESEMAKER HELPER continuing to follow along
Physical and Occupational Therapy
Continue bowel regimen
Dr. Cooper reviewed with patient's father in regards to current diagnosis, prognosis and treatment plan on 08/17/2024
Patient stable for downgrade out of ICU to IMU. Pulmonary will continue to briefly follow along.
Diagnostic data:
Chest x-ray 07/04/2024-NAD
Modified barium swallow study 08/15/2024: No fluoroscopic evidence for airway aspiration.
Brain MRI 08/09/2024-nodular focus of enhancement superior left cerebellar hemisphere etiology uncertain, neoplasia possible, demyelination could be considered, vasculitis could be considered, diffuse fatty atrophy of the right parotid gland
Cervical spine MRI 08/09/24-5 mm well-defined focus of enhancement in the lateral margin of the [id number], mild to moderate changes of DJD unchanged from 2024, slight anterior cord compression at C5-6
Thoracic spine MRI 08/10/2024-no abnormal enhancement to suggest acute myelopathy
Lumbar spine MRI 08/10/2024-mild degenerative changes and mild bilateral neural foraminal stenosis L4-5 and L5-6 1, no abnormal enhancement
Total time spent today was 76 minutes for this encounter. Time includes reviewing laboratory test/imaging results, reviewing pertinent medical records, obtaining and reviewing medical history, performing an appropriate exam, ordering medications,
tests and procedures. Time also includes documentation of this encounter, coordinating patient care and communicating with other healthcare professionals. Total time does not include separately billed tests performed on this date of service.
Subjective Dataa
Subjective Data
Date of Service:
Date of Service: August 18, 2024
Chief Complaint: Wrinkle Chaser Follow Up and Pulmonary Follow Up
Subjective:
Patient seen and evaluated this morning. MIP last night was 18 cmH2O with vital capacity 1.1 L (40% predicted). Currently, heart rate 97, BP 119/57 and saturating 91% on room air. PLEX planned for tomorrow (last session). She is feeling okay,
breathing comfortably on room air. Still having pain that she feels is uncontrolled. She denies SURESH, nausea, vomiting, fevers or chills.
Review of Systems
General: Other (Negative unless mentioned above)
Objective Data
Data Reviewed
Vital Signs / I&O / Oxygen:
Vital Signs
Temp Pulse Resp BP Pulse Ox
98.1 F 84 16 121/75 94
08/18/24 04:35 08/18/24 06:00 08/18/24 06:00 08/18/24 04:00 08/18/24 06:00
Intake and Output
08/17/24 08/18/24 08/19/24
06:59 06:59 06:59
Intake Total 1880 / 1960 1620 / 1620
Output Total 820 / 860 1065 / 1065
Balance 1060 / 1100 555 / 555
SaO2 94
Physical Exam
General: Respiratory Distress (negative), Pain (Generalized discomfort throughout her entire body, mainly in her hips and groin), Chills (negative) and Sweats (negative)
HEENT: Normocephalic and Anicteric
Cardiovascular: S1-S2 and Peripheral Edema (negative)
Respiratory: Clear, Wheeze (negative), Crackles (negative), Rhonchi (negative), Accessory Resp Muscle Use (negative), Stridor (negative) and Other (Reduced inspiratory effort)
GI: Soft, Non Distended, Non Tender and NG Tube (DHT)
Neurology: Awake, Alert, Oriented, AO x 3, Tremors (No) and Other (Lower extremity weakness >upper extremity weakness; numbness on hands )
Skin: Warm, Dry, Cyanosis (negative) and Jaundice (negative)
Labs/Micro/Reports
Lab Data
08/18/24 04:40
08/18/24 04:40
Laboratory Results
08/18/24
04:40
PT 14.1
INR 1.06
APTT 28.5
[2024-08-18] MEDS: CYTOMEL 5 MICROGRAM PO ×2 (08:53→15:47)
[2024-08-18] MEDS: LIDOCAINE 4% PATCH 1 PATCH TOPICAL ×2 (08:53→08:54)
[2024-08-18] MEDS: PROTONIX 40 MG PO (08:54)
[2024-08-18] MEDS: LYRICA 200 MG TUBE ×3 (08:54→21:19)
[2024-08-18] MEDS: MIRALAX 17 GRAMS PO (08:54)
[2024-08-18] MEDS: VITAMIN B1 100 MG PO (08:55)
[2024-08-18] MEDS: SENOKOT-S 1 TABLET PO ×2 (08:55→21:19)
[2024-08-18] MEDS: PERIDEX 0.12% ORAL RINSE 15 ML PO ×4 (08:55→21:17)
[2024-08-18] MEDS: REFRESH EYE DROPS (PF) 1 DROPS OPHTH (09:10)
--- NOTE | 2024-08-18 09:17 | W.PN.INTV ---
Today's Communication / Plan
Recommendations
Planning to transfer IMU today
Continue bowel regimen/Last BM on 08/17
Continue Lyrica to 200mg TID
Continue PO dilaudid 4mg q6hr, holding for sedation
Continue Toradol at 15mg IV q6hr
Continue ATC tylenol (trend LFTs)
Monitor vital capacity + MIP
Assessment
-
Assessment:
The patient is a 58-year-old non-smoking female with a PMH of asthma, HL, hypothyroidism, diagnosis of papillary thyroid cancer in 2018 presented with lower extremity weakness as well as hand numbness to ER on 08/09/24. The patient had felt her
hand numbness a few days ago and was started on steroid treatment due a concern of her chronic cervical radiculopathy. The patient was unresponsive to outpatient prednisone. She was obtained nzozwwob-zvmxezdj-ipurcf-brain MRI (w/wo contrast) and
had a lumbar puncture and further studies for differential diagnosis. 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
on 08/09/24
Impression:
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
Left cerebellar lesion
Acute urinary retention s/p Block (inserted 08/14/2024)
Conditions present prior to admission:
Asthma-mild intermittent.
Papillary thyroid cancer 2018.
Hypothyroid.
Hyperlipidemia.
Anxiety.
Past Surgical History:. Tubal ligation. Tonsillectomy. Thyroidectomy. Cholecystectomy.
#Guillain-[place] syndrome, most likely peres Bryan Variant
-Brain MRI: nodular focus of enhancement superior left cerebellar hemisphere etiology uncertain, neoplasia possible, demyelination could be considered, vasculitis could be considered, diffuse fatty atrophy of the right parotid gland-Control MRI with
kishore on 08/23/24 was planned by Neuro
-NCS/EMG on 08/15 2024:acute idiopathic demyelinating polyradiculoneuropathy which is complaint with GBS
-Cervical/thoracal/Lumbar W/Wo contrast MRI: no significant findings
-GD1b was found elevated for 145 which compliant with GBS-- GD1a : 6 (Negative )
-Vit B12: 563, vit B1:117, ESR:8 /CRP<5 ,TRENA 1/160 titer , Lyme; Negative, CSF VDRL non-reactive , copper:113.4, CSF SHERRY 1.8 ;SS-A 37/SS-B4 , Acetylchol Rcpt Bind Ab: Negative, TRENA homogenous pattern with 1: 80 titer
-CSF no elevated protein/ normal CSF cytology/ SPEP: No M-spike seen/ , CSF Lyme PCR: Not detected
-ESR and CRP normal-unlikely vasculitis
-Physical exam relieves paresthesias, No clonus, no DTR on lower extremities, diplopia which is compliant with GBS possible a variant (Peres-Bryan syndrome)(6. cranial nerve involvement on the left side-esotropia)
-IVIG 0.4mg/kg/day for 5 days was started by Neuro-unfortunately diplopia and paraesthesia persisted despite 3 sessions and developed transaminitis- discontinued
-Plasma exchange was started on 08/11 through non-tunneled right internal jugular pheresis catheter: BMP:N, Mg:N, P:N, Fibrinogen level was found low at 154 ON 08/16- will follow up daily per hematology received -4rd session of 5 on 08/17 and
planning last one on 08/19
-Hematology and Neurology on board
-Appreciated for acute rehab assessment by PM%R on 08/17
#Pain and Anxiety
-Continue Pregabalin 200 mg TID
-Toradol IV at 15 mg and Lidocaine patch as needed
-Acetaminophen and Ibuprofen PRN
-Hydromorphone 1 mg and 0.5 ml PRN
-Lorazepam 0.5 mg as needed
#Transaminitis likely drug induced
-Resolved
-Likely IVIG induced
#Others
-Monitor neurologic status, Autonomic dysfunction (HR+BP) and muscle strength
-Block catheter was placed
-Constipation:Last BM on 08/17/24. Continue Colace and Senakot-S
-TF with Dobbhoff
-Supplemental oxygen as needed
-Incentive spirometry
-Aspiration precautions
-Nebulizers if needed (history of mild intermittent asthma)
-DVT prophylaxis on Lovenox
-Continue PT/OT assessment
-Monitor muscle strength and forced vital capacity
-Monitor forced vital capacity
08/09/2024-FVC-1.6 L-predicted 2.9 and MIP 35
08/10/2024-FVC 1.5 L-predicted 2.9 and MIP 30
08/11/2024-FVC 1.6 L-predicted 2.9 and MIP 32
08/12/2024-FVC 1.4 L-predicted 2.9 and MIP 25
08/13/2024-FVC 1.29-Z-idiczhghg 2.9 and MIP 28
08/16/2024-FVC 1.8-U-fbndggwes 2.9 and MIP 14
08/17/2024-FVC 1.9-D-ynsazoxyt 2.9 and MIP 18
On 08/18/2024 RR: 16, O2: 94%
Indications for intubation and mechanical ventilation include
Respiratory rate greater than 30
Oxygen saturations less than 92%
FVC less than 20 mL/kg or greater than 30% decline
NIF less than -30
MEP less than 40
pCO2 elevation of greater than 50
Diagnostic data:
Chest x-ray 07/04/2024-NAD
Modified barium swallow study 08/15/2024: No fluoroscopic evidence for airway aspiration.
Brain MRI 08/09/2024-nodular focus of enhancement superior left cerebellar hemisphere etiology uncertain, neoplasia possible, demyelination could be considered, vasculitis could be considered, diffuse fatty atrophy of the right parotid gland
Cervical spine MRI 08/09/24-5 mm well-defined focus of enhancement in the lateral margin of the kuugg-vx-wqaf, mild to moderate changes of DJD unchanged from 2024, slight anterior cord compression at C5-6
Thoracic spine MRI 08/10/2024-no abnormal enhancement to suggest acute myelopathy
Lumbar spine MRI 08/10/2024-mild degenerative changes and mild bilateral neural foraminal stenosis L4-5 and L5-6 1, no abnormal enhancement
ELECTRODIAGNOSTIC FINDINGS: 08/15/2024: Electrodiagnostic abnormalities are present consistent with early demyelinating polyradiculoneuropathy based on prolonged and absent F-wave responses.
The nerve conduction study showed paradoxical sparing of the sural sensory nerve response, which is normal.
The motor nerve conduction velocities, at this time, are normal and not in a range which confirms demyelinating neuropathy.
The needle EMG shows no recruitment of motor unit potentials throughout the lower limbs with the exception of the right medial gastrocnemius where there is reduced recruitment with a single unit potential of normal morphology. There is generalized
reduced recruitment pattern throughout the left upper limb.
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
RF Video Fluoro Swallow Exam on 08/15/2024: Impression: No fluoroscopic evidence for airway aspiration. Detailed findings as described above.
Subjective Dataa
Subjective Data
Date of Service:
Date of Service: August 18, 2024
Chief Complaint: [facility] Follow Up and Pulmonary Follow Up
Subjective:
Patient reports severe pain despite to be given opioids/nonopioids pain medication and lidocaine patch. Reports feels some abdominal bloating and her last BM was yesterday.
Review of Systems
General: Pain
HEENT: Dysphagia
Cardiopulmonary: Lower Extremity Pain
GI: Other (feeling distended )
Neuro: Dizziness
Genitourinary: Block
Objective Data
Data Reviewed
Vital Signs / I&O / Oxygen:
Vital Signs
Temp Pulse Resp BP Pulse Ox
98.1 F 84 16 121/75 94
08/18/24 04:35 08/18/24 06:00 08/18/24 06:00 08/18/24 04:00 08/18/24 06:00
Intake and Output
08/17/24 08/18/24 08/19/24
06:59 06:59 06:59
Intake Total 1879 / 1959 1620 / 1620
Output Total 820 / 860 1065 / 1065
Balance 1060 / 1100 555 / 555
SaO2 94
Physical Exam
General: Pain (Generalized discomfort throughout her entire body, mainly in her hips and groin)
HEENT: Normocephalic and Anicteric
Cardiovascular: S1-S2 and Regular Rhythm
Respiratory: Clear and Other (Reduced inspiratory effort)
GI: Soft, Non Distended, Non Tender, NG Tube (DHT) and Other
Neurology: Awake, Alert, Oriented, AO x 3 and Other (Lower extremity weakness >upper extremity weakness; numbness on hands )
Skin: Warm and Dry
Labs/Micro/Reports
Lab Data
08/18/24 04:40
08/18/24 04:40
Laboratory Results
08/18/24
04:40
PT 14.1
INR 1.06
APTT 28.5
--- NOTE | 2024-08-18 09:17 | W.PN.NEURO.1 ---
Today's Communication / Plan
-
Continue plasma exchange, underwent fifth treatment of 5 on August 19, 2024
Continue pregabalin 200 mg 3x/day
Start Duloxetine 30 mg daily for discomfort control
Follow-up brain MRI with kishore on 08/23/24
Neuro Assessment/Plan
Assessment
I. Guillain-[place] syndrome, most likely Peres Bryan variant. Patient received 3 doses of IVIG then switched to plasma exchange treatment due to elevated LFTs. Positive GD1b antibodies (found in patients with Guillain-Morgan� syndrome and multifocal
motor neuropathy); NCS/EMG concurs with GBS
II. Left cerebellar lesion. Differential diagnosis includes demyelinating lesion or metabolic abnormality or low grade neoplastic vs vascular vs inflammatory vs less likely infectious etiologies
Cytology has been unremarkable, oligoclonal bands negative, no white blood cells in CSF
III. Mild toxic encephalopathy
Plan
Continue plasma exchange, underwent fifth treatment of 5 on August 19, 2024
Continue pregabalin 200 mg 3x/day
Start Duloxetine 30 mg daily for discomfort control
Follow-up brain MRI with kishore on 08/23/24
Initiated thiamine due to the patient's left 6th nerve palsy although most likely secondary to Peres Bryan variant of Guillain-Morgan�
Rehab evaluations
Will follow
Subjective/Objective
Subjective Data
Date of Service: August 18, 2024
Pain unchanged
Objective Data
Vital Signs
Temp Pulse Resp BP Pulse Ox
36.7 C 84 16 121/75 94
08/18/24 04:35 08/18/24 06:00 08/18/24 06:00 08/18/24 04:00 08/18/24 06:00
Lab Results
08/18/24 04:40
08/18/24 04:40
PT 14.1 Sec (11.4-14.6) 08/18/24 04:40
INR 1.06 08/18/24 04:40
APTT 28.5 Sec (23.4-35.0) 08/18/24 04:40
Sodium 135 mmol/L (135-145) 08/18/24 04:40
Potassium 3.9 mmol/L (3.5-5.1) 08/18/24 04:40
BUN 18 mg/dl (7-17) H 08/18/24 04:40
Glucose 134 mg/dl (70-99) H 08/18/24 04:40
Calcium 9.0 mg/dl (8.4-10.2) 08/18/24 04:40
Phosphorus 3.7 mg/dl (2.5-4.5) 08/18/24 04:40
Whole Bld Vitamin B1 117 nmol/L (70-180) 08/08/24 07:47
Whole Bld Vitamin B1 Cancelled 08/08/24 07:47
Vitamin B12 563 pg/ml (239-931) 08/08/24 07:47
Vitamin B12 Cancelled 08/08/24 07:47
Patient Allergies
adhesive Allergy (Verified 08/17/24 23:05)
BANDAIDS-RASH/ITCHING
aspirin [Aspirin] Allergy (Verified 08/17/24 23:05)
GI upset/NAUSEA
strawberry Allergy (Verified 08/07/24 14:51)
Swelling
Review of Systems
-
History Source: Patient
All other systems: Reviewed and negative
EENT: Swallowing Difficulty (improved) and Other (diplopia); Negative Decreased Vision
Respiratory: Negative Trouble Breathing
Cardiac: Negative Chest Pain
Abdomen/GI: Negative Incontinence of Stool
Genitourinary: Negative Incontinence
Musculoskeletal: Back Pain and Neck Pain
Neuro: Negative Dizzy or Headache
Physical Exam
-
General: No Apparent Distress, Appears Stated Age and Other (Dobbhoff tube in nares)
Eyes: Round OU and [place] Conjunctivae
HEENT: Anicteric and Moist Mucous Membranes
Neck: Full Range of Motion
Respiratory: No Dyspnea
Cardiac: No JVD
GI: Non-distended
Skin: Unremarkable
Extremities: No Clubbing, No Cyanosis and No Edema
Psych: Intact Judgement/Insight
Extended Neurological Exam
Mood & Affect: Anxious
Attention Span & Concentration: Awake, Alert, Interactive, Closes Eyes after Stimulation (After approximately 5 seconds) and Other (No difficulty with single step requests or recall)
Memory: Unremarkable
Tremor: Hand Tremor Absent and Head Tremor Absent
Involuntary Movement: None
Speech: Dysarthric (Mildly); Negative Hoarse
Cranial Nerve II: Left Eye: Pupillary Size Unremarkable and Visual Robledo Grossly Intact
Cranial Nerve II: Right Eye: Pupillary Size Unremarkable and Visual Robledo Grossly Intact
Cranial Nerves III, IV, : Extraocular Movement: Otherwise Unremarkable and Other (Left lateral rectus paralysis)
Cranial Nerve VII: Facial Symmetry: Reduced (bilaterally)
Cranial Nerve VIII: Hearing: Unremarkable Hearing to Normal Conversational Volume
Muscle Strength, Overall: Reduced (upper extremities able to lift right arm off of bed 1 second, able to lift left arm off of bed for approximately 3 seconds; 1 out of 5 movement distally in bilateral lower extremities)
Muscle Bulk & Tone: Bulk Unremarkable and Tone Unremarkable
Coordination: Reaches for Objects without Difficulty
Gait & Station: Unable to Assess
Data Reviewed
-
Labs: Report Reviewed
Reviewed with: Nurse and Patient
Old Records: Summarized
Past History
Past History
ED Past Medical History: Asthma, Cancer (Papillary thyroid 2018), GERD, Hypercholesterolemia, Hypothyroidism, Psychiatric and Other (Celiac disease, vitamin D D deficiency, iron deficiency, hepatic steatosis, hemorrhoids, Guillain-Morgan� syndrome)
ED Past Surgical History: , Gynecological (uterine ablation, tubal ligation), Tonsilectomy and Other (Epidural steroid injections C7-T1 2018, 2019 L5-S1 epidural steroid injections)
Social History
Tobacco: Non-smoker
Alcohol: Occasional
Drug: Marijuana (medical marijuana)
Personal:
Living: with family
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
Family History
Family History: Negative CAD
Medications
-
Medications:
Generic Name Dose Route Start Last Admin
Trade Name Freq PRN Reason Stop Dose Admin
Acetaminophen 650 mg 08/07/24 19:55 08/10/24 17:36
Acetaminophen 325 Mg Tablet PO 09/04/24 19:54 650 mg
Q6HPRN PRN Administration
mild pain/ fever>100.5F
Acetaminophen 650 mg 08/17/24 12:00 08/18/24 05:53
Acetaminophen (Oral Solution) 650 Mg/20.3 Ml Cup TUBE 08/19/24 06:01 650 mg
Q6 CAMELIA Administration
Artificial Tears 1 drops 08/10/24 10:28 08/18/24 09:10
Artificial Tears Pf (Refresh) 10 Drop Droperette OPHTH 09/07/24 10:27 1 drops
QIDPRN PRN Administration
dry eyes
Chlorhexidine Gluconate 15 ml 08/18/24 09:00 08/18/24 08:55
Chlorhexidine Oral Rinse 0.12% 15 Ml Cup PO 09/15/24 08:59 15 ml
PCHS CAMELIA Administration
Docusate Sodium 100 mg 08/12/24 12:54
Docusate Sodium 100 Mg Capsule PO 09/09/24 12:53
BIDPRN PRN
STOOL SOFTENER
Enoxaparin Sodium 40 mg 08/08/24 18:00 08/17/24 17:32
Enoxaparin Sodium 40 Mg/0.4 Ml Syringe SC 09/05/24 17:59 40 mg
QPM CAMELIA Administration
Heparin Sodium 0 units 08/13/24 12:00 08/17/24 11:20
Heparin (1000 Units/Ml) 10,000 Units/10 Ml Vial INTRACATH 08/19/24 12:01 10,000 units
Q48H CAMELIA Administration
Hydromorphone HCl 1 mg 08/13/24 10:05 08/17/24 09:17
Hydromorphone 1 Mg/Ml Carpuject IV 08/25/24 11:18 1 mg
Q3HPRN PRN Administration
SEV PAIN, intractable to PO
Hydromorphone HCl 0.5 mg 08/13/24 10:05 08/18/24 01:27
Hydromorphone 0.5 Mg/0.5 Ml Syringe IV 08/25/24 11:19 0.5 mg
Q3HPRN PRN Administration
MOD PAIN, intractable to PO
Hydromorphone HCl 4 mg 08/17/24 12:00 08/18/24 05:54
Hydromorphone 4 Mg Tablet TUBE 08/31/24 11:59 4 mg
Q6 CAMELIA Administration
Calcium Gluconate 2,800 mg/ 278 mls @ 0 mls/hr 08/11/24 12:00 08/17/24 11:19
Sodium Chloride IV 08/19/24 12:01 278 mls
Q48H CAMELIA Administration
As Directed
Albumin Human 12.5 grams in 250 mls @ 1,500 mls/hr 08/19/24 12:00
Albumin 5% INTRACATH 08/19/24 13:49
.Q10M CAMELIA
Ketorolac Tromethamine 15 mg 08/15/24 16:00 08/18/24 05:53
Ketorolac 30 Mg/Ml Injection IV 08/20/24 15:59 15 mg
Q6H CAMELIA Administration
Lidocaine 1 patch 08/15/24 08:00 08/18/24 08:53
Lidocaine 4% Topical Patch TOPICAL 09/12/24 07:59 1 patch
DAILY CAMELIA Administration
Protocol
Lidocaine 1 patch 08/15/24 08:00 08/18/24 08:54
Lidocaine 4% Topical Patch TOPICAL 09/12/24 07:59 1 patch
DAILY CAMELIA Administration
Protocol
Liothyronine Sodium 5 microgram 08/13/24 16:00 08/18/24 08:53
Liothyronine 5 Microgram Tablet PO 09/10/24 15:59 5 microgram
BID@0800,1600 CAMELIA Administration
Lorazepam 0.5 mg 08/14/24 21:06 08/15/24 00:58
Lorazepam 2 Mg/Ml Vial IV 09/11/24 21:05 0.5 mg
Q4HPRN PRN Administration
anxiety
Synthroid (Brand 0 unit 08/09/24 06:00 08/18/24 05:58
Name Levothyroxine) PO 09/06/24 05:59 1 unit
125mcg Tablet - Take DAILY@0600 CAMELIA Administration
1/2 Tablet (62.5mcg
) Po Daily
Ondansetron HCl 4 mg 08/08/24 12:07 08/08/24 14:53
Ondansetron 4 Mg/2 Ml Vial IV 09/05/24 12:06 4 mg
Q6HPRN PRN Administration
NAUSEA/VOMITING
Oxycodone HCl 5 mg 08/13/24 10:04 08/17/24 11:19
Oxycodone 5 Mg Regular Release Tablet PO 08/27/24 10:03 5 mg
Q4HPRN PRN Administration
moderate to severe pain
Pantoprazole Sodium 40 mg 08/09/24 08:00 08/18/24 08:54
Pantoprazole 40 Mg Delayed Release Tablet PO 09/06/24 07:59 40 mg
DAILY CAMELIA Administration
Patch Removal 0 patch 08/15/24 20:00 08/17/24 21:24
Remove Lidocaine Patch REMOVE 09/12/24 19:59 2 patch
DAILY@2000 CAMELIA Administration
Polyethylene Glycol 17 grams 08/11/24 12:00 08/18/24 08:54
Polyethylene Glycol Powder 17 Grams Packet PO 09/08/24 11:59 17 grams
DAILY CAMELIA Administration
Pregabalin 200 mg 08/16/24 16:00 08/18/24 08:54
Pregabalin 100 Mg Capsule TUBE 09/13/24 15:59 200 mg
TID CAMELIA Administration
Senna/Docusate Sodium 1 tablet 08/16/24 20:00 08/18/24 08:55
Docusate W/Senna (Elisabeth-Colace) Tablet PO 09/13/24 19:59 1 tablet
BID CAMELIA Administration
Sennosides 8.6 mg 08/12/24 12:57
Sennosides (Senokot) 8.6 Mg Tablet PO 09/09/24 12:56
BIDPRN PRN
CONSTIPATION
Sodium Chloride 0 flush 08/07/24 21:00 08/13/24 18:53
Sodium Chloride 0.9% (Flush) Syringe IV 09/04/24 20:59 1 flush
PER PROTOCOL CAMELIA Administration
Sodium Chloride 0.25 ml 08/14/24 21:15
Nss (Pf) 10 Ml Vial For Ativan 0.5 Mg Dose IV 09/11/24 21:14
Q4HPRN PRN
IV LORAZEPAM DILUTION
Thiamine HCl 100 mg 08/15/24 12:00 08/18/24 08:55
Thiamine 100 Mg Tablet PO 09/12/24 11:59 100 mg
DAILY CAMELIA Administration
Valacyclovir HCl 500 mg 08/08/24 12:07 08/09/24 01:43
Valacyclovir Hcl 500 Mg Tablet PO 09/13/24 12:06 500 mg
DAILYPRN PRN Administration
fever blisters
[2024-08-18] MEDS: CYMBALTA DELAYED RELEASE 30 MG PO (09:40)
[2024-08-18] MEDS: TYLENOL 650 MG PO (09:40)
[2024-08-18] MEDS: ROXICODONE 5 MG PO (09:41)
--- NOTE | 2024-08-18 09:47 | W.PN.ONC2 ---
Today's Communication / Plan
-
Hematology will sign off after 5th exchange tomorrow
Impression
Impression
suspected Guillain-[place] syndrome, neurology changed IVIG to Albumin exchange due to eleated LFTs
Plan
Plan
Continue plasma exchange every other day x 5 sessions arranged as recommended by neurology. Next scheduled apheresis 08/19 (#5)
daily CBC, BMP, magnesium, phosphorus, fibrinogen, LDH, coags.
Further mgmt as per neurology
Subjective/Objective
Subjective
no new complaints
Vital Signs:
Vital Signs
Temp Pulse Resp BP Pulse Ox
98.1 F 84 16 121/75 94
08/18/24 04:35 08/18/24 06:00 08/18/24 06:00 08/18/24 04:00 08/18/24 06:00
Lab Results:
Laboratory Data
WBC 10.9 10^3/uL (4.8-10.8) H 08/18/24 04:40
Hgb 12.6 g/dL (12.0-16.0) 08/18/24 04:40
Plt Count 259 10^3/uL (130-400) 08/18/24 04:40
PT 14.1 Sec (11.4-14.6) 08/18/24 04:40
INR 1.06 08/18/24 04:40
APTT 28.5 Sec (23.4-35.0) 08/18/24 04:40
eGFR > 60.00 08/18/24 04:40
Physical Exam
General: Well Developed and No Apparent Distress
HEENT: Moist Mucous Membranes; Negative Jaundice, Dobhoff, 6th nerve palsy
Cardiology: Normal Sinus Rhythm
Pulmonary: Clear
GI: Soft
Extremities: Pulses Present; Negative Edema
Skin: Warm
Psych: Calm
Review of Systems
Review of Systems
ROS notable for HPI, otherwise negative
Orders
Orders
Orders From Last 24 Hours
08/17/24 12:00
Albumin Human 5% 250 ml [Albumin 5%] 12.5 grams in 250 ml INTRACATH 1,500 mls/hr
08/18/24 04:40
BMP [Basic Metabolic Panel] IN AM
CBC/With Diff [Complete Blood Count/With Diff] IN AM
Fibrinogen IN AM
LDH IN AM
Magnesium IN AM
PT/INR [Prothrombin Time] IN AM
PTT IN AM
Phos [Phosphorus] IN AM
08/19/24 06:00
BMP [Basic Metabolic Panel] IN AM
CBC/With Diff [Complete Blood Count/With Diff] IN AM
Fibrinogen IN AM
LDH IN AM
Magnesium IN AM
PT/INR [Prothrombin Time] IN AM
PTT IN AM
Phos [Phosphorus] IN AM
08/19/24 12:00
Albumin Human 5% 250 ml [Albumin 5%] 12.5 grams in 250 ml INTRACATH 1,500 mls/hr
08/20/24 06:00
BMP [Basic Metabolic Panel] IN AM
CBC/With Diff [Complete Blood Count/With Diff] IN AM
Fibrinogen IN AM
LDH IN AM
Magnesium IN AM
PT/INR [Prothrombin Time] IN AM
PTT IN AM
Phos [Phosphorus] IN AM
08/21/24 06:00
BMP [Basic Metabolic Panel] IN AM
CBC/With Diff [Complete Blood Count/With Diff] IN AM
Fibrinogen IN AM
LDH IN AM
Magnesium IN AM
PT/INR [Prothrombin Time] IN AM
PTT IN AM
Phos [Phosphorus] IN AM
--- NOTE | 2024-08-18 11:45 | PTCARENOTE ---
repositioned in chair with assistance of resp therapist. pt medicated for pain as scheduled. pt asked for eye patch on r eye after repositioned. systems otherwise unchanged.
--- NOTE | 2024-08-18 13:29 | W.PN.HOSP.TC ---
Today's Communication/Plan
-
Continue current care
Assessment / Plan
Assessment / Plan
Gen-AAOx3, NAD
HEENT-NC, AT, anicteric, clear oral mm, left 6th nerve palsy
Neck-supple
CV-reg, no M, +S1/S2
Lungs-clear B/L
Abd-soft, NT, ND
Ext-no edema
Musculoskeletal-no cyanosis, clubbing
Skin-warm and dry
Neuro-symmetrical paraplegia of lower extremities, moving upper extremities
Psych-calm, cooperative
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 Left 6th nerve palsy noted. Having double vision with both eyes open.
- MRI imaging of spine (C/T/L with contrast) without evidence of any enhancing lesions, myelopathic signals.
- MRI brain: delayed images reveal Nodular focus of enhancement within the superior left cerebellar hemisphere, with a larger region of surrounding increased T2 and FLAIR signal. See above discussion regarding timing of contrast enhancement.
Etiology for this finding is uncertain. It could possibly represent neoplasia. A focus of demyelination could be considered. Vasculitis could also be considered. This could possibly be a vascular/venous anomaly, although the surrounding increased T2
and FLAIR signal is atypical.
- plan per Neurology is MRI brain with contrast repeat in 2 weeks
- s/p IVIG course without improvement, elevated LFTs
- s/p IR guided tunnel cath 08/10; to continue plasma exchange, fourth session 08/17. Plan for 5 treatments.
- monitor VC/NIFs, pulm exams serially
- follow extended neuro workup from serum and CSF studies
Intractable pain syndrome -due to Guillain-Morgan�. Continue IV Toradol. Oral Dilaudid soicdf-tkd-rooca started by sports writer. Continue IV Dilaudid as needed.
Acute dysphagia -due to Guillain-Morgan� syndrome. Dobbhoff tube placed and tube feeds are running. Speech therapy recommends nonoral means of feeding. Teaspoon sips of mildly thick liquids. Upright to 90 degrees with full supervision. High risk
for aspiration. Video swallowing study completed 08/15.
Acute urinary retention -due to Guillain-Morgan� syndrome. Block catheter placed 08/15.
Hyponatremia -135.
Elevated LFTs -improved.
- suspected related to IVIG; trend
- has no abdominal discomfort
Chronic neck pain
Gabapentin changed to pregabalin by neurology. Monitor for sedation
Mild intermittent asthma - stable.
History of thyroid cancer - continue Cytomel and Synthroid (patient prefers brand name - is using her own supply). noted low TSH, normal T4
DVT ppx: Lovenox
Code: Full
Dispo -acute rehab when medically stable. I reviewed expectations and expected clinical course with patient. Explained that she will likely not see significant acute improvement after plasmapheresis. May take several weeks if not months to see
improvement in strength and function.
Okay to transfer to IMU as per neurology.
Anticipated Discharge: > 48 hours
Subjective/Interval History
-
Date of Service: August 18, 2024
Patient seen and examined. Feels somewhat stronger today with improved strength in her arms, voice is stronger. Denies shortness of breath.
Objective Data
-
Labs:
Laboratory Results
08/18/24
04:40
WBC 10.9 H
Hgb 12.6
Hct 36.1 L
Plt Count 259
PT 14.1
INR 1.06
APTT 28.5
Sodium 135
Potassium 3.9
Chloride 95 L
Carbon Dioxide 31 H
BUN 18 H
Creatinine 0.4 L
Glucose 134 H
Calcium 9.0
Vital Signs:
Vital Signs
Temp Pulse Resp BP Pulse Ox
97.6 F 84 16 121/75 94
08/18/24 11:30 08/18/24 06:00 08/18/24 06:00 08/18/24 04:00 08/18/24 06:00
I&O
08/17/24 08/18/24 08/19/24
06:59 06:59 06:59
Intake Total 1879 / 1959 1620 / 1620 440 / 440
Output Total 820 / 860 1065 / 1065 150 / 150
Balance 1060 / 1100 555 / 555 290 / 290
Review of Systems
-
History Source: Patient
All other systems: Reviewed and negative
--- NOTE | 2024-08-18 14:25 | CM ---
CM following re: discharge planning.
Discussed in Rounds, reviewed pt's chart, met with pt. Per Rounds meeting, pt possibly will be downgraded from ICU level of care.
PT, OT and ST continue recommending acute rehab level of care. [facility] following.
Physiatry consult pending.
D/C plan: [facility] when medically stable. Per previous CM note, no auth is required.
CM will follow to assist pt with discharge to [facility]
[2024-08-18] MEDS: LOVENOX 40 MG SC (18:13)
[2024-08-18] MEDS: DULCOLAX 10 MG RECTAL (18:15)
--- NOTE | 2024-08-18 20:00 | PTCARENOTE ---
rec`d pt at 1900 AAOx3. slurred speech, pupils equal and reactive, continuous pain throughout body. cannot move lower extrem. can move lower half of arms. afebrile, trace lower ankle edema. +pulses. RA POX 95%. diminished throughout. rt elaine macedooff
@65 cm markos, running with [employer] TF at 55/hr w/ 25 flush. traylor draining palmer urine. t FA and Rt W flushed and patent. call perkins in reach, safe environment maintained. pt`s sister at bedside.
--- NOTE | 2024-08-18 20:52 | RESPNOTE ---
pt stated she was o tired this evening to attempt the marta and vc, she has gotten medicaton about 45 minutes ago and is drowsy
[2024-08-18] MEDS: DILAUDID 1 MG IV (21:55)
--- NOTE | 2024-08-18 23:25 | PTCARENOTE ---
report given to IMU nurse. pt transferred to IMU.
[2024-08-19] VITALS (10 sets, daily range): BP systolic 100–137; BP diastolic 51–111; BMI 23.8
[2024-08-19] MEDS: TYLENOL ORAL SOLUTION 650 MG TUBE ×2 (00:09→05:33)
[2024-08-19] MEDS: DILAUDID 4 MG TUBE ×5 (00:09→23:18)
[2024-08-19] MEDS: DILAUDID 1 MG IV ×3 (01:42→20:43)
[2024-08-19] MEDS: TORADOL 15 MG IV ×4 (03:23→22:10)
[2024-08-19] MEDS: NON-FORMULARY ITEM 1 UNIT PO (05:34)
[2024-08-19 06:13] LABS: % Basophils 0.6 % (0-2); % Eosinophils 4.3 % (0-6); % Immature Granulocytes 0.3 % (0-0.5); % Lymphocytes 18.1 % (20.5-51.1); % Monocytes 5.5 % (1.7-9.3); % Neutrophils 71.2 % (42.2-75.2); Absolute Basophils 0.1 10^3/uL (0-0.2); Absolute Eosinophils 0.4 10^3/uL (0-0.7); Absolute Lymphocytes 1.7 10^3/uL (1.2-3.4); Absolute Monocytes 0.5 10^3/uL (0.1-0.6); Absolute Neutrophils 6.6 10^3/uL (1.4-6.5); Hematocrit 35.2 % (37.0-47.0); Hemoglobin 12.5 g/dL (12.0-16.0); Mean Corp Hgb Conc. 35.5 g/dL (33.0-37.0); Mean Corpuscular Hgb 33.5 pg (27.0-31.0); Mean Corpuscular Volume 94.4 fL (81.0-99.0); Mean Platelet Volume 10.2 fL (7.4-10.4); Nucleated Red Blood Cells % 0 %; Platelet Count 270 10^3/uL (130-400); Red Blood Cell Count 3.73 10^6/uL (4.20-5.40); Red Cell Dist. Width 13.2 % (11.5-14.5); White Blood Cell Count 9.3 10^3/uL (4.8-10.8)
[2024-08-19 06:14] LABS: INR 0.99; PT 13.4 Sec (11.4-14.6)
[2024-08-19 06:15] LABS: APTT 27.9 Sec (23.4-35.0); Fibrinogen 248 MG/DL (199-459)
[2024-08-19 06:29] LABS: Blood Urea Nitrogen 22 mg/dl (7-17); Calcium 9.1 mg/dl (8.4-10.2); Carbon Dioxide 30 mmol/L (22-30); Chloride 94 mmol/L (98-107); Estimated Creatinine Clearance 102 ml/min; Glucose 140 mg/dl (70-99); LDH 170 U/L (120-246); Magnesium 2.5 mg/dl (1.6-2.3); Potassium 3.9 mmol/L (3.5-5.1); Sodium 134 mmol/L (135-145); eGFR > 60.00
--- NOTE | 2024-08-19 06:30 | PTCARENOTE ---
Pt AAOx3, pleasant and cooperative. C/o pain throughout legs and back, see MAR for treatment. TF maintained per orders. Pt c/o urge to have BM in addition to distended belly. Inc of small liq smear, hygiene care performed. Block catheter intact
draining palmer urine. Q2T schedule in place to prevent skin breakdown. Multipodus boots refused this shift, however, pt's feet are propped up with blankets. Call perkins within reach.
--- NOTE | 2024-08-19 07:38 | W.PN.NEURO.1 ---
Today's Communication / Plan
-
Continue plasma exchange, underwent fifth treatment of 5 on August 19, 2024
Continue pregabalin 200 mg 3x/day
Started Duloxetine 30 mg daily for discomfort control
Follow-up brain MRI with kishore on 08/23/24
Neuro Assessment/Plan
Assessment
I. 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 Patient received 3 doses of IVIG then switched to plasma exchange treatment due to elevated LFTs. Positive GD1b antibodies (found in patients with Guillain-Morgan� syndrome and multifocal
motor neuropathy); NCS/EMG concurs with GBS
II. Left cerebellar lesion. Differential diagnosis includes demyelinating lesion or metabolic abnormality or low grade neoplastic vs vascular vs inflammatory vs less likely infectious etiologies
Cytology has been unremarkable, oligoclonal bands negative, no white blood cells in CSF
Plan
Continue plasma exchange, underwent fifth treatment of 5 on August 19, 2024
Continue pregabalin 200 mg 3x/day
Started Duloxetine 30 mg daily for discomfort control
Follow-up brain MRI with kishore on 08/23/24
Initiated thiamine due to the patient's left 6th nerve palsy although most likely secondary to Peres Bryan variant of Guillain-Morgan�
Rehab evaluations
Will follow
Subjective/Objective
Subjective Data
Date of Service: August 19, 2024
Improved strength, improved pain control, intensity 6/10 maximum
Objective Data
Vital Signs
Temp Pulse Resp BP Pulse Ox
36.7 C 73 16 127/53 95
08/19/24 03:10 08/19/24 06:00 08/19/24 06:00 08/19/24 04:00 08/19/24 06:00
Lab Results
08/19/24 05:47
08/19/24 05:47
PT 13.4 Sec (11.4-14.6) 08/19/24 05:47
INR 0.99 08/19/24 05:47
APTT 27.9 Sec (23.4-35.0) 08/19/24 05:47
Sodium 134 mmol/L (135-145) L 08/19/24 05:47
Potassium 3.9 mmol/L (3.5-5.1) 08/19/24 05:47
BUN 22 mg/dl (7-17) H 08/19/24 05:47
Glucose 140 mg/dl (70-99) H 08/19/24 05:47
Calcium 9.1 mg/dl (8.4-10.2) 08/19/24 05:47
Phosphorus 4.0 mg/dl (2.5-4.5) 08/19/24 05:47
Whole Bld Vitamin B1 117 nmol/L (70-180) 08/08/24 07:47
Whole Bld Vitamin B1 Cancelled 08/08/24 07:47
Vitamin B12 563 pg/ml (239-931) 08/08/24 07:47
Vitamin B12 Cancelled 08/08/24 07:47
Patient Allergies
adhesive Allergy (Verified 08/17/24 23:05)
BANDAIDS-RASH/ITCHING
aspirin [Aspirin] Allergy (Verified 08/17/24 23:05)
GI upset/NAUSEA
strawberry Allergy (Verified 08/07/24 14:51)
Swelling
Review of Systems
-
History Source: Patient
All other systems: Reviewed and negative
EENT: Swallowing Difficulty (improving) and Other (diplopia); Negative Decreased Vision
Respiratory: Negative Trouble Breathing
Cardiac: Negative Chest Pain
Abdomen/GI: Negative Incontinence of Stool
Genitourinary: Negative Incontinence
Musculoskeletal: Back Pain and Neck Pain
Neuro: Dizzy (with movement); Negative Headache
Physical Exam
-
General: No Apparent Distress, Appears Stated Age and Other (Dobbhoff tube in nares)
Eyes: Round OU and [place] Conjunctivae
HEENT: Anicteric and Moist Mucous Membranes
Neck: Full Range of Motion
Respiratory: No Dyspnea
Cardiac: No JVD
GI: Non-distended
Skin: Unremarkable
Extremities: No Clubbing, No Cyanosis and No Edema
Psych: Intact Judgement/Insight
Extended Neurological Exam
Mood & Affect: Anxious
Attention Span & Concentration: Awake, Alert, Interactive, Closes Eyes after Stimulation (After approximately 5 seconds) and Other (No difficulty with single step requests or recall)
Memory: Unremarkable
Tremor: Hand Tremor Absent and Head Tremor Absent
Involuntary Movement: None
Speech: Quality Unremarkable; Negative Hoarse
Cranial Nerve II: Left Eye: Pupillary Size Unremarkable and Visual Robledo Grossly Intact
Cranial Nerve II: Right Eye: Pupillary Size Unremarkable and Visual Robledo Grossly Intact
Cranial Nerves III, IV, : Extraocular Movement: Otherwise Unremarkable and Other (Left lateral rectus paralysis)
Cranial Nerve VII: Facial Symmetry: Reduced (bilaterally, greater movement on the right)
Cranial Nerve VIII: Hearing: Unremarkable Hearing to Normal Conversational Volume
Muscle Strength, Overall: Reduced (upper extremities able to lift right arm off of bed 2 seconds, able to lift left arm off of bed for greater than 3 seconds; 1 out of 5 movement distally in bilateral lower extremities)
Muscle Bulk & Tone: Bulk Unremarkable and Tone Unremarkable
Coordination: Reaches for Objects without Difficulty
Gait & Station: Unable to Assess
Data Reviewed
-
Labs: Report Reviewed
Past History
Past History
ED Past Medical History: Asthma, Cancer (Papillary thyroid 2018), GERD, Hypercholesterolemia, Hypothyroidism, Psychiatric and Other (Celiac disease, vitamin D deficiency, iron deficiency, hepatic steatosis, hemorrhoids, Guillain-Morgan� syndrome)
ED Past Surgical History: , Gynecological (uterine ablation, tubal ligation), Tonsilectomy and Other (Epidural steroid injections C7-T1 2018, 2019 L5-S1 epidural steroid injections)
Social History
Tobacco: Non-smoker
Alcohol: Occasional
Drug: Marijuana (medical marijuana)
Personal:
Living: with family
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
Family History
Family History: Negative CAD
Medications
-
Medications:
Generic Name Dose Route Start Last Admin
Trade Name Freq PRN Reason Stop Dose Admin
Acetaminophen 650 mg 08/07/24 19:55 08/18/24 09:40
Acetaminophen 325 Mg Tablet PO 09/04/24 19:54 650 mg
Q6HPRN PRN Administration
mild pain/ fever>100.5F
Artificial Tears 1 drops 08/10/24 10:28 08/18/24 09:10
Artificial Tears Pf (Refresh) 10 Drop Droperette OPHTH 09/07/24 10:27 1 drops
QIDPRN PRN Administration
dry eyes
Bisacodyl 10 mg 08/18/24 16:31 08/18/24 18:15
Bisacodyl 10 Mg Rectal Suppository RECTAL 09/15/24 16:30 10 mg
DAILYPRN PRN Administration
constipation
Chlorhexidine Gluconate 15 ml 08/18/24 09:00 08/18/24 21:17
Chlorhexidine Oral Rinse 0.12% 15 Ml Cup PO 09/15/24 08:59 15 ml
PCHS CAMELIA Administration
Docusate Sodium 100 mg 08/12/24 12:54
Docusate Sodium 100 Mg Capsule PO 09/09/24 12:53
BIDPRN PRN
STOOL SOFTENER
Duloxetine HCl 30 mg 08/18/24 10:00 08/18/24 09:40
Duloxetine Delayed Release 30 Mg Capsule PO 09/15/24 09:59 30 mg
DAILY CAMELIA Administration
Enoxaparin Sodium 40 mg 08/08/24 18:00 08/18/24 18:13
Enoxaparin Sodium 40 Mg/0.4 Ml Syringe SC 09/05/24 17:59 40 mg
QPM CAMELIA Administration
Heparin Sodium 0 units 08/13/24 12:00 08/17/24 11:20
Heparin (1000 Units/Ml) 10,000 Units/10 Ml Vial INTRACATH 08/19/24 12:01 10,000 units
Q48H CAMELIA Administration
Hydromorphone HCl 1 mg 08/13/24 10:05 08/19/24 01:42
Hydromorphone 1 Mg/Ml Carpuject IV 08/25/24 11:18 1 mg
Q3HPRN PRN Administration
SEV PAIN, intractable to PO
Hydromorphone HCl 0.5 mg 08/13/24 10:05 08/18/24 01:27
Hydromorphone 0.5 Mg/0.5 Ml Syringe IV 08/25/24 11:19 0.5 mg
Q3HPRN PRN Administration
MOD PAIN, intractable to PO
Hydromorphone HCl 4 mg 08/17/24 12:00 08/19/24 05:33
Hydromorphone 4 Mg Tablet TUBE 08/31/24 11:59 4 mg
Q6 CAMELIA Administration
Calcium Gluconate 2,800 mg/ 278 mls @ 0 mls/hr 08/11/24 12:00 08/17/24 11:19
Sodium Chloride IV 08/19/24 12:01 278 mls
Q48H CAMELIA Administration
As Directed
Albumin Human 12.5 grams in 250 mls @ 1,500 mls/hr 08/19/24 12:00
Albumin 5% INTRACATH 08/19/24 13:49
.Q10M CAMELIA
Ketorolac Tromethamine 15 mg 08/15/24 16:00 08/19/24 03:23
Ketorolac 30 Mg/Ml Injection IV 08/20/24 15:59 15 mg
Q6H CAMELIA Administration
Lidocaine 1 patch 08/15/24 08:00 08/18/24 08:53
Lidocaine 4% Topical Patch TOPICAL 09/12/24 07:59 1 patch
DAILY CAMELIA Administration
Protocol
Lidocaine 1 patch 08/15/24 08:00 08/18/24 08:54
Lidocaine 4% Topical Patch TOPICAL 09/12/24 07:59 1 patch
DAILY CAMELIA Administration
Protocol
Liothyronine Sodium 5 microgram 08/13/24 16:00 08/18/24 15:47
Liothyronine 5 Microgram Tablet PO 09/10/24 15:59 5 microgram
BID@0800,1600 CAMELIA Administration
Lorazepam 0.5 mg 08/14/24 21:06 08/15/24 00:58
Lorazepam 2 Mg/Ml Vial IV 09/11/24 21:05 0.5 mg
Q4HPRN PRN Administration
anxiety
Synthroid (Brand 0 unit 08/09/24 06:00 08/19/24 05:34
Name Levothyroxine) PO 09/06/24 05:59 1 unit
125mcg Tablet - Take DAILY@0600 CAMELIA Administration
1/2 Tablet (62.5mcg
) Po Daily
Ondansetron HCl 4 mg 08/08/24 12:07 08/08/24 14:53
Ondansetron 4 Mg/2 Ml Vial IV 09/05/24 12:06 4 mg
Q6HPRN PRN Administration
NAUSEA/VOMITING
Oxycodone HCl 5 mg 08/13/24 10:04 08/18/24 09:41
Oxycodone 5 Mg Regular Release Tablet PO 08/27/24 10:03 5 mg
Q4HPRN PRN Administration
moderate to severe pain
Pantoprazole Sodium 40 mg 08/09/24 08:00 08/18/24 08:54
Pantoprazole 40 Mg Delayed Release Tablet PO 09/06/24 07:59 40 mg
DAILY CAMELIA Administration
Patch Removal 0 patch 08/15/24 20:00 08/18/24 21:19
Remove Lidocaine Patch REMOVE 09/12/24 19:59 2 patch
DAILY@2000 CAMELIA Administration
Polyethylene Glycol 17 grams 08/11/24 12:00 08/18/24 08:54
Polyethylene Glycol Powder 17 Grams Packet PO 09/08/24 11:59 17 grams
DAILY CAMELIA Administration
Pregabalin 200 mg 08/16/24 16:00 08/18/24 21:19
Pregabalin 100 Mg Capsule TUBE 09/13/24 15:59 200 mg
TID CAMELIA Administration
Senna/Docusate Sodium 1 tablet 08/16/24 20:00 08/18/24 21:19
Docusate W/Senna (Elisabeth-Colace) Tablet PO 09/13/24 19:59 1 tablet
BID CAMELIA Administration
Sennosides 8.6 mg 08/12/24 12:57
Sennosides (Senokot) 8.6 Mg Tablet PO 09/09/24 12:56
BIDPRN PRN
CONSTIPATION
Sodium Chloride 0 flush 08/07/24 21:00 08/13/24 18:53
Sodium Chloride 0.9% (Flush) Syringe IV 09/04/24 20:59 1 flush
PER PROTOCOL CAMELIA Administration
Sodium Chloride 0.25 ml 08/14/24 21:15
Nss (Pf) 10 Ml Vial For Ativan 0.5 Mg Dose IV 09/11/24 21:14
Q4HPRN PRN
IV LORAZEPAM DILUTION
Thiamine HCl 100 mg 08/15/24 12:00 08/18/24 08:55
Thiamine 100 Mg Tablet PO 09/12/24 11:59 100 mg
DAILY CAMELIA Administration
Valacyclovir HCl 500 mg 08/08/24 12:07 08/09/24 01:43
Valacyclovir Hcl 500 Mg Tablet PO 09/13/24 12:06 500 mg
DAILYPRN PRN Administration
fever blisters
[2024-08-19] MEDS: LIDOCAINE 4% PATCH 1 PATCH TOPICAL ×2 (07:57→07:58)
[2024-08-19] MEDS: LYRICA 200 MG TUBE ×3 (07:58→22:09)
[2024-08-19] MEDS: MIRALAX 17 GRAMS PO (07:58)
[2024-08-19] MEDS: SENOKOT-S 1 TABLET PO ×2 (07:59→20:33)
[2024-08-19] MEDS: CYMBALTA DELAYED RELEASE 30 MG PO (07:59)
[2024-08-19] MEDS: CYTOMEL 5 MICROGRAM PO ×2 (07:59→15:56)
[2024-08-19] MEDS: VITAMIN B1 100 MG PO (07:59)
[2024-08-19] MEDS: PROTONIX 40 MG PO (07:59)
[2024-08-19] MEDS: PERIDEX 0.12% ORAL RINSE 15 ML PO ×4 (08:02→22:09)
--- NOTE | 2024-08-19 09:32 | W.PN.PUL3 ---
Today's Communication / Plan
-
Doing well, stable on RA
Respiratory function appears overall stable, continue monitoring per RT
She has PT/OT evals, PM&R following
Speech to follow to advance PO trials, for now DHT remains
Completed her IV treatments per Neuro
Likely can assess for d/c planning to [facility] if her treatments are completed
Assessment
-
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
Guillain-Morgan� syndrome and transferred to ICU-compliance specialist consulted for Guillain-Morgan� syndrome/critical care management 08/09/2024.
Impression:
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
Left cerebellar lesion
Acute urinary retention s/p Block (inserted 08/14/2024)
Conditions present prior to admission:
Asthma-mild intermittent.
Papillary thyroid cancer 2018.
Hypothyroid.
Hyperlipidemia.
Anxiety.
. Tubal ligation. Tonsillectomy. Thyroidectomy. Cholecystectomy.
Plan
Currently 95% on RA
Supplemental oxygen as needed-currently on room air and breathing comfortably
Incentive spirometry encouraged
Aspiration precautions
Nebulizers if needed-history of asthma-currently not bronchospastic
Adm for acute neurologic decompensation requiring ICU adm 08/09/24
Triggers include previous infections including Campylobacter jejunum and viral infections including influenza A, B, CMV, COVID 19, Zika, and EBV
Also possibly due to vaccinations including influenza (1-2/1 million), RSV, zoster, COVID-19 especially adenovirus factors though noted with messenger RNA vaccines as well
Typical presentation includes lower extremity weakness, decreased deep tendon reflexes, paresthesias and dysautonomia's
Neurology is following
Monitor muscle strength and forced vital capacity
08/09/2024-FVC-1.6 L-predicted 2.9 and MIP 35
08/10/2024-FVC 1.5 L-predicted 2.9 and MIP 30
08/11/2024-FVC 1.6 L-predicted 2.9 and MIP 32
08/12/2024-FVC 1.7 L
Continue to monitor pulse oximetry, work of breathing, and MIP + vital capacity q shift
As long as her MIP + VC remain stable, she is saturating >90% and she has no increased work of breathing, no need for mechanical ventilation
If she does start to develop respiratory failure then would check ABG and transition her to BiPAP to assist her ventilation, and consider ENT consult for evaluation for tracheostomy
Neurology evaluation ongoing-correspondence reviewed
Lumbar puncture on 08/08/2024 showed: total protein 56 and 0 WBC
Vitamin B12: 563, B1: 117, SHERRY level: <10, CSF Lyme PCR: Not detected, CSF SHERRY level: 1.8; SPEP: No M-spike seen; CRP: <5, copper level: 113.4
ESR and CRP normal-unlikely vasculitis
TRENA detected, homogenous pattern with 1:80 titer
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
Initial treatment-IVIG 0.4 mg/kg/day-finished 4 out of 5-changed to plasma exchange due to elevated LFTs
Plasma exchange began 08/11/2024-every other day for total 5 doses-underwent 4th session AM of 08/17/2024; 1 more remaining on 08/19/2024
Hematology consultation/[place] consulted for plasma exchange
NCS/EMGs in 3 weeks
On 08/15/2024 her Neurontin was changed to lyrica 100mg BID--> on 08/16/2024 Neuro raised lyrica to 200mg TID
Continue toradol 15mg q6hr, Tylenol q6hr (monitor LFTs) and prn IV hydromorphone/PO oxycodone
Scheduled PO dilaudid 4mg q6hr, Ativan as needed, holding for sedation
Cymbalta started today by neurology
Bowel regimen while on opiates
Trend LFTs
DVT prophylaxis-on Lovenox and mechanicals
Nutrition with aspiration precautions --> MAINTENANCE TECHNICIAN performed modified barium swallow study on 08/15/2024 showing no fluoroscopic evidence for airway aspiration
MAINTENANCE TECHNICIAN continuing to follow along
Physical and Occupational Therapy evals ongoing
Dr. Cooper reviewed with patient's father in regards to current diagnosis, prognosis and treatment plan on 08/17/2024
We will follow
Diagnostic Data
Chest x-ray 07/04/2024-NAD
Modified barium swallow study 08/15/2024: No fluoroscopic evidence for airway aspiration.
Brain MRI 08/09/2024-nodular focus of enhancement superior left cerebellar hemisphere etiology uncertain, neoplasia possible, demyelination could be considered, vasculitis could be considered, diffuse fatty atrophy of the right parotid gland
Cervical spine MRI 08/09/24-5 mm well-defined focus of enhancement in the lateral margin of the [id number], mild to moderate changes of DJD unchanged from 2024, slight anterior cord compression at C5-6
Thoracic spine MRI 08/10/2024-no abnormal enhancement to suggest acute myelopathy
Lumbar spine MRI 08/10/2024-mild degenerative changes and mild bilateral neural foraminal stenosis L4-5 and L5-6 1, no abnormal enhancement
-----
Total time spent today was 50 minutes for this encounter. Time includes reviewing laboratory test/imaging results, reviewing pertinent medical records, obtaining and reviewing medical history, performing an appropriate exam, ordering medications,
tests and procedures. Time also includes documentation of this encounter, coordinating patient care and communicating with other healthcare professionals. Total time does not include separately billed tests performed on this date of service.
Subjective Data
-
Date of Service:
Date of Service: August 19, 2024
Chief Complaint: Pulmonary Follow Up
Subjective:
Stable on RA, no new complaints
Working with PT, rehab
NPO with DHT in place
Objective Data
Data Reviewed
Vital Signs / I&O / Oxygen:
Vital Signs
Temp Pulse Resp BP Pulse Ox
97.9 F 76 19 137/111 95
08/19/24 07:11 08/19/24 08:30 08/19/24 08:30 08/19/24 08:30 08/19/24 06:00
Intake and Output
08/18/24 08/19/24 08/20/24
06:59 06:59 06:59
Intake Total 1620 / 1620 1240 / 1240
Output Total 1065 / 1065 490 / 490
Balance 555 / 555 750 / 750
SaO2 95
Physical Exam
General: Comfortable and Other (NAD)
HEENT: Normocephalic, Anicteric and Moist Mucous Membranes
Cardiovascular: S1-S2 and Regular Rhythm
Respiratory: Clear and Non-Labored Respirations
GI: Soft, Non Distended, Non Tender and NG Tube (DHT)
Neurology: Awake, Alert, Oriented and Other (generalized weakness noted)
Skin: Warm, Dry and Good Color
Labs/Micro/Reports
Lab Data
08/19/24 05:47
08/19/24 05:47
Laboratory Results
08/19/24
05:47
PT 13.4
INR 0.99
APTT 27.9
[2024-08-19] MEDS: CALCIUM GLUCONATE 10% INJECTION 278 MG IV (09:58)
--- NOTE | 2024-08-19 10:09 | PTCARENOTE ---
pt resting comfortably [place] RN at bedside for plasmapheresis treatment. Calcium gluconate and albumin obtained from pharmacy. VS WNL. CB in reach no change in assessment at this time
--- NOTE | 2024-08-19 10:18 | W.PN.HOSP.TC ---
Today's Communication/Plan
-
Plasma exchange
PT/OT
Assessment / Plan
Assessment / Plan
Gen-AAOx3, NAD
HEENT-NC, AT, anicteric, clear oral mm, left 6th nerve palsy
Neck-supple
CV-reg, no M, +S1/S2
Lungs-clear B/L
Abd-soft, NT, very mild distention
Ext-no edema
Musculoskeletal-no cyanosis, clubbing
Skin-warm and dry
Neuro-symmetrical paraplegia of lower extremities, moving upper extremities, able to mildly wiggle toes bilaterally
Psych-calm, cooperative
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 Left 6th nerve palsy noted. Having double vision with both eyes open.
- MRI imaging of spine (C/T/L with contrast) without evidence of any enhancing lesions, myelopathic signals.
- MRI brain: delayed images reveal Nodular focus of enhancement within the superior left cerebellar hemisphere, with a larger region of surrounding increased T2 and FLAIR signal. See above discussion regarding timing of contrast enhancement.
Etiology for this finding is uncertain. It could possibly represent neoplasia. A focus of demyelination could be considered. Vasculitis could also be considered. This could possibly be a vascular/venous anomaly, although the surrounding increased T2
and FLAIR signal is atypical.
- plan per Neurology is MRI brain with contrast repeat in 2 weeks
- s/p IVIG course without improvement, elevated LFTs
- s/p IR guided tunnel cath 08/10; to continue plasma exchange, fifth session 08/19. Plan for 5 treatments.
- monitor VC/NIFs, pulm exams serially
- follow extended neuro workup from serum and CSF studies
Intractable pain syndrome -due to Guillain-Morgan�. Continue IV Toradol. Oral Dilaudid [id number] started by hourly caregiver. Continue IV Dilaudid as needed.
Acute dysphagia -due to Guillain-Morgan� syndrome. Dobbhoff tube placed and tube feeds are running. Speech therapy recommends nonoral means of feeding. Teaspoon sips of mildly thick liquids. Upright to 90 degrees with full supervision. High risk
for aspiration. Video swallowing study completed 08/15.
May need PEG tube next week if she remains tube feed dependent. Discussed with patient. Cannot go to rehab with Dobbhoff tube.
Acute urinary retention -due to Guillain-Morgan� syndrome. Block catheter placed 08/15.
Hyponatremia -134.
Elevated LFTs -improved.
- suspected related to IVIG; trend
- has no abdominal discomfort
Chronic neck pain
Gabapentin changed to pregabalin by neurology. Monitor for sedation
Mild intermittent asthma - stable.
History of thyroid cancer - continue Cytomel and Synthroid (patient prefers brand name - is using her own supply). noted low TSH, normal T4
DVT ppx: Lovenox
Code: Full
Dispo -acute rehab when medically stable. I reviewed expectations and expected clinical course with patient. Explained that she will likely not see significant acute improvement after plasmapheresis. May take several weeks if not months to see
improvement in strength and function.
Anticipated Discharge: > 48 hours
Subjective/Interval History
-
Date of Service: August 19, 2024
Patient seen and examined. Feels that she is slowly improving in terms of strength. No complaints.
Objective Data
-
Labs:
Laboratory Results
08/19/24
05:47
WBC 9.3
Hgb 12.5
Hct 35.2 L
Plt Count 270
PT 13.4
INR 0.99
APTT 27.9
Sodium 134 L
Potassium 3.9
Chloride 94 L
Carbon Dioxide 30
BUN 22 H
Creatinine 0.4 L
Glucose 140 H
Calcium 9.1
Vital Signs:
Vital Signs
Temp Pulse Resp BP Pulse Ox
97.9 F 76 19 137/111 95
08/19/24 07:11 08/19/24 08:30 08/19/24 08:30 08/19/24 08:30 08/19/24 09:47
I&O
08/18/24 08/19/24 08/20/24
06:59 06:59 06:59
Intake Total 1620 / 1620 1240 / 1240
Output Total 1065 / 1065 490 / 490
Balance 555 / 555 750 / 750
Review of Systems
-
History Source: Patient
All other systems: Reviewed and negative
--- NOTE | 2024-08-19 11:16 | CM ---
Patient now in IMU, Patient pending physiatry consult and bed availability/acceptance at [facility]. CM will continue to follow for discharge planning needs.
Plan; acute rehab pending assessment
[2024-08-19] MEDS: DILAUDID 0.5 MG IV (11:57)
--- NOTE | 2024-08-19 13:35 | PTCARENOTE ---
pt s/p plasmapheresis, tolerated well. PRN pain medication administered, see MAR. hygiene care provided. Pt has family at bedside, cb in reach. no change in physical assessment.
[2024-08-19] MEDS: HEPARIN INTRACATH (15:16)
[2024-08-19] MEDS: LOVENOX 40 MG SC (18:24)
[2024-08-19] MEDS: DULCOLAX 10 MG RECTAL (23:26)
--- NOTE | 2024-08-19 23:45 | PTCARENOTE ---
Pt continues with complaints of severe pain throughout back, legs, and now in abdomen. Abdomen remains distended, +BS. TF remains intact through dobhoff. PRN dulcolax suppository given per MAR at pt request d/t constipation and distended abdomen.
Alcideskauer within reach, pt suctions self PRN. Call perkins within reach.
[2024-08-20] VITALS (9 sets, daily range): BP systolic 101–140; BP diastolic 35–63; O2SAT 95; BMI 23.9
[2024-08-20] MEDS: DILAUDID 1 MG IV ×4 (01:07→22:19)
[2024-08-20] MEDS: TORADOL 15 MG IV (03:45)
[2024-08-20 04:39] LABS: % Basophils 0.6 % (0-2); % Eosinophils 3.6 % (0-6); % Immature Granulocytes 0.4 % (0-0.5); % Lymphocytes 14.1 % (20.5-51.1); % Monocytes 5.7 % (1.7-9.3); % Neutrophils 75.6 % (42.2-75.2); Absolute Basophils 0.1 10^3/uL (0-0.2); Absolute Eosinophils 0.5 10^3/uL (0-0.7); Absolute Immature Granulocytes 0.1 10^3/uL (0-0.05); Absolute Lymphocytes 1.8 10^3/uL (1.2-3.4); Absolute Monocytes 0.7 10^3/uL (0.1-0.6); Absolute Neutrophils 9.6 10^3/uL (1.4-6.5); Hematocrit 36.7 % (37.0-47.0); Hemoglobin 12.5 g/dL (12.0-16.0); Mean Corp Hgb Conc. 34.1 g/dL (33.0-37.0); Mean Corpuscular Hgb 32.6 pg (27.0-31.0); Mean Corpuscular Volume 95.6 fL (81.0-99.0); Mean Platelet Volume 10.2 fL (7.4-10.4); Nucleated Red Blood Cells % 0 %; Platelet Count 258 10^3/uL (130-400); Red Blood Cell Count 3.84 10^6/uL (4.20-5.40); Red Cell Dist. Width 13.3 % (11.5-14.5); White Blood Cell Count 12.7 10^3/uL (4.8-10.8)
[2024-08-20 04:49] LABS: APTT 30.9 Sec (23.4-35.0); Fibrinogen 154 MG/DL (199-459); INR 1.07; PT 14.2 Sec (11.4-14.6)
[2024-08-20 05:02] LABS: Blood Urea Nitrogen 21 mg/dl (7-17); Calcium 9.1 mg/dl (8.4-10.2); Carbon Dioxide 33 mmol/L (22-30); Chloride 93 mmol/L (98-107); Estimated Creatinine Clearance 102 ml/min; Glucose 145 mg/dl (70-99); LDH 127 U/L (120-246); Magnesium 2.6 mg/dl (1.6-2.3); Phosphorus 4.8 mg/dl (2.5-4.5); Potassium 4.2 mmol/L (3.5-5.1); Sodium 135 mmol/L (135-145); eGFR > 60.00
[2024-08-20] MEDS: DILAUDID 4 MG TUBE (05:06)
[2024-08-20] MEDS: NON-FORMULARY ITEM 1 UNIT PO (05:06)
--- NOTE | 2024-08-20 07:24 | PTCARENOTE ---
Block removed per MD orders. Due to void in 6hrs.
[2024-08-20] MEDS: VITAMIN B1 100 MG PO (08:07)
[2024-08-20] MEDS: PERIDEX 0.12% ORAL RINSE 15 ML PO ×4 (08:07→22:39)
[2024-08-20] MEDS: PROTONIX PO ×2 (08:07→09:00)
[2024-08-20] MEDS: SENOKOT-S 1 TABLET PO ×2 (08:07→22:39)
[2024-08-20] MEDS: MIRALAX 17 GRAMS PO (08:08)
[2024-08-20] MEDS: LIDOCAINE 4% PATCH 1 PATCH TOPICAL ×2 (08:08)
[2024-08-20] MEDS: LYRICA 200 MG TUBE ×3 (08:08→22:39)
[2024-08-20] MEDS: CYMBALTA DELAYED RELEASE 30 MG PO (08:08)
[2024-08-20] MEDS: CYTOMEL 5 MICROGRAM PO ×2 (08:12→16:06)
--- NOTE | 2024-08-20 08:13 | W.PN.HOSP.TC ---
Today's Communication/Plan
-
Stop Toradol
Ibuprofen
Simethicone
Out of bed to chair
Assessment / Plan
Assessment / Plan
Gen-AAOx3, NAD
HEENT-NC, AT, anicteric, clear oral mm, left 6th nerve palsy
Neck-supple
CV-reg, no M, +S1/S2
Lungs-clear B/L
Abd-soft, NT, very mild distention
Ext-no edema
Musculoskeletal-no cyanosis, clubbing
Skin-warm and dry
Neuro-symmetrical paraplegia of lower extremities, moving upper extremities, able to mildly wiggle toes bilaterally
Psych-calm, cooperative
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 Left 6th nerve palsy noted. Having double vision with both eyes open.
- MRI imaging of spine (C/T/L with contrast) without evidence of any enhancing lesions, myelopathic signals.
- MRI brain: delayed images reveal Nodular focus of enhancement within the superior left cerebellar hemisphere, with a larger region of surrounding increased T2 and FLAIR signal. See above discussion regarding timing of contrast enhancement.
Etiology for this finding is uncertain. It could possibly represent neoplasia. A focus of demyelination could be considered. Vasculitis could also be considered. This could possibly be a vascular/venous anomaly, although the surrounding increased T2
and FLAIR signal is atypical.
- plan per Neurology is MRI brain with contrast repeat in 2 weeks
- s/p IVIG course without improvement, elevated LFTs
- s/p IR guided tunnel cath 08/10; completed 5 treatments of plasma exchange, last treatment 08/19.
- monitor VC/NIFs, pulm exams serially
- follow extended neuro workup from serum and CSF studies
Intractable pain syndrome -due to Guillain-Morgan�. Pain appears to be worse today. Oral Dilaudid [id number] started by door operator. Continue IV Dilaudid as needed. Change Toradol to ibuprofen 800 g 4 times daily [id number].
She is already on maximum dose of pregabalin. Duloxetine started at 30 mg daily on 08/18, dose to be gradually increased.
She is moving her bowels but complaining of abdominal distention and bloating. Suspect due to Guillain-Morgan� syndrome. Continue bowel regimen, add simethicone.
Acute dysphagia -due to Guillain-Morgan� syndrome. Dobbhoff tube placed and tube feeds are running. Speech therapy recommends nonoral means of feeding. Teaspoon sips of mildly thick liquids. Upright to 90 degrees with full supervision. High risk
for aspiration. Video swallowing study completed 08/15.
May need PEG tube next week if she remains tube feed dependent. Discussed with patient. Cannot go to rehab with Dobbhoff tube.
Acute urinary retention -due to Guillain-Morgan� syndrome. Block catheter placed 08/15. Block catheter removed 08/20 morning, voiding trial.
Hyponatremia -135.
Elevated LFTs -improved.
- suspected related to IVIG; trend
- has no abdominal discomfort
Chronic neck pain
Gabapentin changed to pregabalin by neurology. Monitor for sedation
Mild intermittent asthma - stable.
History of thyroid cancer - continue Cytomel and Synthroid (patient prefers brand name - is using her own supply). noted low TSH, normal T4
DVT ppx: Lovenox
Code: Full
Dispo -acute rehab when medically stable. May need PEG tube placement prior to discharge to rehab.
Anticipated Discharge: > 48 hours
Subjective/Interval History
-
Date of Service: August 20, 2024
Patient seen and examined. Complaining of 10 out of 10 diffuse body pain. Abdominal bloating. Denies nausea or vomiting.
Objective Data
-
Labs:
Laboratory Results
08/20/24
03:55
WBC 12.7 H
Hgb 12.5
Hct 36.7 L
Plt Count 258
PT 14.2
INR 1.07
APTT 30.9
Sodium 135
Potassium 4.2
Chloride 93 L
Carbon Dioxide 33 H
BUN 21 H
Creatinine 0.5 L
Glucose 145 H
Calcium 9.1
Vital Signs:
Vital Signs
Temp Pulse Resp BP Pulse Ox
97.0 F 78 10 101/35 94
08/20/24 03:09 08/20/24 06:00 08/20/24 06:00 08/20/24 04:00 08/20/24 06:00
I&O
08/19/24 08/20/24 08/21/24
06:59 06:59 06:59
Intake Total 1240 / 1240
Output Total 490 / 490 250 / 250 850 / 850
Balance 750 / 750 -250 / -250 -850 / -850
Review of Systems
-
History Source: Patient
All other systems: Reviewed and negative
--- NOTE | 2024-08-20 08:40 | PTCARENOTE ---
Patient received from fast food shift supervisor. Patient resting comfortably in bed. AAO, VSS. No events noted overnight. Complaints of pain, see MAR. No fluids through IV. Will get OOB to chair. No tests scheduled at this time. Call perkins in reach.
[2024-08-20 08:52] LABS: Creatine Phosphokinase 24 U/L (30-135)
--- NOTE | 2024-08-20 09:20 | W.PN.PUL3 ---
Today's Communication / Plan
-
Doing well, stable on RA
Respiratory function appears overall stable, continue monitoring per RT
She has PT/OT evals, PM&R following
Speech to follow to advance PO trials, for now DHT remains
Completed her IV treatments per Neuro and s/p PLEX sessions x5
Pain control
Encourage IS q1hr while awake
Likely can assess for d/c planning to [place]
Assessment
-
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
Guillain-Morgan� syndrome and transferred to ICU-baggage porter head consulted for Guillain-Morgan� syndrome/critical care management 08/09/2024.
Impression:
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
Left cerebellar lesion
Acute urinary retention s/p Block (inserted 08/14/2024)
Conditions present prior to admission:
Asthma-mild intermittent.
Papillary thyroid cancer 2018.
Hypothyroid.
Hyperlipidemia.
Anxiety.
. Tubal ligation. Tonsillectomy. Thyroidectomy. Cholecystectomy.
Plan
Currently 95% on RA
Supplemental oxygen as needed-currently on room air and breathing comfortably
Incentive spirometry encouraged
Aspiration precautions
Nebulizers if needed-history of asthma-currently not bronchospastic
Adm for acute neurologic decompensation requiring ICU adm 08/09/24
Triggers include previous infections including Campylobacter jejunum and viral infections including influenza A, B, CMV, COVID 19, Zika, and EBV
Also possibly due to vaccinations including influenza (1-2/1 million), RSV, zoster, COVID-19 especially adenovirus factors though noted with messenger RNA vaccines as well
Typical presentation includes lower extremity weakness, decreased deep tendon reflexes, paresthesias and dysautonomia's
Neurology is following
Monitor muscle strength and forced vital capacity
08/09/2024-FVC-1.6 L-predicted 2.9 and MIP 35
08/10/2024-FVC 1.5 L-predicted 2.9 and MIP 30
08/11/2024-FVC 1.6 L-predicted 2.9 and MIP 32
08/12/2024-FVC 1.7 L
Continue to monitor pulse oximetry, work of breathing, and MIP + vital capacity q shift
As long as her MIP + VC remain stable, she is saturating >90% and she has no increased work of breathing, no need for mechanical ventilation
If she does start to develop respiratory failure then would check ABG and transition her to BiPAP to assist her ventilation, and consider ENT consult for evaluation for tracheostomy
Neurology evaluation ongoing-correspondence reviewed
Lumbar puncture on 08/08/2024 showed: total protein 56 and 0 WBC
Vitamin B12: 563, B1: 117, SHERRY level: <10, CSF Lyme PCR: Not detected, CSF SHERRY level: 1.8; SPEP: No M-spike seen; CRP: <5, copper level: 113.4
ESR and CRP normal-unlikely vasculitis
TRENA detected, homogenous pattern with 1:80 titer
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
Initial treatment-IVIG 0.4 mg/kg/day-finished 5 out of 5-changed to plasma exchange due to elevated LFTs
Plasma exchange began 08/11/2024-every other day for total 5 doses-underwent 4th session AM of 08/17/2024; her last PLEX was on 08/19/2024
Hematology consultation/[place] consulted for plasma exchange
NCS/EMGs in 3 weeks
On 08/15/2024 her Neurontin was changed to lyrica 100mg BID--> on 08/16/2024 Neuro raised lyrica to 200mg TID
Now back on ibuprofen 800 mg QID, toradol DC'd; Tylenol DC'd; prn IV hydromorphone
Fentanyl patch started 08/20; prn ativan
Cymbalta started 08/18/2024 by neurology
Bowel regimen while on opiates
Trend LFTs
DVT prophylaxis-on Lovenox and mechanicals
Nutrition with aspiration precautions --> SHIRT FINISHER performed modified barium swallow study on 08/15/2024 showing no fluoroscopic evidence for airway aspiration
SHIRT FINISHER continuing to follow along
Physical and Occupational Therapy evals ongoing
Dr. Cooper reviewed with patient's father in regards to current diagnosis, prognosis and treatment plan on 08/17/2024
We will follow
Diagnostic Data
Chest x-ray 07/04/2024-NAD
Modified barium swallow study 08/15/2024: No fluoroscopic evidence for airway aspiration.
Brain MRI 08/09/2024-nodular focus of enhancement superior left cerebellar hemisphere etiology uncertain, neoplasia possible, demyelination could be considered, vasculitis could be considered, diffuse fatty atrophy of the right parotid gland
Cervical spine MRI 08/09/24-5 mm well-defined focus of enhancement in the lateral margin of the [id number], mild to moderate changes of DJD unchanged from 2024, slight anterior cord compression at C5-6
Thoracic spine MRI 08/10/2024-no abnormal enhancement to suggest acute myelopathy
Lumbar spine MRI 08/10/2024-mild degenerative changes and mild bilateral neural foraminal stenosis L4-5 and L5-6 1, no abnormal enhancement
-----
Total time spent today was 36 minutes for this encounter. Time includes reviewing laboratory test/imaging results, reviewing pertinent medical records, obtaining and reviewing medical history, performing an appropriate exam, ordering medications,
tests and procedures. Time also includes documentation of this encounter, coordinating patient care and communicating with other healthcare professionals. Total time does not include separately billed tests performed on this date of service.
Subjective Data
-
Date of Service:
Date of Service: August 20, 2024
Chief Complaint: Pulmonary Follow Up
Subjective:
Patient seen earlier today (late note entry). Her son, Bart, was at bedside and all questions were answered. Currently, heart rate 94 and she is saturating 95% on room air. Her MIP earlier today was 30 cmH2O and her vital capacity was 2 L / 68%
predicted. She continues to be having pain in her lower extremities up to her hips but it is not worsening. She denies shortness of breath, chest pain, nausea, fevers or chills.
Review of Systems
General: Other (Negative unless mentioned above)
Objective Data
Data Reviewed
Vital Signs / I&O / Oxygen:
Vital Signs
Temp Pulse Resp BP Pulse Ox
97.0 F 78 10 101/35 94
08/20/24 03:09 08/20/24 06:00 08/20/24 06:00 08/20/24 04:00 08/20/24 06:00
Intake and Output
08/19/24 08/20/24 08/21/24
06:59 06:59 06:59
Intake Total 1240 / 1240
Output Total 490 / 490 250 / 250 850 / 850
Balance 750 / 750 -250 / -250 -850 / -850
SaO2 94
Physical Exam
General: Respiratory Distress (negative), Comfortable and Other (NAD)
HEENT: Normocephalic, Anicteric and Moist Mucous Membranes
Cardiovascular: S1-S2 and Peripheral Edema (negative)
Respiratory: Clear, Wheeze (negative), Crackles (negative), Rhonchi (negative) and Non-Labored Respirations
GI: Soft, Non Distended, Non Tender and NG Tube (DHT)
Neurology: Awake, Alert, Oriented, Tremors (negative) and Other (generalized weakness noted)
Skin: Warm, Dry, Cyanosis (negative) and Jaundice (negative)
Labs/Micro/Reports
Lab Data
08/20/24 03:55
08/20/24 03:55
Laboratory Results
08/20/24
03:55
PT 14.2
INR 1.07
APTT 30.9
--- NOTE | 2024-08-20 09:31 | W.PN.NEURO.1 ---
Today's Communication / Plan
-
Continue pregabalin 200 mg 3x/day
Started Duloxetine 30 mg daily for discomfort control
Would consider fentanyl patch as replacement therapy long-term for patient's routine pain regimen
Follow-up brain MRI with kishore on 08/23/24
Neuro Assessment/Plan
Assessment
I. Guillain-Easton syndrome, most likely Peres Bryan variant. Patient received 3 doses of IVIG then switched to plasma exchange treatment due to elevated LFTs. Positive GD1b antibodies (found in patients with Guillain-Morgan� syndrome and multifocal
motor neuropathy); NCS/EMG concurs with GBS
II. Left cerebellar lesion. Differential diagnosis includes demyelinating lesion or metabolic abnormality or low grade neoplastic vs vascular vs inflammatory vs less likely infectious etiologies
Cytology has been unremarkable, oligoclonal bands negative, no white blood cells in CSF
Completed plasma exchange, underwent fifth treatment of 5 on August 19, 2024
Plan
Continue pregabalin 200 mg 3x/day
Started Duloxetine 30 mg daily for discomfort control
Would consider fentanyl patch as replacement therapy long-term for patient's routine pain regimen
Follow-up brain MRI with kishore on 08/23/24
Rehab evaluations
Will follow
Subjective/Objective
Subjective Data
Date of Service: August 20, 2024
Patient reports mild improvement in strength and swallowing while continuing to have pain intensity in lower extremities of 10 out of 10 at times including currently
Objective Data
Vital Signs
Temp Pulse Resp BP Pulse Ox
36.1 C 78 10 101/35 94
08/20/24 03:09 08/20/24 06:00 08/20/24 06:00 08/20/24 04:00 08/20/24 06:00
Lab Results
08/20/24 03:55
08/20/24 03:55
PT 14.2 Sec (11.4-14.6) 08/20/24 03:55
INR 1.07 08/20/24 03:55
APTT 30.9 Sec (23.4-35.0) 08/20/24 03:55
Sodium 135 mmol/L (135-145) 08/20/24 03:55
Potassium 4.2 mmol/L (3.5-5.1) 08/20/24 03:55
BUN 21 mg/dl (7-17) H 08/20/24 03:55
Glucose 145 mg/dl (70-99) H 08/20/24 03:55
Calcium 9.1 mg/dl (8.4-10.2) 08/20/24 03:55
Phosphorus 4.8 mg/dl (2.5-4.5) H 08/20/24 03:55
Whole Bld Vitamin B1 117 nmol/L (70-180) 08/08/24 07:47
Whole Bld Vitamin B1 Cancelled 08/08/24 07:47
Vitamin B12 563 pg/ml (239-931) 08/08/24 07:47
Vitamin B12 Cancelled 08/08/24 07:47
Patient Allergies
adhesive Allergy (Verified 08/17/24 23:05)
BANDAIDS-RASH/ITCHING
aspirin [Aspirin] Allergy (Verified 08/17/24 23:05)
GI upset/NAUSEA
strawberry Allergy (Verified 08/07/24 14:51)
Swelling
Review of Systems
-
History Source: Patient
All other systems: Reviewed and negative
EENT: Swallowing Difficulty (improving) and Other (diplopia); Negative Decreased Vision
Respiratory: Negative Trouble Breathing
Cardiac: Negative Chest Pain
Abdomen/GI: Negative Incontinence of Stool
Genitourinary: Negative Incontinence
Musculoskeletal: Back Pain and Neck Pain
Neuro: Dizzy (with movement); Negative Headache
Physical Exam
-
General: No Apparent Distress, Appears Stated Age and Other (Dobbhoff tube in nares)
Eyes: Round OU and [place] Conjunctivae
HEENT: Anicteric and Moist Mucous Membranes
Neck: Full Range of Motion
Respiratory: No Dyspnea
Cardiac: No JVD
GI: Non-distended
Skin: Unremarkable
Extremities: No Clubbing, No Cyanosis and No Edema
Psych: Intact Judgement/Insight
Extended Neurological Exam
Mood & Affect: Other (Somatic)
Attention Span & Concentration: Awake, Alert, Interactive and Other (No difficulty with single step requests or recall)
Memory: Unremarkable
Tremor: Hand Tremor Absent and Head Tremor Absent
Involuntary Movement: None
Speech: Quantity Unremarkable and Other (Minimally thick)
Cranial Nerve II: Left Eye: Pupillary Size Unremarkable and Visual [place] Grossly Intact
Cranial Nerve II: Right Eye: Pupillary Size Unremarkable and Visual [place] Grossly Intact
Cranial Nerves III, IV, : Extraocular Movement: Otherwise Unremarkable and Other (Left lateral rectus paralysis)
Cranial Nerve VII: Facial Symmetry: Reduced (Minimally bilaterally, greater movement on the right)
Cranial Nerve VIII: Hearing: Unremarkable Hearing to Normal Conversational Volume
Muscle Strength, Overall: Reduced (upper extremities able to lift right arm off of bed 3 seconds, able to lift left arm off of bed for greater than 3 seconds; 1 out of 5 movement distally in bilateral lower extremities)
Muscle Bulk & Tone: Bulk Unremarkable and Tone Unremarkable
Coordination: Reaches for Objects without Difficulty
Gait & Station: Unable to Assess
Data Reviewed
-
Labs: Report Reviewed
Reviewed with: Physician, Nurse and Patient
Old Records: Summarized
Past History
Past History
ED Past Medical History: Asthma, Cancer (Papillary thyroid 2018), GERD, Hypercholesterolemia, Hypothyroidism, Psychiatric and Other (Celiac disease, vitamin D deficiency, iron deficiency, hepatic steatosis, hemorrhoids, Guillain-Morgan� syndrome)
ED Past Surgical History: , Gynecological (uterine ablation, tubal ligation), Tonsilectomy and Other (Epidural steroid injections C7-T1 2018, 2019 L5-S1 epidural steroid injections)
Social History
Tobacco: Non-smoker
Alcohol: Occasional
Drug: Marijuana (medical marijuana)
Personal:
Living: with family
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
Family History
Family History: Negative CAD
Medications
-
Medications:
Generic Name Dose Route Start Last Admin
Trade Name Freq PRN Reason Stop Dose Admin
Acetaminophen 650 mg 08/07/24 19:55 08/18/24 09:40
Acetaminophen 325 Mg Tablet PO 09/04/24 19:54 650 mg
Q6HPRN PRN Administration
mild pain/ fever>100.5F
Artificial Tears 1 drops 08/10/24 10:28 08/18/24 09:10
Artificial Tears Pf (Refresh) 10 Drop Droperette OPHTH 09/07/24 10:27 1 drops
QIDPRN PRN Administration
dry eyes
Bisacodyl 10 mg 08/18/24 16:31 08/19/24 23:26
Bisacodyl 10 Mg Rectal Suppository RECTAL 09/15/24 16:30 10 mg
DAILYPRN PRN Administration
constipation
Chlorhexidine Gluconate 15 ml 08/18/24 09:00 08/20/24 08:07
Chlorhexidine Oral Rinse 0.12% 15 Ml Cup PO 09/15/24 08:59 15 ml
P[facility] CAMELIA Administration
Docusate Sodium 100 mg 08/12/24 12:54
Docusate Sodium 100 Mg Capsule PO 09/09/24 12:53
BIDPRN PRN
STOOL SOFTENER
Duloxetine HCl 30 mg 08/18/24 10:00 08/20/24 08:08
Duloxetine Delayed Release 30 Mg Capsule PO 09/15/24 09:59 30 mg
DAILY CAMELIA Administration
Enoxaparin Sodium 40 mg 08/08/24 18:00 08/19/24 18:24
Enoxaparin Sodium 40 Mg/0.4 Ml Syringe SC 09/05/24 17:59 40 mg
QPM CAMELIA Administration
Hydromorphone HCl 1 mg 08/13/24 10:05 08/20/24 08:12
Hydromorphone 1 Mg/Ml Carpuject IV 08/25/24 11:18 1 mg
Q3HPRN PRN Administration
SEV PAIN, intractable to PO
Hydromorphone HCl 0.5 mg 08/13/24 10:05 08/19/24 11:57
Hydromorphone 0.5 Mg/0.5 Ml Syringe IV 08/25/24 11:19 0.5 mg
Q3HPRN PRN Administration
MOD PAIN, intractable to PO
Hydromorphone HCl 4 mg 08/17/24 12:00 08/20/24 05:06
Hydromorphone 4 Mg Tablet TUBE 08/31/24 11:59 4 mg
Q6 CAMELIA Administration
Ibuprofen 800 mg 08/20/24 08:15
Ibuprofen 800 Mg Tablet PO 09/17/24 08:14
QID CAMELIA
Lidocaine 1 patch 08/15/24 08:00 08/20/24 08:08
Lidocaine 4% Topical Patch TOPICAL 09/12/24 07:59 1 patch
DAILY CAMELIA Administration
Protocol
Lidocaine 1 patch 08/15/24 08:00 08/20/24 08:08
Lidocaine 4% Topical Patch TOPICAL 09/12/24 07:59 1 patch
DAILY CAMELIA Administration
Protocol
Liothyronine Sodium 5 microgram 08/13/24 16:00 08/20/24 08:12
Liothyronine 5 Microgram Tablet PO 09/10/24 15:59 5 microgram
BID@0800,1600 CAMELIA Administration
Lorazepam 0.5 mg 08/14/24 21:06 08/15/24 00:58
Lorazepam 2 Mg/Ml Vial IV 09/11/24 21:05 0.5 mg
Q4HPRN PRN Administration
anxiety
Synthroid (Brand 0 unit 08/09/24 06:00 08/20/24 05:06
Name Levothyroxine) PO 09/06/24 05:59 1 unit
125mcg Tablet - Take DAILY@0600 CAMELIA Administration
1/2 Tablet (62.5mcg
) Po Daily
Ondansetron HCl 4 mg 08/08/24 12:07 08/08/24 14:53
Ondansetron 4 Mg/2 Ml Vial IV 09/05/24 12:06 4 mg
Q6HPRN PRN Administration
NAUSEA/VOMITING
Oxycodone HCl 5 mg 08/13/24 10:04 08/18/24 09:41
Oxycodone 5 Mg Regular Release Tablet PO 08/27/24 10:03 5 mg
Q4HPRN PRN Administration
moderate to severe pain
Pantoprazole Sodium 40 mg 08/21/24 08:00
Protonix 40 Mg Iv Push IV 09/18/24 07:59
DAILY CAMELIA
Patch Removal 0 patch 08/15/24 20:00 08/19/24 20:33
Remove Lidocaine Patch REMOVE 09/12/24 19:59 2 patch
DAILY@2000 CAMELIA Administration
Polyethylene Glycol 17 grams 08/11/24 12:00 08/20/24 08:08
Polyethylene Glycol Powder 17 Grams Packet PO 09/08/24 11:59 17 grams
DAILY CAMELIA Administration
Pregabalin 200 mg 08/16/24 16:00 08/20/24 08:08
Pregabalin 100 Mg Capsule TUBE 09/13/24 15:59 200 mg
TID CAMELIA Administration
Senna/Docusate Sodium 1 tablet 08/16/24 20:00 08/20/24 08:07
Docusate W/Senna (Elisabeth-Colace) Tablet PO 09/13/24 19:59 1 tablet
BID CAMELIA Administration
Sennosides 8.6 mg 08/12/24 12:57
Sennosides (Senokot) 8.6 Mg Tablet PO 09/09/24 12:56
BIDPRN PRN
CONSTIPATION
Simethicone 80 mg 08/20/24 08:20
Simethicone (40 Mg/0.6 Ml) Drops 30 Ml Bottle TUBE 09/17/24 08:19
QID CAMELIA
Sodium Chloride 0 flush 08/07/24 21:00 08/13/24 18:53
Sodium Chloride 0.9% (Flush) Syringe IV 09/04/24 20:59 1 flush
PER PROTOCOL CAMELIA Administration
Sodium Chloride 0.25 ml 08/14/24 21:15
Nss (Pf) 10 Ml Vial For Ativan 0.5 Mg Dose IV 09/11/24 21:14
Q4HPRN PRN
IV LORAZEPAM DILUTION
Sodium Chloride 10 ml 08/21/24 08:00
Sodium Chloride 0.9% (Preservative Free) 10 Ml Vial IV 09/18/24 07:59
DAILY CAMELIA
Thiamine HCl 100 mg 08/15/24 12:00 08/20/24 08:07
Thiamine 100 Mg Tablet PO 09/12/24 11:59 100 mg
DAILY CAMELIA Administration
Valacyclovir HCl 500 mg 08/08/24 12:07 08/09/24 01:43
Valacyclovir Hcl 500 Mg Tablet PO 09/13/24 12:06 500 mg
DAILYPRN PRN Administration
fever blisters
[2024-08-20] MEDS: MYLICON DROPS 80 MG TUBE ×4 (10:27→22:40)
[2024-08-20] MEDS: MOTRIN 800 MG PO ×4 (10:27→22:39)
[2024-08-20] MEDS: PROTONIX IV 40 MG IV (10:28)
[2024-08-20] MEDS: NSS (PRESERVATIVE FREE) 10 ML IV (10:28)
[2024-08-20] MEDS: DURAGESIC 25 MCG/HR PATCH 1 PATCH TRANSDERM (11:32)
[2024-08-20] MEDS: LOVENOX 40 MG SC (18:07)
[2024-08-21] VITALS (11 sets, daily range): BP systolic 97–137; BP diastolic 29–75
[2024-08-21] MEDS: DILAUDID 1 MG IV ×2 (02:49→06:23)
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
[2024-08-21 06:32] LABS: % Basophils 0.5 % (0-2); % Eosinophils 3.2 % (0-6); % Immature Granulocytes 0.3 % (0-0.5); % Lymphocytes 17.9 % (20.5-51.1); % Monocytes 5.1 % (1.7-9.3); Absolute Basophils 0.1 10^3/uL (0-0.2); Absolute Eosinophils 0.3 10^3/uL (0-0.7); Absolute Lymphocytes 1.8 10^3/uL (1.2-3.4); Absolute Monocytes 0.5 10^3/uL (0.1-0.6); Absolute Neutrophils 7.4 10^3/uL (1.4-6.5); Hematocrit 36.3 % (37.0-47.0); Hemoglobin 12.2 g/dL (12.0-16.0); Mean Corp Hgb Conc. 33.6 g/dL (33.0-37.0); Mean Corpuscular Hgb 32.8 pg (27.0-31.0); Mean Corpuscular Volume 97.6 fL (81.0-99.0); Mean Platelet Volume 9.9 fL (7.4-10.4); Nucleated Red Blood Cells % 0 %; Platelet Count 257 10^3/uL (130-400); Red Blood Cell Count 3.72 10^6/uL (4.20-5.40); Red Cell Dist. Width 13.5 % (11.5-14.5); White Blood Cell Count 10.1 10^3/uL (4.8-10.8)
[2024-08-21 06:41] LABS: INR 0.97; PT 13.2 Sec (11.4-14.6)
[2024-08-21 06:42] LABS: Fibrinogen 369 MG/DL (199-459)
[2024-08-21 06:54] LABS: ALT (SGPT) 20 U/L (0-35); AST (SGOT) 24 U/L (14-36); Albumin 4.4 g/dl (3.5-5.0); Alkaline Phosphatase 37 U/L (38-126); Blood Urea Nitrogen 17 mg/dl (7-17); Calcium 9.3 mg/dl (8.4-10.2); Carbon Dioxide 34 mmol/L (22-30); Chloride 96 mmol/L (98-107); Estimated Creatinine Clearance 102 ml/min; Glucose 157 mg/dl (70-99); LDH 172 U/L (120-246); Magnesium 2.6 mg/dl (1.6-2.3); Phosphorus 4.3 mg/dl (2.5-4.5); Potassium 4.8 mmol/L (3.5-5.1); Sodium 136 mmol/L (135-145); Total Bilirubin 0.5 mg/dl (0.2-1.3); Total Protein 5.8 g/dl (6.3-8.2); eGFR > 60.00
[2024-08-21] MEDS: NON-FORMULARY ITEM 62.5 UNIT PO (08:09)
[2024-08-21] MEDS: PERIDEX 0.12% ORAL RINSE 15 ML PO ×4 (08:12→20:18)
[2024-08-21] MEDS: CYMBALTA DELAYED RELEASE 30 MG PO (08:12)
[2024-08-21] MEDS: LYRICA 200 MG TUBE ×3 (08:12→21:45)
[2024-08-21] MEDS: MOTRIN 800 MG PO ×4 (08:12→21:47)
[2024-08-21] MEDS: SENOKOT-S 1 TABLET PO ×2 (08:12→20:16)
[2024-08-21] MEDS: NSS (PRESERVATIVE FREE) 10 ML IV (08:13)
[2024-08-21] MEDS: PROTONIX IV 40 MG IV (08:13)
[2024-08-21] MEDS: MYLICON DROPS 80 MG TUBE ×4 (08:13→20:38)
--- NOTE | 2024-08-21 08:24 | W.PN.HOSP.TC ---
Today's Communication/Plan
-
Speech therapy follow-up
Assessment / Plan
Assessment / Plan
Gen-AAOx3, NAD
HEENT-NC, AT, anicteric, clear oral mm, left 6th nerve palsy
Neck-supple
CV-reg, no M, +S1/S2
Lungs-clear B/L
Abd-soft, NT, very mild distention
Ext-no edema
Musculoskeletal-no cyanosis, clubbing
Skin-warm and dry
Neuro-symmetrical paraplegia of lower extremities, moving upper extremities, able to mildly wiggle toes bilaterally
Psych-calm, cooperative
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 Left 6th nerve palsy noted. Having double vision with both eyes open.
- MRI imaging of spine (C/T/L with contrast) without evidence of any enhancing lesions, myelopathic signals.
- MRI brain: delayed images reveal Nodular focus of enhancement within the superior left cerebellar hemisphere, with a larger region of surrounding increased T2 and FLAIR signal. See above discussion regarding timing of contrast enhancement.
Etiology for this finding is uncertain. It could possibly represent neoplasia. A focus of demyelination could be considered. Vasculitis could also be considered. This could possibly be a vascular/venous anomaly, although the surrounding increased T2
and FLAIR signal is atypical.
- plan per Neurology is MRI brain with contrast repeat in 2 weeks
- s/p IVIG course without improvement, elevated LFTs
- s/p IR guided tunnel cath 08/10; completed 5 treatments of plasma exchange, last treatment 08/19.
- monitor VC/NIFs, pulm exams serially
- follow extended neuro workup from serum and CSF studies
Intractable pain syndrome -due to Guillain-Morgan�. Pain level remains at 9 out of 10. Continue IV Dilaudid as needed, increase to 1.5 mg every 3 hours as needed. Continue ibuprofen 800 g 4 times daily bcrpzw-aef-jrovn. Fentanyl patch 25 mcg
started 08/20.
She is already on maximum dose of pregabalin. Duloxetine started at 30 mg daily on 08/18, dose to be gradually increased.
She is moving her bowels but complaining of abdominal distention and bloating. Suspect due to Guillain-Morgan� syndrome. Continue bowel regimen, add simethicone.
Acute dysphagia -due to Guillain-Morgan� syndrome. Dobbhoff tube placed and tube feeds are running. Speech therapy recommends nonoral means of feeding. Teaspoon sips of mildly thick liquids. Upright to 90 degrees with full supervision. High risk
for aspiration. Video swallowing study completed 08/15.
May need PEG tube next week if she remains tube feed dependent. Discussed with patient. Cannot go to rehab with Dobbhoff tube. Speech therapy to reassess swallowing prior to decision on PEG tube.
Acute urinary retention -due to Guillain-Morgan� syndrome. Block catheter placed 08/15. Block catheter removed 08/20 morning, voiding trial. Bladder scan shows 472 cc, anticipate reinsertion of Block catheter. Discussed with patient and nurse.
Hyponatremia - improved.
Elevated LFTs -improved.
- suspected related to IVIG; trend
- has no abdominal discomfort
Chronic neck pain
Gabapentin changed to pregabalin by neurology. Monitor for sedation
Mild intermittent asthma - stable.
History of thyroid cancer - continue Cytomel and Synthroid (patient prefers brand name - is using her own supply). noted low TSH, normal T4
DVT ppx: Lovenox
Code: Full
Dispo -acute rehab when medically stable. May need PEG tube placement prior to discharge to rehab.
Anticipated Discharge: 24 - 48 hours
Subjective/Interval History
-
Date of Service: August 21, 2024
Patient seen and examined. Complaining of 9 out of 10 pain.
Objective Data
-
Labs:
Laboratory Results
08/21/24
06:15
WBC 10.1
Hgb 12.2
Hct 36.3 L
Plt Count 257
PT 13.2
INR 0.97
APTT 27.0
Sodium 136
Potassium 4.8
Chloride 96 L
Carbon Dioxide 34 H
BUN 17
Creatinine 0.5 L
Glucose 157 H
Calcium 9.3
Total Bilirubin 0.5
AST 24
ALT 20
Alkaline Phosphatase 37 L
Vital Signs:
Vital Signs
Temp Pulse Resp BP Pulse Ox
97.7 F 89 11 97/50 93
08/21/24 03:17 08/21/24 04:00 08/21/24 04:00 08/21/24 02:00 08/21/24 04:00
I&O
08/20/24 08/21/24 08/22/24
06:59 06:59 06:59
Intake Total 1330 / 1330
Output Total 250 / 250 2875 / 2875
Balance -250 / -250 -1545 / -1545
Review of Systems
-
History Source: Patient
All other systems: Reviewed and negative
--- NOTE | 2024-08-21 08:29 | W.PN.NEURO.1 ---
Today's Communication / Plan
-
Continue pregabalin 200 mg 3x/day
Started Duloxetine 30 mg daily for discomfort control
Continue newly initiated fentanyl patch, would consider increase after 72 hours of start as replacement therapy long-term for patient's routine pain regimen
Follow-up brain MRI with and without kishore on 08/23/24
Neuro Assessment/Plan
Assessment
I. 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 Patient received 3 doses of IVIG then switched to plasma exchange treatment due to elevated LFTs. Positive GD1b antibodies (found in patients with Guillain-Morgan� syndrome and multifocal
motor neuropathy); NCS/EMG concurs with GBS
II. Left cerebellar lesion. Differential diagnosis includes demyelinating lesion or metabolic abnormality or low grade neoplastic vs vascular vs inflammatory vs less likely infectious etiologies
Cytology has been unremarkable, oligoclonal bands negative, no white blood cells in CSF
Completed plasma exchange, underwent fifth treatment of 5 on August 19, 2024
Plan
Continue pregabalin 200 mg 3x/day
Started Duloxetine 30 mg daily for discomfort control
Continue newly initiated fentanyl patch, would consider increase after 72 hours of start as replacement therapy long-term for patient's routine pain regimen
Follow-up brain MRI with and without kishore on 08/23/24
Rehab evaluations
Will follow
Subjective/Objective
Subjective Data
Date of Service: August 21, 2024
Improved. Pain control fair.
Objective Data
Vital Signs
Temp Pulse Resp BP Pulse Ox
36.5 C 89 11 97/50 93
08/21/24 03:17 08/21/24 04:00 08/21/24 04:00 08/21/24 02:00 08/21/24 04:00
Lab Results
08/21/24 06:15
08/21/24 06:15
PT 13.2 Sec (11.4-14.6) 08/21/24 06:15
INR 0.97 08/21/24 06:15
APTT 27.0 Sec (23.4-35.0) 08/21/24 06:15
Sodium 136 mmol/L (135-145) 08/21/24 06:15
Potassium 4.8 mmol/L (3.5-5.1) 08/21/24 06:15
BUN 17 mg/dl (7-17) 08/21/24 06:15
Glucose 157 mg/dl (70-99) H 08/21/24 06:15
Calcium 9.3 mg/dl (8.4-10.2) 08/21/24 06:15
Phosphorus 4.3 mg/dl (2.5-4.5) 08/21/24 06:15
Whole Bld Vitamin B1 117 nmol/L (70-180) 08/08/24 07:47
Whole Bld Vitamin B1 Cancelled 08/08/24 07:47
Vitamin B12 563 pg/ml (239-931) 08/08/24 07:47
Vitamin B12 Cancelled 08/08/24 07:47
Patient Allergies
adhesive Allergy (Verified 08/17/24 23:05)
BANDAIDS-RASH/ITCHING
aspirin [Aspirin] Allergy (Verified 08/17/24 23:05)
GI upset/NAUSEA
strawberry Allergy (Verified 08/07/24 14:51)
Swelling
Review of Systems
-
History Source: Patient
All other systems: Reviewed and negative
EENT: Swallowing Difficulty (improving) and Other (diplopia); Negative Decreased Vision
Respiratory: Negative Trouble Breathing
Cardiac: Negative Chest Pain
Abdomen/GI: Constipated; Negative Incontinence of Stool
Genitourinary: Difficulty Voiding; Negative Incontinence
Musculoskeletal: Back Pain and Neck Pain
Neuro: Dizzy (with movement); Negative Headache
Physical Exam
-
General: No Apparent Distress, Appears Stated Age and Other (Dobbhoff tube in nares)
Eyes: Round OU and [place] Conjunctivae
HEENT: Anicteric and Moist Mucous Membranes
Neck: Full Range of Motion
Respiratory: No Dyspnea
Cardiac: No JVD
GI: Non-distended
Skin: Unremarkable
Extremities: No Clubbing, No Cyanosis and No Edema
Psych: Intact Judgement/Insight
Extended Neurological Exam
Mood & Affect: Other (Somatic)
Attention Span & Concentration: Awake, Alert, Interactive, No Difficulty with 2 Step Request and Other (No difficulty with single step requests or recall)
Memory: Unremarkable
Tremor: Hand Tremor Absent and Head Tremor Absent
Involuntary Movement: None
Speech: Quantity Unremarkable and Other (Minimally thick)
Cranial Nerve II: Left Eye: Pupillary Size Unremarkable and Visual Rob[place]o Grossly Intact
Cranial Nerve II: Right Eye: Pupillary Size Unremarkable and Visual Rob[place]o Grossly Intact
Cranial Nerves III, IV, : Extraocular Movement: Otherwise Unremarkable and Other (Left lateral rectus paralysis)
Cranial Nerve VII: Facial Symmetry: Reduced (Minimally bilaterally, greater movement on the right)
Cranial Nerve VIII: Hearing: Unremarkable Hearing to Normal Conversational Volume
Muscle Strength, Overall: Reduced (upper extremities able to lift bilateral arms off of bed greater than 5 seconds; 1 out of 5 movement distally in bilateral lower extremities) and Other (neck extensors 4/5, flexors 4/5)
Muscle Bulk & Tone: Bulk Unremarkable and Tone Unremarkable
Coordination: Reaches for Objects without Difficulty
Gait & Station: Unable to Assess
Data Reviewed
-
Reviewed with: Patient
Old Records: Summarized
Past History
Past History
ED Past Medical History: Asthma, Cancer (Papillary thyroid 2018), GERD, Hypercholesterolemia, Hypothyroidism, Psychiatric and Other (Celiac disease, vitamin D deficiency, iron deficiency, hepatic steatosis, hemorrhoids, Guillain-Morgan� syndrome)
ED Past Surgical History: , Gynecological (uterine ablation, tubal ligation), Tonsilectomy and Other (Epidural steroid injections C7-T1 2018, 2019 L5-S1 epidural steroid injections)
Social History
Tobacco: Non-smoker
Alcohol: Occasional
Drug: Marijuana (medical marijuana)
Personal:
Living: with family
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
Family History
Family History: Negative CAD
Medications
-
Medications:
Generic Name Dose Route Start Last Admin
Trade Name Freq PRN Reason Stop Dose Admin
Acetaminophen 650 mg 08/07/24 19:55 08/18/24 09:40
Acetaminophen 325 Mg Tablet PO 09/04/24 19:54 650 mg
Q6HPRN PRN Administration
mild pain/ fever>100.5F
Artificial Tears 1 drops 08/10/24 10:28 08/18/24 09:10
Artificial Tears Pf (Refresh) 10 Drop Droperette OPHTH 09/07/24 10:27 1 drops
QIDPRN PRN Administration
dry eyes
Bisacodyl 10 mg 08/18/24 16:31 08/19/24 23:26
Bisacodyl 10 Mg Rectal Suppository RECTAL 09/15/24 16:30 10 mg
DAILYPRN PRN Administration
constipation
Chlorhexidine Gluconate 15 ml 08/18/24 09:00 08/21/24 08:12
Chlorhexidine Oral Rinse 0.12% 15 Ml Cup PO 09/15/24 08:59 15 ml
P[facility]S CAMELIA Administration
Docusate Sodium 100 mg 08/12/24 12:54
Docusate Sodium 100 Mg Capsule PO 09/09/24 12:53
BIDPRN PRN
STOOL SOFTENER
Duloxetine HCl 30 mg 08/18/24 10:00 08/21/24 08:12
Duloxetine Delayed Release 30 Mg Capsule PO 09/15/24 09:59 30 mg
DAILY CAMELIA Administration
Enoxaparin Sodium 40 mg 08/08/24 18:00 08/20/24 18:07
Enoxaparin Sodium 40 Mg/0.4 Ml Syringe SC 09/05/24 17:59 40 mg
QPM CAMELIA Administration
Fentanyl 1 patch 08/20/24 11:00 08/20/24 11:32
Fentanyl 25 Mcg/Hr Patch TRANSDERM 09/03/24 10:59 1 patch
Q72H CAMELIA Administration
Hydromorphone HCl 0.5 mg 08/13/24 10:05 08/19/24 11:57
Hydromorphone 0.5 Mg/0.5 Ml Syringe IV 08/25/24 11:19 0.5 mg
Q3HPRN PRN Administration
MOD PAIN, intractable to PO
Hydromorphone HCl 1.5 mg 08/21/24 08:23
Hydromorphone 1 Mg/Ml Carpuject IV 08/25/24 11:18
Q3HPRN PRN
severe pain
Ibuprofen 800 mg 08/20/24 08:15 08/21/24 08:12
Ibuprofen 800 Mg Tablet PO 09/17/24 08:14 800 mg
QID CAMELIA Administration
Lidocaine 1 patch 08/15/24 08:00 08/20/24 08:08
Lidocaine 4% Topical Patch TOPICAL 09/12/24 07:59 1 patch
DAILY CAMELIA Administration
Protocol
Lidocaine 1 patch 08/15/24 08:00 08/20/24 08:08
Lidocaine 4% Topical Patch TOPICAL 09/12/24 07:59 1 patch
DAILY CAMELIA Administration
Protocol
Liothyronine Sodium 5 microgram 08/13/24 16:00 08/20/24 16:06
Liothyronine 5 Microgram Tablet PO 09/10/24 15:59 5 microgram
BID@0800,1600 CAMELIA Administration
Lorazepam 0.5 mg 08/14/24 21:06 08/15/24 00:58
Lorazepam 2 Mg/Ml Vial IV 09/11/24 21:05 0.5 mg
Q4HPRN PRN Administration
anxiety
Synthroid (Brand 0 unit 08/09/24 06:00 08/21/24 08:09
Name Levothyroxine) PO 09/06/24 05:59 62.5 unit
125mcg Tablet - Take DAILY@0600 CAMELIA Administration
1/2 Tablet (62.5mcg
) Po Daily
Ondansetron HCl 4 mg 08/08/24 12:07 08/08/24 14:53
Ondansetron 4 Mg/2 Ml Vial IV 09/05/24 12:06 4 mg
Q6HPRN PRN Administration
NAUSEA/VOMITING
Pantoprazole Sodium 40 mg 08/20/24 10:24 08/21/24 08:13
Protonix 40 Mg Iv Push IV 09/17/24 10:23 40 mg
DAILY CAMELIA Administration
Patch Removal 0 patch 08/15/24 20:00 08/20/24 22:39
Remove Lidocaine Patch REMOVE 09/12/24 19:59 2 patch
DAILY@2000 CAMELIA Administration
Patch Removal 0 patch 08/23/24 11:00
Remove Fentanyl Patch REMOVE 09/06/24 10:59
Q72H CAMELIA
Polyethylene Glycol 17 grams 08/11/24 12:00 08/20/24 08:08
Polyethylene Glycol Powder 17 Grams Packet PO 09/08/24 11:59 17 grams
DAILY CAMELIA Administration
Pregabalin 200 mg 08/16/24 16:00 08/21/24 08:12
Pregabalin 100 Mg Capsule TUBE 09/13/24 15:59 200 mg
TID CAMELIA Administration
Senna/Docusate Sodium 1 tablet 08/16/24 20:00 08/21/24 08:12
Docusate W/Senna (Elisabeth-Colace) Tablet PO 09/13/24 19:59 1 tablet
BID CAMELIA Administration
Sennosides 8.6 mg 08/12/24 12:57
Sennosides (Senokot) 8.6 Mg Tablet PO 09/09/24 12:56
BIDPRN PRN
CONSTIPATION
Simethicone 80 mg 08/20/24 08:20 08/21/24 08:13
Simethicone (40 Mg/0.6 Ml) Drops 30 Ml Bottle TUBE 09/17/24 08:19 80 mg
QID CAMELIA Administration
Sodium Chloride 0 flush 08/07/24 21:00 08/13/24 18:53
Sodium Chloride 0.9% (Flush) Syringe IV 09/04/24 20:59 1 flush
PER PROTOCOL CAMELIA Administration
Sodium Chloride 0.25 ml 08/14/24 21:15
Nss (Pf) 10 Ml Vial For Ativan 0.5 Mg Dose IV 09/11/24 21:14
Q4HPRN PRN
IV LORAZEPAM DILUTION
Sodium Chloride 10 ml 08/20/24 10:24 08/21/24 08:13
Sodium Chloride 0.9% (Preservative Free) 10 Ml Vial IV 09/17/24 10:23 10 ml
DAILY CAMELIA Administration
Valacyclovir HCl 500 mg 08/08/24 12:07 08/09/24 01:43
Valacyclovir Hcl 500 Mg Tablet PO 09/13/24 12:06 500 mg
DAILYPRN PRN Administration
fever blisters
[2024-08-21] MEDS: CYTOMEL 5 MICROGRAM PO ×2 (08:57→16:51)
[2024-08-21] MEDS: LIDOCAINE 4% PATCH 1 PATCH TOPICAL ×2 (08:58)
[2024-08-21] MEDS: MIRALAX 17 GRAMS PO ×2 (08:58→20:17)
[2024-08-21] MEDS: DILAUDID 1.5 MG IV ×4 (09:57→23:31)
--- NOTE | 2024-08-21 10:03 | W.PN.PUL3 ---
Today's Communication / Plan
-
Doing well, stable on RA
Respiratory function appears overall stable, continue monitoring per RT
She has PT/OT evals, PM&R following
Speech to follow to advance PO trials, for now DHT remains
Completed her IV treatments per Neuro and s/p PLEX sessions x5
Pain control
Encourage IS q1hr while awake
Likely can assess for d/c planning to [place]
Pulmonary service will continue to briefly follow along
Assessment
-
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
Guillain-Morgan� syndrome and transferred to ICU-teacher citizenship consulted for Guillain-Morgan� syndrome/critical care management 08/09/2024.
Impression:
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
Left cerebellar lesion
Acute urinary retention s/p Block (inserted 08/14/2024)
Conditions present prior to admission:
Asthma-mild intermittent.
Papillary thyroid cancer 2018.
Hypothyroid.
Hyperlipidemia.
Anxiety.
. Tubal ligation. Tonsillectomy. Thyroidectomy. Cholecystectomy.
Plan
Currently 95% on RA
Supplemental oxygen as needed-currently on room air and breathing comfortably
Incentive spirometry encouraged
Aspiration precautions
Nebulizers if needed-history of asthma-currently not bronchospastic
Adm for acute neurologic decompensation requiring ICU adm 08/09/24
Triggers include previous infections including Campylobacter jejunum and viral infections including influenza A, B, CMV, COVID 19, Zika, and EBV
Also possibly due to vaccinations including influenza (1-2/1 million), RSV, zoster, COVID-19 especially adenovirus factors though noted with messenger RNA vaccines as well
Typical presentation includes lower extremity weakness, decreased deep tendon reflexes, paresthesias and dysautonomia's
Neurology is following
Monitor muscle strength and forced vital capacity
08/09/2024-FVC-1.6 L-predicted 2.9 and MIP 35
08/10/2024-FVC 1.5 L-predicted 2.9 and MIP 30
08/11/2024-FVC 1.6 L-predicted 2.9 and MIP 32
08/12/2024-FVC 1.7 L
Continue to monitor pulse oximetry, work of breathing, and MIP + vital capacity q shift
As long as her MIP + VC remain stable, she is saturating >90% and she has no increased work of breathing, no need for mechanical ventilation
If she does start to develop respiratory failure then would check ABG and transition her to BiPAP to assist her ventilation, and consider ENT consult for evaluation for tracheostomy
Neurology evaluation ongoing-correspondence reviewed
Lumbar puncture on 08/08/2024 showed: total protein 56 and 0 WBC
Vitamin B12: 563, B1: 117, SHERRY level: <10, CSF Lyme PCR: Not detected, CSF SHERRY level: 1.8; SPEP: No M-spike seen; CRP: <5, copper level: 113.4
ESR and CRP normal-unlikely vasculitis
TRENA detected, homogenous pattern with 1:80 titer
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
Initial treatment-IVIG 0.4 mg/kg/day-finished 5 out of 5-changed to plasma exchange due to elevated LFTs
Plasma exchange began 08/11/2024-every other day for total 5 doses-underwent 4th session AM of 08/17/2024; her last PLEX was on 08/19/2024
Hematology consultation/[place] consulted for plasma exchange
NCS/EMGs in 3 weeks
On 08/15/2024 her Neurontin was changed to lyrica 100mg BID--> on 08/16/2024 Neuro raised lyrica to 200mg TID
Now back on ibuprofen 800 mg QID, toradol DC'd; Tylenol DC'd; prn IV hydromorphone
Fentanyl patch started 08/20; prn ativan
Cymbalta started 08/18/2024 by neurology
Bowel regimen while on opiates
Trend LFTs
DVT prophylaxis-on Lovenox and mechanicals
Nutrition with aspiration precautions --> SOFTWARE QUALITY ANALYST performed modified barium swallow study on 08/15/2024 showing no fluoroscopic evidence for airway aspiration
SOFTWARE QUALITY ANALYST continuing to follow along
Physical and Occupational Therapy evals ongoing
Dr. Cooper reviewed with patient's father in regards to current diagnosis, prognosis and treatment plan on 08/17/2024
We will continue to briefly follow along.
Diagnostic Data
Chest x-ray 07/04/2024-NAD
Modified barium swallow study 08/15/2024: No fluoroscopic evidence for airway aspiration.
Brain MRI 08/09/2024-nodular focus of enhancement superior left cerebellar hemisphere etiology uncertain, neoplasia possible, demyelination could be considered, vasculitis could be considered, diffuse fatty atrophy of the right parotid gland
Cervical spine MRI 08/09/24-5 mm well-defined focus of enhancement in the lateral margin of the [id number], mild to moderate changes of DJD unchanged from 2024, slight anterior cord compression at C5-6
Thoracic spine MRI 08/10/2024-no abnormal enhancement to suggest acute myelopathy
Lumbar spine MRI 08/10/2024-mild degenerative changes and mild bilateral neural foraminal stenosis L4-5 and L5-6 1, no abnormal enhancement
-----
Total time spent today was 39 minutes for this encounter. Time includes reviewing laboratory test/imaging results, reviewing pertinent medical records, obtaining and reviewing medical history, performing an appropriate exam, ordering medications,
tests and procedures. Time also includes documentation of this encounter, coordinating patient care and communicating with other healthcare professionals. Total time does not include separately billed tests performed on this date of service.
Subjective Data
-
Date of Service:
Date of Service: August 21, 2024
Chief Complaint: Pulmonary Follow Up
Subjective:
Patient seen and evaluated this morning (late note entry). She feels well, currently on room air breathing comfortably. MIP last night was 25 cmH2O with vital capacity 50% predicted. Currently saturating 95% with HR 78 and BP 120/75. She denies
any shortness of breath or cough.
Review of Systems
General: Other (Negative unless mentioned above)
Objective Data
Data Reviewed
Vital Signs / I&O / Oxygen:
Vital Signs
Temp Pulse Resp BP Pulse Ox
98.0 F 89 11 97/50 93
08/21/24 07:25 08/21/24 04:00 08/21/24 04:00 08/21/24 02:00 08/21/24 04:00
Intake and Output
08/20/24 08/21/24 08/22/24
06:59 06:59 06:59
Intake Total 1330 / 1330
Output Total 250 / 250 2875 / 2875
Balance -250 / -250 -1545 / -1545
SaO2 93
Physical Exam
General: Respiratory Distress (negative), Comfortable and Other (NAD)
HEENT: Normocephalic, Anicteric and Moist Mucous Membranes
Cardiovascular: S1-S2 and Peripheral Edema (negative)
Respiratory: Clear, Wheeze (negative), Crackles (negative), Rhonchi (negative) and Non-Labored Respirations
GI: Soft, Non Distended, Non Tender and NG Tube (Dobbhoff tube)
Neurology: Awake, Alert, Oriented, Tremors (negative) and Other (generalized weakness noted)
Skin: Warm, Dry, Cyanosis (negative) and Jaundice (negative)
Labs/Micro/Reports
Lab Data
08/21/24 06:15
08/21/24 06:15
Laboratory Results
08/21/24
06:15
PT 13.2
INR 0.97
APTT 27.0
--- NOTE | 2024-08-21 12:32 | RESPNOTE ---
pt unable to do nif/vc at this time. pt received pain meds and is drowsy. will attempt later in shift
[2024-08-21] MEDS: RELISTOR 12 MG SC (13:37)
--- NOTE | 2024-08-21 16:10 | PTOTSP ---
ST Follow-Up
Pt continues to present with clinical signs of at least mild oropharyngeal dysphagia and an elevated risk for aspiration as evidenced by significant oral and pharyngeal impairments identified on pt's VFSS last week. Pt would benefit from an updated
instrumental swallow study to determine if pt is a candidate for resuming PO intake.
Recommendations:
- Continue with NPO except mildly thick liquids via tsp for pleasure; all nutrition via dobhoff tube; meds crush via dobhoff tube or crushed in mildly thick liquids via tsp.
- Aspiration precautions: HOB upright for all PO intake; oral care QID with suctioning as needed.
- Repeat videofluoroscopic swallow study RENETTA to determine if pt is a candidate to resume PO intake.
- FLATTENING MACHINE OPERATOR to provide updated recommendations upon completion of VFSS.
--- NOTE | 2024-08-21 16:17 | PTCARENOTE ---
small bore feeding tube inserted R nare tolerated well. 65 cm. air bolus quiet, xray pending.
[2024-08-21] MEDS: LOVENOX 40 MG SC (16:51)
--- NOTE | 2024-08-21 18:36 | PTCARENOTE ---
Rec'd pt this AM. Vital signs stable. RN spent a lot of time with Pt in efforts to improve comfort levels. Pt with extreme pain and discomfort throughout the day despite mutlipe repositioning. Dilaudid increased and pt did get some relief. DHT was
replaced after clogging and TF resumed. Pt's swallowing abilities are improving. Tolerating thickened liquids. appears more comfortable at the end of dayshift.
[2024-08-21] MEDS: REFRESH EYE DROPS (PF) 1 DROPS OPHTH (20:17)
[2024-08-22] VITALS (11 sets, daily range): BP systolic 103–143; BP diastolic 52–110; PULSE 74–75; O2SAT 94
[2024-08-22] MEDS: DILAUDID 1.5 MG IV ×7 (03:07→23:39)
--- NOTE | 2024-08-22 06:35 | PTCARENOTE ---
Patient repositioned throughout the night. pt calling for pain medication q3 hours. reports pain is 9/10 to 10/10 to back, legs/groin/ abd/ nerve pain. small BM smear on pad, passing gas but still reports feeling constipated and bloated. hyperactive
BS. TF via DHT; no residual. denies nausea. tolerating liquid diet. traylor draining cloudy yellow urine. oral care done. NSR on tele. utilizes Jemima independently. CB and tray table within reach. Pt appreciative of care. plan for VSE today.
--- NOTE | 2024-08-22 09:06 | CM ---
Patient with Dx Guillain-Morgan� syndrome. Plan MRI Brain 08/23. Room air. Receiving IV Dilaudid prn, Duragesic Patch. ST for dysphagia. Clears/DHT/Jevity tube feeds. Noting plan possible PEG. Mckayla. PT/OT recommend [facility]. PMR Consult 08/17
recommends acute rehab.
Spoke with [facility]; they are able to accept the patient once the patient no longer has a DHT for tube feeds/PEG is placed. An insurance auth is not needed, as the patient has [employer] and [facility] is affiliated with
[facility]- they can accept and will have approval.
Plan follow patient's nutrition source - DHT vs PEG.
Plan [facility] when medically ready.
[2024-08-22] MEDS: NON-FORMULARY ITEM 1 UNIT PO (09:19)
[2024-08-22] MEDS: SENOKOT-S 1 TABLET PO ×2 (09:28→22:17)
[2024-08-22] MEDS: MIRALAX 17 GRAMS PO ×2 (09:28→22:17)
[2024-08-22] MEDS: CYMBALTA DELAYED RELEASE 30 MG PO (09:28)
[2024-08-22] MEDS: CYTOMEL 5 MICROGRAM PO ×2 (09:28→15:42)
[2024-08-22] MEDS: MOTRIN 800 MG PO ×3 (09:28→22:17)
[2024-08-22] MEDS: LYRICA 200 MG TUBE ×3 (09:29→22:17)
[2024-08-22] MEDS: LIDOCAINE 4% PATCH 1 PATCH TOPICAL ×2 (09:29)
--- NOTE | 2024-08-22 09:29 | W.PN.PUL3 ---
Today's Communication / Plan
-
Cont. with current care.
can stop monitoring MIP and FVC as long as she continues to improve clinically.
Please call with questions.
Assessment
-
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
Guillain-Morgan� syndrome and transferred to ICU-laborer [employer] consulted for Guillain-Morgan� syndrome/critical care management 08/09/2024.
Impression:
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
Left cerebellar lesion
Acute urinary retention s/p Block (inserted 08/14/2024)
Conditions present prior to admission:
Asthma-mild intermittent.
Papillary thyroid cancer 2018.
Hypothyroid.
Hyperlipidemia.
Anxiety.
. Tubal ligation. Tonsillectomy. Thyroidectomy. Cholecystectomy.
Plan
Not requiring supplemental O2
Supplemental oxygen as needed-currently on room air and breathing comfortably
strong cough effort
Clear voice
Able to lift arms without much effort.
Incentive spirometry encouraged
Aspiration precautions- HOB, DHT in place, TF at goal.
-
Neurology is following
Overall muscle strength improved. No impending resp. failure.
Monitor muscle strength and forced vital capacity
08/09/2024-FVC-1.6 L-predicted 2.9 and MIP 35
08/10/2024-FVC 1.5 L-predicted 2.9 and MIP 30
08/11/2024-FVC 1.6 L-predicted 2.9 and MIP 32
08/12/2024-FVC 1.7 L
08/22/2024-FVC 1.45L-(50%) and MIP -30
Continue to monitor pulse oximetry, work of breathing, and MIP + vital capacity q day.
May stop monitoring today, as long as muscle weakness continues to improve.08/22/2024.
-
As long as her MIP + VC remain stable, she is saturating >90% and she has no increased work of breathing, no need for mechanical ventilation
If she does start to develop respiratory failure then would check ABG and transition her to BiPAP to assist her ventilation, and consider ENT consult for evaluation for tracheostomy
Neurology evaluation ongoing-correspondence reviewed
Lumbar puncture on 08/08/2024 showed: total protein 56 and 0 WBC
Vitamin B12: 563, B1: 117, SHERRY level: <10, CSF Lyme PCR: Not detected, CSF SHERRY level: 1.8; SPEP: No M-spike seen; CRP: <5, copper level: 113.4
ESR and CRP normal-unlikely vasculitis
TRENA detected, homogenous pattern with 1:80 titer
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
Initial treatment-IVIG 0.4 mg/kg/day-finished 5 out of 5-changed to plasma exchange due to elevated LFTs
Plasma exchange began 08/11/2024-every other day for total 5 doses-underwent 4th session AM of 08/17/2024; her last PLEX was on 08/19/2024
Hematology consultation/[facility] consulted for plasma exchange
NCS/EMGs in 3 weeks
Neuropathic pain. Seems to be tolerating narcotics.
On 08/15/2024 her Neurontin was changed to lyrica 100mg BID--> on 08/16/2024 Neuro raised lyrica to 200mg TID
Now back on ibuprofen 800 mg QID, toradol DC'd; Tylenol DC'd; prn IV hydromorphone
Fentanyl patch started 08/20; prn ativan
Cymbalta started 08/18/2024 by neurology
DVT prophylaxis-on Lovenox and mechanicals
Nutrition with aspiration precautions --> NETWORK SECURITY OFFICER performed modified barium swallow study on 08/15/2024 showing no fluoroscopic evidence for airway aspiration
NETWORK SECURITY OFFICER continuing to follow along
Physical and Occupational Therapy evals ongoing
Dr. Cooper reviewed with patient's father in regards to current diagnosis, prognosis and treatment plan on 08/17/2024
-
No additional recommendations from the pulmonary perspective, please call back if there is any concerns for respiratory decompensation.
Will sign off.
-
Diagnostic Data
Chest x-ray 07/04/2024-NAD
Modified barium swallow study 08/15/2024: No fluoroscopic evidence for airway aspiration.
Brain MRI 08/09/2024-nodular focus of enhancement superior left cerebellar hemisphere etiology uncertain, neoplasia possible, demyelination could be considered, vasculitis could be considered, diffuse fatty atrophy of the right parotid gland
Cervical spine MRI 08/09/24-5 mm well-defined focus of enhancement in the lateral margin of the [id number], mild to moderate changes of DJD unchanged from 2024, slight anterior cord compression at C5-6
Thoracic spine MRI 08/10/2024-no abnormal enhancement to suggest acute myelopathy
Lumbar spine MRI 08/10/2024-mild degenerative changes and mild bilateral neural foraminal stenosis L4-5 and L5-6 1, no abnormal enhancement
-----
Subjective Data
-
Date of Service:
Date of Service: August 22, 2024
Chief Complaint: Pulmonary Follow Up
Objective Data
Data Reviewed
Vital Signs / I&O / Oxygen:
Vital Signs
Temp Pulse Resp BP Pulse Ox
97.7 F 70 15 125/52 97
08/22/24 04:21 08/22/24 06:15 08/22/24 06:15 08/22/24 06:15 08/22/24 06:15
Intake and Output
08/21/24 08/22/24 08/23/24
06:59 06:59 06:59
Intake Total 1330 / 1330
Output Total 2875 / 2875 1400 / 1400
Balance -1545 / -1545 -1400 / -1400
SaO2 97
Physical Exam
General: Respiratory Distress (negative), Comfortable and Other (NAD)
HEENT: Normocephalic, Anicteric and Moist Mucous Membranes
Cardiovascular: S1-S2 and Peripheral Edema (negative)
Respiratory: Clear, Wheeze (negative), Crackles (negative), Rhonchi (negative) and Non-Labored Respirations
GI: Soft, Non Distended, Non Tender and NG Tube (Dobbhoff tube)
Neurology: Awake, Alert, Oriented, Tremors (negative) and Other (generalized weakness noted)
Skin: Warm, Dry, Cyanosis (negative) and Jaundice (negative)
Labs/Micro/Reports
Lab Data
08/21/24 06:15
08/21/24 06:15
[2024-08-22] MEDS: NSS (PRESERVATIVE FREE) 10 ML IV (09:30)
[2024-08-22] MEDS: MYLICON DROPS 80 MG TUBE ×4 (09:30→22:21)
[2024-08-22] MEDS: PERIDEX 0.12% ORAL RINSE 15 ML PO ×4 (09:30→22:17)
[2024-08-22] MEDS: PROTONIX IV 40 MG IV (09:30)
--- NOTE | 2024-08-22 10:16 | PTCARENOTE ---
Pt given pain meds and then ransported to VSE test
--- NOTE | 2024-08-22 10:26 | W.PN.NEURO.1 ---
Today's Communication / Plan
-
.
Subjective/Objective
Subjective Data
Date of Service: August 22, 2024
Neurology follow-up note
24-hour events: Mr. Nevarez endorses significant improvement in her upper extremity strength. She continues to have dysphagia holding her acute rehab transfer. Barium swallow�pending. No reports of headaches.
Mr. Nevarez continues to have leg pain requiring opioid therapy.
Brain MRI with gadolinium(08/09/2024)nodular focus of enhancement within the superior left cerebellar hemisphere, with a larger region of surrounding increased T2 and FLAIR signal, new from 2007. No cranial nerve enhancement.
Labs: GD1b�ab 145(0-50).
CSF(08/08/2024) cytology-neg, OCB/MBP-neg.
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
ADD,
PSH: total thyroidectomy, cholecystectomy, , tubal ligation, tonsillectomy
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
All: Aspirin
Eyes: Positive for diplopia
Respiratory: Negative for shortness of breath.
Cardiovascular: Negative for chest pain, palpitations and leg swelling.
Gastrointestinal: Positive for dysarthria and dysphagia.
Genitourinary: Negative for dysuria, flank pain and urgency.
Musculoskeletal: Positive for leg pain
Allergic/Immunologic: Negative. Negative for immunocompromised state.
Neurological: Positive for leg/arm weakness, paresthesias, dysphagia, diplopia with left lateral gaze, negative for dyspnea, dysarthria.
General: Well developed. In no acute distress.
Cardio: Regular rate and rhythm. Extremities are without cyanosis or edema.
Neuro:
Mental Status: Awake, oriented to person, place, person. Mildly impaired attention and comprehension. No aphasia or hemineglect
Cranial Nerves: Pupils are equally round and reactive to light. EOMs full. Left abduction paresis. No nystagmus. No eye closure weakness. Normal hearing AU. The palate elevated well. SCMs and traps 5/5. Tongue midline. No dysarthria.
Motor: Bilateral deltoids, triceps and biceps 4- out of 5, 0/5 hip flexors, knee extensors, dorsiflexion 0/5, plantarflexion�3/5. Neck flexors-4+/5, neck extensors 5/5
Reflexes: 0+ throughout the upper extremities and 0 knee. AJs, Plantar responses flexor bilaterally.
Sensory: Reduced vibration at bilateral ankles.
Coordination: Unable.
Gait: unable
Assessment and Plan:
I. 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 Status post 3 doses of IVIG and 5 PLEX treatments. Positive GD1b ab, clinically improved.
II. Left cerebellar lesion.
III. Mild toxic encephalopathy
-Aspiration precautions
-NCS/EMG of LUE/LE next week
-Pain management as primary team
-Brain MRI w/wo aishwarya
-DVT prophylaxis.
I personally reviewed all radiology and labs along with past medical records pertinent to current medical problems. Total time spent in patient care is 45 minutes.
Thank you for allowing us to participate in the care of this patient. We will continue to follow. Please do not hesitate to contact us with any questions or concerns
Objective Data
Vital Signs
Temp Pulse Resp BP Pulse Ox
36.5 C 87 22 122/110 95
08/22/24 04:21 08/22/24 10:00 08/22/24 10:00 08/22/24 10:00 08/22/24 10:00
Lab Results
08/21/24 06:15
08/21/24 06:15
PT 13.2 Sec (11.4-14.6) 08/21/24 06:15
INR 0.97 08/21/24 06:15
APTT 27.0 Sec (23.4-35.0) 08/21/24 06:15
Sodium 136 mmol/L (135-145) 08/21/24 06:15
Potassium 4.8 mmol/L (3.5-5.1) 08/21/24 06:15
BUN 17 mg/dl (7-17) 08/21/24 06:15
Glucose 157 mg/dl (70-99) H 08/21/24 06:15
Calcium 9.3 mg/dl (8.4-10.2) 08/21/24 06:15
Phosphorus 4.3 mg/dl (2.5-4.5) 08/21/24 06:15
Whole Bld Vitamin B1 117 nmol/L (70-180) 08/08/24 07:47
Whole Bld Vitamin B1 Cancelled 08/08/24 07:47
Vitamin B12 563 pg/ml (239-931) 08/08/24 07:47
Vitamin B12 Cancelled 08/08/24 07:47
Patient Allergies
adhesive Allergy (Verified 08/17/24 23:05)
BANDAIDS-RASH/ITCHING
aspirin [Aspirin] Allergy (Verified 08/17/24 23:05)
GI upset/NAUSEA
strawberry Allergy (Verified 08/07/24 14:51)
Swelling
Vital Signs and Labs
-
Vital Signs and Labs:
Vital Signs
Temp Pulse Resp BP Pulse Ox
36.5 C 87 22 122/110 95
08/22/24 04:21 08/22/24 10:00 08/22/24 10:00 08/22/24 10:00 08/22/24 10:00
Lab Results
08/21/24 06:15
08/21/24 06:15
PT 13.2 Sec (11.4-14.6) 08/21/24 06:15
INR 0.97 08/21/24 06:15
APTT 27.0 Sec (23.4-35.0) 08/21/24 06:15
Sodium 136 mmol/L (135-145) 08/21/24 06:15
Potassium 4.8 mmol/L (3.5-5.1) 08/21/24 06:15
BUN 17 mg/dl (7-17) 08/21/24 06:15
Glucose 157 mg/dl (70-99) H 08/21/24 06:15
Calcium 9.3 mg/dl (8.4-10.2) 08/21/24 06:15
Phosphorus 4.3 mg/dl (2.5-4.5) 08/21/24 06:15
Whole Bld Vitamin B1 117 nmol/L (70-180) 08/08/24 07:47
Whole Bld Vitamin B1 Cancelled 08/08/24 07:47
Vitamin B12 563 pg/ml (239-931) 08/08/24 07:47
Vitamin B12 Cancelled 08/08/24 07:47
Medications
-
Medications:
Generic Name Dose Route Start Last Admin
Trade Name Freq PRN Reason Stop Dose Admin
Acetaminophen 650 mg 08/07/24 19:55 08/18/24 09:40
Acetaminophen 325 Mg Tablet PO 09/04/24 19:54 650 mg
Q6HPRN PRN Administration
mild pain/ fever>100.5F
Artificial Tears 1 drops 08/10/24 10:28 08/21/24 20:17
Artificial Tears Pf (Refresh) 10 Drop Droperette OPHTH 09/07/24 10:27 1 drops
QIDPRN PRN Administration
dry eyes
Bisacodyl 10 mg 08/18/24 16:31 08/19/24 23:26
Bisacodyl 10 Mg Rectal Suppository RECTAL 09/15/24 16:30 10 mg
DAILYPRN PRN Administration
constipation
Chlorhexidine Gluconate 15 ml 08/18/24 09:00 08/22/24 09:30
Chlorhexidine Oral Rinse 0.12% 15 Ml Cup PO 09/15/24 08:59 15 ml
PCHS CAMELIA Administration
Docusate Sodium 100 mg 08/12/24 12:54
Docusate Sodium 100 Mg Capsule PO 09/09/24 12:53
BIDPRN PRN
STOOL SOFTENER
Duloxetine HCl 30 mg 08/18/24 10:00 08/22/24 09:28
Duloxetine Delayed Release 30 Mg Capsule PO 09/15/24 09:59 30 mg
DAILY CAMELIA Administration
Enoxaparin Sodium 40 mg 08/08/24 18:00 08/21/24 16:51
Enoxaparin Sodium 40 Mg/0.4 Ml Syringe SC 09/05/24 17:59 40 mg
QPM CAMELIA Administration
Fentanyl 1 patch 08/20/24 11:00 08/20/24 11:32
Fentanyl 25 Mcg/Hr Patch TRANSDERM 09/03/24 10:59 1 patch
Q72H CAMELIA Administration
Hydromorphone HCl 1.5 mg 08/21/24 08:23 08/22/24 09:22
Hydromorphone 1 Mg/Ml Carpuject IV 08/25/24 11:18 1.5 mg
Q3HPRN PRN Administration
severe pain
Hydromorphone HCl 1 mg 08/21/24 14:04
Hydromorphone 0.5 Mg/0.5 Ml Syringe IV 08/25/24 11:19
Q3HPRN PRN
MOD PAIN
Ibuprofen 800 mg 08/20/24 08:15 08/22/24 09:28
Ibuprofen 800 Mg Tablet PO 09/17/24 08:14 800 mg
QID CAMELIA Administration
Lidocaine 1 patch 08/15/24 08:00 08/22/24 09:29
Lidocaine 4% Topical Patch TOPICAL 09/12/24 07:59 1 patch
DAILY CAMELIA Administration
Protocol
Lidocaine 1 patch 08/15/24 08:00 08/22/24 09:29
Lidocaine 4% Topical Patch TOPICAL 09/12/24 07:59 1 patch
DAILY CAMELIA Administration
Protocol
Liothyronine Sodium 5 microgram 08/13/24 16:00 08/22/24 09:28
Liothyronine 5 Microgram Tablet PO 09/10/24 15:59 5 microgram
BID@0800,1600 CAMELIA Administration
Lorazepam 0.5 mg 08/14/24 21:06 08/15/24 00:58
Lorazepam 2 Mg/Ml Vial IV 09/11/24 21:05 0.5 mg
Q4HPRN PRN Administration
anxiety
Synthroid (Brand 0 unit 08/09/24 06:00 08/22/24 09:19
Name Levothyroxine) PO 09/06/24 05:59 1 unit
125mcg Tablet - Take DAILY@0600 CAMELIA Administration
1/2 Tablet (62.5mcg
) Po Daily
Ondansetron HCl 4 mg 08/08/24 12:07 08/08/24 14:53
Ondansetron 4 Mg/2 Ml Vial IV 09/05/24 12:06 4 mg
Q6HPRN PRN Administration
NAUSEA/VOMITING
Pantoprazole Sodium 40 mg 08/20/24 10:24 08/22/24 09:30
Protonix 40 Mg Iv Push IV 09/17/24 10:23 40 mg
DAILY CAMELIA Administration
Patch Removal 0 patch 08/15/24 20:00 08/21/24 20:18
Remove Lidocaine Patch REMOVE 09/12/24 19:59 Not Given
DAILY@1999 CAMELIA
Patch Removal 0 patch 08/23/24 11:00
Remove Fentanyl Patch REMOVE 09/06/24 10:59
Q72H CAMELIA
Polyethylene Glycol 17 grams 08/21/24 20:00 08/22/24 09:28
Polyethylene Glycol Powder 17 Grams Packet PO 09/18/24 19:59 17 grams
BID CAMELIA Administration
Pregabalin 200 mg 08/16/24 16:00 08/22/24 09:29
Pregabalin 100 Mg Capsule TUBE 09/13/24 15:59 200 mg
TID CAMELIA Administration
Senna/Docusate Sodium 1 tablet 08/16/24 20:00 08/22/24 09:28
Docusate W/Senna (Elisabeth-Colace) Tablet PO 09/13/24 19:59 1 tablet
BID CAMELIA Administration
Sennosides 8.6 mg 08/12/24 12:57
Sennosides (Senokot) 8.6 Mg Tablet PO 09/09/24 12:56
BIDPRN PRN
CONSTIPATION
Simethicone 80 mg 08/20/24 08:20 08/22/24 09:30
Simethicone (40 Mg/0.6 Ml) Drops 30 Ml Bottle TUBE 09/17/24 08:19 80 mg
QID CAMELIA Administration
Sodium Chloride 0 flush 08/07/24 21:00 08/13/24 18:53
Sodium Chloride 0.9% (Flush) Syringe IV 09/04/24 20:59 1 flush
PER PROTOCOL CAMELIA Administration
Sodium Chloride 0.25 ml 08/14/24 21:15
Nss (Pf) 10 Ml Vial For Ativan 0.5 Mg Dose IV 09/11/24 21:14
Q4HPRN PRN
IV LORAZEPAM DILUTION
Sodium Chloride 10 ml 08/20/24 10:24 08/22/24 09:30
Sodium Chloride 0.9% (Preservative Free) 10 Ml Vial IV 09/17/24 10:23 10 ml
DAILY CAMELIA Administration
Valacyclovir HCl 500 mg 08/08/24 12:07 08/09/24 01:43
Valacyclovir Hcl 500 Mg Tablet PO 09/13/24 12:06 500 mg
DAILYPRN PRN Administration
fever blisters
Home Medications
-
Home Medications
valacyclovir 500 mg tablet (Valtrex) 500 mg PO DAILYPRN PRN fever blisters 05/24/09
acetaminophen 500 mg tablet 500 mg PO DAILYPRN PRN mild pain 08/07/24
ibuprofen 200 mg tablet 600 mg PO DAILYPRN PRN mild pain 08/07/24
levothyroxine 125 mcg tablet (Synthroid) 62.5 mcg PO DAILY Thyroid 08/07/24
lidocaine 5 % topical patch 3 patch topical DAILYPRN PRN upper and lower back 08/07/24
liothyronine 5 mcg tablet 5 mcg PO BID Thyroid 08/07/24
omeprazole 20 mg capsule,delayed release 20 mg PO DAILY Gastrointestinal Issue 08/07/24
oxycodone-acetaminophen 5 mg-325 mg tablet 1 tab PO Q6HPRN PRN severe pain 08/07/24
prednisone 20 mg tablet 40 mg PO UD Anti-Inflammatory 08/07/24
semaglutide (weight loss) 1.7 mg/0.75 mL subcutaneous pen injector (Wegovy) 1.7 mg SC TU Weight Gain 08/07/24
--- NOTE | 2024-08-22 12:05 | PTOTSP ---
Videofluoroscopic swallow study
Summary: Moderate oral/pharyngeal dysphagia. Deep laryngeal penetration x1 with a thin liquid wash via straw to reduce at least moderate-severe pharyngeal residue from puree. Penetrated contrast cleared with a cued cough/swallow sequence.
While swallowing has improved, there is concern that patient will not meet her nutrition/hydration needs via oral intake alone given effort/strategies required for oral intake and risk for fatigue/aspiration over time.
Recommend:
1. L4 Puree (thin down purees with liquids; avoid thick molded purees), Thin Liquids via Straw AND consider continued non-oral means of nutrition/hydration
2. Medications: non-oral if means available
3. Oral care 3-5 daily with suctioning
4. Strategies: full supervision, assist as needed for energy conservation, small single sips/bites, alternate sips/bites, intermittent cough/re-swallow
5. PATTERN WHEEL MAKER f/u at the acute care level and at the inpatient rehabilitation level
6. Continue to follow with registered dietitian
--- NOTE | 2024-08-22 17:16 | W.PN.HOSP.TC ---
Today's Communication/Plan
-
observe feeding trials. Monitor fatigue symptoms associated with effort of feeding. Also monitor caloric intake
keep DHT and nocturnal feeds
Assessment / Plan
Assessment / Plan
Assessment:
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 Left 6th nerve palsy noted. Having double vision with both eyes open.
- MRI imaging of spine (C/T/L with contrast) without evidence of any enhancing lesions, myelopathic signals.
- MRI brain: delayed images reveal Nodular focus of enhancement within the superior left cerebellar hemisphere, with a larger region of surrounding increased T2 and FLAIR signal. See above discussion regarding timing of contrast enhancement.
Etiology for this finding is uncertain. It could possibly represent neoplasia. A focus of demyelination could be considered. Vasculitis could also be considered. This could possibly be a vascular/venous anomaly, although the surrounding increased T2
and FLAIR signal is atypical.
- plan per Neurology is MRI brain with contrast repeat 08/23
- s/p IVIG course without improvement, elevated LFTs
- s/p IR guided tunnel cath 08/10; completed 5 treatments of plasma exchange, last treatment 08/19.
- monitor VC/NIFs, pulm exams serially
- follow extended neuro workup from serum and CSF studies
Intractable pain syndrome -due to Guillain-Morgan�. Pain level remains at 9 out of 10. Continue IV Dilaudid as needed, increase to 1.5 mg every 3 hours as needed. Continue ibuprofen 800 g 4 times daily [id number]. Fentanyl patch 25 mcg
started 08/20.
She is already on maximum dose of pregabalin. Duloxetine started at 30 mg daily on 08/18, dose to be gradually increased.
She is moving her bowels but complaining of abdominal distention and bloating. Suspect due to Guillain-Morgan� syndrome. Continue bowel regimen, add simethicone.
Acute dysphagia -due to Guillain-Morgan� syndrome. Dobbhoff tube placed and tube feeds are running. s/p VSE 08/22 with advancement to IDDSI 4 diet. Observe progress of oral feeds prior to discontinuation of DHT. High risk for aspiration. May need
PEG tube next week if she remains tube feed dependent. Discussed with patient.
Acute urinary retention -due to Guillain-Morgan� syndrome. Block catheter placed 08/15. Block catheter removed 08/20 morning, voiding trial. Bladder scan shows 472 cc, and Block reinserted.
Hyponatremia - improved.
Elevated LFTs -improved.
- suspected related to IVIG; trend
- has no abdominal discomfort
Chronic neck pain
Gabapentin changed to pregabalin by neurology. Monitor for sedation
Mild intermittent asthma - stable.
History of thyroid cancer - continue Cytomel and Synthroid (patient prefers brand name - is using her own supply). noted low TSH, normal T4
DVT ppx: Lovenox
Code: Full
Dispo - acute rehab when medically stable. May need PEG tube placement prior to discharge to rehab.
Anticipated Discharge: 24 - 48 hours
Subjective/Interval History
-
Date of Service: August 22, 2024
feels improvement in upper extremity strength
remains with dysphagia; but passed VSE for level 4 diet
Objective Data
-
Vital Signs:
Vital Signs
Temp Pulse Resp BP Pulse Ox
98.0 F 72 19 143/66 94
08/22/24 15:39 08/22/24 12:00 08/22/24 12:00 08/22/24 11:08 08/22/24 11:08
I&O
08/21/24 08/22/24 08/23/24
06:59 06:59 06:59
Intake Total 1330 / 1330
Output Total 2875 / 2875 1400 / 1400
Balance -1545 / -1545 -1400 / -1400
Physical Exam
-
General: No Apparent Distress
HEENT: Normocephalic and Atraumatic
Respiratory: Negative Wheezes
Cardiac: Regular Rhythm and S1/S2
GI: Soft and Nontender
Genito-urinary: No Costovertebral Tender
Musculoskeletal: No Edema
Neuro: AO x 3 and Other ( Bilateral deltoids, triceps and biceps 4- out of 5, 0/5 hip flexors, knee extensors, dorsiflexion 0/5, plantarflexion-3/5. Neck flexors-4+/5, neck extensors 5/5)
Hematologic / Lymphatic: No Lymphadenopathy
Psych: Calm
Data Reviewed
-
Total Time Spent with Patient (in minutes): 44
Labs: Labs Reviewed by me
[2024-08-22] MEDS: MOTRIN PO (18:06)
[2024-08-22] MEDS: LOVENOX 40 MG SC (18:13)
--- NOTE | 2024-08-22 18:30 | PTCARENOTE ---
Rec'd pt this AM. Vital signs stable. VSE completed, diet advanced to Pureed 4 with thin liquids. Pt states she prefers thickened liquids. Pt upset that there are not other bed options available to her. RN and nursing supervisor train operations discussed with pt
and family the bed options have been exhausted and that they are not relieving her pain due to the GBS. Pt then requests nursing staff check on her hourly to see if she is comfortable. She states that she knows that she is difficult to get
comfortable. Nursing staff, RN and retail attendant have worked with her throughout the day, averaging about 30-45 minutes each time trying to make her comfortable. She is not comfortable being turned as she cannot tolerate the feeling of something under her
back. Multiple efforts made to reposition as tolerated. Tube feeds overnight now only. 20ml/hour tonight with goal of 45ml/hour tomorrow night. PT requested PRN Ativan dose be reduced. RN commucated with Dr. Pope who agrees to order lower dose.
--- NOTE | 2024-08-22 21:45 | PTCARENOTE ---
Received pt from jv BERNARD. Pt aaox3. Pt c/o 05/05 pain in her lower back, legs and feet, PRN Dilaudid admin and all CAMELIA meds (see MAR). Pt has traylor in place draining palmer colored urine. Hygiene completed. Pt turned every 30 minutes. Pt resting
in bed with call perkins in reach.
[2024-08-22] MEDS: ATIVAN 0.25 MG IV (22:16)
[2024-08-23] VITALS (8 sets, daily range): BP systolic 91–131; BP diastolic 45–74
[2024-08-23] MEDS: DILAUDID 1.5 MG IV ×5 (03:52→21:27)
[2024-08-23 04:30] LABS: Hematocrit 36.3 % (37.0-47.0); Hemoglobin 12.5 g/dL (12.0-16.0); Mean Corp Hgb Conc. 34.4 g/dL (33.0-37.0); Mean Corpuscular Hgb 33.2 pg (27.0-31.0); Mean Corpuscular Volume 96.5 fL (81.0-99.0); Mean Platelet Volume 10.4 fL (7.4-10.4); Platelet Count 298 10^3/uL (130-400); Red Blood Cell Count 3.76 10^6/uL (4.20-5.40); Red Cell Dist. Width 13.3 % (11.5-14.5); White Blood Cell Count 9.7 10^3/uL (4.8-10.8)
[2024-08-23 05:00] LABS: Blood Urea Nitrogen 18 mg/dl (7-17); Calcium 9.4 mg/dl (8.4-10.2); Carbon Dioxide 33 mmol/L (22-30); Chloride 94 mmol/L (98-107); Estimated Creatinine Clearance 102 ml/min; Glucose 121 mg/dl (70-99); Potassium 4.3 mmol/L (3.5-5.1); Sodium 135 mmol/L (135-145); eGFR > 60.00
[2024-08-23] MEDS: NON-FORMULARY ITEM 1 UNIT PO (06:16)
--- NOTE | 2024-08-23 08:25 | PTCARENOTE ---
Patient received from security shift manager. Patient resting comfortably in bed. AAO, VSS. No events noted overnight. Complaints of pain, see MAR. No fluids through IV. Tubefeeds on hold (10p-6a). Will try to get OOB to chair. Scheduled for MRI at
this time. Call perkins in reach.
[2024-08-23] MEDS: MIRALAX 17 GRAMS PO ×2 (09:24→20:49)
[2024-08-23] MEDS: CYMBALTA DELAYED RELEASE 30 MG PO (09:24)
[2024-08-23] MEDS: PROTONIX IV 40 MG IV (09:24)
[2024-08-23] MEDS: NSS (PRESERVATIVE FREE) 10 ML IV (09:24)
[2024-08-23] MEDS: CYTOMEL 5 MICROGRAM PO ×2 (09:24→16:14)
[2024-08-23] MEDS: MOTRIN 800 MG PO ×4 (09:25→22:23)
[2024-08-23] MEDS: LYRICA 200 MG TUBE ×3 (09:25→22:23)
[2024-08-23] MEDS: LIDOCAINE 4% PATCH 1 PATCH TOPICAL ×2 (09:25)
[2024-08-23] MEDS: SENOKOT-S 1 TABLET PO ×2 (09:25→20:41)
[2024-08-23] MEDS: MYLICON DROPS 80 MG TUBE ×4 (09:26→22:24)
[2024-08-23] MEDS: PERIDEX 0.12% ORAL RINSE 15 ML PO ×4 (09:26→20:43)
--- NOTE | 2024-08-23 10:16 | W.PN.HOSP.TC ---
Today's Communication/Plan
-
francois count x 48 hours d/w Dietary
pain control
Assessment / Plan
Assessment / Plan
Assessment:
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 Left 6th nerve palsy noted. Having double vision with both eyes open.
- MRI imaging of spine (C/T/L with contrast) without evidence of any enhancing lesions, myelopathic signals.
- MRI brain: delayed images reveal Nodular focus of enhancement within the superior left cerebellar hemisphere, with a larger region of surrounding increased T2 and FLAIR signal. See above discussion regarding timing of contrast enhancement.
Etiology for this finding is uncertain. It could possibly represent neoplasia. A focus of demyelination could be considered. Vasculitis could also be considered. This could possibly be a vascular/venous anomaly, although the surrounding increased T2
and FLAIR signal is atypical.
- plan per Neurology is MRI brain with contrast repeat 08/23
- s/p IVIG course without improvement, elevated LFTs
- s/p IR guided tunnel cath 08/10; completed 5 treatments of plasma exchange, last treatment 08/19.
- monitor VC/NIFs, pulm exams serially
- follow extended neuro workup from serum and CSF studies
Intractable pain syndrome -due to Guillain-Morgan�. Pain level remains at 9 out of 10. Continue IV Dilaudid as needed, increase to 1.5 mg every 3 hours as needed. Continue ibuprofen 800 g 4 times daily [id number]. Fentanyl patch 25 mcg
started 08/20.
She is already on maximum dose of pregabalin. Duloxetine started at 30 mg daily on 08/18, dose to be gradually increased.
She is moving her bowels but complaining of abdominal distention and bloating. Suspect due to Guillain-Morgan� syndrome. Continue bowel regimen, add simethicone.
Acute dysphagia - due to Guillain-Morgan� syndrome. Dobbhoff tube placed and tube feeds are running. s/p VSE 08/22 with advancement to IDDSI 4 diet. Observe progress of oral feeds prior to discontinuation of DHT. High risk for aspiration. May need
PEG tube next week if she remains tube feed dependent. Discussed with patient. Will d/w dietary for calorie count.
Acute urinary retention - due to Guillain-Morgan� syndrome. Block catheter placed 08/15. Block catheter removed 08/20 morning, voiding trial. Bladder scan shows 472 cc, and Block reinserted.
Hyponatremia - improved.
Elevated LFTs -improved.
- suspected related to IVIG; trend
- has no abdominal discomfort
Chronic neck pain
Gabapentin changed to pregabalin by neurology. Monitor for sedation
Mild intermittent asthma - stable.
History of thyroid cancer - continue Cytomel and Synthroid (patient prefers brand name - is using her own supply). noted low TSH, normal T4
DVT ppx: Lovenox
Code: Full
Dispo - acute rehab when medically stable. May need PEG tube placement prior to discharge to rehab. Dietary to evaluate calorie count with puree diet.
Anticipated Discharge: > 48 hours
Subjective/Interval History
-
Date of Service: August 23, 2024
tolerating puree diet well, reports tiredness towards end of meals
upset over bed positioning/pain in bed
Objective Data
-
Labs:
Laboratory Results
08/23/24
03:54
WBC 9.7
Hgb 12.5
Hct 36.3 L
Plt Count 298
Sodium 135
Potassium 4.3
Chloride 94 L
Carbon Dioxide 33 H
BUN 18 H
Creatinine 0.4 L
Glucose 121 H
Calcium 9.4
Vital Signs:
Vital Signs
Temp Pulse Resp BP Pulse Ox
98.0 F 75 16 111/63 94
08/23/24 07:10 08/23/24 06:23 08/23/24 06:23 08/23/24 06:23 08/23/24 06:23
I&O
08/22/24 08/23/24 08/24/24
06:59 06:59 06:59
Intake Total 510 / 510
Output Total 1400 / 1400 800 / 800
Balance -1400 / -1400 -290 / -290
Physical Exam
-
General: No Apparent Distress
HEENT: Normocephalic, Atraumatic and Other (+DHT)
Respiratory: Negative Wheezes
Cardiac: Regular Rhythm and S1/S2
GI: Soft and Nontender
Musculoskeletal: No Edema
Neuro: AO x 3
Hematologic / Lymphatic: No Lymphadenopathy
Psych: Calm
Data Reviewed
-
Total Time Spent with Patient (in minutes): 41
Labs: Labs Reviewed by me
--- NOTE | 2024-08-23 12:53 | W.PN.NEURO.1 ---
Today's Communication / Plan
-
.
Neuro Assessment/Plan
Assessment
I. 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 Patient received 3 doses of IVIG then switched to plasma exchange treatment due to elevated LFTs. Positive GD1b antibodies (found in patients with Guillain-Morgan� syndrome and multifocal
motor neuropathy); NCS/EMG concurs with GBS
II. Left cerebellar lesion. Differential diagnosis includes demyelinating lesion or metabolic abnormality or low grade neoplastic vs vascular vs inflammatory vs less likely infectious etiologies
Cytology has been unremarkable, oligoclonal bands negative, no white blood cells in CSF
Completed plasma exchange, underwent fifth treatment of 5 on August 19, 2024
Plan
Continue pregabalin 200 mg 3x/day
Started Duloxetine 30 mg daily for discomfort control
Continue newly initiated fentanyl patch, would consider increase after 72 hours of start as replacement therapy long-term for patient's routine pain regimen
Follow-up brain MRI with and without aishwarya on 08/23/24
Rehab evaluations
Will follow
Subjective/Objective
Subjective Data
Date of Service: August 23, 2024
Neurology follow-up note
24-hour events: Mr. Nevarez believes that her intermittent diplopia has improved over the last several days. Dysphagia evaluation
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
08/09/2024 and new from 08/12/2016.
Labs: GD1b�ab 145(0-50).
CSF(08/08/2024) cytology-neg, OCB/MBP-neg.
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
ADD,
PSH: total thyroidectomy, cholecystectomy, , tubal ligation, tonsillectomy
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
All: Aspirin
Eyes: Positive for diplopia
Respiratory: Negative for shortness of breath.
Cardiovascular: Negative for chest pain, palpitations and leg swelling.
Gastrointestinal: Positive for dysarthria and dysphagia.
Genitourinary: Negative for dysuria, flank pain and urgency.
Musculoskeletal: Positive for leg pain
Allergic/Immunologic: Negative. Negative for immunocompromised state.
Neurological: Positive for leg/arm weakness, paresthesias, dysphagia, diplopia with left lateral gaze, negative for dyspnea, dysarthria.
General: Well developed. In no acute distress.
Cardio: Regular rate and rhythm. Extremities are without cyanosis or edema.
Neuro:
Mental Status: Awake, oriented to person, place, person. Mildly impaired attention and comprehension. No aphasia or hemineglect
Cranial Nerves: Pupils are equally round and reactive to light. EOMs full. Left abduction paresis. No nystagmus. No eye closure weakness. Normal hearing AU. The palate elevated well. SCMs and traps 5/5. Tongue midline. No dysarthria.
Motor: Bilateral deltoids, triceps and biceps 4- out of 5, 0/5 hip flexors, knee extensors, dorsiflexion 0/5, plantarflexion�2-/5. Neck flexors-4+/5, neck extensors 5/5
Reflexes: 0+ throughout the upper extremities and 0 knee. AJs, Plantar responses flexor bilaterally.
Sensory: Reduced vibration at bilateral ankles.
Coordination: Unable.
Gait: unable
Assessment and Plan:
I. Guillain-Bradner syndrome, likely Peres Bryan variant. Status post 3 doses of IVIG and 5 PLEX treatments. Positive GD1b ab, clinically improved.
II. Left cerebellar lesion. Differential diagnosis includes a leptomeningeal metastasis, a primary leptomeningeal tumor, or an inflammatory or infectious granuloma.
III. Mild toxic encephalopathy
-Aspiration precautions
-Neurosurgery consult
-OT brain SPECT
-Start Tegretol 100 mg BID with the plan to wean off hydromorphone
-Continue pregabalin 200 mg 3 times daily
-Will consider to repeat CSF studies including cytology
-Outpatient neuro-oncology consult
-Mechanical and chemical DVT prophylaxis.
I personally reviewed all radiology and labs along with past medical records pertinent to current medical problems. Total time spent in patient care is 35 minutes.
Thank you for allowing us to participate in the care of this patient. We will continue to follow. Please do not hesitate to contact us with any questions or concerns
Objective Data
Vital Signs
Temp Pulse Resp BP Pulse Ox
36.7 C 69 17 111/63 94
08/23/24 07:10 08/23/24 10:00 08/23/24 10:00 08/23/24 06:23 08/23/24 10:17
Lab Results
08/23/24 03:54
08/23/24 03:54
PT 13.2 Sec (11.4-14.6) 08/21/24 06:15
INR 0.97 08/21/24 06:15
APTT 27.0 Sec (23.4-35.0) 08/21/24 06:15
Sodium 135 mmol/L (135-145) 08/23/24 03:54
Potassium 4.3 mmol/L (3.5-5.1) 08/23/24 03:54
BUN 18 mg/dl (7-17) H 08/23/24 03:54
Glucose 121 mg/dl (70-99) H 08/23/24 03:54
Calcium 9.4 mg/dl (8.4-10.2) 08/23/24 03:54
Phosphorus 4.3 mg/dl (2.5-4.5) 08/21/24 06:15
Whole Bld Vitamin B1 117 nmol/L (70-180) 08/08/24 07:47
Whole Bld Vitamin B1 Cancelled 08/08/24 07:47
Vitamin B12 563 pg/ml (239-931) 08/08/24 07:47
Vitamin B12 Cancelled 08/08/24 07:47
Patient Allergies
adhesive Allergy (Verified 08/17/24 23:05)
BANDAIDS-RASH/ITCHING
aspirin [Aspirin] Allergy (Verified 08/17/24 23:05)
GI upset/NAUSEA
strawberry Allergy (Verified 08/07/24 14:51)
Swelling
Vital Signs and Labs
-
Vital Signs and Labs:
Vital Signs
Temp Pulse Resp BP Pulse Ox
36.7 C 69 17 111/63 94
08/23/24 07:10 08/23/24 10:00 08/23/24 10:00 08/23/24 06:23 08/23/24 10:17
Lab Results
08/23/24 03:54
08/23/24 03:54
PT 13.2 Sec (11.4-14.6) 08/21/24 06:15
INR 0.97 08/21/24 06:15
APTT 27.0 Sec (23.4-35.0) 08/21/24 06:15
Sodium 135 mmol/L (135-145) 08/23/24 03:54
Potassium 4.3 mmol/L (3.5-5.1) 08/23/24 03:54
BUN 18 mg/dl (7-17) H 08/23/24 03:54
Glucose 121 mg/dl (70-99) H 08/23/24 03:54
Calcium 9.4 mg/dl (8.4-10.2) 08/23/24 03:54
Phosphorus 4.3 mg/dl (2.5-4.5) 08/21/24 06:15
Whole Bld Vitamin B1 117 nmol/L (70-180) 08/08/24 07:47
Whole Bld Vitamin B1 Cancelled 08/08/24 07:47
Vitamin B12 563 pg/ml (819-931) 08/08/24 07:47
Vitamin B12 Cancelled 08/08/24 07:47
Medications
-
Medications:
Generic Name Dose Route Start Last Admin
Trade Name Freq PRN Reason Stop Dose Admin
Acetaminophen 650 mg 08/07/24 19:55 08/18/24 09:40
Acetaminophen 325 Mg Tablet PO 09/04/24 19:54 650 mg
Q6HPRN PRN Administration
mild pain/ fever>100.5F
Artificial Tears 1 drops 08/10/24 10:28 08/21/24 20:17
Artificial Tears Pf (Refresh) 10 Drop Droperette OPHTH 09/07/24 10:27 1 drops
QIDPRN PRN Administration
dry eyes
Bisacodyl 10 mg 08/18/24 16:31 08/19/24 23:26
Bisacodyl 10 Mg Rectal Suppository RECTAL 09/15/24 16:30 10 mg
DAILYPRN PRN Administration
constipation
Chlorhexidine Gluconate 15 ml 08/18/24 09:00 08/23/24 09:26
Chlorhexidine Oral Rinse 0.12% 15 Ml Cup PO 09/15/24 08:59 15 ml
PCHS CAMELIA Administration
Duloxetine HCl 30 mg 08/18/24 10:00 08/23/24 09:24
Duloxetine Delayed Release 30 Mg Capsule PO 09/15/24 09:59 30 mg
DAILY CAMELIA Administration
Enoxaparin Sodium 40 mg 08/08/24 18:00 08/22/24 18:13
Enoxaparin Sodium 40 Mg/0.4 Ml Syringe SC 09/05/24 17:59 40 mg
QPM CAMELIA Administration
Fentanyl 1 patch 08/20/24 11:00 08/20/24 11:32
Fentanyl 25 Mcg/Hr Patch TRANSDERM 09/03/24 10:59 1 patch
Q72H CAMELIA Administration
Hydromorphone HCl 1.5 mg 08/21/24 08:23 08/23/24 11:28
Hydromorphone 1 Mg/Ml Carpuject IV 08/25/24 11:18 1.5 mg
Q3HPRN PRN Administration
severe pain
Hydromorphone HCl 1 mg 08/21/24 14:04
Hydromorphone 0.5 Mg/0.5 Ml Syringe IV 08/25/24 11:19
Q3HPRN PRN
MOD PAIN
Ibuprofen 800 mg 08/20/24 08:15 08/23/24 09:25
Ibuprofen 800 Mg Tablet PO 09/17/24 08:14 800 mg
QID CAMELIA Administration
Lidocaine 1 patch 08/15/24 08:00 08/23/24 09:25
Lidocaine 4% Topical Patch TOPICAL 09/12/24 07:59 1 patch
DAILY CAMELIA Administration
Protocol
Lidocaine 1 patch 08/15/24 08:00 08/23/24 09:25
Lidocaine 4% Topical Patch TOPICAL 09/12/24 07:59 1 patch
DAILY CAMELIA Administration
Protocol
Liothyronine Sodium 5 microgram 08/13/24 16:00 08/23/24 09:24
Liothyronine 5 Microgram Tablet PO 09/10/24 15:59 5 microgram
BID@0800,1600 CAMELAI Administration
Lorazepam 0.25 mg 08/22/24 18:31 08/22/24 22:16
Lorazepam 2 Mg/Ml Vial IV 09/11/24 21:05 0.25 mg
Q4HPRN PRN Administration
anxiety
Magnesium Hydroxide 30 ml 08/23/24 10:41
Milk Of Magnesia 30 Ml Cup PO 09/20/24 10:40
QIDPRN PRN
constipation
Synthroid (Brand 0 unit 08/09/24 06:00 08/23/24 06:16
Name Levothyroxine) PO 09/06/24 05:59 1 unit
125mcg Tablet - Take DAILY@0600 CAMELIA Administration
1/2 Tablet (62.5mcg
) Po Daily
Ondansetron HCl 4 mg 08/08/24 12:07 08/08/24 14:53
Ondansetron 4 Mg/2 Ml Vial IV 09/05/24 12:06 4 mg
Q6HPRN PRN Administration
NAUSEA/VOMITING
Pantoprazole Sodium 40 mg 08/20/24 10:24 08/23/24 09:24
Protonix 40 Mg Iv Push IV 09/17/24 10:23 40 mg
DAILY CAMELIA Administration
Patch Removal 0 patch 08/15/24 20:00 08/22/24 20:44
Remove Lidocaine Patch REMOVE 09/12/24 19:59 Not Given
DAILY@2000 CAMELIA
Patch Removal 0 patch 08/23/24 11:00
Remove Fentanyl Patch REMOVE 09/06/24 10:59
Q72H CAMELIA
Polyethylene Glycol 17 grams 08/21/24 20:00 08/23/24 09:24
Polyethylene Glycol Powder 17 Grams Packet PO 09/18/24 19:59 17 grams
BID CAMELIA Administration
Pregabalin 200 mg 08/16/24 16:00 08/23/24 09:25
Pregabalin 100 Mg Capsule TUBE 09/13/24 15:59 200 mg
TID CAMELIA Administration
Senna/Docusate Sodium 1 tablet 08/16/24 20:00 08/23/24 09:25
Docusate W/Senna (Elisabeth-Colace) Tablet PO 09/13/24 19:59 1 tablet
BID CAMELIA Administration
Sennosides 8.6 mg 08/12/24 12:57
Sennosides (Senokot) 8.6 Mg Tablet PO 09/09/24 12:56
BIDPRN PRN
CONSTIPATION
Simethicone 80 mg 08/20/24 08:20 08/23/24 09:26
Simethicone (40 Mg/0.6 Ml) Drops 30 Ml Bottle TUBE 09/17/24 08:19 80 mg
QID CAMELIA Administration
Sodium Chloride 0 flush 08/07/24 21:00 08/13/24 18:53
Sodium Chloride 0.9% (Flush) Syringe IV 09/04/24 20:59 1 flush
PER PROTOCOL CAMELIA Administration
Sodium Chloride 10 ml 08/20/24 10:24 08/23/24 09:24
Sodium Chloride 0.9% (Preservative Free) 10 Ml Vial IV 09/17/24 10:23 10 ml
DAILY CAMELIA Administration
Sodium Chloride 0.125 ml 08/22/24 18:39
Nss (Pf) 10 Ml Vial IV 09/11/24 21:14
Q4HPRN PRN
IV LORAZEPAM DILUTION
Valacyclovir HCl 500 mg 08/08/24 12:07 08/09/24 01:43
Valacyclovir Hcl 500 Mg Tablet PO 09/13/24 12:06 500 mg
DAILYPRN PRN Administration
fever blisters
Home Medications
-
Home Medications
valacyclovir 500 mg tablet (Valtrex) 500 mg PO DAILYPRN PRN fever blisters 05/24/09
acetaminophen 500 mg tablet 500 mg PO DAILYPRN PRN mild pain 08/07/24
ibuprofen 200 mg tablet 600 mg PO DAILYPRN PRN mild pain 08/07/24
levothyroxine 125 mcg tablet (Synthroid) 62.5 mcg PO DAILY Thyroid 08/07/24
lidocaine 5 % topical patch 3 patch topical DAILYPRN PRN upper and lower back 08/07/24
liothyronine 5 mcg tablet 5 mcg PO BID Thyroid 08/07/24
omeprazole 20 mg capsule,delayed release 20 mg PO DAILY Gastrointestinal Issue 08/07/24
oxycodone-acetaminophen 5 mg-325 mg tablet 1 tab PO Q6HPRN PRN severe pain 08/07/24
prednisone 20 mg tablet 40 mg PO UD Anti-Inflammatory 08/07/24
semaglutide (weight loss) 1.7 mg/0.75 mL subcutaneous pen injector (Wegovy) 1.7 mg SC TU Weight Gain 08/07/24
[2024-08-23] MEDS: DURAGESIC 25 MCG/HR PATCH 1 PATCH TRANSDERM (14:28)
[2024-08-23] MEDS: MILK OF MAGNESIA 30 ML PO (14:28)
[2024-08-23] MEDS: LOVENOX 40 MG SC (18:15)
[2024-08-23] MEDS: TEGRETOL CHEWABLE 100 MG PO (20:41)
--- NOTE | 2024-08-23 23:42 | PTCARENOTE ---
Assumed care of Pt from jv RN. Pt AAOx3. NSR on monitor. HR 67. Pt tolerating IDDSI4 diet. Pt ordered TF HS, Tf set up and running per orders. New tubing in use. HS oral care done. SCDs in use. using pts own pillows for feet. Call light in
reach. Assessment as documented.
[2024-08-24] VITALS (13 sets, daily range): BP systolic 91–131; BP diastolic 47–82; PULSE 77; BMI 25.5
[2024-08-24] MEDS: DILAUDID 1.5 MG IV ×3 (00:29→07:31)
[2024-08-24] MEDS: VALTREX 500 MG PO (04:30)
[2024-08-24] MEDS: NON-FORMULARY ITEM 1 UNIT PO (06:18)
[2024-08-24] MEDS: PROTONIX IV 40 MG IV (07:34)
[2024-08-24] MEDS: NSS (PRESERVATIVE FREE) 10 ML IV (07:34)
[2024-08-24] MEDS: LIDOCAINE 4% PATCH 1 PATCH TOPICAL ×2 (07:37→07:38)
[2024-08-24] MEDS: MOTRIN 800 MG PO ×4 (07:38→22:46)
[2024-08-24] MEDS: CYMBALTA DELAYED RELEASE 30 MG PO (07:38)
[2024-08-24] MEDS: TEGRETOL CHEWABLE 100 MG PO ×2 (07:38→20:17)
[2024-08-24] MEDS: LYRICA 200 MG TUBE ×3 (07:38→22:46)
[2024-08-24] MEDS: CYTOMEL 5 MICROGRAM PO ×2 (07:38→15:31)
[2024-08-24] MEDS: MYLICON DROPS 80 MG TUBE ×4 (07:40→22:48)
[2024-08-24] MEDS: MIRALAX PO ×2 (07:40→20:18)
[2024-08-24] MEDS: SENOKOT-S PO ×2 (07:40→20:18)
--- NOTE | 2024-08-24 08:25 | PTCARENOTE ---
Patient received from [employer]. Patient resting comfortably in bed. AAO, VSS. No events noted overnight. Complaints of pain, see MAR. No fluids through IV. Tubefeeds on hold (10p-6a). Will get OOB to chair. Possible ARVIZU tomorrow? Call
perkins in reach.
--- NOTE | 2024-08-24 08:59 | PTCARENOTE ---
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 Patient resting comfortably in bed. AAO, VSS. No events noted overnight. Complaints of pain, see MAR. No fluids through IV. Tubefeeds on hold (10p-6a). Will try to get OOB to chair. Scheduled for MRI at
this time. Call perkins in reach.
[2024-08-24] MEDS: PERIDEX 0.12% ORAL RINSE 15 ML PO ×3 (10:24→18:06)
[2024-08-24] MEDS: DILAUDID 1 MG IV ×2 (10:51→15:31)
--- NOTE | 2024-08-24 12:45 | W.PN.NEURO.1 ---
Today's Communication / Plan
-
.
Subjective/Objective
Subjective Data
Date of Service: August 24, 2024
Neurology follow-up note
24-hour events: Mr. Nevarez tolerates carbamazepine well. Continues to have 8 to�10 out of 10 pain.
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
08/09/2024 and new from 08/12/2016.
Advancemensing to IDDSI 4 diet
Labs: GD1b�ab 145(0-50).
CSF(08/08/2024) cytology-neg, OCB/MBP-neg.
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
ADD,
PSH: total thyroidectomy, cholecystectomy, , tubal ligation, tonsillectomy
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
All: Aspirin
Eyes: Positive for intermittent diplopia
Respiratory: Negative for shortness of breath.
Cardiovascular: Negative for chest pain, palpitations and leg swelling.
Gastrointestinal: Positive for loose stools
Genitourinary: Negative for dysuria, flank pain and urgency.
Musculoskeletal: Positive for leg pain
Allergic/Immunologic: Negative. Negative for immunocompromised state.
Neurological: Positive for leg/arm weakness, pain, paresthesias, dysphagia, diplopia with left lateral gaze, negative for dyspnea, dysarthria.
General: Well developed. In no acute distress.
Cardio: Regular rate and rhythm. Extremities are without cyanosis or edema.
Neuro:
Mental Status: Awake, oriented to person, place, person. Mildly impaired attention and comprehension. No aphasia or hemineglect
Cranial Nerves: Pupils are equally round and reactive to light. EOMs full. Left abduction paresis. No nystagmus. No eye closure weakness. Normal hearing AU. The palate elevated well. SCMs and traps 5/5. Tongue midline. No dysarthria.
Motor: Bilateral deltoids, triceps and biceps 4- out of 5, 0/5 hip flexors, knee extensors, dorsiflexion 0/5, plantarflexion�2-/5. Neck flexors-4+/5, neck extensors 5/5
Reflexes: 0+ throughout the upper extremities and 0 knee. AJs, Plantar responses flexor bilaterally.
Sensory: Reduced vibration at bilateral ankles.
Coordination: Unable.
Gait: unable
Assessment and Plan:
I. 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 Status post 3 doses of IVIG and 5 PLEX treatments. Positive GD1b ab, clinically improved.
II. Left cerebellar lesion. Differential diagnosis includes a leptomeningeal metastasis, a primary leptomeningeal tumor, or an inflammatory or infectious granuloma.
III. Neuropathic pain
-Aspiration precautions
-OT brain SPECT
-Titrate Tegretol by 100 mg every 3-5 days as tolerated with monitoring for hyponatremia and agranulocytosis. Wean off opiates as feasible
-Continue pregabalin 200 mg 3 times daily
-Will consider to repeat CSF studies including cytology
-Outpatient neuro-oncology consult
-repeat brain MRI w/wo aishwarya gadolinium in 4 weeks
-Mechanical and chemical DVT prophylaxis.
-Neurosurgery consult
-The case was discussed with patient's sister
-Neurology follow-up in 1 week
-Please recall neurology services any questions or concerns.
I personally reviewed all radiology and labs along with past medical records pertinent to current medical problems. Total time spent in patient care is 40 minutes.
Thank you for allowing us to participate in the care of this patient. We will continue to follow. Please do not hesitate to contact us with any questions or concerns
Objective Data
Vital Signs
Temp Pulse Resp BP Pulse Ox
37.0 C 73 17 105/82 96
08/24/24 11:55 08/24/24 04:00 08/24/24 04:00 08/24/24 03:58 08/24/24 10:25
Lab Results
08/23/24 03:54
08/23/24 03:54
PT 13.2 Sec (11.4-14.6) 08/21/24 06:15
INR 0.97 08/21/24 06:15
APTT 27.0 Sec (23.4-35.0) 08/21/24 06:15
Sodium 135 mmol/L (135-145) 08/23/24 03:54
Potassium 4.3 mmol/L (3.5-5.1) 08/23/24 03:54
BUN 18 mg/dl (7-17) H 08/23/24 03:54
Glucose 121 mg/dl (70-99) H 08/23/24 03:54
Calcium 9.4 mg/dl (8.4-10.2) 08/23/24 03:54
Phosphorus 4.3 mg/dl (2.5-4.5) 08/21/24 06:15
Whole Bld Vitamin B1 117 nmol/L (70-180) 08/08/24 07:47
Whole Bld Vitamin B1 Cancelled 08/08/24 07:47
Vitamin B12 563 pg/ml (239-931) 08/08/24 07:47
Vitamin B12 Cancelled 08/08/24 07:47
Patient Allergies
adhesive Allergy (Verified 08/17/24 23:05)
BANDAIDS-RASH/ITCHING
aspirin [Aspirin] Allergy (Verified 08/17/24 23:05)
GI upset/NAUSEA
strawberry Allergy (Verified 08/07/24 14:51)
Swelling
Vital Signs and Labs
-
Vital Signs and Labs:
Vital Signs
Temp Pulse Resp BP Pulse Ox
37.0 C 73 17 105/82 96
08/24/24 11:55 08/24/24 04:00 08/24/24 04:00 08/24/24 03:58 08/24/24 10:25
Lab Results
08/23/24 03:54
08/23/24 03:54
PT 13.2 Sec (11.4-14.6) 08/21/24 06:15
INR 0.97 08/21/24 06:15
APTT 27.0 Sec (23.4-35.0) 08/21/24 06:15
Sodium 135 mmol/L (135-145) 08/23/24 03:54
Potassium 4.3 mmol/L (3.5-5.1) 08/23/24 03:54
BUN 18 mg/dl (7-17) H 08/23/24 03:54
Glucose 121 mg/dl (70-99) H 08/23/24 03:54
Calcium 9.4 mg/dl (8.4-10.2) 08/23/24 03:54
Phosphorus 4.3 mg/dl (2.5-4.5) 08/21/24 06:15
Whole Bld Vitamin B1 117 nmol/L (70-180) 08/08/24 07:47
Whole Bld Vitamin B1 Cancelled 08/08/24 07:47
Vitamin B12 563 pg/ml (239-931) 08/08/24 07:47
Vitamin B12 Cancelled 08/08/24 07:47
Medications
-
Medications:
Generic Name Dose Route Start Last Admin
Trade Name Freq PRN Reason Stop Dose Admin
Acetaminophen 650 mg 08/07/24 19:55 08/18/24 09:40
Acetaminophen 325 Mg Tablet PO 09/04/24 19:54 650 mg
Q6HPRN PRN Administration
mild pain/ fever>100.5F
Artificial Tears 1 drops 08/10/24 10:28 08/21/24 20:17
Artificial Tears Pf (Refresh) 10 Drop Droperette OPHTH 09/07/24 10:27 1 drops
QIDPRN PRN Administration
dry eyes
Bisacodyl 10 mg 08/18/24 16:31 08/19/24 23:26
Bisacodyl 10 Mg Rectal Suppository RECTAL 09/15/24 16:30 10 mg
DAILYPRN PRN Administration
constipation
Carbamazepine 100 mg 08/23/24 20:00 08/24/24 07:38
Carbamazepine 100 Mg Chewable Tablet PO 09/20/24 19:59 100 mg
BID CAMELIA Administration
Chlorhexidine Gluconate 15 ml 08/18/24 09:00 08/24/24 10:24
Chlorhexidine Oral Rinse 0.12% 15 Ml Cup PO 09/15/24 08:59 15 ml
PCHS CAMELIA Administration
Duloxetine HCl 30 mg 08/18/24 10:00 08/24/24 07:38
Duloxetine Delayed Release 30 Mg Capsule PO 09/15/24 09:59 30 mg
DAILY CAMELIA Administration
Enoxaparin Sodium 40 mg 08/08/24 18:00 08/23/24 18:15
Enoxaparin Sodium 40 Mg/0.4 Ml Syringe SC 09/05/24 17:59 40 mg
QPM CAMELIA Administration
Fentanyl 1 patch 08/20/24 11:00 08/23/24 14:28
Fentanyl 25 Mcg/Hr Patch TRANSDERM 09/03/24 10:59 1 patch
Q72H CAMELIA Administration
Hydromorphone HCl 1.5 mg 08/21/24 08:23 08/24/24 07:31
Hydromorphone 1 Mg/Ml Carpuject IV 08/25/24 11:18 1.5 mg
Q3HPRN PRN Administration
severe pain
Hydromorphone HCl 1 mg 08/21/24 14:04 08/24/24 10:51
Hydromorphone 0.5 Mg/0.5 Ml Syringe IV 08/25/24 11:19 1 mg
Q3HPRN PRN Administration
MOD PAIN
Ibuprofen 800 mg 08/20/24 08:15 08/24/24 07:38
Ibuprofen 800 Mg Tablet PO 09/17/24 08:14 800 mg
QID CAMELIA Administration
Lidocaine 1 patch 08/15/24 08:00 08/24/24 07:37
Lidocaine 4% Topical Patch TOPICAL 09/12/24 07:59 1 patch
DAILY CAMELIA Administration
Protocol
Lidocaine 1 patch 08/15/24 08:00 08/24/24 07:38
Lidocaine 4% Topical Patch TOPICAL 09/12/24 07:59 1 patch
DAILY CAMELIA Administration
Protocol
Liothyronine Sodium 5 microgram 08/13/24 16:00 08/24/24 07:38
Liothyronine 5 Microgram Tablet PO 09/10/24 15:59 5 microgram
BID@0800,1600 CAMELIA Administration
Lorazepam 0.25 mg 08/22/24 18:31 08/22/24 22:16
Lorazepam 2 Mg/Ml Vial IV 09/11/24 21:05 0.25 mg
Q4HPRN PRN Administration
anxiety
Magnesium Hydroxide 30 ml 08/23/24 10:41
Milk Of Magnesia 30 Ml Cup PO 09/20/24 10:40
QIDPRN PRN
constipation
Synthroid (Brand 0 unit 08/09/24 06:00 08/24/24 06:18
Name Levothyroxine) PO 09/06/24 05:59 1 unit
125mcg Tablet - Take DAILY@0600 CAMELIA Administration
1/2 Tablet (62.5mcg
) Po Daily
Ondansetron HCl 4 mg 08/08/24 12:07 08/08/24 14:53
Ondansetron 4 Mg/2 Ml Vial IV 09/05/24 12:06 4 mg
Q6HPRN PRN Administration
NAUSEA/VOMITING
Pantoprazole Sodium 40 mg 08/20/24 10:24 08/24/24 07:34
Protonix 40 Mg Iv Push IV 09/17/24 10:23 40 mg
DAILY CAMELIA Administration
Patch Removal 0 patch 08/15/24 20:00 08/23/24 20:49
Remove Lidocaine Patch REMOVE 09/12/24 19:59 2 patch
DAILY@2000 CAMELIA Administration
Patch Removal 0 patch 08/23/24 11:00 08/23/24 14:28
Remove Fentanyl Patch REMOVE 09/06/24 10:59 1 patch
Q72H CAMELIA Administration
Polyethylene Glycol 17 grams 08/21/24 20:00 08/24/24 07:40
Polyethylene Glycol Powder 17 Grams Packet PO 09/18/24 19:59 Not Given
BID CAMELIA
Pregabalin 200 mg 08/16/24 16:00 08/24/24 07:38
Pregabalin 100 Mg Capsule TUBE 09/13/24 15:59 200 mg
TID CAMELIA Administration
Senna/Docusate Sodium 1 tablet 08/16/24 20:00 08/24/24 07:40
Docusate W/Senna (Elisabeth-Colace) Tablet PO 09/13/24 19:59 Not Given
BID CAMELIA
Sennosides 8.6 mg 08/12/24 12:57
Sennosides (Senokot) 8.6 Mg Tablet PO 09/09/24 12:56
BIDPRN PRN
CONSTIPATION
Simethicone 80 mg 08/20/24 08:20 08/24/24 07:40
Simethicone (40 Mg/0.6 Ml) Drops 30 Ml Bottle TUBE 09/17/24 08:19 80 mg
QID CAMELIA Administration
Sodium Chloride 0 flush 08/07/24 21:00 08/13/24 18:53
Sodium Chloride 0.9% (Flush) Syringe IV 09/04/24 20:59 1 flush
PER PROTOCOL CAMELIA Administration
Sodium Chloride 10 ml 08/20/24 10:24 08/24/24 07:34
Sodium Chloride 0.9% (Preservative Free) 10 Ml Vial IV 09/17/24 10:23 10 ml
DAILY CAMELIA Administration
Sodium Chloride 0.125 ml 08/22/24 18:39
Nss (Pf) 10 Ml Vial IV 09/11/24 21:14
Q4HPRN PRN
IV LORAZEPAM DILUTION
Valacyclovir HCl 500 mg 08/08/24 12:07 08/24/24 04:30
Valacyclovir Hcl 500 Mg Tablet PO 09/13/24 12:06 500 mg
DAILYPRN PRN Administration
fever blisters
Home Medications
-
Home Medications
valacyclovir 500 mg tablet (Valtrex) 500 mg PO DAILYPRN PRN fever blisters 05/24/09
acetaminophen 500 mg tablet 500 mg PO DAILYPRN PRN mild pain 08/07/24
ibuprofen 200 mg tablet 600 mg PO DAILYPRN PRN mild pain 08/07/24
levothyroxine 125 mcg tablet (Synthroid) 62.5 mcg PO DAILY Thyroid 08/07/24
lidocaine 5 % topical patch 3 patch topical DAILYPRN PRN upper and lower back 08/07/24
liothyronine 5 mcg tablet 5 mcg PO BID Thyroid 08/07/24
omeprazole 20 mg capsule,delayed release 20 mg PO DAILY Gastrointestinal Issue 08/07/24
oxycodone-acetaminophen 5 mg-325 mg tablet 1 tab PO Q6HPRN PRN severe pain 08/07/24
prednisone 20 mg tablet 40 mg PO UD Anti-Inflammatory 08/07/24
semaglutide (weight loss) 1.7 mg/0.75 mL subcutaneous pen injector (Wegovy) 1.7 mg SC TU Weight Gain 08/07/24
--- NOTE | 2024-08-24 13:18 | W.PN.HOSP.TC ---
Today's Communication/Plan
-
aim for [facility] in 24 hours if continues to have adequate oral intake
Assessment / Plan
Assessment / Plan
Assessment:
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 Left 6th nerve palsy noted. Having double vision with both eyes open.
- MRI imaging of spine (C/T/L with contrast) without evidence of any enhancing lesions, myelopathic signals.
- MRI brain: delayed images reveal Nodular focus of enhancement within the superior left cerebellar hemisphere, with a larger region of surrounding increased T2 and FLAIR signal. See above discussion regarding timing of contrast enhancement.
Etiology for this finding is uncertain. It could possibly represent neoplasia. A focus of demyelination could be considered. Vasculitis could also be considered. This could possibly be a vascular/venous anomaly, although the surrounding increased T2
and FLAIR signal is atypical.
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
- outpatient repeat MRI in 4 weeks with NeuroSx eval
- s/p IVIG course without improvement, elevated LFTs
- s/p IR guided tunnel cath 08/10; completed 5 treatments of plasma exchange, last treatment 08/19.
- follow extended neuro workup from serum and CSF studies; repeat CSF studies outpatient
Intractable pain syndrome -due to Guillain-Morgan�. Pain level remains at 9 out of 10. Continue IV Dilaudid as needed. Continue ibuprofen 800 g 4 times daily [id number]. Fentanyl patch 25 mcg started 08/20.
She is already on maximum dose of pregabalin. Duloxetine started at 30 mg daily on 08/18, dose to be gradually increased. Also on Tegretol.
She is moving her bowels but complaining of abdominal distention and bloating. Suspect due to Guillain-Morgan� syndrome. Continue bowel regimen, add simethicone.
Acute dysphagia - due to Guillain-Morgan� syndrome. Dobbhoff tube placed and tube feeds are running. s/p VSE 08/22 with advancement to IDDSI 4 diet. Observe progress of oral feeds prior to discontinuation of DHT. so far at least 50-75% of meals being
eaten. High risk for aspiration. continue calorie count with dietary.
Acute urinary retention - due to Guillain-Morgan� syndrome. Block catheter placed 08/15. Block catheter removed 08/20 morning, voiding trial. Bladder scan shows 472 cc, and Block reinserted.
Hyponatremia - improved.
Elevated LFTs -improved.
- suspected related to IVIG; trend
- has no abdominal discomfort
Chronic neck pain
Gabapentin changed to pregabalin by neurology. Monitor for sedation
Mild intermittent asthma - stable.
History of thyroid cancer - continue Cytomel and Synthroid (patient prefers brand name - is using her own supply). noted low TSH, normal T4
DVT ppx: Lovenox
Code: Full
Dispo - acute rehab when medically stable
Anticipated Discharge: Within 24 hours
Subjective/Interval History
-
Date of Service: August 24, 2024
feels some episodic blurred visions
eating roughly 60-70% on meals per RN reports
on francois count x 24 hours further
Objective Data
-
Vital Signs:
Vital Signs
Temp Pulse Resp BP Pulse Ox
98.6 F 73 17 105/82 96
08/24/24 11:55 08/24/24 04:00 08/24/24 04:00 08/24/24 03:58 08/24/24 10:25
I&O
08/23/24 08/24/24 08/25/24
06:59 06:59 06:59
Intake Total 510 / 510 480 / 480
Output Total 800 / 800 1400 / 1400
Balance -290 / -290 -920 / -920
Physical Exam
-
General: No Apparent Distress
HEENT: Normocephalic and Atraumatic
Respiratory: Negative Wheezes
Cardiac: Regular Rhythm and S1/S2
GI: Soft and Nontender
Genito-urinary: No Costovertebral Tender
Musculoskeletal: No Edema
Neuro: AO x 3
Psych: Calm
Data Reviewed
-
Total Time Spent with Patient (in minutes): 41
Labs: Labs Reviewed by me
--- NOTE | 2024-08-24 17:01 | CM ---
Patient with Dx Guillain-Morgan� syndrome, Intractable pain syndrome, Dysphagia. Room air. IV Dilaudid switched to PO today, Fentanyl Patch. Dysphagia diet. DHT remains in place. Calorie count ongoing. PT/OT recommend acute rehab. Physiatry
recommends [facility].
Messages with Dr Pope; patient may be ready for d/c to [facility] tomorrow.
Spoke with [facility]; they will have an available bed tomorrow and can accept the patient.
Met with patient and her father; they are in agreement with [facility] tomorrow if discharged. Patient expressed concern re; the severity of her pain with the need to transition off IV Dilaudid for [facility]. She is looking forward to going over to [place].
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
Plan follow up tomorrow re; probable d/c to [place].
[2024-08-24] MEDS: LOVENOX 40 MG SC (18:05)
[2024-08-24] MEDS: DILAUDID 2 MG PO (20:17)
[2024-08-24] MEDS: PERIDEX 0.12% ORAL RINSE PO (22:48)
[2024-08-25] VITALS (12 sets, daily range): BP systolic 100–124; BP diastolic 43–94; BMI 25.6
[2024-08-25] MEDS: DILAUDID 2 MG PO ×6 (00:35→22:42)
[2024-08-25] MEDS: NON-FORMULARY ITEM 1 UNIT PO (04:41)
[2024-08-25] MEDS: DILAUDID 0.25 MG IV (05:27)
--- NOTE | 2024-08-25 06:00 | PTCARENOTE ---
Cared for patient overnight. aaox3, NSR, on RA. Remains bedrest, edy lift. Had to reinsert traylor d/t inability to urinate on own. Still c/o 10 pain, pt feels her pain is not being managed well. Pt also wanted meds to be given through dobhoff
rather than PO d/t having to situp and reposition to take meds by mouth and her increased pain interfered with that. She stated this was one of her worst nights, feels like too many things were changed at once. Provided emotional support. Q2T. SCDs,
footdrop boots. Will monitor & update day shift.
[2024-08-25] MEDS: CYMBALTA DELAYED RELEASE 30 MG PO (07:56)
[2024-08-25] MEDS: CYTOMEL 5 MICROGRAM PO ×2 (07:57→16:19)
[2024-08-25] MEDS: LIDOCAINE 4% PATCH 1 PATCH TOPICAL ×2 (07:57→07:59)
[2024-08-25] MEDS: LYRICA 200 MG TUBE ×3 (08:03→21:31)
[2024-08-25] MEDS: MOTRIN 800 MG PO ×4 (08:04→21:31)
[2024-08-25] MEDS: NSS (PRESERVATIVE FREE) 10 ML IV (08:05)
[2024-08-25] MEDS: MYLICON DROPS 80 MG TUBE ×4 (08:05→21:35)
[2024-08-25] MEDS: PROTONIX IV 40 MG IV (08:06)
[2024-08-25] MEDS: SENOKOT-S PO ×2 (08:07→20:10)
[2024-08-25] MEDS: TEGRETOL CHEWABLE 100 MG PO ×2 (08:08→21:31)
[2024-08-25] MEDS: MIRALAX PO ×2 (08:08→20:10)
[2024-08-25] MEDS: DILAUDID 1 MG PO (08:09)
[2024-08-25] MEDS: PERIDEX 0.12% ORAL RINSE 15 ML PO ×4 (08:11→21:32)
--- NOTE | 2024-08-25 11:03 | W.PN.HOSP.TC ---
Today's Communication/Plan
-
dc to [facility]
Assessment / Plan
Assessment / Plan
Assessment:
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 Left 6th nerve palsy noted. Having double vision with both eyes open.
- MRI imaging of spine (C/T/L with contrast) without evidence of any enhancing lesions, myelopathic signals.
- MRI brain: delayed images reveal Nodular focus of enhancement within the superior left cerebellar hemisphere, with a larger region of surrounding increased T2 and FLAIR signal. See above discussion regarding timing of contrast enhancement.
Etiology for this finding is uncertain. It could possibly represent neoplasia. A focus of demyelination could be considered. Vasculitis could also be considered. This could possibly be a vascular/venous anomaly, although the surrounding increased T2
and FLAIR signal is atypical.
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
- outpatient repeat MRI in 4 weeks with NeuroSx eval
- s/p IVIG course without improvement, elevated LFTs
- s/p IR guided tunnel cath 08/10; completed 5 treatments of plasma exchange, last treatment 08/19.
- follow extended neuro workup from serum and CSF studies; repeat CSF studies outpatient
Intractable pain syndrome -due to Guillain-Morgan�. Pain level remains at 9 out of 10.
- Continue ibuprofen 800 g 4 times daily [id number]. Fentanyl patch 25 mcg started 08/20. oral prn Dilaudid
- maxed pregabalin. continue Duloxetine started at 30 mg daily on 08/18, dose to be gradually increased. Also on Tegretol.
- continue bowel regimen
Acute dysphagia - due to Guillain-Morgan� syndrome.
- s/p VSE now on dysphagia diet, caloric counts per dietary indicated adequate cals per oral diet. stop tube feeds. DC DHT when transferring to acute rehab. remains high aspiration risk overall.
Acute urinary retention - due to Guillain-Morgan� syndrome. Block catheter in place.
Hyponatremia - improved.
Elevated LFTs -improved.
- suspected related to IVIG; trend
- has no abdominal discomfort
Chronic neck pain
- continue Lyrica
Mild intermittent asthma - stable.
History of thyroid cancer - continue Cytomel and Synthroid (patient prefers brand name - is using her own supply). noted low TSH, normal T4
DVT ppx: Lovenox
Code: Full
Dispo - acute rehab when medically stable
More than 30 minutes spent in discharge including
Final examination of the patient
Summarizing hospital stay
Instructions for continuing care to all relevant caregivers
Preparation of discharge records, prescriptions, and referral forms
Total time spent (in minutes): 42
Anticipated Discharge: Today
Subjective/Interval History
-
Date of Service: August 25, 2024
no new complaints at present
Objective Data
-
Vital Signs:
Vital Signs
Temp Pulse Resp BP Pulse Ox
97.9 F 65 10 104/53 97
08/25/24 07:16 08/25/24 06:00 08/25/24 06:00 08/25/24 06:00 08/25/24 08:14
I&O
08/24/24 08/25/24 08/26/24
06:59 06:59 06:59
Intake Total 480 / 480
Output Total 1400 / 1400 1750 / 1750 800 / 800
Balance -920 / -920 -1750 / -1750 -784 / -784
Physical Exam
-
General: No Apparent Distress
HEENT: Normocephalic and Atraumatic
Respiratory: Negative Wheezes
Cardiac: Regular Rhythm and S1/S2
GI: Soft and Nontender
Genito-urinary: No Costovertebral Tender
Musculoskeletal: No Edema
Neuro: AO x 3
Hematologic / Lymphatic: No Lymphadenopathy
Psych: Calm
Data Reviewed
-
Total Time Spent with Patient (in minutes): 42
Labs: Labs Reviewed by me
[2024-08-25] MEDS: LOVENOX 40 MG SC (18:38)
--- NOTE | 2024-08-25 19:54 | PTCARENOTE ---
day shift note. see nursing worklist. pt appetite good today. has had several soft/loose bms. pt upset because she feels pain is not being adequately controlled. hospitalist made aware . prn diludud order changed to q 3 hrs prn. pt made aware.
dobhoff clogged after last dose of motrin given.
--- NOTE | 2024-08-25 23:07 | PTCARENOTE ---
Caring for patient overnight. aaox3. NSR, remains RA. Still c/o generalized pain, mainly lower back and legs. Pt very sensitive to touch, repositioning & turning often. Feels bed is uncomfortable for her back. PO Dilaudid given q3h. Q2T. Michele lift
as needed. Dobhoff remains in and pt requesting to use that for her meds but tube clogged today, unable to unclog. Using meds crushed in soft ice cream. PT stated she is having trouble with using applesauce, feels it is getting stuck in her mouth.
Pt did well with soft ice cream, no coughing. Continues to have incontinent loose bm's. Stool regimen held. Block in place.
Pt stated she is eager to get to [place] but hesitant d/t her pain management at this time. Will see how she does with Dilaudid Q3h.
[2024-08-26] VITALS (8 sets, daily range): BP systolic 93–135; BP diastolic 29–76; BMI 23.0
[2024-08-26] MEDS: DILAUDID 2 MG PO ×5 (01:53→15:25)
[2024-08-26] MEDS: TUMS EX (EXTRA STRENGTH) CHEWABLE TABLET 300 MG PO (02:35)
[2024-08-26] MEDS: NON-FORMULARY ITEM 1 UNIT PO (05:04)
[2024-08-26] MEDS: MIRALAX PO (08:14)
[2024-08-26] MEDS: LYRICA 200 MG TUBE (08:14)
[2024-08-26] MEDS: MOTRIN 800 MG PO ×2 (08:15→12:14)
[2024-08-26] MEDS: CYMBALTA DELAYED RELEASE 30 MG PO (08:16)
[2024-08-26] MEDS: CYTOMEL 5 MICROGRAM PO (08:16)
[2024-08-26] MEDS: TEGRETOL CHEWABLE 100 MG PO (08:16)
[2024-08-26] MEDS: SENOKOT-S PO (08:16)
[2024-08-26] MEDS: PERIDEX 0.12% ORAL RINSE 15 ML PO ×2 (08:20→10:47)
--- NOTE | 2024-08-26 10:05 | CM ---
Patient with Dx Guillain-Morgan� syndrome, Intractable pain syndrome, Dysphagia. Room air. Receiving Lyrica, PO Dilaudid prn. Dobhoff tube to be removed today. PT/OT recommend acute rehab. Physiatry recommends [facility].
Spoke with [facility]; they are able to accept the patient today once Dobhoff tube is removed. The ph for report [phone], fax [phone].
Met with patient who agrees with d/c today to [facility].
Plan [facility] today.
[2024-08-26] MEDS: LIDOCAINE 4% PATCH 1 PATCH TOPICAL ×2 (10:23→10:24)
[2024-08-26] MEDS: MYLICON DROPS TUBE ×2 (10:31→13:29)
[2024-08-26] MEDS: PROTONIX IV 40 MG IV (10:31)
[2024-08-26] MEDS: NSS (PRESERVATIVE FREE) 0.125 ML IV (10:32)
[2024-08-26] MEDS: DURAGESIC 25 MCG/HR PATCH 1 PATCH TRANSDERM (10:39)
[2024-08-26] MEDS: NSS (PRESERVATIVE FREE) 10 ML IV (10:47)
--- NOTE | 2024-08-26 10:51 | W.PN.HOSP.TC ---
Today's Communication/Plan
-
dc to [facility]
Assessment / Plan
Assessment / Plan
Assessment:
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 Left 6th nerve palsy noted. Having double vision with both eyes open.
- MRI imaging of spine (C/T/L with contrast) without evidence of any enhancing lesions, myelopathic signals.
- MRI brain: delayed images reveal Nodular focus of enhancement within the superior left cerebellar hemisphere, with a larger region of surrounding increased T2 and FLAIR signal. See above discussion regarding timing of contrast enhancement.
Etiology for this finding is uncertain. It could possibly represent neoplasia. A focus of demyelination could be considered. Vasculitis could also be considered. This could possibly be a vascular/venous anomaly, although the surrounding increased T2
and FLAIR signal is atypical.
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
- outpatient repeat MRI in 4 weeks with NeuroSx eval
- s/p IVIG course without improvement, elevated LFTs
- s/p IR guided tunnel cath 08/10; completed 5 treatments of plasma exchange, last treatment 08/19.
- follow extended neuro workup from serum and CSF studies; repeat CSF studies outpatient
Intractable pain syndrome -due to Guillain-Morgan�. Pain level remains at 9 out of 10.
- Continue ibuprofen 800 g 4 times daily [id number]. Fentanyl patch 25 mcg started 08/20. oral prn Dilaudid q3h prn
- maxed pregabalin. continue Duloxetine started at 30 mg daily on 08/18, dose to be gradually increased. Also on Tegretol.
- continue bowel regimen
Acute dysphagia - due to Guillain-Morgan� syndrome.
- s/p VSE now on dysphagia diet, caloric counts per dietary indicated adequate cals per oral diet. stop tube feeds. DC DHT when transferring to acute rehab. remains high aspiration risk overall.
Acute urinary retention - due to Guillain-Morgan� syndrome. Block catheter in place.
Hyponatremia - improved.
Elevated LFTs -improved.
- suspected related to IVIG; trend
- has no abdominal discomfort
Chronic neck pain
- continue Lyrica
Mild intermittent asthma - stable.
History of thyroid cancer - continue Cytomel and Synthroid (patient prefers brand name - is using her own supply). noted low TSH, normal T4
DVT ppx: Lovenox
Code: Full
Dispo - acute rehab when medically stable
More than 30 minutes spent in discharge including
Final examination of the patient
Summarizing hospital stay
Instructions for continuing care to all relevant caregivers
Preparation of discharge records, prescriptions, and referral forms
Total time spent (in minutes): 41
Anticipated Discharge: Today
Subjective/Interval History
-
Date of Service: August 26, 2024
no new complaints
reports feeling tired today
Objective Data
-
Vital Signs:
Vital Signs
Temp Pulse Resp BP Pulse Ox
97.8 F 66 10 128/73 94
08/25/24 19:53 08/26/24 06:00 08/26/24 06:00 08/26/24 06:00 08/26/24 06:00
I&O
08/25/24 08/26/24 08/27/24
06:59 06:59 06:59
Intake Total
Output Total 1749 / 1749
Balance -1750 / -1750 -1933 / -1933
Physical Exam
-
General: No Apparent Distress
HEENT: Normocephalic and Atraumatic
Respiratory: Negative Wheezes
Cardiac: Regular Rhythm and S1/S2
GI: Soft
Neuro: AO x 3
Psych: Calm
Data Reviewed
-
Total Time Spent with Patient (in minutes): 41
Labs: Labs Reviewed by me
--- NOTE | 2024-08-26 10:52 | W.DS.TRANS ---
DC Summary - [employer]
-
Discharge Instructions:
Discharge Diagnosis/Procedures Peres Bryan syndrome (variant of GBS), acute
dysphagia and acute pain
Diet Supplements
Additional Diets IDDSI 4 with thin liquids
Activity As tolerated
Others Tests MRI brain w/wo AISHWARYA in 4 weeks. Outpatient [facility] for
CSF studies f/u
Other Services OT,PT
Instructions:
Stand-Alone Forms:
Changes to Home Medications: No
Discharge Medications:
DC Medications w/original date entered in [facility]
valacyclovir 500 mg tablet (Valtrex) 500 mg PO DAILYPRN PRN fever blisters 05/24/09
levothyroxine 125 mcg tablet (Synthroid) 62.5 mcg PO DAILY Thyroid 08/07/24
liothyronine 5 mcg tablet 5 mcg PO BID Thyroid 08/07/24
acetaminophen 325 mg tablet 650 mg (2 x 325 mg) PO Q6HPRN PRN mild pain/ fever>100.5F #100 tabs 08/25/24
carbamazepine 100 mg chewable tablet 100 mg PO BID #60 tabs 08/25/24
chlorhexidine gluconate 0.12 % mouthwash 15 ml PO PCHS #473 mL 08/25/24
duloxetine 30 mg capsule,delayed release 30 mg PO DAILY #30 caps 08/25/24
enoxaparin 40 mg/0.4 mL subcutaneous syringe 40 mg (0.4 mL) SC QPM #30 mL 08/25/24
fentanyl 25 mcg/hr transdermal patch 1 patch transdermal Q72H #10 ea 08/25/24
hydromorphone 2 mg tablet 1 mg (1/2 x 2 mg) PO Q4HPRN PRN moderate pain #20 tabs 08/25/24
hydromorphone 2 mg tablet 2 mg PO Q4HPRN PRN severe pain #20 tabs 08/25/24
ibuprofen 800 mg tablet 800 mg PO QID #120 tabs 08/25/24
lidocaine 4 % topical patch 2 patch topical DAILY #60 ea 08/25/24
magnesium hydroxide 400 mg/5 mL oral suspension (Milk of Magnesia) 30 ml PO QIDPRN PRN constipation #355 mL 08/25/24
pantoprazole 40 mg tablet,delayed release (Protonix) 40 mg PO DAILY #30 tabs 08/25/24
polyethylene glycol 3350 17 gram oral powder packet 17 g PO BID #60 ea 08/25/24
polyvinyl alcohol-povidone (PF) 1.4 %-0.6 % eye drops in a dropperette (Refresh Classic (PF)) 1 drp ophthalmic (eye) QIDPRN PRN dry eyes #30 ea 08/25/24
pregabalin 100 mg capsule 200 mg (2 x 100 mg) PO TID #180 caps 08/25/24
sennosides 8.6 mg-docusate sodium 50 mg tablet 1 tab PO BID #60 tabs 08/25/24
simethicone 40 mg/0.6 mL oral drops,suspension (Teeny Tummy Gas Relief) 80 mg (1.2 mL) PO QID #30 mL 08/25/24
Home Medication Changes
Pending Results: No
Total time spent discharging patient (in min): 41
--- NOTE | 2024-08-26 14:42 | PTCARENOTE ---
Report given to Amanda BERNARD for transfer to [facility]. Belongings to be sent with patient. Patient educated about plan of care. Discussed Fentanyl patch with Amanda BERNARD and our pharmacist- patient will be transferred with Fentanyl patch intact on right upper
arm.
--- NOTE | 2024-08-26 15:32 | PTCARENOTE ---
Dobhoff tube removed as per doctor orders. Patient tolerated procedure.
== END 2024-08-26 16:07 | DRG 94 ==
LOC: IMU 19:02
PROVIDERS: Internal Medicine Critical Care Medicine; Nurse Practitioner; Nurse Practitioner Acute Care; Nurse Practitioner Family; Radiology Diagnostic Radiology; Radiology Vascular & Interventional Radiology; ADMITTING PHYSICIAN Hospitalist; ATTENDING PHYSICIAN Internal Medicine; CONSULT PHYSICIAN Internal Medicine Critical Care Medicine; CONSULT PHYSICIAN Psychiatry & Neurology Neurology; CONSULT PHYSICIAN Student in an Organized Health Care Education/Training Program; EMERGENCY PHYSICIAN Emergency Medicine; FAMILY PHYSICIAN Family Medicine; OTHER PHYSICIAN Internal Medicine Hematology & Oncology; OTHER PHYSICIAN Physical Medicine & Rehabilitation
PROC: 009U3ZX Drainage of Spinal Canal, Percutaneous Approach, Diagnostic (ICD-10-PCS; 2024-08-08)
PROC: 30233S1 Transfusion of Nonautologous Globulin into Peripheral Vein, Percutaneous Approach (ICD-10-PCS; 2024-08-09)
PROC: 02HV33Z Insertion of Infusion Device into Superior Vena Cava, Percutaneous Approach (ICD-10-PCS; 2024-08-10)
DX: G61.0 Guillain-Barre syndrome (principal); G92.8 Other toxic encephalopathy; G93.6 Cerebral edema; E87.1 Hypo-osmolality and hyponatremia; M47.12 Other spondylosis with myelopathy, cervical region; B37.0 Candidal stomatitis; E03.2 Hypothyroidism due to medicaments and other exogenous substances; E55.9 Vitamin D deficiency, unspecified; K21.9 Gastro-esophageal reflux disease without esophagitis; K90.0 Celiac disease; G89.4 Chronic pain syndrome; M47.22 Other spondylosis with radiculopathy, cervical region; J45.20 Mild intermittent asthma, uncomplicated; F41.1 Generalized anxiety disorder; H49.22 Sixth [abducent] nerve palsy, left eye; G61.82 Multifocal motor neuropathy; E78.5 Hyperlipidemia, unspecified; R13.12 Dysphagia, oropharyngeal phase; R33.9 Retention of urine, unspecified; R79.89 Other specified abnormal findings of blood chemistry; K76.0 Fatty (change of) liver, not elsewhere classified; Z79.52 Long term (current) use of systemic steroids; Z79.891 Long term (current) use of opiate analgesic; Z79.899 Other long term (current) drug therapy; Z85.850 Personal history of malignant neoplasm of thyroid; Z86.19 Personal history of other infectious and parasitic diseases; Z87.820 Personal history of traumatic brain injury; Z88.6 Allergy status to analgesic agent
CPT/HCPCS: 36556; 62328; 70553; 72141; 72146; 72147; 72156; 72158; 74018; 74230; 76937; 77001; 80048; 80053; 81003; 82040; 82042; 82164; 82175; 82248; 82525; 82550; 82607; 82784; 82805; 82945; 83516; 83615; 83655; 83735; 83825; 83873; 83916; 84100; 84155; 84157; 84165; 84425; 84439; 84443; 85025; 85027; 85384; 85610; 85652; 85730; 86038; 86039; 86041; 86140; 86160; 86235; 86592; 86618; 86704; 86705; 86706; 86803; 86850; 86900; 86901; 87015; 87070; 87205; 87340; 87476; 88108; 89051; 92526; 92610; 92611; 93970; 95886; 95912; 97110; 97163; 97167; 97530; 97535; 99285; A9575; C1752; J1569; P9045

== ENCOUNTER 2024-09-04 22:06 | Emergency (ER) | payer OTHER, SELFPAY ==
[2024-09-04 22:14] VITALS: BMI 22.9
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
[2024-09-04 22:36] LABS: % Immature Granulocytes 0.3 % (0-0.5); % Lymphocytes 31.5 % (20.5-51.1); % Monocytes 6.8 % (1.7-9.3); % Neutrophils 57.4 % (42.2-75.2); Absolute Basophils 0.1 10^3/uL (0-0.2); Absolute Eosinophils 0.2 10^3/uL (0-0.7); Absolute Lymphocytes 2.1 10^3/uL (1.2-3.4); Absolute Monocytes 0.5 10^3/uL (0.1-0.6); Absolute Neutrophils 3.9 10^3/uL (1.4-6.5); Hematocrit 41.2 % (37.0-47.0); Hemoglobin 14.5 g/dL (12.0-16.0); Mean Corp Hgb Conc. 35.2 g/dL (33.0-37.0); Mean Corpuscular Volume 93.6 fL (81.0-99.0); Mean Platelet Volume 9.5 fL (7.4-10.4); Nucleated Red Blood Cells % 0 %; Platelet Count 375 10^3/uL (130-400); Red Cell Dist. Width 13.6 % (11.5-14.5); White Blood Cell Count 6.7 10^3/uL (4.8-10.8)
[2024-09-04] MEDS: MAALOX 45 PO (22:37)
[2024-09-04 22:57] LABS: ALT (SGPT) 64 U/L (0-35); AST (SGOT) 41 U/L (14-36); Albumin 4.2 g/dl (3.5-5.0); Alkaline Phosphatase 100 U/L (38-126); Blood Urea Nitrogen 20 mg/dl (7-17); Carbon Dioxide 31 mmol/L (22-30); Chloride 98 mmol/L (98-107); Estimated Creatinine Clearance 102 ml/min; Glucose 105 mg/dl (70-99); Lipase 308 U/L (23-300); Magnesium 2.3 mg/dl (1.6-2.3); Potassium 3.7 mmol/L (3.5-5.1); Sodium 136 mmol/L (135-145); Total Bilirubin 0.4 mg/dl (0.2-1.3); Total Protein 6.6 g/dl (6.3-8.2); eGFR > 60.00
[2024-09-04 23:01] LABS: NT-proBNP < 20.0 pg/ml; Troponin I < 0.012 ng/ml
[2024-09-04 23:22] LABS: INR 0.97; PT 13.2 Sec (11.4-14.6)
[2024-09-04 23:23] LABS: APTT 29.2 Sec (23.4-35.0)
[2024-09-04 23:26] VITALS: BP 115/61
[2024-09-04 23:27] LABS: D-Dimer 0.38 ug/mlFEU (0.00-0.50)
[2024-09-05] VITALS: BP 144/65
[2024-09-05] MEDS: CARAFATE SUSPENSION 1 GM PO (00:33)
[2024-09-05 01:00] VITALS: BP 154/124
[2024-09-05] MEDS: DILAUDID 1 MG PO (01:19)
[2024-09-05 01:20] LABS: Troponin I < 0.012 ng/ml
[2024-09-05] MEDS: VIBRAMYCIN 100 MG PO (01:25)
[2024-09-05] MEDS: MOTRIN 800 MG TUBE (01:59)
[2024-09-05 02:01] VITALS: BP 115/75
== END 2024-09-05 02:00 ==
LOC: EMR 22:06
PROVIDERS: EMERGENCY PHYSICIAN Student in an Organized Health Care Education/Training Program; FAMILY PHYSICIAN Family Medicine
DX: R07.89 Other chest pain (principal); K21.9 Gastro-esophageal reflux disease without esophagitis; J18.9 Pneumonia, unspecified organism; Z88.6 Allergy status to analgesic agent; E03.9 Hypothyroidism, unspecified; J45.909 Unspecified asthma, uncomplicated; F41.9 Anxiety disorder, unspecified; F90.9 Attention-deficit hyperactivity disorder, unspecified type; E55.9 Vitamin D deficiency, unspecified; K90.0 Celiac disease; E78.00 Pure hypercholesterolemia, unspecified
CPT/HCPCS: 99285; 71046; 80053; 83690; 83735; 83880; 84443; 84484; 85025; 85379; 85610; 85730; 93005

== ENCOUNTER 2024-09-14 11:11 | Emergency (ER) | payer OTHER, SELFPAY ==
[2024-09-14 11:12] VITALS: BMI 24.2
[2024-09-14 11:20] VITALS: BP 139/79
--- NOTE | 2024-09-14 11:52 | ED.GENMED ---
History of Present Illness
General
Chief Complaint: Back Pain
Source: patient
Exam Limitations: none
Time Seen by Provider: 09/14/24 11:28
Nursing documentation reviewed up to this point in time: agreed with
History of Present Illness
History of Present Illness:
58-year-old female presents emergency department due to low back pain. Low back pain has been ongoing since she has been hospitalized for Guillain-Morgan�, and is now at [facility] re[facility]. They were increasing her Neurontin and decreasing her Dilaudid.
She had too much pain to do physical therapy today. She was seen by her physical medicine and rehabilitation team, who referred her to the emergency department.
Past History
Past History
ED Past Medical History: Asthma, Cancer (Papillary thyroid 2018), GERD, Hypercholesterolemia, Hypothyroidism, Psychiatric and Other (Celiac disease, vitamin D deficiency, iron deficiency, hepatic steatosis, hemorrhoids, Guillain-Morgan� syndrome)
ED Past Surgical History: , Gynecological (uterine ablation, tubal ligation), Tonsilectomy and Other (Epidural steroid injections C7-T1 2018, 2019 L5-S1 epidural steroid injections)
Social History
Tobacco: Non-smoker
Alcohol: Occasional
Drug: Marijuana (medical marijuana)
Personal:
Living: with family
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
Family History
Family History: Negative CAD
Review of Systems
Review of Systems
Allergies reviewed?: Yes
All Other Systems: Not applicable
Constitutional: Reports no symptoms
EENT: Reports no symptoms
Respiratory: Reports no symptoms
Cardiac: Reports no symptoms
ABD/GI: Reports no symptoms
: Reports no symptoms
Musculoskeletal: Reports back pain
Skin: Reports no symptoms
Neurological: Reports no symptoms
Endocrine: Reports no symptoms
Hematologic/Lymphatic: Reports no symptoms
Psychiatric: Reports no symptoms
Phy Exam
Physical Exam
Physical Exam:
Physical Exam
General: no apparent distress, not acutely ill
Neck: supple. no meningeal signs. normal posterior pharynx
Heart: s1/s2 regular rate and rhythm, no murmur. equal radial
pulses.
HEENT: Pupils equal round reactive to light, EOMI
Lungs: no acute respiratory distress. clear bilaterally
Abdomen: normal bowel sounds. not tender. no CVAT, wearing diaper
Neuro: alert and oriented. Not able to ambulate without assistance
Skin: no rash
Psychiatric: well kept. interactive and cooperative
Extremities: no edema. no calf tenderness. negative homans. good distal pulses
Course
Orders/Labs/Results
Orders:
Orders
09/14/24 11:45
IV Insert/Care/Rem.- Treatment PRN
HYDROmorphone [Dilaudid] 1 mg IV NOW STA
09/14/24 11:49
Lumbar Spine Complete, 4 View [CR Lumbar Spine Comp Min 4 Vw*] Urgent
Comment:
Reason For Exam: low back pain ongoing, worse today
09/14/24 11:51
Complete Blood Count/With Diff Urgent
Comprehensive Metabolic Panel Urgent
Abnormal Lab Results
09/14/24
11:51
RBC 3.90 L 10^6/uL
(4.20-5.40)
MCH 33.8 H pg
(27.0-31.0)
Carbon Dioxide 33 H mmol/L
(22-30)
Creatinine 0.4 L mg/dL
(0.6-1.0)
ALT 63 H U/L
(0-35)
Total Protein 6.2 L g/dl
(6.3-8.2)
09/14/24 11:51
09/14/24 11:51
Vital Signs
Initial and Last Documented VS:
Initial Vital Signs
Temp Resp Pulse Ox
98.5 F 16 98
09/14/24 11:14 09/14/24 11:14 09/14/24 11:14
Last Documented Vital Signs
Temp Pulse Resp BP Pulse Ox
98.5 F 76 11 138/63 93
09/14/24 11:14 09/14/24 12:15 09/14/24 12:15 09/14/24 12:00 09/14/24 12:15
MDM/Problems Addressed
Differential Diagnosis Includes:
Lumbar radiculopathy, neuropathy
MDM/Problems Addressed:
58-year-old female with low back pain, Guillain-Morgan� syndrome. Do not suspect worsening Guillain-Morgan� syndrome. No signs of cauda equina. Reviewed recent MRI. Discussed with Dr. Rafa Odonnell, who agrees with plan for discharge.
Chronic conditions affecting care: Asthma and Neurological disorder (Guillain-Morgan� syndrome)
*Radiology
Radiology exam reviewed: radiology read reviewed (Lumbar x-ray no acute findings)
*Pulse Oximetry
Patient hypoxic: no
*Critical Care Note
Total Time (30-74mins, 75-104mins- exclusive of procedures): Not Applicable
Data Reviewed
Review of Other/Old Records Reveals: Radiology Studies (MRI reviewed, showing no significant disc disease, mild desiccation at L4/L5 and L5/S1)
Source: records
Patient Management
Social determinants of health affecting care: Living situation and Strong social support
Discussion with other providers: Director Of Corporate Strategy (PMR physician Dr. Odonnell.)
Escalation/DeEscalation of care consider admission/obs:
Admit not indicated
ED Attending Note
-
Portions of this chart may have been created with voice recognition software.� Occasional wrong word or��sound alike� substitutions may have occurred due to the inherent limitations of voice recognition software.
Discharge Plan
Departure
Patient Disposition: Acute Rehab Facility
Date of Disposition: 09/14/24
Time of Disposition: 13:52
Patient with high blood pressure during this ER visit?: Yes
Condition: Good
Discharge Problem:
Low back pain
Instructions: Low Back Pain (DC), BLOOD PRESSURE
Prescriptions:
No Action
valacyclovir [Valtrex] 500 MG tablet
500 mg PO DAILYPRN PRN (Reason: fever blisters)
liothyronine 5 mcg Tablet
5 mcg PO BID
levothyroxine [Synthroid] 125 mcg Tablet
62.5 mcg PO DAILY
acetaminophen 325 mg Tablet
650 mg PO Q6HPRN PRN (Reason: mild pain/ fever>100.5F) Qty: 100 0RF
hydromorphone 2 mg Tablet
1 mg PO Q4HPRN PRN (Reason: moderate pain) Qty: 20 0RF
carbamazepine 100 mg Tablet,Chewable
100 mg PO BID Qty: 60 0RF
fentanyl 25 mcg/hr Patch 72 Hour
1 patch transdermal Q72H Qty: 10 0RF
Patient Comments:
remove in 72 hours
enoxaparin 40 mg/0.4 mL Syringe
40 mg SC QPM Qty: 30 0RF
duloxetine 30 mg Capsule,Delayed Release(Dr/Ec)
30 mg PO DAILY Qty: 30 0RF
hydromorphone 2 mg Tablet
2 mg PO Q4HPRN PRN (Reason: severe pain) Qty: 20 0RF
ibuprofen 800 mg Tablet
800 mg PO QID Qty: 120 0RF
pregabalin 100 mg Capsule
200 mg PO TID Qty: 180 0RF
chlorhexidine gluconate 0.12 % Mouthwash
15 ml PO PCHS Qty: 473 0RF
Refresh Classic (PF) 1.4-0.6 % Dropperette
1 drp ophthalmic (eye) QIDPRN PRN (Reason: dry eyes) Qty: 30 0RF
sennosides-docusate sodium 8.6-50 mg Tablet
1 tab PO BID Qty: 60 0RF
magnesium hydroxide [Milk of Magnesia] 400 mg/5 mL Suspension
30 ml PO QIDPRN PRN (Reason: constipation) Qty: 355 0RF
polyethylene glycol 3350 17 gram Powder In Packet
17 g PO BID Qty: 60 0RF
simethicone [Teeny Tummy Infant Gas Relief] 40 mg/0.6 mL Drops,Suspension
80 mg PO QID Qty: 30 0RF
lidocaine 4 % Adhesive Patch,Medicated
2 patch topical DAILY Qty: 60 0RF
Rx Instructions:
1 patch each to neck and lower back
pantoprazole [Protonix] 40 mg tablet,delayed release (DR/EC)
40 mg PO DAILY Qty: 30 0RF
doxycycline monohydrate 25 mg/5 mL suspension for reconstitution
100 mg PO BID 10 Days Qty: 400 0RF
Referrals:
Eb Mcgraw DO [Family Provider] - Call in 1-3 days for appt
Interventions
Interventions:
*Risk Screen - Suicide Last Done: 09/14/24 11:14
*General Assessment Last Done: 09/14/24 11:14
*Neglect/Abuse Screening Last Done: 09/14/24 11:14
ED- Fall Risk Assessment Last Done: 09/14/24 11:14
ED-Musculoskeletal Assessment Last Done: 09/14/24 11:14
Discharge Date and Time
Print Language: AZERI
[2024-09-14] MEDS: DILAUDID 1 MG IV ×2 (11:54→14:50)
[2024-09-14 12:00] VITALS: BP 138/63
[2024-09-14 12:03] LABS: % Basophils 1.2 % (0-2); % Eosinophils 2.7 % (0-6); % Immature Granulocytes 0.3 % (0-0.5); % Lymphocytes 22.3 % (20.5-51.1); % Monocytes 7.1 % (1.7-9.3); % Neutrophils 66.4 % (42.2-75.2); Absolute Basophils 0.1 10^3/uL (0-0.2); Absolute Eosinophils 0.2 10^3/uL (0-0.7); Absolute Lymphocytes 1.3 10^3/uL (1.2-3.4); Absolute Monocytes 0.4 10^3/uL (0.1-0.6); Absolute Neutrophils 3.9 10^3/uL (1.4-6.5); Hematocrit 37.6 % (37.0-47.0); Hemoglobin 13.2 g/dL (12.0-16.0); Mean Corp Hgb Conc. 35.1 g/dL (33.0-37.0); Mean Corpuscular Hgb 33.8 pg (27.0-31.0); Mean Corpuscular Volume 96.4 fL (81.0-99.0); Mean Platelet Volume 9.2 fL (7.4-10.4); Nucleated Red Blood Cells % 0 %; Platelet Count 289 10^3/uL (130-400); Red Cell Dist. Width 13.2 % (11.5-14.5); White Blood Cell Count 5.9 10^3/uL (4.8-10.8)
[2024-09-14 12:14] LABS: ALT (SGPT) 63 U/L (0-35); AST (SGOT) 34 U/L (14-36); Alkaline Phosphatase 89 U/L (38-126); Blood Urea Nitrogen 16 mg/dl (7-17); Calcium 9.7 mg/dl (8.4-10.2); Carbon Dioxide 33 mmol/L (22-30); Chloride 101 mmol/L (98-107); Estimated Creatinine Clearance 100 ml/min; Glucose 81 mg/dl (70-99); Potassium 3.9 mmol/L (3.5-5.1); Sodium 139 mmol/L (135-145); Total Bilirubin 0.5 mg/dl (0.2-1.3); Total Protein 6.2 g/dl (6.3-8.2); eGFR > 60.00
[2024-09-14 14:00] VITALS: BP 128/78
[2024-09-14 14:56] VITALS: BP 115/74
== END 2024-09-14 15:19 ==
LOC: EMR 11:11
PROVIDERS: EMERGENCY PHYSICIAN Emergency Medicine; FAMILY PHYSICIAN Family Medicine; REFERRING PHYSICIAN Physical Medicine & Rehabilitation
DX: M54.50 Low back pain, unspecified (principal); J45.909 Unspecified asthma, uncomplicated; E78.00 Pure hypercholesterolemia, unspecified; E03.9 Hypothyroidism, unspecified; K21.9 Gastro-esophageal reflux disease without esophagitis; Z87.19 Personal history of other diseases of the digestive system
CPT/HCPCS: 96374; 96376; 99284; 72110; 80053; 85025

== ENCOUNTER → 2024-12-28 11:26 | Outpatient (REF) | payer OTHER, SELFPAY | LOC: PAVMRI 11:26 | PROVIDERS: ATTENDING PHYSICIAN Psychiatry & Neurology Neurology; FAMILY PHYSICIAN Family Medicine | DX: G61.0 Guillain-Barre syndrome (principal); R90.89 Other abnormal findings on diagnostic imaging of central nervous system | CPT/HCPCS: 70553; A9575 ==

== ENCOUNTER 2025-01-23 10:49 | Outpatient (RCR) | payer OTHER, SELFPAY | END 2025-01-23 23:59 | disposition home or self-care (01) | LOC: RPT 10:49 | PROVIDERS: ATTENDING PHYSICIAN Family Medicine | DX: G61.0 Guillain-Barre syndrome (principal); Z73.6 Limitation of activities due to disability; R26.89 Other abnormalities of gait and mobility; M25.562 Pain in left knee; M25.561 Pain in right knee | CPT/HCPCS: 97110; 97112; 97116; 97140; 97162 ==

== ENCOUNTER 2025-02-21 11:38 | Outpatient (RCR) | payer OTHER, SELFPAY | END 2025-02-21 23:59 | disposition home or self-care (01) | LOC: RPT 11:38 | PROVIDERS: ATTENDING PHYSICIAN Family Medicine | DX: G61.0 Guillain-Barre syndrome (principal); Z73.6 Limitation of activities due to disability; R26.89 Other abnormalities of gait and mobility; M25.562 Pain in left knee; M25.561 Pain in right knee | CPT/HCPCS: 97110; 97112; 97116; 97140 ==

== ENCOUNTER 2025-03-10 10:23 | Outpatient (RCR) | payer OTHER, SELFPAY | END 2025-03-10 23:59 | disposition home or self-care (01) | LOC: RPT 10:23 | PROVIDERS: ATTENDING PHYSICIAN Family Medicine | DX: G61.0 Guillain-Barre syndrome (principal); Z73.6 Limitation of activities due to disability; R26.89 Other abnormalities of gait and mobility; M25.562 Pain in left knee; M25.561 Pain in right knee | CPT/HCPCS: 97010; 97110; 97112 ==

== ENCOUNTER → 2025-05-18 12:20 | Outpatient (REF) | payer OTHER, SELFPAY | LOC: PAVMRI 12:20 | PROVIDERS: ATTENDING PHYSICIAN Nurse Practitioner; FAMILY PHYSICIAN Family Medicine | DX: M54.9 Dorsalgia, unspecified (principal) | CPT/HCPCS: 72158; A9575 ==

== ENCOUNTER → 2025-07-06 07:41 | Outpatient (REF) | payer OTHER, SELFPAY | LOC: MRI 3T 07:41 | PROVIDERS: ATTENDING PHYSICIAN Nurse Practitioner; FAMILY PHYSICIAN Family Medicine | DX: R90.89 Other abnormal findings on diagnostic imaging of central nervous system (principal) | CPT/HCPCS: 70553; A9575 ==

== ENCOUNTER → 2025-07-06 09:11 | Outpatient (REF) | payer OTHER, SELFPAY | LOC: OHS 09:11 | PROVIDERS: ATTENDING PHYSICIAN Nurse Practitioner Family | DX: Z23 Encounter for immunization (principal) | CPT/HCPCS: 36415; 86480; 86735; 86765 ==